=== PATIENT | female | born 1940 | race Caucasian/White ===

== ENCOUNTER 2017-10-10 08:12 | Inpatient (IN) | payer MEDICARE, MEDICAID ==
[2017-10-10 08:51] LABS: #Lymphocytes 1.6 thou/uL (1.20-3.40); #Monocytes 1.1 thou/uL (0.11-0.59); #Neutrophils 12.9 thou/uL (1.40-6.50); %Basophils 0.2 % (0.0-1.0); %Eosinophils 0.3 % (0.0-10.0); %Lymphocytes 10.2 % (21.0-51.0); %Monocytes 7.3 % (0.0-10.0); %Neutrophils 82.1 % (42.0-75.0); Mean Corpuscular Hemoglobin 28.3 pg (27.0-31.0); Mean Corpuscular Volume 91.4 fl (81.0-99.0); Mean Platelet Volume 7.9 fL (7.4-10.4); Platelet Count 224 thou/uL (130-400); RBC Distribution Width 13.7 % (11.5-14.5); Red Blood Cell (RBC) Count 4.24 mill/uL (4.20-5.40); White Blood Cell (WBC) Count 15.7 thou/uL (4.8-10.8)
[2017-10-10 09:10] LABS: ALT (SGPT) 8 U/L (8-55); AST (SGOT) 16 U/L (5-34); Albumin 3.5 g/dL (3.4-4.8); Alkaline Phosphatase 84 U/L (40-150); Anion Gap 17 mmol/L (10-20); BUN (Urea Nitrogen) 63 mg/dL (9.8-20.1); Bilirubin, Total 0.5 mg/dL (0.2-1.2); CK (CPK) 74 U/L (29-168); Calc. Creatinine Clearance 0 mL/min (70-130); Calcium 9.3 mg/dL (7.8-10.44); Carbon Dioxide 23 mmol/L (23-31); Chloride 102 mmol/L (98-107); Estimated GFR-MDRD 12; Globulin 4.7 g/dL (2.4-3.5); Glucose 164 mg/dL (83-110); Potassium 4.3 mmol/L (3.5-5.1); Protein, Total 8.2 g/dL (6.0-8.3); Sodium 138 mmol/L (136-145)
[2017-10-10 09:13] LABS: Troponin I 0.106 ng/mL (< 0.028)
[2017-10-10] MEDS ORDERED: Morphine 2 MG/ML SYRINGE ONE (09:44)
[2017-10-10 10:43] LABS: Bilirubin Negative (Negative); Blood, Urine Negative (Negative); Clarity CLOUDY (Clear); Glucose, Urine (Dipstick) 100 mg/dL (Negative); Leukocyte Trace (Negative); Nitrite Negative (Negative); Protein, Urine (Dipstick) 300 mg/dL (Neg-Trace); Specific Gravity, Urine 1.019 (1.002-1.036); Urobilinogen 0.2 mg/dL (0.2-1.0)
[2017-10-10 10:48] LABS: Bacteria/HPF None Seen HPF (None Seen); RBC/HPF 0-3 HPF (0-3)
[2017-10-10 10:49] LABS: Pathc Cast-AUWi Flag 15.71 (0-2.49); Yeast-AUWi Flag 203.5 (0-25.0)
[2017-10-10 11:01] LABS: Hyaline Casts/LPF 0-3 HYALINE CAST LPF (0-3 Hyaline); Other Casts/LPF 0-3 COARSE GRAN LPF (0-3 Hyaline)
--- NOTE | 2017-10-10 11:01 | RAD ---
PORTABLE CHEST 1 VIEW: DATE: 10/10/17. TIME: 10:27 a.m. HISTORY: Shortness of breath and wheezing. FINDINGS: Comparison is made with the exam of 10/31/15. The heart is enlarged. The aorta is tortuous. There is pulmonary vascular congestion. No lobar con solidation, pneumothoraces, or large effusions are seen. IMPRESSION: Findings are suspicious for congestive heart failure. POS: DIONICIO
[2017-10-10 11:02] LABS: Crystals/HPF 2+ AMORPH URATES HPF (Negative); Yeast-All Forms None Seen HPF (None Seen)
[2017-10-10] MEDS ORDERED: Nitroglycerin 2% Ointment 1 INCH/1 GM Packet ONE (11:04)
[2017-10-10] MEDS ORDERED: Furosemide 40 MG/4 ML VIAL ONE (11:04)
[2017-10-10] MEDS ORDERED: Azithromycin 500 MG VIAL ONE (11:39)
[2017-10-10] MEDS ORDERED: cefTRIAXone\\ROCEPHIN 2 GM in Sodium Chloride 0.9% 100 ML IVPB ONE (11:45)
[2017-10-10] MEDS ORDERED: Dextrose 50% Abboject 50 ML SYRINGE SLOW IVP PRN (13:17)
[2017-10-10] MEDS ORDERED: HumaLOG 300 UNITS/3 ML VIAL SC PRN (13:17)
[2017-10-10] MEDS ORDERED: Dextrose 5% in Water 1,000 ML IV PRN (13:17)
[2017-10-10] MEDS ORDERED: Albuterol Sulfate 2.5 mg/3 ml Neb NEB PRN (13:19)
[2017-10-10 13:40] LABS: Hemoglobin A1c 5.3 % (4.0-6.0)
--- NOTE | 2017-10-10 14:48 | HP ---
CHIEF COMPLAINT: Shortness of breath. HISTORY OF PRESENT ILLNESS: This is a 77-year-old white female, morbidly obese. She has known histo ry of congestive heart failure, COPD, and type 2 diabetes mellitus. The patient has a history of dorothy vular disorder and is being closely monitored by Dr. Devries with every 6-month checkup. The patien jeffy has been feeling very weak and lethargic for the past 1 week associated with severe cough. She was unable to lie down flat since 2 days and because of the worsening shortness of breath and the cough, she decided to come to the ER today. The patient lives with her daughter and she is noted to be in acutely short of breath and saturations 95% when she came to the ER. She has been back to 90% after 2 liters of nasal cannula and she is noted to have elevated BNP of 700s and also mildly elevated trop onins, most likely demand ischemia. She denies having any chest pain. No nausea, no vomiting, no di arrhea, no constipation. The patient has no exposure to any flu. She had a flu test done in the ER which was negative. Chest x-ray was done which did not show any evidence of new infiltrate except fo r pulmonary edema. The patient had elevated white count and also had a UA positive which the patient could be having a urinary tract infection. PAST MEDICAL HISTORY: 1. Type 2 diabetes mellitus. 2. Morbid obesity. 3. Chronic obstructive pulmonary disease. 4. Congestive heart failure, likely diastolic dysfunction. 5. History of chronic atrial fibrillation, on chronic anticoagulation therapy. 6. Moderate to severe aortic stenosis. 7. Chronic kidney disease stage 4. 8. Seasonal allergies and chronic anemia. PAST SURGICAL HISTORY: No known past surgical history was noted. SOCIAL HISTORY: The patient denies any smoking. No history of alcohol, no history of illicit drug u se. She does admit to passive smoking to her parents and she is on oxygen at home. FAMILY HISTORY: She does have a strong family history of premature coronary artery disease and strok e and also has a history of cancer. REVIEW OF SYSTEMS: All 12 systems are reviewed with the patient thoroughly. The following complete review of systems was negative, unless otherwise mentioned in the HPI or below: Constitutional: Weight loss or gain, sense of well-being, ability to conduct usual activities, exerc ise tolerance. Skin/Breast: Rash, itching, changes in hair growth or loss, nail changes, breast lumps, tenderness, swelling, nipple discharge. Eyes: Vision, double vision, tearing, blind spots, pain. ENT/Mouth: Headaches (location, time of onset, duration, precipitating factors), vertigo, lightheade dness, injury. Vision, double vision, tearing, blind spots, pain, nose bleeding, colds, obstruction, discharge, dental difficulties, gingival bleeding, dentures, neck stiffness, pain, tenderness, cristy s in thyroid or other areas. Cardiovascular: Precordial pain, substernal distress, palpitations, syncope, dyspnea on exertion, or thopnea, nocturnal paroxysmal dyspnea, edema, cyanosis, hypertension, heart murmurs, varicosities, ph lebitis, claudication. Respiratory: Pain, shortness of breath, wheezing, stridor, cough, hemoptysis, fever or night sweats Gastrointestinal: Poor appetite, dysphagia, indigestion, abdominal pain, heartburn, eructation, naus ea, vomiting, hematemesis, jaundice, constipation, or diarrhea, abnormal stools (camila-colored, tarry, bloody, greasy, foul smelling), flatulence, hemorrhoids, recent changes in bowel habits. Genitourinary: Urgency, frequency, dysuria, nocturia, hematuria, polyuria, oliguria, unusual (or flaco nge in) color of urine, stones, hesitancy, change in size of stream, dribbling, acute retention or in continence, libido, potency. Musculoskeletal: Pain, swelling, redness or heat of muscles or joints, limitation, of motion, muscul ar weakness, atrophy, cramps. Neurologic/Psychiatric: Convulsions, paralyses, tremor, incoordination, parasthesias, difficulties w ith memory of speech, sensory or motor disturbances, or muscular coordination (ataxia, tremor), emoti onal problems, anxiety, depression, previous psychiatric care, unusual perceptions, hallucinations. Allergy/Immunologic: Skin rash, anemia, bleeding tendency, polydipsia, polyuria, intolerance to heat or cold. ALLERGIES: SULFA DRUGS. HOME MEDICATIONS: 1. Aspirin 81 mg daily. 2. Lasix 40 mg daily. 3. Simvastatin 40 mg daily. 4. Protonix 40 mg daily. 5. Isosorbide dinitrate 20 mg p.o. b.i.d. 6. Insulin glargine 15 units subcutaneously b.i.d. 7. Insulin aspart 6 units with meals. 8. Hydrocodone. 9. Hydralazine 25 mg p.o. b.i.d. 10. Fluticasone nasal spray 1 spray nasal daily. 11. Ferrous sulfate 325 mg daily. 12. Docusate. 13. Amlodipine 5 mg p.o. daily. PHYSICAL EXAMINATION: VITAL SIGNS: Blood pressures are 160/80, heart rate is 88, respiratory rate is 20, saturation is 92% on 3 liters. GENERAL: The patient is morbidly obese. She is alert and oriented. She is seen sitting on the bed on nasal cannula oxygen. HEENT: Atraumatic, normocephalic. PERRLA. Extraocular muscles are intact. Oral mucosa is pink and moist. CARDIOVASCULAR: S1 and S2 normal. Murmur is heard, which is more of a systolic murmur grade 3. LUNGS: Bilateral air entry was reduced with wheezing noted in the lower bases and also crackles. No acute signs of respiratory distress was noted. MUSCULOSKELETAL: No calf tenderness. Pedal edema was noted up to 3+ up to the knees. No joint tend erness, no joint swelling. SKIN: No cyanosis, no erythema, no rash, no pallor. CENTRAL NERVOUS SYSTEM: Cranial nerve examination II-XII intact. No focal deficits were noted. LYMPHATIC: No evidence of any lymph nodes were noted. No lymphadenopathy. PSYCHIATRIC: No suicidal ideation. No signs of pasha. No agitation was noted. NECK: Has clear evidence of JVD, but no thyromegaly, and no lymphadenopathy. LABORATORY DATA: WBC 15.7, hemoglobin is 12.0, hematocrit is 38.8, platelets 224. Sodium 130, potassium 4.3, chloride 102, bicarbonate 23, BUN 63, creatinine 3.68, blood sugar is 164, troponin 0.12. BNP 787. UA was positive for urinary tract infection. ASSESSMENT: 1. Acute hypoxic respiratory failure. 2. Acute congestive heart failure, diastolic dysfunction. 3. Acute on chronic aortic stenosis. 4. Acute pyelonephritis. 5. Chronic obstructive pulmonary disease. No evidence of any exacerbation. 6. History of atrial fibrillation. 7. Type 2 diabetes mellitus, well-controlled. 8. Morbid obesity. PLAN: 1. The plan is to start the patient on Lasix 40 mg IV b.i.d. and we will closely monitor urine outpu t and daily weights. I will put her on a low sodium diet and will consult Cardiology, Dr. Jaycob bejarano ill do the 2D echo. We will look for any evidence of worsening aortic stenosis. 2. The patient has history of COPD. No evidence of an exacerbation is noted. We will continue with the DuoNebs and albuterol nebulizer treatments as needed. 3. The patient has type 2 diabetes mellitus, will do a hemoglobin A1c. We will continue the patient on home dose of Levemir of 15 units and NovoLog mealtime with sliding scale insulin. Plan to keep t he blood sugars in the 140-180. 4. The patient has evidence of urinary tract infection, has elevated white count of 15,000. At this time, we will start the patient on Rocephin 1 gram daily. We will wait for the urine cultures. 5. The patient has history of chronic atrial fibrillation. She is not on beta cyndi. We will add Coreg 3.125 mg p.o. b.i.d. 6. The patient is also not on lisinopril. We will add 2.5 mg of lisinopril. 7. DVT prophylaxis is Lovenox. I spent 70 minutes on this patient.
[2017-10-10 15:16] LABS: Troponin I 0.136 ng/mL (< 0.028)
[2017-10-10] MEDS ORDERED: HYDROcodone/Acetaminophen 5/325 mg Tablet PO PRN (15:48)
[2017-10-10] MEDS ORDERED: Ondansetron ODT 4 MG TAB PO PRN (15:48)
[2017-10-10] MEDS ORDERED: Senokot 8.6 MG TAB PO PRN (15:48)
[2017-10-10] MEDS ORDERED: Ondansetron HCl/PF 4 MG/2 ML Vial IVP PRN (15:48)
[2017-10-10] MEDS ORDERED: Bisacodyl 5 MG TAB PO PRN (15:48)
[2017-10-10] MEDS ORDERED: cefTRIAXone\\ROCEPHIN 1 GM in Sodium Chloride 0.9% 100 ML IVPB SCH (15:48)
[2017-10-10] MEDS ORDERED: Furosemide 40 MG/4 ML VIAL SLOW IVP SCH (16:15)
[2017-10-10] MEDS ORDERED: INSULIN ASPART 6 UNIT SC SCH (17:00)
[2017-10-10] MEDS: HumaLOG 300 UNITS/3 ML VIAL SC SCH (17:25)
[2017-10-10] MEDS ORDERED: Non-Formulary Item 1 EACH (Insulin Glargine,Hum.Rec.Anlog 15 UNIT) SQ SCH (21:00)
[2017-10-10] MEDS: Isosorbide Dinitrate 20 MG TAB PO SCH (21:21)
[2017-10-10] MEDS: Carvedilol 3.125 MG TAB PO SCH (21:22)
[2017-10-10] MEDS: Atorvastatin Calcium 20 MG TAB PO SCH (21:22)
[2017-10-10] MEDS: Heparin 5,000 UNITS/ML VIAL SC SCH (21:22)
[2017-10-10] MEDS: Insulin Detemir 100 UNITS/ML 15 UNITS in Pre-Filled Syringe 1 EACH SC SCH (21:23)
[2017-10-10] MEDS: Famotidine/PF 20 mg/2ml Vial SLOW IVP SCH (21:23)
--- NOTE | 2017-10-11 02:29 | ADD-CON ---
ADDENDUM DATE OF ADMISSION: 10/10/2017 DATE OF CONSULTATION: 10/10/2017 Please refer to the notes already dictated by the nurse practitioner Blanca. INDICATION FOR CONSULTATION: This is a 77-year-old female with congestive heart failure exacerbation . HISTORY OF PRESENT ILLNESS: This very unfortunate 77-year-old female with morbid obesity and multipl e medical problems, which include diabetes, morbid obesity, hypertension, aortic valve stenosis and c hronic kidney disease, who was at home, she has been sick for approximately a week with some coughing and somewhat productive sputum and became increasingly short of breath and presented to the emergenc y room and was admitted to the hospital for further evaluation and treatment. She appears to have so me degree of decompensation. She improved significantly after she was given diuretics in the emergen cy room, but she still has some shortness of breath and coughing. She has been seen by Dr. Devries for several years and has been and by her last echocardiogram was noted that she does have aortic dorothy ve stenosis which is felt to be severe. She had normal ejection fraction due to her obesity and [facility] problems with renal insufficiency. She is not felt to be a very good candidate for aortic valve r eplacement. She eventually may need to undergo a TAVR replacement, which again is somewhat risky in the patient given her morbid obesity and her chronic kidney disease. PHYSICAL EXAMINATION: VITAL SIGNS: On my evaluation at this time, she is still short of breath. Her vital signs blood pre ssure of 128/60. She is afebrile. Heart rate is 60 beats per minute and respiratory rate is 22 beat s per minute, and O2 saturations are 93%. HEENT: Shows the head to be normocephalic, atraumatic. Carotid pulses are present. I did not hear any significant bruits. CHEST: Has decreased breath sounds with wheezing bilaterally, expiratory wheezing. CARDIOVASCULAR: Reveals a regular rhythm. She does have a systolic murmur over the aortic area. He art sounds are somewhat distant. ABDOMEN: Shows morbid obesity. I cannot palpate any palpable masses or tenderness. EXTREMITIES: Showed no clubbing or cyanosis. She did have some mild left ankle edema and lower leg edema, but this is not significant. Pulses are present. NEUROLOGIC: She appears to be intact. She did have some coughing episodes doing the evaluation. IMPRESSION: 1. Congestive heart failure exacerbation, most likely, which is diastolic in nature and may be assoc iated with her overall coughing and recent respiratory tract infection with her morbid obesity as wel l as the aortic valve stenosis. We will continue to monitor very carefully. She did have improvemen t after being given IV diuretics, we will continue this. She may also need to be seen by the nephrol ogist due to her chronic kidney disease, her creatinine level has been elevated and today the creatin ine level is 3.68 with a BUN of 63. We will ask for the foam gun operator to see the patient. 2. History of diabetes, this will be managed by the primary care service. 3. Slight elevation of cardiac enzymes, which is most likely still indeterminate. Her BNP also was moderately elevated at 787 and most likely this will improve after some diuretics. If she does not i mprove, then she may need to undergo the aortic valve replacement sooner, but at this time as it appe ars that she has respiratory problems that will need to be addressed. She most likely has some histo ry of bronchitis or early pneumonia. She was given 1 gram of Rocephin in the emergency room due to a lso a urinary tract infection. I do not see that she is on any other antibiotics at this time. Plea se refer to the notes already dictated. I would agree with the assessment and plan. We will continu e to follow her very carefully, but this unfortunate lady has multiple problems and long-term prognos is is poor. ADDENDUM: Please note also one of her diagnosis is also intermittent atrial fibrillation and this evening it ap pears that she is also have episodes of atrial fibrillation. The rate appears to be reasonably well controlled. She had been, I believe, on blood thinners in the past and had a GI bleed. So, she is a poor candidate to be on oral anticoagulation. At this time, we will continue to monitor her and per haps, she will be started on heparin 5000 units subcu b.i.d. and we will continue to monitor her for any evidence of bleeding.
--- NOTE | 2017-10-11 02:33 | CON ---
DATE OF CONSULTATION: 10/10/2017 PRIMARY CARE PHYSICIAN: Laura De Anda M.D. PRIMARY TRIPE COOKER: Reymundo Devries M.D. REASON FOR CARDIOLOGY CONSULTATION: Congestive heart failure. HISTORY OF PRESENT ILLNESS: Ms. Cox is 77-year-old female with a significant history of chronic diastolic heart failure, severe aortic valve stenosis, chronic kidney disease, insulin-dependent type 2 diabetes, and morbid obesity. The patient presented to [facility] emergency department due to the worsening of shortness of breath, weakness, and nausea. The patient was sick due to cold/possible flu for 1 week and she was prescribed some antibiotics. She started taking that medication since the ; however, due to nausea from antibiotic, she could not eat well and noticed her shortness of breath was becoming worse. Therefore, she decided to present to the ER for further evaluation and treatment. She complains of chest pain from severe cough and could not sleep in the supine position for last 2 days. She had to sleep on a recliner because of the worsening of the shortness of breath. The patient denies discomfort or heaviness in her chest, palpitation or fluttering in her chest, diaphoresis, numbness into the left upper extremity, or any other cardiac complaints. The patient reports that the patient's shortness of breath has improved after the patient received IV Lasix at the ER. The patient's last Echocardiogram was taken in 01/[address] Devries's office , which shows an EF of 60%-65% moderately dilated left atrium, severe aortic valve restenosis, and moderate mitral valve regurgitation. She never underwent cardiac catheterization before and she had a history of paroxysmal atrial fibrillation; however, she is not on any anticoagulant due to a history of GI bleed with Coumadin. She uses home O2 03/05. She had severe sleep apnea and uses CPAP at night. Her last congestive heart failure clinic visit was in 2013 according to the office visit record. She is morbidly obese and requires a wheelchair for transportation; however, she can transfer herself from the bed to wheelchair herself. PAST MEDICAL HISTORY: 1. Hypertension. 2. Insulin-dependent diabetes. 3. Severe aortic valve stenosis. 4. Hyperlipidemia. 5. Chronic kidney disease stage 4-5. She follows up with Dr. Underwood. 6. History of GI bleed with Coumadin. 7. Using home O2. 8. Severe sleep apnea. 9. Proximal atrial fibrillation. 10. Chronic diastolic heart failure. 11. Morbid obesity. PAST SURGICAL HISTORY: 1. x2. 2. Total hysterectomy. FAMILY HISTORY: There is no significant cardiovascular family history in her family. SOCIAL HISTORY: She lives with her daughter and grandson. She denies tobacco, alcohol, or illicit drug abuse. She has a sedentary lifestyle. She is not active at all. ALLERGIES: She has no known drug allergies. HOME MEDICATIONS: 1. Calcitriol 0.25 one tablet once a day. 2. Simvastatin 40 mg once a day. 3. Isosorbide dinitrate 20 mg twice a day. 4. Furosemide 20 mg twice a day. 5. Levocetirizine 5 mg one tablet once a day. 6. NovoLog 6 units before each meal. 7. Lantus per insulin protocol. 8. Hydralazine 25 mg 2 tablets in the morning, 1 tablet in the evening. 9. Amlodipine 5 mg once a day. 10. Vitamin D3 2000 units 1 tablet once a day. 11. Aspirin 81 mg twice a day. REVIEW OF SYSTEMS: The following complete review of systems was negative, unless otherwise mentioned in the HPI or below. Constitutional: Weight loss or gain, sense of well being, ability to conduct usual activities, exercise intolerance. Skin: Rash, itching, change in hair growth or loss, nail changes , breast lumps, tenderness, swelling, redness, or nipple discharge. Eyes: Positive for vision blindness into her left eye due to neuropathy, but negative to vision change, double vision, tearing, blind spots, or pain to the right eye. HEENT: Headache, vertigo, lightheadedness, nose bleeding, cold, obstruction, discharge, dental difficulty, gingival bleeding, dentures, neck stiffness, pain, tenderness, mass in the thyroid or other areas. Cardiovascular : Precordial pain, substernal distress, palpitations, syncope, dyspnea on exertion, cyanosis, claudication. Respiratory: No wheezing, stridor, hemoptysis. Gastrointestinal: Dysphagia, indigestion, abdominal pain, heartburn, nausea, vomiting, jaundice, constipation, or diarrhea, blood in the stool. Genitourinary: Urgency, frequency, dysuria, nocturia, hematuria, polyuria, oliguria, unusual color of urine. Musculoskeletal: Pain, swelling, redness, or heat of muscle and joint, limitation of motion for herself compared with previous situation. Neurologic: Seizure, conversion, paralysis, tremor, incoordination, difficulty with memory of speech, sensory or motor disturbance. Psychiatric: Emotional problem, anxiety, depression, previous psychiatric care, unusual perception, or hallucination. PHYSICAL EXAMINATION: VITAL SIGNS: Blood pressure 134/67, heart rate 75, sinus rhythm, respiratory rate 24, oxygen level 92% with 3 liters nasal cannula, temperature 98.3. GENERAL: Well-developed, well-nourished without any acute distress. HEAD: Normocephalic, atraumatic. EYES: Extraocular muscle movement intact. ENT: Oral and nasal mucosae were moist without lesion. NECK: No JVD. Supple and normal range of motion. LUNGS: Diminished at the bases. No wheezing, rales, or rhonchi noted. CARDIOVASCULAR: Sinus rhythm to or, normal S1, S2. There is no S3 or S4. There was significant murmur on the left in the sternal border line but no hives , thrills, bruits, or rubs noted. There are 2+ pulses in bilateral dorsalis pedis, posterior tibial, and popliteal. Carotid pulses are present without bruits or thrill. There are 1-2 pitting edema to the left lower extremities. ABDOMEN: Soft, nontender, no masses to palpate, but due to morbidly obese, there is some difficulty to palpate, but bowel sounds were present. MUSCULOSKELETAL: Able to move all extremities. SKIN: Warm and dry. No skin rash, lesion, or bruise noted. NEUROLOGIC: Alert, oriented x4, awake. Normal affect. Nonfocal. PSYCHIATRIC: Mood and affect are normal. EKG: A 12-lead EKG at the ER showed sinus rhythm with first-degree AV block and heart rate [address] segment change, no T-wave inversion. The patient' s chest x-ray shows no significant evidence of new infiltrates except for pulmonary edema. LABORATORY DATA: WBC 15.7, hemoglobin 12.0, hematocrit 30.8, platelets 224. Sodium 138, potassium 4.3, BUN is 63, creatinine 3.68. Hemoglobin A1c is 5.3. AST is 16, ALT 8, CK-MB 1.0, troponin, 0.106, 0.120, 0.136. BNP is 787. ASSESSMENT AND PLAN: 1. Acute on chronic diastolic heart failure. The patient reports that the condition of shortness of breath has improved after the patient received IV Lasix at the ER. Despite the patient's creatinine level, we would like to continue IV Lasix at this moment until the patient's shortness of breath improve. The patient's echocardiogram was already ordered by patient's primary care doctor. 2. Paroxysmal atrial fibrillation. At this time, telemetry records show sinus rhythm at this moment. Due to the history of gastrointestinal bleed, she is not on any oral anticoagulant at this moment. 3. Chronic kidney disease. The patient's creatinine is elevated today. We would like to continue to monitor. Nephrology consult may be beneficial for this patient. The patient's Lovenox was changed to the heparin 5000 units twice a day. 4. Hypertension. The patient's blood pressure has been well controlled at this moment with current medication. We would like to continue to monitor and we will adjust the patient's blood pressure medication as appropriate. 5. Severe aortic valve stenosis. According to Dr. Devries's note, the patient is not a good candidate for AVR intervention at this moment. 6. We would like to continue to monitor and again, an echocardiogram was ordered by primary care doctor at this admission. 7. Insulin-dependent diabetes. The patient is on insulin, managed by primary care doctor. 8. Hyperlipidemia. The patient is on the statin medication. We would like to continue. 9. Sleep apnea. At this moment, the patient's condition is stable. Thank you very much for allowing Cardiology Service to participate in the care of this patient and we will follow along with the patient's care team and make further recommendations as appropriate. KEELY
[2017-10-11 05:42] LABS: Anion Gap 15 mmol/L (10-20); BUN (Urea Nitrogen) 70 mg/dL (9.8-20.1); Calc. Creatinine Clearance 32 mL/min (70-130); Calcium 8.7 mg/dL (7.8-10.44); Carbon Dioxide 25 mmol/L (23-31); Chloride 101 mmol/L (98-107); Estimated GFR-MDRD 11; Glucose 103 mg/dL (83-110); Potassium 4.1 mmol/L (3.5-5.1); Sodium 137 mmol/L (136-145)
[2017-10-11 05:55] LABS: #Eosinphils 0.1 thou/uL (0.0-0.7); #Lymphocytes 1.5 thou/uL (1.20-3.40); #Monocytes 1.1 thou/uL (0.11-0.59); #Neutrophils 11.2 thou/uL (1.40-6.50); %Basophils 0.3 % (0.0-1.0); %Eosinophils 0.5 % (0.0-10.0); %Lymphocytes 10.4 % (21.0-51.0); %Monocytes 7.9 % (0.0-10.0); %Neutrophils 80.8 % (42.0-75.0); Hemoglobin 10.2 g/dL (12.0-16.0); Mean Corpuscular HGB CONC 29.9 g/dL (32.0-36.0); Mean Corpuscular Hemoglobin 27.4 pg (27.0-31.0); Mean Corpuscular Volume 91.7 fl (81.0-99.0); Mean Platelet Volume 7.9 fL (7.4-10.4); Platelet Count 201 thou/uL (130-400); RBC Distribution Width 13.8 % (11.5-14.5); Red Blood Cell (RBC) Count 3.71 mill/uL (4.20-5.40); White Blood Cell (WBC) Count 13.9 thou/uL (4.8-10.8)
[2017-10-11] MEDS ORDERED: Furosemide 40 MG/4 ML VIAL SLOW IVP SCH (06:00)
[2017-10-11] MEDS: Heparin 5,000 UNITS/ML VIAL SC SCH ×2 (08:56→21:13)
[2017-10-11] MEDS: Amlodipine 5 MG TAB PO SCH (08:57)
[2017-10-11] MEDS: Ferrous Sulfate 325 MG TAB PO SCH (08:57)
[2017-10-11] MEDS: Isosorbide Dinitrate 20 MG TAB PO SCH ×2 (08:58→21:13)
[2017-10-11] MEDS: Acetaminophen 325 MG TAB PO PRN ×2 (08:58→22:06)
[2017-10-11] MEDS: Carvedilol 3.125 MG TAB PO SCH ×2 (08:58→21:13)
[2017-10-11] MEDS ORDERED: Lisinopril 2.5 MG TAB PO SCH (09:00)
[2017-10-11] MEDS ORDERED: Enoxaparin Sodium 40 MG/0.4 ML SYRINGE SC SCH (09:00)
[2017-10-11] MEDS: HumaLOG 300 UNITS/3 ML VIAL SC SCH ×3 (09:04→18:04)
[2017-10-11] MEDS: Insulin Detemir 100 UNITS/ML 15 UNITS in Pre-Filled Syringe 1 EACH SC SCH ×2 (09:04→21:13)
[2017-10-11] MEDS: Fluticasone Propionate Nasal Spray 16 gm Bottle NASAL SCH (09:07)
--- NOTE | 2017-10-11 10:55 | PDOC.PN ---
- Subjective Encounter Start Date: 10/11/17 Encounter Start Time: 08:30 Patient is seen today, alert and oriented. She is working with PT sitting in her Bed, feels little better today. - Objective Resuscitation Status: Resuscitation Status FULL:Full Resuscitation MAR Reviewed: Yes Vital Signs & Weight: Vital Signs (12 hours) Temp Pulse Resp BP BP BP Pulse Ox 10/11/17 08:57 72 153/69 H 10/11/17 08:00 98.1 F 72 20 153/69 H 92 L 10/11/17 07:30 98 F 60 20 92 L 10/11/17 06:52 98 F 60 20 122/57 L 138/65 93 L 10/11/17 02:21 64 18 94 L Weight Weight 355 lb 8 oz I&O: 10/10/17 10/11/17 10/12/17 06:59 06:59 06:59 Intake Total 1182 300 Balance 1182 300 Result Diagrams: 10/11/17 05:07 10/11/17 05:07 Additional Labs: Accuchecks 10/11/17 10/10/17 10/10/17 05:40 20:34 17:02 POC Glucose 100 174 H 224 H Radiology Reviewed by me: Yes Phys Exam - Physical Examination HEENT: PERRLA, moist MMs Neck: no nodes Respiratory: wheezing present (Rales and Crackles) Cardiovascular: RRR, no significant murmur Gastrointestinal: soft, non-tender Musculoskeletal: edema present Neurological: non-focal, moves all 4 limbs Psychiatric: normal affect, A&O x 3 Dx/Plan (1) Acute diastolic CHF (congestive heart failure) Code(s): I50.31 - ACUTE DIASTOLIC (CONGESTIVE) HEART FAILURE Status: Acute Plan: Patient SOB is Improving, she is still volume Overloaded, Has Worsening Renal Fucntions, Will reduce the lasix 20mg IV BID, Cardiology on Board. (2) Urinary tract infection Status: Acute Plan: Continue with Rocephin, Will wait for urine Culture. (3) Chronic atrial fibrillation Code(s): I48.2 - CHRONIC ATRIAL FIBRILLATION Status: Chronic Plan: Patient rate controlled, no Anticoagulation due to previos GI Bleed. Comment: Bradycardic- off multaq (4) Chronic kidney disease stage 4 Code(s): N18.4 - CHRONIC KIDNEY DISEASE, STAGE 4 (SEVERE) Status: Chronic Plan: Worsening Renal failure Acute on CKD4, will consult Nephrology, pt maybe close to Dialysis and need Volume to be removed through HD this visit if not responding to Dialaysis. (5) Diabetes mellitus type 2 Code(s): E11.9 - TYPE 2 DIABETES MELLITUS WITHOUT COMPLICATIONS Status: Chronic Plan: Will continue with home dose insulin, SSI. Keep BG 140-180. Comment: Managed by PCP (6) Hypertension Code(s): I10 - ESSENTIAL (PRIMARY) HYPERTENSION Status: Chronic Qualifiers: Hypertension type: essential hypertension Qualified Code(s): I10 - Essential (primary) hypertension Plan: [place], Will continue Home MEds, With CKD/ DM and CHF, keep BP <130/80. (7) Morbid obesity Code(s): E66.01 - MORBID (SEVERE) OBESITY DUE TO EXCESS CALORIES Status: Chronic - Plan cont current plan of care, continue antibiotics, PT/OT, manager social services, DVT proph w/lovenox * . - Discharge Day Encounter end time: 09:00 Review of Systems - Review of Systems Constitutional: weakness, malaise Eyes: negative: Pain, Vision Change, Conjunctivae Inflammation, Eyelid Inflammation, Redness, Other ENT: negative: Ear Pain, Ear Discharge, Nose Pain, Nose Discharge, Nose Congestion, Mouth Pain, Mouth Swelling, Throat Pain, Throat Swelling, Other Respiratory: Cough, Shortness of Breath, SOB with Excertion, Wheezing Cardiovascular: negative: chest pain, palpitations, orthopnea, paroxysmal nocturnal dyspnea, edema, light headedness, other Gastrointestinal: negative: Nausea, Vomiting, Abdominal Pain, Diarrhea, Constipation, Melena, Hematochezia, Other Genitourinary: negative: Dysuria, Frequency, Incontinence, Hematuria, Retention , Other Musculoskeletal: negative: Neck Pain, Shoulder Pain, Arm Pain, Back Pain, Hand Pain, Leg Pain, Foot Pain, Other Skin: negative: Rash, Lesions, Jimbo, Bruising, Other Neurological: negative: Weakness, Numbness, Incoordination, Change in Speech, Confusion, Seizures, Other - Medications/Allergies Allergies/Adverse Reactions: Allergies Allergy/AdvReac Type Severity Reaction Status Date / Time sulfamethoxazole Allergy Verified 01/14/14 22:29 [From Bactrim] trimethoprim [From Bactrim] Allergy Verified 01/14/14 22:29 Medications: Current Medications Acetaminophen (Tylenol) 650 mg PO Q4H PRN PRN Reason: Headache/Fever or Pain Last Admin: 10/11/17 08:58 Dose: 650 mg Hydrocodone Bitart/Acetaminophen ([place] 5/325) 1 tab PO Q4H PRN PRN Reason: Moderate Pain (4-6) Albuterol Sulfate (Ventolin) 2.5 mg NEB Q2H PRN PRN Reason: Wheezing Albuterol/Ipratropium (Duoneb) 3 ml NEB [id number] [facility] Last Admin: 10/11/17 02:21 Dose: 3 ml Amlodipine Besylate (Norvasc) 5 mg PO DAILY [facility] Last Admin: 10/11/17 08:57 Dose: 5 mg Atorvastatin Calcium (Lipitor) 20 mg PO HS [facility] Last Admin: 10/10/17 21:22 Dose: 20 mg Bisacodyl (Dulcolax) 10 mg PO DAILYPRN PRN PRN Reason: Constipation Carvedilol (Coreg) 3.125 mg PO BID [facility] Last Admin: 10/11/17 08:58 Dose: 3.125 mg Dextrose/Water (Dextrose 50%) 25 gm SLOW IVP PRN PRN PRN Reason: Hypoglycemia Famotidine (Pepcid) 20 mg SLOW IVP Q24HR [facility] Last Admin: 10/10/17 21:23 Dose: 20 mg Ferrous Sulfate (Feosol) 325 mg PO QAM-WM [facility] Last Admin: 10/11/17 08:57 Dose: 325 mg Fluticasone Propionate (Flonase Nasal [place]) 0 gm NASAL DAILY [facility] Last Admin: 10/11/17 09:07 Dose: 1 spr Furosemide (Lasix) 20 mg SLOW IVP 0600,1400 [facility] Glucagon (Glucagon) 1 mg IM PRN PRN PRN Reason: Hypoglycemia Guaifenesin/Dextromethorphan (Robitussin Dm) 15 ml PO Q4H PRN PRN Reason: Cough Heparin Sodium (Porcine) (Heparin) 5,000 units SC BID [facility] Last Admin: 10/11/17 08:56 Dose: Not Given Dextrose/Water (D5w) 1,000 mls @ 0 mls/hr IV .Q0M PRN; As Directed PRN Reason: Hypoglycemia Insulin Detemir 15 units/ (Miscellaneous Medication) 0.15 mls @ 0 mls/hr SC BID [facility] Last Admin: 10/11/17 09:04 Dose: 0.15 mls Ceftriaxone Sodium 1 gm/ (Syringe 0.4 ml/ Sterile Water) 10 mls @ 120 mls/hr SLOW IVP 1200 [facility] Insulin Human Lispro (Humalog) 0 units SC .MODERATE SLIDING SC PRN PRN Reason: Moderate Correctional Scale Insulin Human Lispro (Humalog) 6 units SC AC [facility] Last Admin: 10/11/17 09:04 Dose: 6 unit Isosorbide Dinitrate (Isordil) 20 mg PO BID [facility] Last Admin: 10/11/17 08:58 Dose: 20 mg Ondansetron HCl (Zofran Odt) 4 mg PO Q6H PRN PRN Reason: Nausea/Vomiting Ondansetron HCl (Zofran) 4 mg IVP Q6H PRN PRN Reason: Nausea/Vomiting Senna (Senokot) 2 tab PO HSPRN PRN PRN Reason: Constipation
[2017-10-11] MEDS: cefTRIAXone\\ROCEPHIN 1 GM, Syringe 0.4 ML in Sterile Water 9.6 ML SLOW IVP SCH (12:16)
--- NOTE | 2017-10-11 12:35 | PDOC.CTH ---
<Blanca Montaño - Last Filed: 10/11/17 12:22> Cardiology Progress Note - Subjective The pt seen and examined. No overnight events. No cardiac complaints. She reported that she can breath much better today although she still cont. coughing. She also reported she is voiding well today with Lasix. She uses diapers - Objective Vital Signs Temp Pulse Resp BP BP BP Pulse Ox 10/11/17 11:50 76 16 10/11/17 08:57 72 153/69 H 10/11/17 08:00 98.1 F 72 20 153/69 H 92 L 10/11/17 07:30 98 F 60 20 92 L 10/11/17 06:52 98 F 60 20 122/57 L 138/65 93 L 10/11/17 02:21 64 18 94 L Weight 355 lb 8 oz 10/10/17 10/11/17 10/12/17 06:59 06:59 06:59 Intake Total 1182 300 Balance 1182 300 - Physical Examination General/Neuro: alert & oriented x3 Neck: no JVD present Lungs: other: (diminished at bases) Heart: other: (irregular) Abdomen: soft Extremities: other: (No edemas) - Telemetry Telemetry Rhythm: Aflutter 80s - Labs Result Diagrams: 10/11/17 05:07 10/11/17 05:07 Troponin/CKMB CK-MB (CK-2) 1.0 ng/mL (0-6.6) 10/10/17 08:34 Troponin I 0.136 ng/mL (< 0.028) H 10/10/17 14:41 - Assessment/Plan 1. Acute on chronic diastolic HF - improved with Lasix IV; Due to worsening of renal function, Lasix IV was changed to 20mg BID; cont. monitor 2. Paroxymal Afib/Aflutter - remains Aflutter with controlled HR; cont. monitor on tele 3. UTI - on IV antibiotics; managed by PCP 4. CKD stage 4 - Nephrology consult 5. HTN - stable; cont. monitor 6. DM type 2 - managed by PCP 7. Hyperlipidemia - on Statin 8. Sleep apnea - stable; she uses Home O2 3.5LNC 9. Morbid obesity MAR reviewed Review of Systems - Review of Systems Constitutional: reports: no symptoms reported EENTM: reports: no symptoms reported Respiratory: reports: see HPI Cardiac (ROS): reports: no symptoms reported ABD/GI: reports: no symptoms reported : reports: no symptoms reported Musculoskeletal: reports: no symptoms reported <Lucila Scott - Last Filed: 10/11/17 18:33> Cardiology Progress Note - Objective Vital Signs Temp Pulse Pulse Pulse Pulse Resp BP 10/11/17 16:00 97.5 F L 56 L 20 10/11/17 14:50 57 L 16 10/11/17 12:33 98.0 F 76 20 10/11/17 11:50 76 16 10/11/17 09:25 76 77 74 10/11/17 08:57 72 153/69 H 10/11/17 08:00 98.1 F 72 20 10/11/17 07:30 98 F 60 20 10/11/17 06:52 98 F 60 20 BP BP BP BP BP Pulse Ox 10/11/17 16:00 122/60 92 L 10/11/17 14:50 10/11/17 12:33 141/59 H 92 L 10/11/17 11:50 10/11/17 09:25 144/68 H 160/72 H 146/70 H 10/11/17 08:57 10/11/17 08:00 153/69 H 92 L 10/11/17 07:30 92 L 10/11/17 06:52 122/57 L 138/65 93 L Admit Weight 354 lb Weight 355 lb 8 oz 10/10/17 10/11/17 10/12/17 06:59 06:59 06:59 Intake Total 1182 900 Balance 1182 900 - Labs Result Diagrams: 10/11/17 05:07 10/11/17 05:07 Troponin/CKMB CK-MB (CK-2) 1.0 ng/mL (0-6.6) 10/10/17 08:34 Troponin I 0.136 ng/mL (< 0.028) H 10/10/17 14:41 - Assessment/Plan Pt. seen and eval. by me. She feels better but still coughing. Chest with coarse scattered rhonchi. HR controlled. Atrial flutter. I agree with the A/P by the GENERAL II [employer].
[2017-10-11] MEDS: Guaifenesin DM 100-10/5 ML UDCUP PO PRN (12:36)
[2017-10-11] MEDS: Furosemide 20 MG/2 ML VIAL SLOW IVP SCH (14:36)
[2017-10-11] MEDS: Famotidine/PF 20 mg/2ml Vial SLOW IVP SCH (21:13)
[2017-10-11] MEDS: Atorvastatin Calcium 20 MG TAB PO SCH (21:13)
[2017-10-12 05:45] LABS: #Eosinphils 0.2 thou/uL (0.0-0.7); #Lymphocytes 1.5 thou/uL (1.20-3.40); #Monocytes 0.9 thou/uL (0.11-0.59); #Neutrophils 8.2 thou/uL (1.40-6.50); %Basophils 0.1 % (0.0-1.0); %Eosinophils 1.5 % (0.0-10.0); %Lymphocytes 14.2 % (21.0-51.0); %Monocytes 8.2 % (0.0-10.0); %Neutrophils 75.9 % (42.0-75.0); Hemoglobin 10.6 g/dL (12.0-16.0); Mean Corpuscular HGB CONC 30.8 g/dL (32.0-36.0); Mean Corpuscular Volume 91.1 fl (81.0-99.0); Mean Platelet Volume 8.3 fL (7.4-10.4); Platelet Count 199 thou/uL (130-400); RBC Distribution Width 13.6 % (11.5-14.5); Red Blood Cell (RBC) Count 3.78 mill/uL (4.20-5.40); White Blood Cell (WBC) Count 10.8 thou/uL (4.8-10.8)
[2017-10-12 06:09] LABS: Anion Gap 15 mmol/L (10-20); BUN (Urea Nitrogen) 82 mg/dL (9.8-20.1); Calc. Creatinine Clearance 30 mL/min (70-130); Calcium 8.8 mg/dL (7.8-10.44); Carbon Dioxide 25 mmol/L (23-31); Chloride 100 mmol/L (98-107); Estimated GFR-MDRD 11; Glucose 82 mg/dL (83-110); Sodium 136 mmol/L (136-145)
[2017-10-12] MEDS: Furosemide 20 MG/2 ML VIAL SLOW IVP SCH ×2 (06:44→14:45)
[2017-10-12] MEDS: Ferrous Sulfate 325 MG TAB PO SCH (08:19)
[2017-10-12] MEDS: Carvedilol 3.125 MG TAB PO SCH ×2 (08:20→20:29)
[2017-10-12] MEDS: Amlodipine 5 MG TAB PO SCH (08:20)
[2017-10-12] MEDS: Fluticasone Propionate Nasal Spray 16 gm Bottle NASAL SCH (08:22)
[2017-10-12] MEDS: Heparin 5,000 UNITS/ML VIAL SC SCH ×2 (08:22→20:31)
[2017-10-12] MEDS: Isosorbide Dinitrate 20 MG TAB PO SCH ×2 (08:23→20:29)
[2017-10-12] MEDS: HumaLOG 300 UNITS/3 ML VIAL SC SCH ×3 (08:41→17:18)
--- NOTE | 2017-10-12 09:22 | CON ---
DATE OF CONSULTATION: 10/12/2017 RENAL MEDICINE SUBJECTIVE: Ms. Cox is a 77-year-old white female with known history of chronic renal failure from diabetic nephropathy and admitted for shortness of breath. Chest x-ray showed CHF. In addition, she also had few days ago complaints of an acute respiratory tract infection. She is being empirically treated for this. She also self-medicated herself. We are now being consulted for her chronic renal failure. I did notice that the renal function has worsened in the last 1 day. Please note she has been on IV diuretics. We are being consulted for further management of her chronic renal failure. REVIEW OF SYSTEMS: Positive for shortness of breath, no chest pain. Positive runny nose. Positive for cough. Denies any overt fever, no nausea, no vomiting. Appetite is fair. Energy level is fair. No headache, no diplopia, no gross hematuria. No dysuria, no urinary frequency. MEDICATIONS: Patient is currently on Tylenol 650 mg q.4 p.r.n., [place] 5/325 q.4, DuoNeb q.4, Norvasc 5 mg daily, Lipitor 20 mg at bedtime, carvedilol 3.125 mg p.o. b.i.d., ceftriaxone 1 gram IV daily, ferrous sulfate 325 mg once a day, fluticasone nasal spray as directed, furosemide 20 mg IV b.i.d., g lucagon p.r.n., insulin detemir 15 units subcu b.i.d., Humalog sliding scale, Isordil 20 mg p.o. b.i. d., Zofran 4 mg IV q.6. PAST MEDICAL HISTORY: Includes the following; 1. Chronic renal failure from diabetic nephropathy. 2. Type 2 diabetes mellitus. 3. CHF. 4. History of COPD. 5. DJD. 6. Hypertension. 7. Hyperlipidemia. 8. History of macular degeneration. PAST SURGICAL HISTORY: 1. Status post section. 2. Status post right cataract surgery. SOCIAL HISTORY: The patient lives in the [place] area, lives with her . Two children. 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 No history of smoking, no alcohol intake. Educa tion, high school. Status post blood transfusion. FAMILY HISTORY: Positive family history of ESRD - one brother had ESRD. ALLERGIES: No known drug allergies. TRAUMA: None. IMMUNIZATIONS: Up to date. HOSPITALIZATIONS: Please see past medical history. PHYSICAL EXAMINATION: VITAL SIGNS: Blood pressure is 143/73, heart rate 77, respiratory rate 18, temperature 98.3, pulse o x 95%. GENERAL: Noted to be awake, morbidly obese, not in distress. SKIN: Adequate turgor. HEENT: She has pinkish conjunctivae, anicteric sclerae. NECK: No neck mass, no carotid bruits, no JVD. CHEST: No deformities. LUNGS: Decreased breath sounds. HEART: Normal sinus rhythm. No murmur, no gallops, no rubs. ABDOMEN: Globular, soft, nontender, no masses. EXTREMITIES: Positive for edema. No deformities. NEUROLOGIC: Moving all extremities. No tremors, no asterixis, no ataxia. LABORATORY DATA AND IMAGING DATA: 1. Laboratories of 10/12/2017; sodium 136, potassium 4, chloride 100, carbon dioxide 25, BUN is 82, creatinine 4.11, glucose 82, calcium 8.8, BNP is 646. 2. On 10/11/2017, creatinine is 3.87. 3. Chest x-ray of 10/10/2017 showed increased lung markings. ASSESSMENT AND PLAN: 1. Shortness of breath - possible congestive heart failure with this patient. Please note her breat bev is a little better this morning. My bias is to decrease her Lasix. According to the patient, h er Lasix has now been decreased from 40 to 20 mg IV q.12. Continue supportive care. 2. Acute kidney injury/chronic renal failure. No indication for any dialytic intervention. Adjust diuretics as needed. I have not excluded in challenging her with salt poor albumin should the renal function further worsen in the next 24 hours. 3. Upper respiratory tract infection - on empiric IV antibiotics. Continue supportive care. 4. Recheck base met and CBC in a.m.
[2017-10-12] MEDS ORDERED: Insulin Detemir 100 UNITS/ML 10 UNITS in Pre-Filled Syringe 1 EACH SC SCH (09:30)
[2017-10-12] MEDS: cefTRIAXone\\ROCEPHIN 1 GM, Syringe 0.4 ML in Sterile Water 9.6 ML SLOW IVP SCH (12:35)
--- NOTE | 2017-10-12 15:38 | PDOC.PN ---
- Subjective Encounter Start Date: 10/12/17 Encounter Start Time: 11:00 Danica is seen today aler and oriened. feel much better. - Objective Resuscitation Status: Resuscitation Status FULL:Full Resuscitation MAR Reviewed: Yes Vital Signs & Weight: Vital Signs (12 hours) Temp Pulse Pulse Pulse Resp BP BP 10/12/17 15:15 61 20 10/12/17 11:33 97.9 F 60 20 10/12/17 11:02 64 20 10/12/17 08:20 75 143/73 H 10/12/17 08:13 75 73 143/73 H 10/12/17 08:00 97.9 F 60 20 10/12/17 07:20 98.3 F 77 18 10/12/17 06:55 10/12/17 06:54 79 20 10/12/17 04:36 97.5 F L 73 20 BP BP Pulse Ox Pulse Ox Pulse Ox 10/12/17 15:15 10/12/17 11:33 137/68 96 10/12/17 11:02 10/12/17 08:20 10/12/17 08:13 136/68 94 L 96 10/12/17 08:00 96 10/12/17 07:20 123/67 95 10/12/17 06:55 95 10/12/17 06:54 95 10/12/17 04:36 138/68 93 L Weight Admit Weight 354 lb Weight 354 lb 8 oz I&O: 10/11/17 10/12/17 10/13/17 06:59 06:59 06:59 Intake Total 1182 1080 Balance 1182 1080 Result Diagrams: 10/12/17 05:30 10/12/17 05:30 Additional Labs: Accuchecks 10/12/17 10/12/17 10/11/17 10:49 05:22 20:48 POC Glucose 147 H 78 108 10/11/17 10/11/17 18:35 17:36 POC Glucose 111 H 66 L Radiology Reviewed by me: Yes Phys Exam - Physical Examination HEENT: PERRLA, moist MMs Neck: no nodes, supple, full ROM Respiratory: no rales, wheezing present Cardiovascular: RRR, no significant murmur, gallop Gastrointestinal: soft, non-tender Musculoskeletal: edema present Neurological: non-focal, normal sensation Lymphatic: no nodes Psychiatric: normal affect, A&O x 3 Dx/Plan (1) Acute diastolic CHF (congestive heart failure) Code(s): I50.31 - ACUTE DIASTOLIC (CONGESTIVE) HEART FAILURE Status: Acute (2) Urinary tract infection Status: Acute (3) Chronic atrial fibrillation Code(s): I48.2 - CHRONIC ATRIAL FIBRILLATION Status: Chronic Comment: Bradycardic- off multaq (4) Chronic kidney disease stage 4 Code(s): N18.4 - CHRONIC KIDNEY DISEASE, STAGE 4 (SEVERE) Status: Chronic (5) Diabetes mellitus type 2 Code(s): E11.9 - TYPE 2 DIABETES MELLITUS WITHOUT COMPLICATIONS Status: Chronic Comment: Managed by PCP (6) Hypertension Code(s): I10 - ESSENTIAL (PRIMARY) HYPERTENSION Status: Chronic Qualifiers: Hypertension type: essential hypertension Qualified Code(s): I10 - Essential (primary) hypertension (7) Morbid obesity Code(s): E66.01 - MORBID (SEVERE) OBESITY DUE TO EXCESS CALORIES Status: Chronic - Plan cont current plan of care, continue antibiotics, PT/OT, incentive spirometry, DVT proph w/heparin * . Dx/Plan Patient SOB is Improving, she is still volume Overloaded, Has Worsening Renal Fucntions, Will continue the lasix 20mg IV BID, Cardiology on Board. (2) Urinary tract infection Continue with Rocephin, Will wait for urine Culture. (3) Chronic atrial fibrillation Patient rate controlled, no Anticoagulation due to previos GI Bleed. Comment: Bradycardic- off multaq (4) Chronic kidney disease stage 4 Worsening Renal failure Acute on CKD4, will consult Nephrology wait recommedations, pt maybe close to Dialysis and need Volume to be removed through HD this visit if not responding to Dialaysis. (5) Diabetes mellitus type 2 Will continue with home dose insulin, SSI. Keep BG 140-180. Comment: Managed by PCP (6) Hypertension Hypertension type: essential hypertension Qualified Code(s): I10 - Essential (primary) hypertension Plan: bale, Will continue Home MEds, With CKD/ DM and CHF, keep BP <130/80. (7) Morbid obesity Code(s): E66.01 - MORBID (SEVERE) OBESITY DUE TO EXCESS CALORIES Status: Chronic - Discharge Day Encounter end time: 11:30 Review of Systems - Review of Systems Eyes: negative: Pain, Vision Change, Conjunctivae Inflammation, Eyelid Inflammation, Redness, Other ENT: negative: Ear Pain, Ear Discharge, Nose Pain, Nose Discharge, Nose Congestion, Mouth Pain, Mouth Swelling, Throat Pain, Throat Swelling, Other Respiratory: Cough, Shortness of Breath, SOB with Excertion. negative: Dry, Hemoptysis, Pleuritic Pain, Sputum, Wheezing Cardiovascular: orthopnea, edema. negative: chest pain, palpitations, paroxysmal nocturnal dyspnea, light headedness, other Gastrointestinal: negative: Nausea, Vomiting, Abdominal Pain, Diarrhea, Constipation, Melena, Hematochezia, Other Genitourinary: negative: Dysuria, Frequency, Incontinence, Hematuria, Retention , Other Musculoskeletal: negative: Neck Pain, Shoulder Pain, Arm Pain, Back Pain, Hand Pain, Leg Pain, Foot Pain, Other Skin: negative: Rash, Lesions, Jimbo, Bruising, Other - Medications/Allergies Allergies/Adverse Reactions: Allergies Allergy/AdvReac Type Severity Reaction Status Date / Time sulfamethoxazole Allergy Verified 01/14/14 22:29 [From Bactrim] trimethoprim [From Bactrim] Allergy Verified 01/14/14 22:29 Medications: Current Medications Acetaminophen (Tylenol) 650 mg PO Q4H PRN PRN Reason: Headache/Fever or Pain Last Admin: 10/11/17 22:06 Dose: 650 mg Hydrocodone Bitart/Acetaminophen ([place] 5/325) 1 tab PO Q4H PRN PRN Reason: Moderate Pain (4-6) Last Admin: 10/11/17 12:25 Dose: 1 tab Albuterol Sulfate (Ventolin) 2.5 mg NEB Q2H PRN PRN Reason: Wheezing Albuterol/Ipratropium (Duoneb) 3 ml NEB [id number] [facility] Last Admin: 10/12/17 15:15 Dose: 3 ml Amlodipine Besylate (Norvasc) 5 mg PO DAILY [facility] Last Admin: 10/12/17 08:20 Dose: 5 mg Atorvastatin Calcium (Lipitor) 20 mg PO HS [facility] Last Admin: 10/11/17 21:13 Dose: 20 mg Bisacodyl (Dulcolax) 10 mg PO DAILYPRN PRN PRN Reason: Constipation Carvedilol (Coreg) 3.125 mg PO BID [facility] Last Admin: 10/12/17 08:20 Dose: 3.125 mg Dextrose/Water (Dextrose 50%) 25 gm SLOW IVP PRN PRN PRN Reason: Hypoglycemia Famotidine (Pepcid) 20 mg SLOW IVP Q24HR [facility] Last Admin: 10/11/17 21:13 Dose: 20 mg Ferrous Sulfate (Feosol) 325 mg PO QAM-WM [facility] Last Admin: 10/12/17 08:19 Dose: 325 mg Fluticasone Propionate (Flonase Nasal [place]) 0 gm NASAL DAILY [facility] Last Admin: 10/12/17 08:22 Dose: 2 spr Furosemide (Lasix) 20 mg SLOW IVP 0600,1400 [facility] Last Admin: 10/12/17 06:44 Dose: 20 mg Glucagon (Glucagon) 1 mg IM PRN PRN PRN Reason: Hypoglycemia Guaifenesin/Dextromethorphan (Robitussin Dm) 15 ml PO Q4H PRN PRN Reason: Cough Last Admin: 10/11/17 12:36 Dose: 15 ml Heparin Sodium (Porcine) (Heparin) 5,000 units SC BID [facility] Last Admin: 10/12/17 08:22 Dose: 5,000 units Dextrose/Water (D5w) 1,000 mls @ 0 mls/hr IV .Q0M PRN; As Directed PRN Reason: Hypoglycemia Ceftriaxone Sodium 1 gm/ (Syringe 0.4 ml/ Sterile Water) 10 mls @ 120 mls/hr SLOW IVP 1200 [facility] Last Admin: 10/12/17 12:35 Dose: 10 mls Insulin Detemir 10 units/ (Miscellaneous Medication) 0.1 mls @ 0 mls/hr SC BID [facility] PRN Reason: As Directed Insulin Human Lispro (Humalog) 0 units SC .MODERATE SLIDING SC PRN PRN Reason: Moderate Correctional Scale Insulin Human Lispro (Humalog) 6 units SC AC [facility] Last Admin: 10/12/17 11:25 Dose: Not Given Isosorbide Dinitrate (Isordil) 20 mg PO BID [facility] Last Admin: 10/12/17 08:23 Dose: 20 mg Ondansetron HCl (Zofran Odt) 4 mg PO Q6H PRN PRN Reason: Nausea/Vomiting Ondansetron HCl (Zofran) 4 mg IVP Q6H PRN PRN Reason: Nausea/Vomiting Senna (Senokot) 2 tab PO HSPRN PRN PRN Reason: Constipation
[2017-10-12] MEDS: Atorvastatin Calcium 20 MG TAB PO SCH (20:29)
[2017-10-12] MEDS: Famotidine/PF 20 mg/2ml Vial SLOW IVP SCH (20:30)
[2017-10-12] MEDS: Insulin Detemir 100 UNITS/ML 10 UNITS in Pre-Filled Syringe 1 EACH SC SCH (22:27)
[2017-10-13 05:33] LABS: #Basophils 0.1 thou/uL (0.0-0.2); #Eosinphils 0.2 thou/uL (0.0-0.7); #Lymphocytes 1.7 thou/uL (1.20-3.40); #Monocytes 0.6 thou/uL (0.11-0.59); #Neutrophils 6.8 thou/uL (1.40-6.50); %Basophils 0.6 % (0.0-1.0); %Eosinophils 2.2 % (0.0-10.0); %Monocytes 6.5 % (0.0-10.0); %Neutrophils 72.7 % (42.0-75.0); Hemoglobin 10.4 g/dL (12.0-16.0); Mean Corpuscular HGB CONC 30.7 g/dL (32.0-36.0); Mean Corpuscular Volume 91.3 fl (81.0-99.0); Mean Platelet Volume 7.9 fL (7.4-10.4); Platelet Count 218 thou/uL (130-400); RBC Distribution Width 13.5 % (11.5-14.5); Red Blood Cell (RBC) Count 3.71 mill/uL (4.20-5.40); White Blood Cell (WBC) Count 9.4 thou/uL (4.8-10.8)
[2017-10-13 05:42] LABS: Anion Gap 19 mmol/L (10-20); BUN (Urea Nitrogen) 90 mg/dL (9.8-20.1); Calc. Creatinine Clearance 30 mL/min (70-130); Carbon Dioxide 22 mmol/L (23-31); Chloride 101 mmol/L (98-107); Estimated GFR-MDRD 10; Glucose 100 mg/dL (83-110); Sodium 137 mmol/L (136-145)
[2017-10-13] MEDS: Furosemide 20 MG/2 ML VIAL SLOW IVP SCH ×2 (05:56→15:18)
[2017-10-13] MEDS: Heparin 5,000 UNITS/ML VIAL SC SCH ×2 (08:30→21:21)
[2017-10-13] MEDS: HumaLOG 300 UNITS/3 ML VIAL SC SCH ×3 (08:33→17:53)
[2017-10-13] MEDS: Ferrous Sulfate 325 MG TAB PO SCH (08:33)
[2017-10-13] MEDS: Amlodipine 5 MG TAB PO SCH (08:33)
[2017-10-13] MEDS: Fluticasone Propionate Nasal Spray 16 gm Bottle NASAL SCH (08:33)
[2017-10-13] MEDS: Carvedilol 3.125 MG TAB PO SCH ×2 (08:33→21:22)
[2017-10-13] MEDS: Isosorbide Dinitrate 20 MG TAB PO SCH ×2 (08:34→21:22)
[2017-10-13] MEDS: Guaifenesin DM 100-10/5 ML UDCUP PO PRN (08:38)
[2017-10-13] MEDS: Insulin Detemir 100 UNITS/ML 10 UNITS in Pre-Filled Syringe 1 EACH SC SCH ×2 (08:50→21:22)
[2017-10-13] MEDS ORDERED: Epoetin (ESRD) 20,000 UNITS/ML SC SCH (09:00)
[2017-10-13] MEDS ORDERED: [UNRECOGNIZED DRUG - REMARK] SC SCH (09:00)
--- NOTE | 2017-10-13 09:15 | PRG ---
DATE OF SERVICE: 10/13/2017 SERVICE: Renal Medicine. SUBJECTIVE: Ms. Cox is a 77-year-old white female who was seen for acute kidney injury on top of he r chronic renal failure. She was admitted with some degree of shortness of breath. She was in mild CHF. Currently, diuretics have been adjusted. This morning, she is feeling better. She denies any new complaints. Shortness of breath is still there on exertion. OBJECTIVE: VITAL SIGNS: Blood pressure 177/75 ranging to as low as 134/84, heart rate 72, respiratory rate 24, temperature 97.7, pulse ox 92%. GENERAL: Awake, alert, supine, obese. SKIN: Adequate turgor. HEENT: Slightly pale conjunctivae, anicteric sclerae. NECK: No neck mass, no carotid bruits, no JVD. CHEST: No deformities. LUNGS: Decreased breath sounds. HEART: Normal sinus rhythm. No murmur, no gallops or rubs. ABDOMEN: Globular, soft, nontender, no masses. EXTREMITIES: Trace edema. MEDICATIONS: Of 10/13/2017 was reviewed. LABORATORY DATA: Of 10/13/2017, sodium 137, potassium 5, chloride 101, carbon dioxide 22, BUN 90, cr eatinine 4.18, glucose 100, calcium 9.0. BNP is 491. White count 9.4, hemoglobin 10.4. ASSESSMENT AND PLAN: 1. Anemia. Continue ferrous sulfate. We will initiate Epogen with this patient at 7500 units subcu taneously every week. 2. Congestive heart failure/upper respiratory tract infection - on empiric IV antibiotics. Continue current diuretic regimen. Renal function seems to be tolerating this. 3. Acute kidney injury/chronic renal failure, stable renal function. No indication for any dialytic intervention. GFR is 10 mL per minute. I had a long discussion with the patient about the possibil ity of dialysis in the immediate future. She is amenable with this if we need to proceed with dialys is. For the moment, we will attempt conservative management.
[2017-10-13] MEDS: Insulin Detemir 100 UNITS/ML 15 UNITS in Pre-Filled Syringe 1 EACH SC SCH (09:50)
[2017-10-13] MEDS ORDERED: EPOETIN SC SCH (10:00)
[2017-10-13] MEDS ORDERED: PRE FILLED SC SCH (10:00)
[2017-10-13] MEDS: cefTRIAXone\\ROCEPHIN 1 GM, Syringe 0.4 ML in Sterile Water 9.6 ML SLOW IVP SCH (11:41)
--- NOTE | 2017-10-13 13:25 | PDOC.PN ---
- Subjective Encounter Start Date: 10/13/17 Encounter Start Time: 12:00 Patient is seen today, alert and oriented. She feels she is able to breath better now, no orthopnea noted. Able to use her Cpap at night. - Objective Resuscitation Status: Resuscitation Status FULL:Full Resuscitation MAR Reviewed: Yes Vital Signs & Weight: Vital Signs (12 hours) Temp Pulse Resp BP Pulse Ox 10/13/17 11:51 97.5 F L 60 20 143/65 H 98 10/13/17 08:40 97.7 F 72 24 H 92 L 10/13/17 08:33 72 10/13/17 07:53 97.7 F 72 24 H 177/75 H 92 L 10/13/17 06:35 63 16 10/13/17 04:17 98.4 F 73 20 134/84 98 10/13/17 02:26 66 20 90 L Weight Admit Weight 354 lb Weight 356 lb 4.8 oz I&O: 10/12/17 10/13/17 10/14/17 06:59 06:59 06:59 Intake Total 1080 1280 Balance 1080 1280 Result Diagrams: 10/13/17 04:49 10/13/17 04:49 Additional Labs: Accuchecks 10/13/17 10/13/17 10/12/17 11:07 04:45 21:27 POC Glucose 169 H 105 100 10/12/17 16:46 POC Glucose 152 H Radiology Reviewed by me: Yes Phys Exam - Physical Examination HEENT: PERRLA, moist MMs, sclera anicteric Neck: no nodes, no JVD Respiratory: wheezing present Cardiovascular: RRR, no significant murmur Gastrointestinal: soft, non-tender Musculoskeletal: pulses present, edema present Neurological: non-focal, normal sensation, moves all 4 limbs Dx/Plan (1) Acute diastolic CHF (congestive heart failure) Code(s): I50.31 - ACUTE DIASTOLIC (CONGESTIVE) HEART FAILURE Status: Acute (2) Urinary tract infection Status: Acute (3) Chronic atrial fibrillation Code(s): I48.2 - CHRONIC ATRIAL FIBRILLATION Status: Chronic Comment: Bradycardic- off multaq (4) Chronic kidney disease stage 4 Code(s): N18.4 - CHRONIC KIDNEY DISEASE, STAGE 4 (SEVERE) Status: Chronic (5) Diabetes mellitus type 2 Code(s): E11.9 - TYPE 2 DIABETES MELLITUS WITHOUT COMPLICATIONS Status: Chronic Comment: Managed by PCP (6) Hypertension Code(s): I10 - ESSENTIAL (PRIMARY) HYPERTENSION Status: Chronic Qualifiers: Hypertension type: essential hypertension Qualified Code(s): I10 - Essential (primary) hypertension (7) Morbid obesity Code(s): E66.01 - MORBID (SEVERE) OBESITY DUE TO EXCESS CALORIES Status: Chronic - Plan cont current plan of care, continue antibiotics, 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 Dx/Plan Patient SOB is Improving, she is still volume Overloaded, Renal Fucntions same , Will continue the lasix 20mg IV BID, Cardiology on Board. Ok with Renal to continue Diuresis. (2) Urinary tract infection Continue with Rocephin, Will wait for urine Culture. (3) Chronic atrial fibrillation Patient rate controlled, no Anticoagulation due to previos GI Bleed. Comment: Bradycardic- off multaq (4) Chronic kidney disease stage 4 Worsening Renal failure Acute on CKD4, consulted Nephrology recommedations to continue Lasix 20mg BID, pt maybe close to Dialysis and need Volume to be removed through HD this visit if not responding to Dialaysis. (5) Diabetes mellitus type 2 Will continue with home dose insulin, SSI. Keep BG 140-180. Comment: Managed by PCP (6) Hypertension Hypertension type: essential hypertension Qualified Code(s): I10 - Essential (primary) hypertension Plan: [place], Will continue Home MEds, With CKD/ DM and CHF, keep BP <130/80. (7) Morbid obesity Code(s): E66.01 - MORBID (SEVERE) OBESITY DUE TO EXCESS CALORIES Status: Chronic - Discharge Day Encounter end time: 12:30 Review of Systems - Review of Systems Constitutional: weakness, malaise Eyes: negative: Pain, Vision Change, Conjunctivae Inflammation, Eyelid Inflammation, Redness, Other ENT: negative: Ear Pain, Ear Discharge, Nose Pain, Nose Discharge, Nose Congestion, Mouth Pain, Mouth Swelling, Throat Pain, Throat Swelling, Other Respiratory: Cough, Shortness of Breath. negative: Dry, Hemoptysis, SOB with Excertion, Pleuritic Pain, Sputum, Wheezing Cardiovascular: edema. negative: chest pain, palpitations, orthopnea, paroxysmal nocturnal dyspnea, light headedness, other Gastrointestinal: negative: Nausea, Vomiting, Abdominal Pain, Diarrhea, Constipation, Melena, Hematochezia, Other Genitourinary: negative: Dysuria, Frequency, Incontinence, Hematuria, Retention , Other Musculoskeletal: negative: Neck Pain, Shoulder Pain, Arm Pain, Back Pain, Hand Pain, Leg Pain, Foot Pain, Other - Medications/Allergies Allergies/Adverse Reactions: Allergies Allergy/AdvReac Type Severity Reaction Status Date / Time sulfamethoxazole Allergy Verified 01/14/14 22:29 [From Bactrim] trimethoprim [From Bactrim] Allergy Verified 01/14/14 22:29 Medications: Current Medications Acetaminophen (Tylenol) 650 mg PO Q4H PRN PRN Reason: Headache/Fever or Pain Last Admin: 10/11/17 22:06 Dose: 650 mg Hydrocodone Bitart/Acetaminophen ([place] 5/325) 1 tab PO Q4H PRN PRN Reason: Moderate Pain (4-6) Last Admin: 10/11/17 12:25 Dose: 1 tab Albuterol Sulfate (Ventolin) 2.5 mg NEB Q2H PRN PRN Reason: Wheezing Albuterol/Ipratropium (Duoneb) 3 ml NEB [id number] [facility] Last Admin: 10/13/17 06:35 Dose: 3 ml Amlodipine Besylate (Norvasc) 5 mg PO DAILY [facility] Last Admin: 10/13/17 08:33 Dose: 5 mg Atorvastatin Calcium (Lipitor) 20 mg PO HS [facility] Last Admin: 10/12/17 20:29 Dose: 20 mg Bisacodyl (Dulcolax) 10 mg PO DAILYPRN PRN PRN Reason: Constipation Carvedilol (Coreg) 3.125 mg PO BID [facility] Last Admin: 10/13/17 08:33 Dose: 3.125 mg Dextrose/Water (Dextrose 50%) 25 gm SLOW IVP PRN PRN PRN Reason: Hypoglycemia Famotidine (Pepcid) 20 mg SLOW IVP Q24HR [facility] Last Admin: 10/12/17 20:30 Dose: 20 mg Ferrous Sulfate (Feosol) 325 mg PO QAM-WM [facility] Last Admin: 10/13/17 08:33 Dose: 325 mg Fluticasone Propionate (Flonase Nasal [place]) 0 gm NASAL DAILY [facility] Last Admin: 10/13/17 08:33 Dose: 2 spr Furosemide (Lasix) 20 mg SLOW IVP 0600,1400 [facility] Last Admin: 10/13/17 05:56 Dose: 20 mg Glucagon (Glucagon) 1 mg IM PRN PRN PRN Reason: Hypoglycemia Guaifenesin/Dextromethorphan (Robitussin Dm) 15 ml PO Q4H PRN PRN Reason: Cough Last Admin: 10/13/17 08:38 Dose: 15 ml Heparin Sodium (Porcine) (Heparin) 5,000 units SC BID [facility] Last Admin: 10/13/17 08:30 Dose: Not Given Dextrose/Water (D5w) 1,000 mls @ 0 mls/hr IV .Q0M PRN; As Directed PRN Reason: Hypoglycemia Ceftriaxone Sodium 1 gm/ (Syringe 0.4 ml/ Sterile Water) 10 mls @ 120 mls/hr SLOW IVP 1200 [facility] Last Admin: 10/13/17 11:41 Dose: 10 mls Insulin Detemir 10 units/ (Miscellaneous Medication) 0.1 mls @ 0 mls/hr SC BID [facility] PRN Reason: As Directed Last Admin: 10/13/17 08:50 Dose: 0.1 mls Epoetin [place] 7,500 units/ (Miscellaneous Medication) 0.375 mls @ 0 mls/hr SC Q7D@1000 ALINE; As Directed PRN Reason: Protocol Last Admin: 10/13/17 11:42 Dose: 0.375 mls Insulin Human Lispro (Humalog) 0 units SC .MODERATE SLIDING SC PRN PRN Reason: Moderate Correctional Scale Insulin Human Lispro (Humalog) 6 units SC AC [facility] Last Admin: 10/13/17 11:41 Dose: 6 unit Isosorbide Dinitrate (Isordil) 20 mg PO BID [facility] Last Admin: 10/13/17 08:34 Dose: 20 mg Ondansetron HCl (Zofran Odt) 4 mg PO Q6H PRN PRN Reason: Nausea/Vomiting Ondansetron HCl (Zofran) 4 mg IVP Q6H PRN PRN Reason: Nausea/Vomiting Senna (Senokot) 2 tab PO HSPRN PRN PRN Reason: Constipation
[2017-10-13] MEDS: Atorvastatin Calcium 20 MG TAB PO SCH (21:22)
[2017-10-13] MEDS: Famotidine/PF 20 mg/2ml Vial SLOW IVP SCH (21:22)
[2017-10-14 04:58] LABS: #Basophils 0.1 thou/uL (0.0-0.2); #Eosinphils 0.2 thou/uL (0.0-0.7); #Lymphocytes 1.7 thou/uL (1.20-3.40); #Monocytes 0.7 thou/uL (0.11-0.59); #Neutrophils 5.5 thou/uL (1.40-6.50); %Basophils 0.9 % (0.0-1.0); %Eosinophils 2.5 % (0.0-10.0); %Lymphocytes 21.1 % (21.0-51.0); %Neutrophils 67.5 % (42.0-75.0); Hemoglobin 10.5 g/dL (12.0-16.0); Mean Corpuscular HGB CONC 33.3 g/dL (32.0-36.0); Mean Corpuscular Hemoglobin 30.1 pg (27.0-31.0); Mean Corpuscular Volume 90.4 fl (81.0-99.0); Mean Platelet Volume 8.1 fL (7.4-10.4); Platelet Count 221 thou/uL (130-400); RBC Distribution Width 13.5 % (11.5-14.5); Red Blood Cell (RBC) Count 3.48 mill/uL (4.20-5.40); White Blood Cell (WBC) Count 8.2 thou/uL (4.8-10.8)
[2017-10-14 05:23] LABS: Anion Gap 18 mmol/L (10-20); BUN (Urea Nitrogen) 94 mg/dL (9.8-20.1); Calc. Creatinine Clearance 29 mL/min (70-130); Calcium 8.8 mg/dL (7.8-10.44); Carbon Dioxide 24 mmol/L (23-31); Chloride 100 mmol/L (98-107); Estimated GFR-MDRD 10; Glucose 100 mg/dL (83-110); Potassium 4.1 mmol/L (3.5-5.1); Sodium 138 mmol/L (136-145)
[2017-10-14] MEDS: Furosemide 20 MG/2 ML VIAL SLOW IVP SCH (06:35)
[2017-10-14] MEDS: Fluticasone Propionate Nasal Spray 16 gm Bottle NASAL SCH (08:35)
[2017-10-14] MEDS: Ferrous Sulfate 325 MG TAB PO SCH (08:36)
[2017-10-14 08:44] VITALS: BMI 60.2
[2017-10-14] MEDS: Heparin 5,000 UNITS/ML VIAL SC SCH ×2 (08:44→20:57)
[2017-10-14] MEDS: Amlodipine 10 MG TAB PO SCH (08:44)
[2017-10-14] MEDS: Carvedilol 6.25 MG TAB PO SCH ×2 (08:44→17:12)
[2017-10-14] MEDS: Insulin Detemir 100 UNITS/ML 10 UNITS in Pre-Filled Syringe 1 EACH SC SCH ×2 (08:45→20:55)
[2017-10-14] MEDS: Isosorbide Dinitrate 20 MG TAB PO SCH ×2 (08:45→20:57)
[2017-10-14] MEDS: Guaifenesin DM 100-10/5 ML UDCUP PO PRN (08:54)
[2017-10-14] MEDS: HumaLOG 300 UNITS/3 ML VIAL SC SCH ×3 (08:55→17:13)
--- NOTE | 2017-10-14 09:33 | PRG ---
DATE OF SERVICE: 10/14/2017 RENAL MEDICINE SUBJECTIVE: Ms. Cox is a 77-year-old white female admitted for shortness of breath. She has been d iuresed. She was also empirically treated with IV antibiotics. We are following her up for her acut e kidney injury on top of her chronic renal failure. Her breathing is much better today. Denies any chest pain. PHYSICAL EXAMINATION: VITAL SIGNS: Blood pressure is 171/91, heart rate 68, respiratory rate 18, pulse ox is 93%, and temp erature 97.4. GENERAL: Noted to be awake, supine, obese. SKIN: Adequate turgor. HEENT: She has pinkish conjunctivae, anicteric sclerae. NECK: No neck mass, no carotid bruits, no JVD. CHEST: No deformities. LUNGS: Decreased breath sounds. HEART: Normal sinus rhythm. No murmur, no gallops, no rubs. ABDOMEN: Globular, soft, nontender, no masses. EXTREMITIES: Trace edema. MEDICATIONS: Medications of 10/14/2017 was reviewed. LABORATORY DATA: Laboratories of 10/14/2017 were reviewed; white count 8.2, hemoglobin 10.5, hematoc rit 31.4. Sodium 138, potassium 4.1, chloride 100, carbon dioxide 24, BUN 94, creatinine 4.24, GFR 1 0 mL per minute, and calcium 8.8. ASSESSMENT AND PLAN: 1. Shortness of breath, much improved on IV diuretics and antibiotics. The plan is to taper off the furosemide. 2. Acute kidney injury/chronic renal failure. Creatinine noted at 4.2. My plan is to decrease furo semide from 20 mg IV q.12 to 20 mg IV daily. 3. Anemia. We will continue current Epogen regimen with this patient. 4. Overall, agree with current management, recheck basic metabolic panel and CBC in a.m.
--- NOTE | 2017-10-14 13:20 | PDOC.PN ---
- Subjective Encounter Start Date: 10/14/17 Encounter Start Time: 10:00 Danica is seen today alert and oriented. no other Concerns noted. She feels she is not ready to go home today. - Objective Resuscitation Status: Resuscitation Status FULL:Full Resuscitation MAR Reviewed: Yes Vital Signs & Weight: Vital Signs (12 hours) Temp Pulse Resp BP BP Pulse Ox 10/14/17 12:52 76 20 10/14/17 11:20 97.5 F L 67 18 153/91 H 93 L 10/14/17 09:07 93 L 10/14/17 09:02 68 32 H 93 L 10/14/17 08:55 97.4 F L 68 32 H 93 L 10/14/17 08:44 67 171/91 H 10/14/17 07:15 97.4 F L 67 18 171/91 H 93 L 10/14/17 04:00 97.6 F 61 24 H 172/96 H 90 L 10/14/17 02:42 54 L 16 94 L Weight Admit Weight 354 lb Weight 350 lb 12.8 oz I&O: 10/13/17 10/14/17 10/15/17 06:59 06:59 06:59 Intake Total 1280 1130 Balance 1280 1130 Result Diagrams: 10/14/17 04:39 10/14/17 04:39 Additional Labs: Accuchecks 10/14/17 10/13/17 10/13/17 05:39 21:02 17:13 POC Glucose 102 115 H 132 H Radiology Reviewed by me: Yes Phys Exam - Physical Examination HEENT: PERRLA, moist MMs Neck: no nodes, no JVD Respiratory: wheezing present Cardiovascular: RRR, no significant murmur Gastrointestinal: soft, non-tender Musculoskeletal: no edema, pulses present Lymphatic: no nodes Psychiatric: normal affect, A&O x 3 Dx/Plan (1) Acute diastolic CHF (congestive heart failure) Code(s): I50.31 - ACUTE DIASTOLIC (CONGESTIVE) HEART FAILURE Status: Acute (2) Urinary tract infection Status: Acute (3) Chronic atrial fibrillation Code(s): I48.2 - CHRONIC ATRIAL FIBRILLATION Status: Chronic Comment: Bradycardic- off multaq (4) Chronic kidney disease stage 4 Code(s): N18.4 - CHRONIC KIDNEY DISEASE, STAGE 4 (SEVERE) Status: Chronic (5) Diabetes mellitus type 2 Code(s): E11.9 - TYPE 2 DIABETES MELLITUS WITHOUT COMPLICATIONS Status: Chronic Comment: Managed by PCP (6) Hypertension Code(s): I10 - ESSENTIAL (PRIMARY) HYPERTENSION Status: Chronic Qualifiers: Hypertension type: essential hypertension Qualified Code(s): I10 - Essential (primary) hypertension (7) Morbid obesity Code(s): E66.01 - MORBID (SEVERE) OBESITY DUE TO EXCESS CALORIES Status: Chronic - Plan cont current plan of care, continue antibiotics, PT/OT, respiratory therapy, incentive spirometry, out of bed/ambulate, DVT proph w/lovenox Dx/Plan Patient SOB is Improving, she is still volume Overloaded, Renal Fucntions same , Will continue the lasix 20mg IV BID, Cardiology on Board. Ok with Renal to continue Diuresis. 1. Sinus congestion: Will do saline [place] and nasonex. (2) Urinary tract infection Continue with Rocephin, Will wait for urine Culture. (3) Chronic atrial fibrillation Patient rate controlled, no Anticoagulation due to previos GI Bleed. Comment: Bradycardic- off multaq (4) Chronic kidney disease stage 4 Worsening Renal failure Acute on CKD4, consulted Nephrology recommedations to continue Lasix 20mg BID, pt maybe close to Dialysis and need Volume to be removed through HD this visit if not responding to Dialaysis. (5) Diabetes mellitus type 2 Will continue with home dose insulin, SSI. Keep BG 140-180. Comment: Managed by PCP (6) Hypertension Hypertension type: essential hypertension Qualified Code(s): I10 - Essential (primary) hypertension Plan: [place], Will continue Home MEds, With CKD/ DM and CHF, keep BP <130/80. (7) Morbid obesity Code(s): E66.01 - MORBID (SEVERE) OBESITY DUE TO EXCESS CALORIES Status: Chronic Disposiiton : Plan for Dischagre tomorrow, Will do Pt/OT evalaution. - Discharge Day Encounter end time: 10:30 Review of Systems - Review of Systems Constitutional: negative: fever, chills, sweats, weakness, malaise, other Eyes: negative: Pain, Vision Change, Conjunctivae Inflammation, Eyelid Inflammation, Redness, Other ENT: negative: Ear Pain, Ear Discharge, Nose Pain, Nose Discharge, Nose Congestion, Mouth Pain, Mouth Swelling, Throat Pain, Throat Swelling, Other Respiratory: Cough, Shortness of Breath. negative: Dry, Hemoptysis, SOB with Excertion, Pleuritic Pain, Sputum, Wheezing Cardiovascular: negative: chest pain, palpitations, orthopnea, paroxysmal nocturnal dyspnea, edema, light headedness, other Gastrointestinal: negative: Nausea, Vomiting, Abdominal Pain, Diarrhea, Constipation, Melena, Hematochezia, Other Genitourinary: negative: Dysuria, Frequency, Incontinence, Hematuria, Retention , Other Musculoskeletal: negative: Neck Pain, Shoulder Pain, Arm Pain, Back Pain, Hand Pain, Leg Pain, Foot Pain, Other Skin: negative: Rash, Lesions, Jimbo, Bruising, Other - Medications/Allergies Allergies/Adverse Reactions: Allergies Allergy/AdvReac Type Severity Reaction Status Date / Time sulfamethoxazole Allergy Verified 01/14/14 22:29 [From Bactrim] trimethoprim [From Bactrim] Allergy Verified 01/14/14 22:29 Medications: Current Medications Acetaminophen (Tylenol) 650 mg PO Q4H PRN PRN Reason: Headache/Fever or Pain Last Admin: 10/11/17 22:06 Dose: 650 mg Hydrocodone Bitart/Acetaminophen ([place] 5/325) 1 tab PO Q4H PRN PRN Reason: Moderate Pain (4-6) Last Admin: 10/11/17 12:25 Dose: 1 tab Albuterol Sulfate (Ventolin) 2.5 mg NEB Q2H PRN PRN Reason: Wheezing Albuterol/Ipratropium (Duoneb) 3 ml NEB [id number] [facility] Last Admin: 10/14/17 12:52 Dose: 3 ml Amlodipine Besylate (Norvasc) 10 mg PO DAILY [facility] Last Admin: 10/14/17 08:44 Dose: 10 mg Atorvastatin Calcium (Lipitor) 20 mg PO HS [facility] Last Admin: 10/13/17 21:22 Dose: 20 mg Bisacodyl (Dulcolax) 10 mg PO DAILYPRN PRN PRN Reason: Constipation Carvedilol (Coreg) 6.25 mg PO BID-[facility] Last Admin: 10/14/17 08:44 Dose: 6.25 mg Dextrose/Water (Dextrose 50%) 25 gm SLOW IVP PRN PRN PRN Reason: Hypoglycemia Famotidine (Pepcid) 20 mg SLOW IVP Q24HR [facility] Last Admin: 10/13/17 21:22 Dose: 20 mg Ferrous Sulfate (Feosol) 325 mg PO QAM-WM [facility] Last Admin: 10/14/17 08:36 Dose: 325 mg Fluticasone Propionate (Flonase Nasal [place]) 0 gm NASAL DAILY [facility] Last Admin: 10/14/17 08:35 Dose: 2 spr Furosemide (Lasix) 20 mg SLOW IVP DAILY [facility] Glucagon (Glucagon) 1 mg IM PRN PRN PRN Reason: Hypoglycemia Guaifenesin/Dextromethorphan (Robitussin Dm) 15 ml PO Q4H PRN PRN Reason: Cough Last Admin: 10/14/17 08:54 Dose: 15 ml Heparin Sodium (Porcine) (Heparin) 5,000 units SC BID [facility] Last Admin: 10/14/17 08:44 Dose: Not Given Dextrose/Water (D5w) 1,000 mls @ 0 mls/hr IV .Q0M PRN; As Directed PRN Reason: Hypoglycemia Ceftriaxone Sodium 1 gm/ (Syringe 0.4 ml/ Sterile Water) 10 mls @ 120 mls/hr SLOW IVP 1200 [facility] Last Admin: 10/13/17 11:41 Dose: 10 mls Insulin Detemir 10 units/ (Miscellaneous Medication) 0.1 mls @ 0 mls/hr SC BID [facility] PRN Reason: As Directed Last Admin: 10/14/17 08:45 Dose: 0.1 mls Epoetin Bryn 7,500 units/ (Miscellaneous Medication) 0.375 mls @ 0 mls/hr SC Q7D@1000 ALINE; As Directed PRN Reason: Protocol Last Admin: 10/13/17 11:42 Dose: 0.375 mls Insulin Human Lispro (Humalog) 0 units SC .MODERATE SLIDING SC PRN PRN Reason: Moderate Correctional Scale Insulin Human Lispro (Humalog) 6 units SC AC [facility] Last Admin: 10/14/17 08:55 Dose: Not Given Isosorbide Dinitrate (Isordil) 20 mg PO BID [facility] Last Admin: 10/14/17 08:45 Dose: 20 mg Ondansetron HCl (Zofran Odt) 4 mg PO Q6H PRN PRN Reason: Nausea/Vomiting Ondansetron HCl (Zofran) 4 mg IVP Q6H PRN PRN Reason: Nausea/Vomiting Senna (Senokot) 2 tab PO HSPRN PRN PRN Reason: Constipation
[2017-10-14] MEDS: cefTRIAXone\\ROCEPHIN 1 GM, Syringe 0.4 ML in Sterile Water 9.6 ML SLOW IVP SCH (13:31)
[2017-10-14] MEDS ORDERED: Carvedilol 6.25 MG TAB PO SCH (17:00)
[2017-10-14] MEDS: Atorvastatin Calcium 20 MG TAB PO SCH (20:57)
[2017-10-14] MEDS: FlunisoLIDE 0.025% Nasal Spray 25 ml Bottle EA NARE SCH (20:57)
[2017-10-14] MEDS: Famotidine 40 MG/4 ML VIAL SLOW IVP SCH ×2 (20:58→21:12)
[2017-10-15 05:15] LABS: #Basophils 0.1 thou/uL (0.0-0.2); #Eosinphils 0.2 thou/uL (0.0-0.7); #Lymphocytes 1.5 thou/uL (1.20-3.40); #Monocytes 0.6 thou/uL (0.11-0.59); #Neutrophils 4.7 thou/uL (1.40-6.50); %Basophils 0.8 % (0.0-1.0); %Eosinophils 3.4 % (0.0-10.0); %Lymphocytes 21.3 % (21.0-51.0); %Monocytes 8.3 % (0.0-10.0); %Neutrophils 66.2 % (42.0-75.0); Hemoglobin 10.6 g/dL (12.0-16.0); Mean Corpuscular HGB CONC 31.8 g/dL (32.0-36.0); Mean Corpuscular Hemoglobin 28.6 pg (27.0-31.0); Mean Corpuscular Volume 90.1 fl (81.0-99.0); Mean Platelet Volume 8.2 fL (7.4-10.4); Platelet Count 231 thou/uL (130-400); RBC Distribution Width 13.4 % (11.5-14.5); Red Blood Cell (RBC) Count 3.72 mill/uL (4.20-5.40); White Blood Cell (WBC) Count 7.2 thou/uL (4.8-10.8)
[2017-10-15 05:45] LABS: Anion Gap 17 mmol/L (10-20); BUN (Urea Nitrogen) 94 mg/dL (9.8-20.1); Calc. Creatinine Clearance 30 mL/min (70-130); Calcium 8.8 mg/dL (7.8-10.44); Carbon Dioxide 26 mmol/L (23-31); Chloride 98 mmol/L (98-107); Estimated GFR-MDRD 11; Glucose 102 mg/dL (83-110); Potassium 3.8 mmol/L (3.5-5.1); Sodium 137 mmol/L (136-145)
[2017-10-15] MEDS ORDERED: Furosemide 20 MG/2 ML VIAL SLOW IVP SCH (09:00)
[2017-10-15] MEDS ORDERED: Fluticasone Propionate Nasal Spray 16 gm Bottle NASAL SCH (09:00)
[2017-10-15] MEDS: Ferrous Sulfate 325 MG TAB PO SCH (09:19)
[2017-10-15] MEDS: Amlodipine 10 MG TAB PO SCH (09:19)
[2017-10-15] MEDS: Carvedilol 6.25 MG TAB PO SCH ×2 (09:19→17:17)
[2017-10-15] MEDS: HumaLOG 300 UNITS/3 ML VIAL SC SCH ×3 (09:20→17:17)
[2017-10-15] MEDS: Isosorbide Dinitrate 20 MG TAB PO SCH ×2 (09:20→20:36)
[2017-10-15] MEDS: Heparin 5,000 UNITS/ML VIAL SC SCH ×2 (09:20→20:37)
[2017-10-15] MEDS: FlunisoLIDE 0.025% Nasal Spray 25 ml Bottle EA NARE SCH ×2 (09:21→20:39)
[2017-10-15] MEDS: Fluticasone Propionate Nasal Spray 16 gm Bottle NASAL SCH (09:21)
[2017-10-15] MEDS: Insulin Detemir 100 UNITS/ML 10 UNITS in Pre-Filled Syringe 1 EACH SC SCH ×2 (09:22→20:36)
--- NOTE | 2017-10-15 09:23 | PRG ---
DATE OF SERVICE: 10/15/2017 SUBJECTIVE: Ms. Cox is a 77-year-old white female who was seen for her acute kidney injury on top of her chronic renal failure. She was also admitted for shortness of breath. This was multifactori al. CHF and COPD. Renal function is remaining stable. I have adjusted her Lasix from 20 mg IV q.12 h to once a day. H er creatinine is plateauing at about the value of 4.1. This morning she voices no new complaints. She denies any chest pain or shortness of breath. PHYSICAL EXAMINATION: VITAL SIGNS: Blood pressure 140/69, heart rate 65, respiratory rate 20, temperature 97.4, pulse ox 9 2%. GENERAL: Noted to be awake, alert, supine, obese, not in distress. SKIN: Adequate turgor. HEENT: Pinkish conjunctivae, anicteric sclerae. NECK: No neck mass, no carotid bruits. No JVD. CHEST: No deformities. LUNGS: Clear breath sounds. No wheezing, no crackles. HEART: Normal sinus rhythm. No murmur, no gallops or rubs. ABDOMEN: Globular, soft, nontender. EXTREMITIES: Trace edema. MEDICATIONS: 10/15/2017 - Reviewed. LABORATORY: 10/15/2017 - White count 7.3, hemoglobin 10.6, sodium 137, potassium 3.8, chloride 98, c arbon dioxide 26, BUN 94, creatinine 4.12. ASSESSMENT AND PLAN: 1. Acute kidney injury/chronic renal failure, stabilizing renal function. Creatinine is now 4.1 and yesterday this was 4.2. Please note the Lasix has been decreased from b.i.d. dosing to once a day d osing. I will probably leave her at that maintenance dosing. No indication for any dialytic interve ntion. Continue supportive care. Continue low protein diet with this patient. 2. Shortness of breath, improved. The patient has been on diuretics. In addition, she has been trung ated empirically with IV ceftriaxone. 3. Anemia, continuing weekly Epogen.
[2017-10-15] MEDS: cefTRIAXone\\ROCEPHIN 1 GM, Syringe 0.4 ML in Sterile Water 9.6 ML SLOW IVP SCH (11:58)
--- NOTE | 2017-10-15 12:22 | PDOC.PN ---
- Subjective Encounter Start Date: 10/15/17 Encounter Start Time: 11:25 -: non-verbal, old records requested/rev Pt seen and examined, chart reviewed in its entirety. This is my first visit with this patient. Working with PT, still requiring assistance to transfer. Recommending IPR or SNU. No F/C, no N/V/d/C, no CP. no increased SOb, no new events overnight Pt seen and examined, chart reviewed in its entirety. This is my first visit with this patient. 10 point ROS performed and neg for all systems except as above - Objective Resuscitation Status: Resuscitation Status FULL:Full Resuscitation MAR Reviewed: Yes Vital Signs & Weight: Vital Signs (12 hours) Temp Pulse Resp BP BP Pulse Ox 10/15/17 12:00 97.5 F L 65 20 145/90 H 90 L 10/15/17 09:19 69 140/69 10/15/17 08:54 90 L 10/15/17 08:49 69 24 H 90 L 10/15/17 07:40 97.4 F L 65 20 140/69 92 L 10/15/17 04:41 98.3 F 48 L 20 191/90 H 90 L 10/15/17 02:21 65 16 Weight Admit Weight 354 lb Weight 351 lb 12.8 oz I&O: 10/14/17 10/15/17 10/16/17 06:59 06:59 06:59 Intake Total 1130 1100 610 Balance 1130 1100 610 Result Diagrams: 10/15/17 04:38 10/15/17 04:38 Additional Labs: Accuchecks 10/15/17 10/15/17 10/14/17 11:11 04:39 20:55 POC Glucose 116 H 108 87 10/14/17 10/14/17 17:11 10:52 POC Glucose 176 H 148 H Radiology Reviewed by me: Yes EKG Reviewed by me: Yes Phys Exam - Physical Examination Constitutional: NAD severely obese HEENT: PERRLA, moist MMs, sclera anicteric, oral pharynx no lesions Neck: no nodes, supple, full ROM Respiratory: no wheezing, no rales, no rhonchi very distant, poor air movement Cardiovascular: RRR, no significant murmur, no rub Gastrointestinal: soft, non-tender, positive bowel sounds Musculoskeletal: edema present Neurological: non-focal, normal sensation, moves all 4 limbs strength 3-4/5 X 4 Lymphatic: no nodes Psychiatric: normal affect, A&O x 3 Skin: no rash, normal turgor, cap refill <2 seconds Dx/Plan (1) Acute hypoxemic respiratory failure Code(s): J96.01 - ACUTE RESPIRATORY FAILURE WITH HYPOXIA Status: Acute Comment: 90% on 2-3L. CCM. will need O2 on discharge. Wean as tolerated, increase activity (2) Acute diastolic CHF (congestive heart failure) Code(s): I50.31 - ACUTE DIASTOLIC (CONGESTIVE) HEART FAILURE Status: Acute Comment: Resolving, CCM at present with diuretics (3) Accelerated AV junctional rhythm Code(s): I49.8 - OTHER SPECIFIED CARDIAC ARRHYTHMIAS Status: Resolved (4) Adult body mass index 50.0-59.9 Code(s): Z68.43 - BODY MASS INDEX (BMI) 50-59.9 , ADULT Status: Chronic (5) Atrial fibrillation Code(s): I48.91 - UNSPECIFIED ATRIAL FIBRILLATION Status: Chronic Qualifiers: Atrial fibrillation type: paroxysmal Qualified Code(s): I48.0 - Paroxysmal atrial fibrillation (6) Chronic kidney disease, stage IV (severe) Code(s): N18.4 - CHRONIC KIDNEY DISEASE, STAGE 4 (SEVERE) Status: Chronic Comment: Managed by nephrology. Cr slightly improved today, no indication for HD. CCM (7) Diabetes mellitus type 2 Code(s): E11.9 - TYPE 2 DIABETES MELLITUS WITHOUT COMPLICATIONS Status: Chronic Comment: Managed by PCP, stable here. 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 to Rehab when set upadn approved. anticipate D/C in 1-2 days
[2017-10-15] MEDS: Famotidine 40 MG/4 ML VIAL SLOW IVP SCH (20:36)
[2017-10-15] MEDS: Atorvastatin Calcium 20 MG TAB PO SCH (20:36)
[2017-10-15 21:54] VITALS: BP 155/79; TEMP 97.7
[2017-10-16] MEDS ORDERED: Furosemide 40 MG TAB PO SCH (09:00)
--- NOTE | 2017-10-18 14:59 | DIS ---
PRIMARY CARE PHYSICIAN: Nicholas Ruiz DATE OF ADMISSION: 10/10/2017 DATE OF DISCHARGE: 10/15/2017 DISCHARGE DIAGNOSES: 1. Acute hypoxemic respiratory failure. 2. Acute diastolic congestive heart failure. 3. Accelerated AV junctional rhythm. 4. Severe obesity with a BMI of 50-59. 5. Paroxysmal atrial fibrillation. 6. Chronic kidney disease stage 4. 7. Diabetes mellitus type 2. 8. Hypertension, essential. CONSULTATIONS: 1. Cardiology, Dr. Jad Scott 10/10/2017. 2. Nephrology, Dr. Mauro Underwood 11/12/2017. PROCEDURES: 1. Echocardiogram on 10/12/2017 that showed an EF of 50-55%, moderate MR, severe , moderate AI, mi ld TR, mild PI. HISTORY AND PHYSICAL: Ms. 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 Her workup in the emergenc y department showed an elevated white count, creatinine 3.6 today which is about her baseline. Tropo christine 0.12 and a BNP of 787. We were subsequently called for admission. HOSPITAL COURSE: The patient was seen by Dr. Ron Christy. She was started on Lasix IV twice a day. A 2D echocardiogram was ordered and Cardiology was consulted. She was on DuoNeb and albuterol nebs for her COPD, chronically. A1c was ordered for the morning and the patient was continued on her home dose of Levemir and NovoLog at mealtime. Sliding scale insulin was added. There was some evidence of urinary tract infection. The patient was started on Rocephin. Urine culture was awaited. With h er chronic atrial fibrillation, she started on Coreg. On 10/10/2017 to 10/11/2017 the patient was seen by Cardiology. Dr. Scott thought her rate was really well controlled. She was a poor candidate for oral anticoagulation due to GI bleeding on oral antic oagulants, she was continued to be monitored. She was on heparin for DVT prophylaxis and was monitor ed for signs of bleeding. From admission until 10/14/2017, the patient had worsening renal function due to diuresis. Renal was consulted due to chronic kidney disease, they recommended continuing her Lasix and felt that the patient may be close to dialysis. 10/15/2017, I took the case over. The patient was working with physical therapy, still requiring ass ist with transfer and they recommended her going to inpatient rehab or halfway unit. Luis Felipe birch, the patient was stable her creatinine was 4.12 with a BUN of 94. White count and electrolytes w ere otherwise normal. The patient was pending approval for rehab placement and was cleared for disch arge by Renal. Later that day, she was approved for inpatient rehab and was stable for discharge and so was discharg ed home. PHYSICAL EXAMINATION: The patient was seen and examined on the day of discharge. Discharge plan an d disposition were discussed with the patient. Please see my progress note. DISCHARGE MEDICATIONS: 1. Tylenol p.r.n. 2. Albuterol 2.5 mg nebulized q.2 hours p.r.n. 3. Coreg 6.25 mg p.o. b.i.d. 4. Epo 75 units subcu weekly. 5. Lasix 40 mg p.o. daily. 6. Guaifenesin syrup q.4h. p.r.n. 7. DuoNebs 3 mL q.4h, to be decreased to q.6 hours when tolerated. 8. NovoLog 6 units a.c. t.i.d. 9. Zocor 40 mg at bedtime. 10. Flonase 1 spray nasally daily. 11. Isordil 20 mg p.o. b.i.d. 12. Hydralazine 25 mg p.o. q.a.m. and 50 mg p.o. q.p.m. 13. Amlodipine 5 mg daily. 14. Aspirin 81 mg daily. 15. Levocetirizine 1 tablet at bedtime per home dosing. 16. Calcitriol 1 capsule daily. 17. Vitamin D3 2000 units daily. 18. Lantus 30 units subcu b.i.d. She was taken off her Lasix b.i.d. and stopped on doxycycline. DISCHARGE ACTIVITY: Per cardiopulmonary limits. DISCHARGE DIET: Heart healthy diabetic diet recommended. DISCHARGE CONDITION: Stable. DISPOSITION: Discharged to inpatient rehabilitation. FOLLOWUP: 1. Congestive [facility] Failure [facility]. 2. Cardiology in a week. 3. Primary care physician within a week.
--- NOTE | 2017-11-20 18:58 | EKG ---
Test Reason : SOB Blood Pressure : / mmHG Vent. Rate : 078 BPM Atrial Rate : 078 BPM P-R Int : 336 ms QRS Dur : 114 ms QT Int : 398 ms P-R-T Axes : -27 -34 107 degrees QTc Int : 453 ms Sinus rhythm with 1st degree A-V block Left axis deviation Abnormal ECG Confirmed by ROBBY BLUM, KIRK Knutson ([id number]), industrial editor JILLIAN SANDERS ([id number]) on 11/20/2017 6:57:52 PM Referred By: NATHAN BUSTAMANTE Confirmed By:KIRK BUSTAMANTE MD
== END 2017-10-15 21:28 | DRG 291 ==
LOC: ERS 08:12 → ERHOLD 12:17 → 2SE 15:27
PROVIDERS: ADMIT Family Medicine; ATTEND Family Medicine
DX: I13.0 Hypertensive heart and chronic kidney disease with heart failure and stage 1 through stage 4 chronic kidney disease, or unspecified chronic kidney disease (principal); J96.01 Acute respiratory failure with hypoxia; E11.21 Type 2 diabetes mellitus with diabetic nephropathy; N17.9 Acute kidney failure, unspecified; N18.4 Chronic kidney disease, stage 4 (severe); I48.0 Paroxysmal atrial fibrillation; I48.92 Unspecified atrial flutter; E11.22 Type 2 diabetes mellitus with diabetic chronic kidney disease; I50.31 Acute diastolic (congestive) heart failure; I50.33 Acute on chronic diastolic (congestive) heart failure; N10 Acute pyelonephritis; Z68.43 Body mass index [BMI] 50.0-59.9, adult; E66.01 Morbid (severe) obesity due to excess calories; I08.3 Combined rheumatic disorders of mitral, aortic and tricuspid valves; J44.9 Chronic obstructive pulmonary disease, unspecified; D64.9 Anemia, unspecified; Z79.01 Long term (current) use of anticoagulants; Z79.82 Long term (current) use of aspirin; Z79.4 Long term (current) use of insulin; E78.5 Hyperlipidemia, unspecified; M19.90 Unspecified osteoarthritis, unspecified site; G47.33 Obstructive sleep apnea (adult) (pediatric)
CPT/HCPCS: 36415; 36416; 51701; 71010; 80048; 80053; 81003; 81015; 82553; 83036; 83605; 83880; 84484; 85025; 87040; 87086; 87804; 93005; 93306; 93798; 94760; 96365; 96366; 96367; 96375; A4216; A4353; G8978-GP-CM; G8979-GP-CK; G8987-GO-CL; G8988-GO-CJ; J0456; J0696; J0885; J1644; J1815; J1940; J2270; J7050; J7620; Q4081; S0028

== ENCOUNTER 2017-11-07 13:03 | Inpatient (IN) | payer MEDICARE, MEDICAID ==
[2017-11-07 13:40] LABS: #Lymphocytes 1.3 thou/uL (1.20-3.40); #Monocytes 1.3 thou/uL (0.11-0.59); #Neutrophils 12.1 thou/uL (1.40-6.50); %Basophils 0.1 % (0.0-1.0); %Eosinophils 0.2 % (0.0-10.0); %Lymphocytes 8.7 % (21.0-51.0); %Monocytes 8.5 % (0.0-10.0); %Neutrophils 82.4 % (42.0-75.0); Hemoglobin 11.2 g/dL (12.0-16.0); Mean Corpuscular HGB CONC 30.8 g/dL (32.0-36.0); Mean Corpuscular Hemoglobin 28.3 pg (27.0-31.0); Mean Corpuscular Volume 91.9 fl (81.0-99.0); Mean Platelet Volume 8.2 fL (7.4-10.4); Platelet Count 223 thou/uL (130-400); RBC Distribution Width 14.5 % (11.5-14.5); Red Blood Cell (RBC) Count 3.95 mill/uL (4.20-5.40); White Blood Cell (WBC) Count 14.7 thou/uL (4.8-10.8)
[2017-11-07 14:03] LABS: ALT (SGPT) 7 U/L (8-55); AST (SGOT) 13 U/L (5-34); Albumin 3.2 g/dL (3.4-4.8); Alkaline Phosphatase 75 U/L (40-150); Anion Gap 17 mmol/L (10-20); BUN (Urea Nitrogen) 71 mg/dL (9.8-20.1); Bilirubin, Total 0.5 mg/dL (0.2-1.2); Calc. Creatinine Clearance 0 mL/min (70-130); Calcium 8.5 mg/dL (7.8-10.44); Carbon Dioxide 25 mmol/L (23-31); Chloride 102 mmol/L (98-107); Estimated GFR-MDRD 10; Globulin 4.4 g/dL (2.4-3.5); Glucose 163 mg/dL (83-110); Potassium 4.6 mmol/L (3.5-5.1); Protein, Total 7.6 g/dL (6.0-8.3); Sodium 139 mmol/L (136-145)
[2017-11-07 14:08] LABS: CKMB 0.5 ng/mL (0-6.6); Troponin I 0.033 ng/mL (< 0.028)
--- NOTE | 2017-11-07 14:25 | RAD ---
CHEST 1 VIEW: Date: 11/07/17 HISTORY: Shortness of breath. Emergency exam. COMPARISON: Chest 1 view dated 10/10/17. FINDINGS: Heart size is enlarged. Mild pulmonary venous congestion and moderate edema. Small effusion. No pneum othorax. IMPRESSION: Cardiomegaly and edema. POS: [facility]
[2017-11-07] MEDS ORDERED: Furosemide 40 MG/4 ML VIAL ONE (15:52)
[2017-11-07 16:27] LABS: Bilirubin Negative (Negative); Blood, Urine Negative (Negative); Clarity TURBID (Clear); Glucose, Urine (Dipstick) Negative (Negative); Leukocyte Moderate (Negative); Nitrite Negative (Negative); Protein, Urine (Dipstick) 100 mg/dL (Neg-Trace); Urobilinogen 0.2 mg/dL (0.2-1.0); pH, Urine 5.5 (5.0-9.0)
[2017-11-07 16:29] LABS: Bacteria/HPF 1+ HPF (None Seen); Pathc Cast-AUWi Flag 2.16 (0-2.49); Squamous Epithelial 0-3 HPF (0-3)
[2017-11-07 16:37] LABS: Crystals/HPF 1+ AMORPH URATES HPF (Negative); RBC/HPF 0-3 HPF (0-3)
[2017-11-07 16:38] LABS: Hyaline Casts/LPF 0-3 HYALINE CAST LPF (0-3 Hyaline)
--- NOTE | 2017-11-07 17:44 | HP ---
PRIMARY CARE PHYSICIAN: Dr. Kat Lugo, Family Nurse Practitioner. CHIEF COMPLAINT: Shortness of breath. HISTORY OF PRESENT ILLNESS: Ms. 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 She was actually recently di scharged from our facility for acute on chronic diastolic heart failure as well as acute on chronic k idney disease. She says that she was doing well at home until yesterday when she began getting short of breath. She is on home oxygen. She normally takes 3 liters at home and she says that her O2 sat s had been around 93%, but then yesterday, it dropped down to 88%. She definitely felt the differenc e and was more short of breath. She also noted a pain in her left side, primarily in the abdominal a tashi. She also felt congested and as a result, I came back to the emergency room for evaluation. In the ER, she was found to be volume overloaded and has been placed on BiPAP in order to support her ox ygenation and she is being admitted to the hospital for further treatment. The patient denies having any chest pain. She has noted increasing lower extremity edema. This started just on yesterday as well, but no leg pain. She also noted some dull headache over the last couple of days, but otherwise no other symptoms. She denies feeling any palpitations. Again denies any chest pain. She also den ies any rapid heartbeat. REVIEW OF SYSTEMS: CONSTITUTIONAL: There are no fevers, chills, no night sweats, no weight loss. H EENT: She has had some headache. She says it dull over the past few days. No dizziness, no visual changes, no sore throat, rhinorrhea, neck pain, no adenopathy. PULMONARY: She denies any cough, but has had some congestion, no hemoptysis. CARDIOVASCULAR: As per history of present illness. GASTRO INTESTINAL: She has had some left-sided abdominal pain, no nausea, no vomiting, no change in bowels. GENITOURINARY: No urinary frequency, hematuria, no hesitancy. NEUROLOGIC: No focal weakness, num bness, no seizures. PSYCHIATRIC: No symptoms of anxiety or depression. SKIN AND INTEGUMENT: She s ays she had some bruising on the left leg, but otherwise no other complaints. 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 PAST SURGICAL HISTORY: She has had a as well as right cataract surgery. FAMILY HISTORY: No history of any inheritable diseases. ALLERGIES: BACTRIM. SOCIAL HISTORY: She is a nonsmoker and nondrinker. She has designated both of her daughters to be er surrogate decision makers and her daughters are Lorie Cox and Yuridia Hodge. She does not want t o be intubated, but does want CPR if her heart were to stop. CURRENT MEDICATIONS: She says this is the same as what she had been discharged on and these include Zocor 40 mg daily, Zyrtec 5 mg at bedtime, Isordil 20 mg twice a day, DuoNebs q.4 as needed, Lantus i nsulin 30 units twice a day, NovoLog 6 units with meals, Apresoline 25 mg twice a day, guaifenesin DM 15 mL q.4 as needed, Lasix 40 mg daily, Epogen 7500 units every week, Flonase nasal spray, vitamin D 3 2000 units daily, carvedilol 6.25 mg twice a day, calcitriol 0.25 mcg daily, aspirin 81 mg daily, a mlodipine 5 mg daily, Ventolin inhaler, nebs q.2 hours as needed, and Tylenol as needed. PHYSICAL EXAMINATION: GENERAL: She is alert and oriented. She is currently on BiPAP. She says she feels comfortable. VITAL SIGNS: Blood pressure was 135/70, heart rate 76, respiratory rate of 35, temperature is 99.1. HEENT: Pupils are equal, round, and reactive. Extraocular muscles are intact. Her sclerae are anic teric. Throat no erythema, no exudates. NECK: No adenopathy, no bruits. LUNGS: She has some mild wheezing throughout. No rales are appreciated. CARDIOVASCULAR: She has a normal S1, S2. She did have a grade 2/6 systolic murmur. ABDOMEN: Obese, soft, nontender, nondistended. No rebound or guarding. EXTREMITIES: She has got 2+ pitting edema bilaterally. NEUROLOGIC: Neurologically, the exam is nonfocal. LABORATORY DATA: White blood cell count was 14.7, hemoglobin 11.2, hematocrit is 36.3, and platelet count is 223. D-dimer is elevated at 3.43. Sodium 139, potassium 4.6, chloride is 102, CO2 is 25, B UN 71, creatinine 4.2, glucose is 163. Her natriuretic peptide was elevated at 955. ASSESSMENT AND PLAN: 1. This is a 77-year-old female that presents with acute onset of shortness of breath and evidence o f volume overload by chest x-ray. She is also hypoxic and has an elevated proBNP. The likely scenar io is acute on chronic heart failure exacerbation with normal ejection fraction. This is likely a re sult of her severe aortic stenosis. In addition, she is also in atrial fibrillation; however, her he art rate is controlled. This is likely to exacerbate her condition as well and compounding things sh e also has an acute on chronic kidney disease as well with her creatinine being higher today than it was when she was discharged few weeks ago. The patient will be admitted to the [facility]. We will contin ue bilevel positive airway pressure and since she is on bilevel positive airway pressure, we will con sult Pulmonary Medicine to help in her management. 2. Acute on chronic heart failure with preserved ejection fraction. Again this is exacerbated by th e atrial fibrillation, her aortic stenosis and chronic kidney disease. We will consult Dr. Devries for further recommendations. In review of her record, she was being considered for possible TAVR pro cedure for correction of the aortic stenosis. This may be required sooner rather than later. 3. Acute on chronic kidney disease. This is likely cardiorenal and Nephrology has been consulted. 4. For atrial fibrillation, her heart rate is controlled, but this is likely worsening her congestiv e heart failure symptoms. Again, Cardiology will be consulted for this. 5. For diabetes mellitus, we will continue her usual medications for diabetes as well as sliding sca le insulin. We will wait to start her regular scheduled insulin until she is off bilevel positive ai rway pressure and eating, however. 6. We will continue her usual medications for hypertension as well as p.r.n. medicines as needed and patient will be placed on deep venous thrombosis and gastrointestinal prophylaxis.
[2017-11-07] MEDS ORDERED: Dextrose 50% Abboject 50 ML SYRINGE SLOW IVP PRN (17:45)
[2017-11-07] MEDS ORDERED: Acetaminophen 325 MG TAB PO PRN (17:45)
[2017-11-07] MEDS ORDERED: Milk Of Magnesia 30 ML UDCUP PO PRN (17:45)
[2017-11-07] MEDS ORDERED: Dextrose 5% in Water 1,000 ML IV PRN (17:45)
[2017-11-07] MEDS ORDERED: Lorazepam 2 MG/ML VIAL SLOW IVP PRN (17:45)
[2017-11-07] MEDS ORDERED: hydrALAZINE 20 MG/ML VIAL SLOW IVP PRN (17:45)
[2017-11-07] MEDS ORDERED: Lorazepam 0.5 MG TAB PO PRN (17:45)
[2017-11-07] MEDS ORDERED: Carvedilol 6.25 MG TAB PO SCH (18:00)
[2017-11-07 20:33] LABS: Troponin I 0.039 ng/mL (< 0.028)
[2017-11-07] MEDS: Isosorbide Dinitrate 20 MG TAB PO SCH (21:19)
[2017-11-07] MEDS: hydrALAZINE 25 MG TAB PO SCH (21:19)
[2017-11-07] MEDS: Famotidine 20 MG TAB PO SCH (21:20)
[2017-11-07] MEDS: Docusate 100 MG CAP PO SCH (21:20)
[2017-11-07] MEDS: Heparin 5,000 UNITS/ML VIAL SC SCH (21:20)
[2017-11-07] MEDS: Atorvastatin Calcium 20 MG TAB PO SCH (21:20)
[2017-11-08 03:42] LABS: #Lymphocytes 0.5 thou/uL (1.20-3.40); #Monocytes 0.1 thou/uL (0.11-0.59); #Neutrophils 10.2 thou/uL (1.40-6.50); %Eosinophils 0.1 % (0.0-10.0); %Lymphocytes 4.3 % (21.0-51.0); %Monocytes 0.7 % (0.0-10.0); %Neutrophils 94.8 % (42.0-75.0); Hemoglobin 10.1 g/dL (12.0-16.0); Mean Corpuscular HGB CONC 31.1 g/dL (32.0-36.0); Mean Corpuscular Hemoglobin 28.4 pg (27.0-31.0); Mean Corpuscular Volume 91.3 fl (81.0-99.0); Mean Platelet Volume 8.4 fL (7.4-10.4); Platelet Count 199 thou/uL (130-400); RBC Distribution Width 14.1 % (11.5-14.5); Red Blood Cell (RBC) Count 3.57 mill/uL (4.20-5.40); White Blood Cell (WBC) Count 10.8 thou/uL (4.8-10.8)
[2017-11-08 04:08] LABS: Anion Gap 16 mmol/L (10-20); BUN (Urea Nitrogen) 83 mg/dL (9.8-20.1); Calc. Creatinine Clearance 30 mL/min (70-130); Calcium 8.5 mg/dL (7.8-10.44); Carbon Dioxide 25 mmol/L (23-31); Chloride 103 mmol/L (98-107); Estimated GFR-MDRD 10; Glucose 209 mg/dL (83-110); Potassium 4.7 mmol/L (3.5-5.1); Sodium 139 mmol/L (136-145)
--- NOTE | 2017-11-08 08:04 | PDOC.PN ---
- Subjective Encounter Start Date: 11/08/17 Encounter Start Time: 08:01 Ms. Cox is currently on BiPAP. She says she feels a bit better this morning. She is breathing comfortably. she denies chest pain. - Objective MAR Reviewed: Yes Vital Signs & Weight: Vital Signs (12 hours) Temp Pulse Resp BP Pulse Ox 11/08/17 04:34 97.6 F 57 L 24 H 125/56 L 98 11/08/17 02:19 70 11/08/17 02:06 66 24 H 140/66 96 11/08/17 00:55 79 22 H 97 11/08/17 00:01 98.7 F 81 27 H 118/57 L 96 11/07/17 22:17 71 28 H 116/61 92 L Weight Weight 368 lb 5 oz I&O: 11/07/17 11/08/17 11/09/17 06:59 06:59 06:59 Intake Total 210 Output Total 350 Balance -140 Result Diagrams: 11/08/17 03:05 11/08/17 03:05 Additional Labs: Accuchecks 11/08/17 11/07/17 11/07/17 05:38 21:26 18:09 POC Glucose 189 H 191 H 174 H Phys Exam - Physical Examination HEENT: PERRLA Respiratory: no wheezing + rales at the bases Cardiovascular: irregular 2/6 systolic murmur Gastrointestinal: soft, non-tender, positive bowel sounds Musculoskeletal: edema present 2+ pitting edema Dx/Plan (1) Acute exacerbation of CHF (congestive heart failure) Code(s): I50.9 - HEART FAILURE, UNSPECIFIED Status: Acute (2) Acute on chronic kidney failure Code(s): N17.9 - ACUTE KIDNEY FAILURE, UNSPECIFIED; N18.9 - CHRONIC KIDNEY DISEASE, UNSPECIFIED Status: Acute (3) Diabetes mellitus type 2 Code(s): E11.9 - TYPE 2 DIABETES MELLITUS WITHOUT COMPLICATIONS Status: Chronic Comment: Managed by PCP, stable here. CCM (4) Hypertension Code(s): I10 - ESSENTIAL (PRIMARY) HYPERTENSION Status: Chronic Qualifiers: Comment: controlled (5) Paroxysmal atrial fibrillation Code(s): I48.0 - PAROXYSMAL ATRIAL FIBRILLATION Status: Chronic - Plan * Acute on chronic CHF with preserved EF.- she is currently tolerating BiPAP- hopefully this can be weaned off today * Critical - will consult Cardiology for evaluation * AFIB- as above- her heart rate is stable * Acute on chronic kidney disease- suspected cardiorenal syndrome- will diurese as tolerated. * DM- blood glucose is stable * HTN- blood pressure is stable.
[2017-11-08] MEDS: Carvedilol 6.25 MG TAB PO SCH ×2 (08:11→17:01)
[2017-11-08] MEDS: Amlodipine 5 MG TAB PO SCH (08:11)
[2017-11-08] MEDS: hydrALAZINE 25 MG TAB PO SCH ×2 (08:12→21:51)
[2017-11-08] MEDS: Famotidine 20 MG TAB PO SCH (08:12)
[2017-11-08] MEDS: Calcitriol 0.25 MCG CAP PO SCH (08:12)
[2017-11-08] MEDS: Isosorbide Dinitrate 20 MG TAB PO SCH ×2 (08:12→21:51)
[2017-11-08] MEDS: Heparin 5,000 UNITS/ML VIAL SC SCH ×3 (08:13→21:01)
[2017-11-08] MEDS: Docusate 100 MG CAP PO SCH ×2 (08:13→21:51)
[2017-11-08] MEDS ORDERED: cefTRIAXone\\ROCEPHIN 1 GM in Sodium Chloride 0.9% 100 ML IVPB SCH (09:30)
--- NOTE | 2017-11-08 09:57 | CON ---
DATE OF CONSULTATION: 11/08/2017 HISTORY OF PRESENT ILLNESS: Ms. Cox is a 77-year-old white female who was admitted for shortness o f breath. She was noted to have a history of CHF and COPD. She was also noted to be hypoxemic. She was started on CPAP/BiPAP with clinical improvement. Of note, the patient was also recently admitte d for shortness of breath. Her diuretics have been decreased to Lasix 20 mg tab every other day due to her worsening renal dysfunction. She comes in with a baseline creatinine of 4.2. We are now porfirio oneil consulted for further management of her chronic renal failure. This morning she is feeling better. REVIEW OF SYSTEMS: Positive for shortness of breath - improved. No chest pain, no productive cough, no fever or chills, no diarrhea, no constipation, no dysuria, no nausea, no vomiting, no tremors, no headache, no hematochezia, no melena, no hematemesis. No dysuria, no abdominal pain. Appetite and energy level is fair. No joint pains, no diplopia. MEDICATIONS: The patient is currently on the following medications: DuoNeb q.4 hours p.r.n., [place] 5/325 q.6h. p.r.n., Norvasc 5 mg daily, aspirin 81 mg daily. Calcitriol 0.25 mcg daily, Lipitor 20 m g tab at bedtime, Coreg 6.25 mg p.o. b.i.d., vitamin D3 2000 international units daily, Epogen 7500 u nits subcutaneously every week, heparin 5000 units subcu t.i.d., hydralazine 25 mg p.o. b.i.d., Lantu s 20 units subcu b.i.d., Humalog sliding scale, Isordil 20 mg p.o. b.i.d., status post Lasix. PAST MEDICAL HISTORY: 1. Chronic renal failure secondary to a presumed diabetic nephropathy. 2. History of macular degeneration. 3. Hyperlipidemia. 4. CHF. 5. COPD. 6. Hypertension. 7. DJD. 8. Type 2 diabetes mellitus. 9. History of morbid obesity. PAST SURGICAL HISTORY: 1. Status post section. 2. Status post right cataract surgery. SOCIAL HISTORY: The patient lives in [place]. She lives with her . Two children. 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 No history of smoking. No alcohol intake. Education; high s chool. Status post blood transfusion. FAMILY HISTORY: Positive family history of ESRD. ALLERGIES: None. TRAUMA: None. IMMUNIZATIONS: Up-to-date. HOSPITALIZATIONS: Please see past medical history. PHYSICAL EXAMINATION: VITAL SIGNS: Blood pressure is noted at 172/68, heart rate 59, respiratory rate 20, pulse ox 94%. GENERAL: Awake, alert, obese, not in distress. SKIN: Adequate turgor. HEENT: She has pinkish conjunctivae, anicteric sclerae. NECK: No neck mass, no carotid bruits, no JVD. CHEST: No deformities. LUNGS: Decreased breath sounds. No wheezing or crackles. HEART: Normal sinus rhythm. No murmur, no gallops or rubs. ABDOMEN: Globular, soft, nontender, no masses. EXTREMITIES: Positive for edema, but no deformities. NEUROLOGIC: Moving all extremities. No tremors or asterixis, no ataxia. Chest x-ray shows increased lung markings. LABORATORY: 11/08/2017 - White count 10.8, hemoglobin 10.1, sodium 139, potassium 4.7, chloride 103, carbon dioxide 25, BUN 83, creatinine 4.35, glucose 209, calcium 8.5. BNP is 1007. Further review of her serum creatinine shows the followin11/07/2017 creatinine 4.27. ASSESSMENT AND PLAN: 1. Chronic renal failure - nearing baseline creatinine. No indication for any dialytic intervention today, but I did discuss with the patient about the eventually need for dialysis. She would like to think about this. For the moment, if needed, we can place her on a low dose of Lasix at 20 mg tab d aily as needed. 2. Shortness of breath, multifactorial. The patient has underlying chronic obstructive pulmonary di sease and congestive heart failure. Consider starting Lasix 20 mg tab daily. Once the patient has f inalized decision to dialyze we may need to initiate dialysis while she is in the hospital. 3. Anemia, continuing weekly Epogen. I agree with current management.
[2017-11-08] MEDS: cefTRIAXone\\ROCEPHIN 1 GM, Syringe 0.4 ML in Sterile Water 9.6 ML SLOW IVP SCH (10:52)
--- NOTE | 2017-11-08 11:16 | CON ---
DATE OF CONSULTATION: 11/08/2017 CONSULTING PHYSICIAN: Hospitalist. REASON FOR CONSULTATION: Acute on chronic respiratory failure. HISTORY OF PRESENT ILLNESS: This is a 77-year-old female with multiple medical problems, who came to the emergency room last night with increasing shortness of breath. I have not seen the patient in quite some time. The history I have obtained is directly from the patient and from reviewing the records and the chart. Over the last week, she has been requiring increasing amounts of oxygen. She says she has had increasing edema in her lower extremities. She had to be placed on BiPAP last night and then was admitted to the Intermediate Care Unit for further therapy. She says she feels a little better this morning. She is still requiring about 4 liters nasal cannula. PAST MEDICAL HISTORY: 1. Diabetes mellitus. 2. Diastolic congestive heart failure. 3. Severe aortic stenosis. 4. Chronic obstructive pulmonary disease. 5. ELIGIO, requires BiPAP at night. 6. Chronic kidney disease, stage 4. 7. Hypertension. 8. Obesity. 9. Paroxysmal atrial fibrillation. PAST SURGICAL HISTORY: and right cataract surgery. FAMILY MEDICAL HISTORY: Unremarkable. REVIEW OF SYSTEMS: Remarkable for edema and congestion, otherwise 12-point review of systems is negative. SOCIAL HISTORY: Nonsmoker. Does not consume alcohol. MEDICATIONS PRIOR TO ADMISSION: Zocor, Isordil, DuoNeb, Lantus, NovoLog, Apresoline, guaifenesin, Lasix, Epogen, Flonase, carvedilol, calcitriol, aspirin , amlodipine, Ventolin, and Tylenol. ALLERGIES: BACTRIM. PHYSICAL EXAMINATION: VITAL SIGNS: Temperature 97.6, pulse 59, blood pressure 150/68, O2 sat 94% on 5 liters, respiratory rate 20. GENERAL: She is awake and alert, fully oriented. HEENT EXAM: Pupils react. Sclerae anicteric. Oropharynx clear. NECK: No JVD. LUNGS: Coarse rhonchi bilaterally with crackles in both bases. CARDIAC: S1 and S2, regular. ABDOMEN: Obese, soft, nontender, nondistended. EXTREMITIES: A 4+ edema from the thighs downward. SKIN: Shows no rashes, bruising, or jaundice. LABORATORY DATA: Sodium 139, potassium 4.7, chloride 103, CO2 of 25, BUN 83, creatinine 4.4, glucose 209. BNP 1007. White blood cell count 10.8, hematocrit 32.6, platelet count 199. Urinalysis showed too numerous to count white blood cells. Chest x-ray shows extensive pulmonary edema and cardiomegaly. ASSESSMENT: 1. Acute on chronic respiratory failure secondary to profound volume overload. 2. Diastolic heart dysfunction. 3. Aortic stenosis. 4. Chronic kidney disease, stage 4. 5. Diabetes mellitus. RECOMMENDATIONS: This is a very difficult situation. She is unlikely to improve respiratory status without significant volume removal. This in turn will probably compromise her kidneys and she will end up on dialysis. I am not fully informed as to her cardiac status. I would say if severe aortic stenosis is a problem that will likely need to be addressed or she will continue to decline. I would continue her BiPAP as needed. She needs a culture of her urine given the urinalysis report; this may be colonization. I would go ahead and put her on some antibiotics until we know the result of that; Rocephin should be fine. 70 min. was spent on the patient at the bedside and or on the patient's floor [facility]
[2017-11-08] MEDS: Fluticasone Propionate Nasal Spray 16 gm Bottle NASAL SCH (12:16)
[2017-11-08] MEDS: HumaLOG 300 UNITS/3 ML VIAL SC PRN ×2 (17:26→21:00)
[2017-11-08] MEDS: Ondansetron HCl/PF 4 MG/2 ML Vial SLOW IVP PRN (20:39)
[2017-11-08] MEDS: Atorvastatin Calcium 20 MG TAB PO SCH (21:51)
--- NOTE | 2017-11-08 23:30 | CON ---
DATE OF CONSULTATION: 11/08/2017 HISTORY OF PRESENT ILLNESS: Diana Cox is a 77-year-old white female who I initially evaluated in 10/2006. At that time, she had significant nephrotic range proteinuria since 2004. Echo in 2006 revealed the study to be technically difficult, but there was a normal left ventricular function with an ejection fraction of 50-55%, moderate concentric left ventricular hypertrophy, left atrial enlargement, gvtxfuei-[id number]-xhzdil mitral regurgitation, and moderate mitral annular calcification. She had mild aortic insufficiency and mild aortic stenosis with a peak gradient of 29 mm, mean gradient of 16 mm. Carotid Doppler at that time also revealed no significant carotid artery disease. It is recommended that she undergo adenosine Cardiolite testing; however, she declined that in 12/2006. In 02/2009, she presented to the hospital with complaints of chest pain, midsternal, radiating to the back, accompanied by nausea. She had no vomiting or diaphoresis. Cardiac enzymes were normal. She was to undergo Cardiolite testing that admission; her weight exceeded the table limits. Consideration was given to cardiac catheterization; however, she declined. I did not see her again until 11/2013 when she was admitted with increased peripheral edema and shortness of breath. She was given IV Lasix in the emergency room with improvement in her symptoms. She had new onset atrial fibrillation during that admission. She was treated with Lovenox, Coumadin, and Multaq and eventually converted back to sinus rhythm. It was felt that she had diastolic congestive heart failure. She was hypoxic on room air during that admission and has been on home O2 since. She did not come to the office for followups. In 03/2014, she came to the emergency room after dropping something on her foot. She went home after being seen in the emergency room. She felt that she was back in atrial fibrillation with an irregular heartbeat. She came back to the emergency room and was found to have PACs. Heart rate was less than 60 per minute and she was admitted. She did have 1 brief episode of lightheadedness when she stood up from her lift chair, but she never had syncope. She did not have atrial fibrillation during that admission. She had some mild bradycardia and was sent home with a 30-day monitor. On the monitor, lowest heart rate was in the mid 50s and she did not have any atrial fibrillation during the month of monitoring. She has continued to be seen intermittently in the office. Echo on 01/2015 revealed an ejection fraction of 55-60% with [id number]-up-tplads aortic stenosis with a peak gradient of 66 mm, mean gradient of 39 mm and an aortic valve area of 1.1 cm2. She started using CPAP at night as well as using oxygen 24 hours a day. She was admitted in 10/2015 with increased shortness of breath and found to have a hemoglobin of 6.9 with guaiac-positive stools and her INR was 4.2. She was transfused and diuresed. She received 3 units. She was started on Multaq; however, she did not wish to remain on that and that was discontinued. She was again admitted in 10/10/2017 with increased shortness of breath and was diuresed. Echocardiogram during that admission revealed ejection fraction of 50 -55% with moderate left ventricular hypertrophy, mild left atrial enlargement, mitral annular calcification, moderate mitral regurgitation, severe aortic stenosis with a peak gradient of 95 mm, mean gradient of 55 mm, moderate aortic insufficiency, mild tricuspid regurgitation, and mild pulmonic regurgitation. She was diuresed and eventually discharged. She now is admitted again yesterday with increased shortness of breath. After she had returned home, she had gradually increased her oxygen up to 3 liters and her O2 sat was 88%. She is admitted for further evaluation and with intravenous diuretics, has improvement in her symptoms. PAST MEDICAL HISTORY: Morbid obesity, hypertension, hyperlipidemia, diabetes, chronic kidney disease, nephrotic range proteinuria, severe aortic stenosis, moderate aortic insufficiency, moderate mitral regurgitation, osteoarthritis, chronic hypoxia on home O2, history of GI bleed that was never fully evaluated. OPERATIONS: x2. MEDICATIONS: Ventolin nebs q.2 hours p.r.n., amlodipine 5 mg daily, aspirin 81 daily, Calcitriol 1 capsule daily, carvedilol 6.25 b.i.d., Procrit 7500 units q.7 days, Flonase nasal spray, furosemide 40 mg daily, hydralazine 25 b.i.d., Novolin and Lantus, DuoNebs q.4 hours p.r.n., isosorbide dinitrate 20 b.i.d., simvastatin 40 at bedtime. ALLERGIES: VANCOMYCIN. SOCIAL HISTORY: She does not smoke or drink. 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 FAMILY HISTORY: Negative for coronary artery disease. REVIEW OF SYSTEMS: A twelve-point review of systems is otherwise unremarkable. PHYSICAL EXAMINATION: VITAL SIGNS: Blood pressure 172/68, pulse 74, atrial fibrillation. HEENT: PERRL. NECK: Supple. CHEST: Reveals distant breath sounds bilaterally. CARDIOVASCULAR: S1 and S2 normal without any S3 or S4. There is a 2/6 systolic ejection murmur in the aortic area. ABDOMEN: Obese, normal bowel sounds. EXTREMITIES: Revealed 2+ edema. NEUROLOGIC: Grossly intact. SKIN: Warm and dry. LABORATORY DATA: EKG reveals atrial fibrillation with nonspecific ST and T- wave changes. Hemoglobin 10.1, hematocrit 32.6, white count 10,800, platelets 199,000. Sodium 139, potassium 4.7, chloride 103, carbon dioxide 25, BUN 83, creatinine 4.35. BNP 1007.2. Troponin I is 0.040. IMPRESSION: 1. Acute on chronic diastolic heart failure. 2. Severe aortic stenosis. 3. Chronic kidney disease. 4. History of gastrointestinal bleed in the past, poor anticoagulation candidate. 5. Probable chronic atrial fibrillation, she declined Multaq in the past. 6. Hypertension. 7. Diabetes. 8. Hypercholesterolemia. 9. Morbid obesity. 10. Obstructive sleep apnea. PLAN: Little to offer from a cardiac standpoint until dialysis has been instituted and she has been brought to dry weight. Then, she could undergo cardiac catheterization to define her coronary anatomy. Further approach of her aortic stenosis could then be entertained. [facility]
[2017-11-09 04:37] LABS: #Lymphocytes 0.6 thou/uL (1.20-3.40); #Monocytes 0.7 thou/uL (0.11-0.59); #Neutrophils 11.7 thou/uL (1.40-6.50); %Eosinophils 0.1 % (0.0-10.0); %Lymphocytes 4.3 % (21.0-51.0); %Monocytes 5.2 % (0.0-10.0); %Neutrophils 90.4 % (42.0-75.0); Hemoglobin 10.9 g/dL (12.0-16.0); Mean Corpuscular HGB CONC 31.1 g/dL (32.0-36.0); Mean Corpuscular Hemoglobin 28.4 pg (27.0-31.0); Mean Corpuscular Volume 91.4 fl (81.0-99.0); Mean Platelet Volume 8.3 fL (7.4-10.4); Platelet Count 242 thou/uL (130-400); RBC Distribution Width 14.3 % (11.5-14.5); Red Blood Cell (RBC) Count 3.82 mill/uL (4.20-5.40); White Blood Cell (WBC) Count 12.9 thou/uL (4.8-10.8)
[2017-11-09] MEDS: Ondansetron HCl/PF 4 MG/2 ML Vial SLOW IVP PRN (04:39)
[2017-11-09 05:02] LABS: Anion Gap 18 mmol/L (10-20); BUN (Urea Nitrogen) 107 mg/dL (9.8-20.1); Calc. Creatinine Clearance 27 mL/min (70-130); Calcium 8.5 mg/dL (7.8-10.44); Carbon Dioxide 23 mmol/L (23-31); Chloride 101 mmol/L (98-107); Estimated GFR-MDRD 9; Glucose 234 mg/dL (83-110); Potassium 5.3 mmol/L (3.5-5.1); Sodium 137 mmol/L (136-145)
--- NOTE | 2017-11-09 08:48 | PDOC.PN ---
- Subjective Encounter Start Date: 11/09/17 Encounter Start Time: 08:46 Ebony Cox was seen today in follow-up. She says she had a bad night. She has been having some nausea and vomited this morning. - Objective MAR Reviewed: Yes Vital Signs & Weight: Vital Signs (12 hours) Temp Pulse Resp BP Pulse Ox 11/09/17 07:27 97.9 F 63 20 132/67 93 L 11/09/17 04:08 98.2 F 53 L 24 H 146/74 H 96 11/09/17 02:33 53 L 11/09/17 02:04 64 24 H 158/61 H 94 L 11/09/17 00:03 98.6 F 53 L 22 H 151/65 H 95 11/08/17 22:23 78 22 H 128/65 98 Weight Weight 370 lb 6 oz I&O: 11/08/17 11/09/17 11/10/17 06:59 06:59 06:59 Intake Total 210 885 Output Total 350 1250 Balance -140 -365 Result Diagrams: 11/09/17 04:21 11/09/17 04:21 Additional Labs: Accuchecks 11/09/17 11/08/17 11/08/17 04:56 21:00 17:11 POC Glucose 223 H 227 H 237 H 11/08/17 11:04 POC Glucose 196 H Phys Exam - Physical Examination HEENT: PERRLA + rales at the bases Cardiovascular: RRR, no significant murmur Gastrointestinal: soft, non-tender, positive bowel sounds Musculoskeletal: edema present 2+ pitting edema bilaterally Dx/Plan (1) Acute exacerbation of CHF (congestive heart failure) Code(s): I50.9 - HEART FAILURE, UNSPECIFIED Status: Acute (2) Acute on chronic kidney failure Code(s): N17.9 - ACUTE KIDNEY FAILURE, UNSPECIFIED; N18.9 - CHRONIC KIDNEY DISEASE, UNSPECIFIED Status: Acute (3) Diabetes mellitus type 2 Code(s): E11.9 - TYPE 2 DIABETES MELLITUS WITHOUT COMPLICATIONS Status: Chronic Comment: Managed by PCP, stable here. CCM (4) Hypertension Code(s): I10 - ESSENTIAL (PRIMARY) HYPERTENSION Status: Chronic Qualifiers: Comment: controlled (5) Paroxysmal atrial fibrillation Code(s): I48.0 - PAROXYSMAL ATRIAL FIBRILLATION Status: Chronic - Plan * Acute on chronic diastolic heart failure-she is now off BiPAP * Adequate diureses will be difficult with her advanced renal failure- Discussed with Dr. Underwood- He will be initiating dialysis * Plan is to have cardiac cath to assess her Aortic valve * HTN- blood pressure is slightly elevated, but stable * DM- blood glucose is a bit elevated with start Levemir, but at half her usual dose.
--- NOTE | 2017-11-09 08:52 | PRG ---
DATE OF SERVICE: 11/09/2017 RENAL MEDICINE SUBJECTIVE: Ms. Cox is a 77-year-old white female who was admitted for shortness of breath. She still s been evaluated by Cardiology. A planned cardiac catheterization to look at her coronary vessels as well as to evaluate aortic valve disease. However, they are not able to proceed with this due to th e chronic renal failure. I did discuss the situation with Ms. Cox and she has agreed to proceed wit h dialysis. Please note her renal function has worsened. In addition, her GFR is less than 10. She still has some mild shortness of breath. PHYSICAL EXAMINATION: VITAL SIGNS: Blood pressure is 132/67, heart rate 63, respiratory rate 20, temperature 97.9, pulse o x 93%. GENERAL: Noted to be awake, alert, in mild respiratory distress. HEENT: She has slightly pale conjunctivae, anicteric sclerae. NECK: No neck mass, no carotid bruits, no JVD. CHEST: No deformities. LUNGS: Decreased breath sounds. HEART: Normal sinus rhythm. Grade 2/6 systolic murmur, no gallops, no rubs. ABDOMEN: Globular, soft, nontender, no masses. EXTREMITIES: Positive for edema. MEDICATIONS: Medications of 11/09/2017 was reviewed. LABORATORY DATA: Laboratories of 11/09/2017; white count 12.9, hemoglobin 10.9, hematocrit 34.9. So dium 137, potassium 5.3, chloride 101, carbon dioxide 23, BUN 107, creatinine 4.74, and calcium is 8. 5. ASSESSMENT AND PLAN: 1. Chronic renal failure, worsening renal dysfunction. Glomerular filtration rate is now noted at 9 mL per minute. My bias is to initiate dialysis with this patient. I had a long discussion with the patient and she has agreed to proceed with dialysis. 2. Shortness of breath - we will rule out cardiac ischemia. Cardiology is following. Consideration for cardiac catheterization is being made. 3. Aortic valve disease - being followed up by her blending machine feeder. 4. Anemia. We will initiate Epogen 7500 units subcutaneously every week. 5. Shortness of breath, one time dose of Lasix 60 mg IV will be given. We will recheck basic metabolic panel and CBC in a.m.
[2017-11-09] MEDS ORDERED: Insulin Detemir 100 UNITS/ML 15 UNITS in Pre-Filled Syringe 1 EACH SC SCH (09:00)
[2017-11-09] MEDS: Carvedilol 6.25 MG TAB PO SCH ×2 (09:05→17:21)
[2017-11-09] MEDS: Calcitriol 0.25 MCG CAP PO SCH (09:06)
[2017-11-09] MEDS: hydrALAZINE 25 MG TAB PO SCH ×2 (09:06→20:18)
[2017-11-09] MEDS: Amlodipine 5 MG TAB PO SCH (09:06)
[2017-11-09] MEDS: Isosorbide Dinitrate 20 MG TAB PO SCH ×2 (09:06→20:19)
[2017-11-09] MEDS: Docusate 100 MG CAP PO SCH ×2 (09:06→20:18)
[2017-11-09] MEDS: Fluticasone Propionate Nasal Spray 16 gm Bottle NASAL SCH (09:07)
[2017-11-09] MEDS: Heparin 5,000 UNITS/ML VIAL SC SCH ×3 (09:07→20:20)
[2017-11-09] MEDS: cefTRIAXone\\ROCEPHIN 1 GM, Syringe 0.4 ML in Sterile Water 9.6 ML SLOW IVP SCH (09:12)
[2017-11-09] MEDS ORDERED: Furosemide 100 MG/10 ML VIAL IVPB SCH (09:45)
--- NOTE | 2017-11-09 09:46 | PRG ---
DATE OF SERVICE: 11/09/2017 SUBJECTIVE: She tells me the decision was made to go forward with dialysis. Her breathing is better to the point where she is only using the BiPAP at night. OBJECTIVE: VITAL SIGNS: On exam, temperature is 97.9, pulse 63, blood pressure 155/70, O2 sat 93% on 3 liters. HEENT: Unremarkable. NECK: No JVD. LUNGS: She has diminished breath sounds at the bases. CARDIAC: S1 and S2 muffled by 3/6 systolic murmur. ABDOMEN: Obese, soft, nontender. EXTREMITIES: Generalized edema throughout. LABORATORY DATA: White blood cell count 12.9, hematocrit 35, platelet count 242. Sodium 137, potass ium 5.3, BUN 107, creatinine 4.7, glucose 234. ASSESSMENT: 1. Generalized anasarca from the renal failure and congestive heart failure 2. Aortic stenosis. 3. Diastolic cardiac dysfunction. 4. Chronic kidney disease, stage 4. 5. Obstructive sleep apnea. PLAN: I agree with the proposed dialysis and fluid removal. She is continuing antibiotics for the E . coli in urinary tract. I will continue to follow with you.
[2017-11-09 09:55] LABS: HBSAB Concentration 0.23 mIU/mL; HBSAg Index 0.14 S/CO (0-0.99); Hep B Core Total Ab Non-Reactive (NonReactive); Hep B Core Total Index 0.12 S/CO (0-0.79); Hep B Surf AB Non-Reactive (NonReactive); Hep B Surf Ag Non-Reactive S/CO (NonReactive); Hep C IgG Ab Non-Reactive (NonReactive); Hep C Index 0.21 S/CO (0-0.79)
[2017-11-09] MEDS ORDERED: CEFAZOLIN/Water 2 GM/20 ML SYRINGE SLOW IVP SCH ×2 (10:15→15:30)
--- NOTE | 2017-11-09 12:09 | ULT ---
BILATERAL UPPER EXTREMITY VENOUS DOPPLER ULTRASOUND FOR DIALYSIS ACCESS: HISTORY: End stage renal disease. FINDINGS: RIGHT UPPER EXTREMITY: The right cephalic vein measures 1.2 mm in the proximal arm, 1.7 mm in the mid arm, 1.4 mm in the dis funmi arm, 3.1 mm in the cubital fossa, and 0.9 mm in the proximal forearm and 0.7 mm in the mid and di stal forearm. The right basilic vein measures 2.5 mm in the proximal arm, 2.1 mm in the mid arm, 2.2 mm in the dist al arm, 2.8 mm in the cubital fossa, 0.9 mm in the proximal and mid forearm, and 0.4 mm in the distal forearm. The right brachial artery measures 3.3 mm, radial artery 1.8 mm, and ulnar artery 1.7 mm. LEFT UPPER EXTREMITY: The left cephalic vein measures 1.4 mm in the proximal arm, 1.5 mm in the mid arm, 2.4 mm in the dist al arm, 0.5 mm in the cubital fossa, 1.0 mm in the proximal forearm, 1.4 mm in the mid forearm, and 1 .3 mm in the distal forearm. The left basilic vein measures 3.1 mm in the proximal arm, 2.9 mm in the mid arm, 3.1 mm in the dista l arm, 2.9 mm in the cubital fossa, 1.6 mm in the proximal forearm, 1.4 mm in the mid forearm, and 1. 3 mm in the distal forearm. The left brachial artery measures 4.6 mm, radial artery 1.9 mm, and ulnar artery 1.8 mm. POS: [facility]
--- NOTE | 2017-11-09 12:26 | CON ---
DATE OF CONSULTATION: 11/09/2017 HISTORY OF PRESENT ILLNESS: Diana Cox is a 77-year-old female in the [facility], morbidly obese, followed Dr. Underwood for hypertensive and diabetic nephropathy, progressive disease, now requiring dialysis. The patient has hypertension, diabetes, sleep apnea, uses a BiPAP at home. Hemoglobin 10, potassium 5.3, BUN 107, creatinine 4.7, glucose 234. The patient is 5 foot 4, 370 pounds, 63 BMI. Patient is mobile in a wheelchair, transfers by herself , but is nonambulatory due to her morbid obesity. ALLERGIES: BACTRIM causes her heart to be jittery, but there is no rash. TOBACCO: None. ALCOHOL: None. MEDICATIONS: At home; levocetirizine dihydrochloride 1 tablet at bedtime, Robitussin 50 mg q.i.d. p .r.n., Lasix 40 mg daily, Tylenol p.r.n., Ventolin nebulizer p.r.n. q.2 hours. DuoNeb albuterol q.4 h. p.r.n., insulin NovoLog FlexPen 6 units subcu a.c., insulin Glargine, Lantus Solostar 30 units fernando bcu b.i.d., vitamin D3 2000 units p.o. daily, carvedilol, Coreg 6.25 mg b.i.d. with meals, calcitriol 1 cap daily, aspirin 81 mg a day, amlodipine 5 mg a day, hydralazine 25 mg b.i.d., Zocor 40 mg at be dtime, Isordil 20 mg b.i.d., Procrit 7500 units subcu every 7 days, Flonase nasal spray 1 spray daily . PAST SURGICAL HISTORY: Two C-sections, otherwise noncontributory. She has never had a colonoscopy. PAST MEDICAL HISTORY: Sleep apnea, diabetes, hypertension, morbid obesity, metabolic syndrome, parox ysmal atrial fibrillation, macular degeneration and severe aortic stenosis. PHYSICAL EXAMINATION: VITAL SIGNS: Height 5 foot 4, 370 pounds, 63 BMI, temperature 97.9, 63, 155/70. LUNGS: Clear to auscultation. CARDIAC: Regular rate and rhythm without murmur or gallop. ABDOMEN: Soft, nontender, obese. EXTREMITIES: Unremarkable. Palpable radial pulses. IV wrist. LABORATORY: White count 12, hemoglobin 10, potassium 5.3, sodium 137, BUN 107, creatinine 4.7, GFR 9 . ASSESSMENT AND PLAN: 1. 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 Plan, placement of hemodialysis catheter and a central line for dialysis today and en plan placement of a primary fistula right or left arm tomorrow pending vein mapping. 2. Metabolic syndrome. 3. Morbid obesity. 4. Hypertension. 5. Diabetes mellitus, insulin-dependent, type 2. 6. Sleep apnea, on BiPAP. 7. Aortic stenosis, echocardiogram 10/10/2017, 50-55% EF, left atrium mildly dilated, severe aortic stenosis, mild tricuspid and pulmonic regurgitation followed by Dr. Jad Scott. 8. History of atrial flutter.
[2017-11-09] MEDS: Insulin Detemir 100 UNITS/ML 15 UNITS in Pre-Filled Syringe 1 EACH SC SCH ×2 (12:35→20:19)
[2017-11-09] MEDS ORDERED: Fentanyl 100 MCG/2 ML VIAL ONE (15:00)
[2017-11-09] MEDS ORDERED: Heparin 10,000 UNITS/1 ML VIAL ONE (15:04)
[2017-11-09] MEDS ORDERED: Lidocaine 1% w/Epinephrine 1:200K 30 ML VIAL ONE (15:04)
[2017-11-09] MEDS ORDERED: Bupivacaine PF 0.5% 30 ML VIAL ONE (15:04)
[2017-11-09] MEDS ORDERED: Sodium Chloride 0.9% 10 ML ONE (15:04)
[2017-11-09] MEDS ORDERED: Acetaminophen 500 MG TAB PO PRN (15:29)
[2017-11-09] MEDS ORDERED: Ketamine 50 MG/ML VIAL ONE (15:45)
--- NOTE | 2017-11-09 18:51 | RAD ---
UPRIGHT FRONTAL CHEST RADIOGRAPH 11/09/17 COMPARISON: 11/07/17. HISTORY: Evaluate lines and tubes. Body habitus and portable technique limits detailed assessment of both lung bases. The cardiac silhou ette appears enlarged suggesting cardiomegaly and/or pericardial effusion. New left sided vascular ca theter noted, distal tip approaching the region of the cavoatrial junction. New right sided dialysis catheter noted, distal tip overlying the region of the SVC. No pneumothorax is seen. There is pulmonary vascular congestion and perihilar/bibasilar interstitial opacity with bilateral lo wer lobe air space disease and probable associated pleural fluid. IMPRESSION: Bilateral vascular catheters. Findings suggesting interstitial and alveolar pulmonary edema. Infectio us pneumonitis or aspiration cannot be excluded. Followup imaging following treatment to document res olution advised. POS: [facility]
--- NOTE | 2017-11-09 19:56 | OP ---
PREOPERATIVE DIAGNOSES: Morbid obesity, end-stage renal disease, hypertension, diabetes, in need of dialysis access, poor IV access. POSTOPERATIVE DIAGNOSES: Morbid obesity, end-stage renal disease, hypertension, diabetes, in need of dialysis access, poor IV access. PROCEDURE: Right IJ cuffed tunnel hemodialysis catheter, angiodynamics precurved catheter. Left IJ central line, fluoroscopy and ultrasound used for placement. SURGEON: Dr. Virgil Beckman ANESTHESIA: Local 0.25% Marcaine, 30 mL, mixed with 1% Xylocaine with epinephrine, 30 mL. ESTIMATED BLOOD LOSS: None. PROCEDURE: The patient taken to the operating room and her left wrist IV was infiltrated not functio nal. The case was then tested under local with anesthesia standby. Local anesthetic infiltrated int o skin and subcutaneous tissue about the operative site after ChloraPrep was used prep the chest and neck and area draped in routine fashion. Ultrasound used to guide cannulation of the right and left internal jugular vein and trocar catheter was placed and J-wire was placed and trocar catheter was re moved. Skin incised and enlarged sharply. On the left, a Seldinger technique used to place a triple lumen catheter securing it with 3-0 nylon suture. Biopatch applied. Each port aspirated blood and flushed with saline solution. Sterile dressing applied. On the right side, a stab incision made over the right chest infraclavicular. Using the tunneling de vice, precurved angiodynamics, cuffed tunneled hemodialysis catheter tunneled between the two incisio ns, placing the fabric cuff beneath the skin exit site and catheter secured with 2 interrupted suture s of 3-0 nylon. Biopatch sterile dressing applied. Smaller and medium sized dilators placed over th e J-wire into the internal jugular vein and removed. Dilator and pull-away sheath placed over the J- wire in the superior vena cava and dilator and J-wire removed. Catheter placed with a pull-away onofre th. Pull-away sheath removed. Platysma approximated with 4-0 Monocryl, skin with subdermal 4-0 Bradford cryl and DermaGlue and sterile dressings applied. Each port aspirated blood and flushed with saline solution and heparinized saline solution 1000 units heparin per mL indicated volume of the port. Pat ient tolerated the procedure well.
[2017-11-09] MEDS: Famotidine 20 MG TAB PO SCH (20:18)
[2017-11-09] MEDS: Atorvastatin Calcium 20 MG TAB PO SCH (20:18)
[2017-11-09] MEDS: HumaLOG 300 UNITS/3 ML VIAL SC PRN (20:19)
[2017-11-09] MEDS: HYDROcodone/Acetaminophen 5/325 mg Tablet PO PRN (23:51)
[2017-11-10 05:12] LABS: #Basophils 0.1 thou/uL (0.0-0.2); #Lymphocytes 0.8 thou/uL (1.20-3.40); #Monocytes 0.9 thou/uL (0.11-0.59); #Neutrophils 8.8 thou/uL (1.40-6.50); %Basophils 0.6 % (0.0-1.0); %Eosinophils 0.4 % (0.0-10.0); %Lymphocytes 7.9 % (21.0-51.0); %Monocytes 8.3 % (0.0-10.0); %Neutrophils 82.9 % (42.0-75.0); Hemoglobin 10.2 g/dL (12.0-16.0); Mean Corpuscular HGB CONC 30.6 g/dL (32.0-36.0); Mean Corpuscular Hemoglobin 28.4 pg (27.0-31.0); Mean Corpuscular Volume 92.9 fl (81.0-99.0); Mean Platelet Volume 8.4 fL (7.4-10.4); Platelet Count 224 thou/uL (130-400); RBC Distribution Width 14.3 % (11.5-14.5); White Blood Cell (WBC) Count 10.6 thou/uL (4.8-10.8)
[2017-11-10 05:23] LABS: Anion Gap 15 mmol/L (10-20); BUN (Urea Nitrogen) 121 mg/dL (9.8-20.1); Calc. Creatinine Clearance 24 mL/min (70-130); Carbon Dioxide 28 mmol/L (23-31); Chloride 100 mmol/L (98-107); Estimated GFR-MDRD 8; Glucose 184 mg/dL (83-110); Potassium 5.2 mmol/L (3.5-5.1); Sodium 138 mmol/L (136-145)
[2017-11-10] MEDS: Carvedilol 6.25 MG TAB PO SCH ×2 (05:36→16:07)
[2017-11-10] MEDS: HYDROcodone/Acetaminophen 5/325 mg Tablet PO PRN (05:44)
--- NOTE | 2017-11-10 08:50 | PRG ---
DATE OF SERVICE: 11/10/2017 SUBJECTIVE: Ms. Cox is a 77-year-old white female with chronic renal failure and has been initiated on dialysis. She has been having progressive azotemia and was remaining unimproved over time. She has also been evaluated by Cardiology and the possibility of a cardiac catheterization was also being entertained. We did discuss about dialysis and the patient has agreed. I am currently at the dial sis unit supervising her dialysis at bedside. She voices no new complaints. She voices no chest anamaria n, no shortness of breath. PHYSICAL EXAMINATION: VITAL SIGNS: Blood pressure is 136/55, heart rate 63, respiratory rate 18, temperature 97.7, pulse o x is 92%. GENERAL: Noted to be awake, alert, comfortable, not in distress. Please note the patient is morbidl y obese. SKIN: Adequate turgor. HEENT: She has pinkish conjunctivae, anicteric sclerae. NECK: No neck mass, no carotid bruits, no JVD. CHEST: No deformities. LUNGS: Decreased breath sounds. No wheezing, no crackles. HEART: Normal sinus rhythm. No murmur, no gallops or rubs. ABDOMEN: Globular, soft, nontender, no masses. EXTREMITIES: Trace edema. No deformities. MEDICATIONS: 11/10/2017 - Reviewed. LABORATORY: 11/10/2017 - White count 10.6, hemoglobin 10.2. Sodium 138, potassium 5.2, chloride 100 , carbon dioxide 28, BUN 121, creatinine 5.28, glucose 184, calcium 8.0. ASSESSMENT AND PLAN: 1. Shortness of breath - clinically improved. Please note she did receive diuretics yesterday. Wit h the dialysis I am attempting 1-1.5 liter fluid removal only as tolerated by the patient. 2. Chronic renal failure - patient most likely has reached end-stage renal disease. She has been pl aced on hemodialysis. My plan is to do 1-1/2 hour hemodialysis and then follow up with a 2-1/2 hour hemodialysis in a.m. My plan is eventually to dialyze her 3 times a week at 4-hour dialysis session. 3. Congestive heart failure/aortic valve disease. Cardiology is following. Consideration for cardi ac catheterization is being entertained. We will recheck basic metabolic panel and CBC in a.m.
--- NOTE | 2017-11-10 09:17 | PDOC.PULPN ---
Progress Note: Subj/Obj - Subjective Date: 11/10/17 Time: 09:15 Narrative: Seen in dialysis. Doing OK - ROS All systems: reviewed and no additional remarkable complaints except as stated - Objective Allergies/Adverse Reactions: Allergies Allergy/AdvReac Type Severity Reaction Status Date / Time sulfamethoxazole Allergy Verified 11/07/17 18:05 [From Bactrim] trimethoprim [From Bactrim] Allergy Verified 11/07/17 18:05 Medications: Current Medications Acetaminophen (Tylenol) 650 mg PO Q4H PRN PRN Reason: Headache/Fever or Pain Acetaminophen (Tylenol) 1,000 mg PO Q6H PRN PRN Reason: Moderate to Severe Pain (6-10) Hydrocodone Bitart/Acetaminophen (Paron 5/325) 1 tab PO Q4H PRN PRN Reason: Moderate Pain (4-6) Last Admin: 11/10/17 05:44 Dose: 1 tab Albuterol/Ipratropium (Duoneb) 3 ml NEB [id number] PRN PRN Reason: SOB &/or Wheezing Albuterol/Ipratropium (Duoneb) 3 ml NEB [id number] [facility] Last Admin: 11/10/17 09:13 Dose: Not Given Amlodipine Besylate (Norvasc) 5 mg PO DAILY [facility] Last Admin: 11/09/17 09:06 Dose: 5 mg Aspirin (Aspirin Chewable) 81 mg PO DAILY [facility] Last Admin: 11/09/17 09:06 Dose: 81 mg Atorvastatin Calcium (Lipitor) 20 mg PO HS [facility] Last Admin: 11/09/17 20:18 Dose: 20 mg Calcitriol (Rocaltrol) 0.25 mcg PO DAILY [facility] Last Admin: 11/09/17 09:06 Dose: 0.25 mcg Carvedilol (Coreg) 6.25 mg PO BID-[facility] Last Admin: 11/10/17 05:36 Dose: 6.25 mg Cefazolin Sodium (Ancef) 2 gm SLOW IVP WILLCALL [facility] Cholecalciferol (Vitamin D3) 2,000 units PO DAILY [facility] Last Admin: 11/09/17 09:06 Dose: 2,000 units Dextrose/Water (Dextrose 50%) 25 gm SLOW IVP PRN PRN PRN Reason: Hypoglycemia Docusate Sodium (Colace) 100 mg PO BID [facility] Last Admin: 11/09/17 20:18 Dose: 100 mg Epoetin Bryn (Procrit) 7,500 units SC Q7D@1000 [facility] Famotidine (Pepcid) 20 mg PO Q24HR [facility] Last Admin: 11/09/17 20:18 Dose: 20 mg Fluticasone Propionate (Flonase Nasal [place]) 0 gm NASAL DAILY [facility] Last Admin: 11/09/17 09:07 Dose: 1 spr Glucagon (Glucagon) 1 mg IM PRN PRN PRN Reason: Hypoglycemia Heparin Sodium (Porcine) (Heparin) 5,000 units SC TID [facility] Last Admin: 11/09/17 20:20 Dose: 5,000 units Hydralazine HCl (Apresoline) 10 mg SLOW IVP Q4H PRN PRN Reason: Systolic BP > 180 Hydralazine HCl (Apresoline) 25 mg PO BID [facility] Last Admin: 11/09/17 20:18 Dose: 25 mg Dextrose/Water (D5w) 1,000 mls @ 0 mls/hr IV .Q0M PRN; As Directed PRN Reason: Hypoglycemia Ceftriaxone Sodium 1 gm/ (Syringe 0.4 ml/ Sterile Water) 10 mls @ 120 mls/hr SLOW IVP Q24HR [facility] Last Admin: 11/09/17 09:12 Dose: 10 mls Insulin Detemir 15 units/ (Miscellaneous Medication) 0.15 mls @ 0 mls/hr SC BID [facility] Last Admin: 11/09/17 20:19 Dose: 0.15 mls Insulin Human Lispro (Humalog) 0 units SC .MODERATE SLIDING SC PRN PRN Reason: Moderate Correctional Scale Last Admin: 11/08/17 17:26 Dose: 4 units Insulin Human Lispro (Humalog) 0 units SC .BEDTIME SLIDING SC PRN PRN Reason: Bedtime Correctional Scale Last Admin: 11/09/17 20:19 Dose: 2 unit Isosorbide Dinitrate (Isordil) 20 mg PO BID [facility] Last Admin: 11/09/17 20:19 Dose: 20 mg Lorazepam (Ativan) 0.5 mg PO Q4H PRN PRN Reason: Anxiety/Agitation Lorazepam (Ativan) 0.5 mg SLOW IVP Q4H PRN PRN Reason: Anxiety/Agitation Last Admin: 11/09/17 04:40 Dose: 0.5 mg Magnesium Hydroxide (Milk Of Magnesium) 30 ml PO DAILYPRN PRN PRN Reason: Constipation Ondansetron HCl (Zofran) 4 mg SLOW IVP Q6H PRN PRN Reason: Nausea/Vomiting Last Admin: 11/09/17 04:39 Dose: 4 mg Sodium Chloride (Flush - Normal Saline) 10 ml IVF Q12HR [facility] Last Admin: 11/09/17 20:20 Dose: 10 ml Sodium Chloride (Flush - Normal Saline) 10 ml IVF PRN PRN PRN Reason: Saline Flush MAR Reviewed: Yes Vital Signs: Vital Signs Temp 97.7 F 11/10/17 04:00 Pulse 63 11/10/17 04:00 Resp 18 11/10/17 04:00 BP 136/55 L 11/10/17 05:36 Pulse Ox 92 L 11/10/17 04:00 Intake & Output 11/09/17 11/10/17 11/10/17 18:59 06:59 18:59 Intake Total 560 Output Total 750 Balance -190 Weight 367 lb 12.8 oz Intake: Oral 560 Output: Output, [place] 750 Other: Voiding Method Indwelling Catheter Indwelling Catheter Progress Note: Exam - Physical Exam Constitutional: NAD HEENT: PERRLA, sclera anicteric Neck: no nodes, no JVD Cardiovascular: RRR Deviation from normal: 3/6 systolic murmur Focused Respiratory Location: rales: Right, Left Gastrointestinal: soft, non-tender Musculoskeletal: edema present Neurological: non-focal, moves all 4 limbs Lymphatic: no nodes Psychiatric: normal affect, A&O x 3 Skin: no rash Progress Note: Data - Labs Result Diagrams: 11/10/17 05:00 11/10/17 05:00 Lab results: Laboratory Results 11/08/17 11/08/17 11/08/17 11:04 17:11 21:00 WBC RBC Hgb Hct MCV MCH MCHC RDW Plt Count MPV Neutrophils % Lymphocytes % Monocytes % Eosinophils % Basophils % Neutrophils # Lymphocytes # Monocytes # Eosinophils # Basophils # Sodium Potassium Chloride Carbon Dioxide Anion Gap BUN Creatinine Estimated GFR (MDRD) Glucose POC Glucose 196 H 237 H 227 H Calcium Hep Bs Antigen Hep Bs Antibody Hep Bs Antibody Index Hep B Core Total Ab Hepatitis C Antibody 11/09/17 11/09/17 11/09/17 04:21 04:21 04:56 WBC 12.9 H RBC 3.82 L Hgb 10.9 L Hct 34.9 L MCV 91.4 MCH 28.4 MCHC 31.1 L RDW 14.3 Plt Count 242 MPV 8.3 Neutrophils % 90.4 H Lymphocytes % 4.3 L Monocytes % 5.2 Eosinophils % 0.1 Basophils % 0.0 Neutrophils # 11.7 H Lymphocytes # 0.6 L Monocytes # 0.7 H Eosinophils # 0.0 Basophils # 0.0 Sodium 137 Potassium 5.3 H Chloride 101 Carbon Dioxide 23 Anion Gap 18 BUN 107 H Creatinine 4.74 H Estimated GFR (MDRD) 9 Glucose 234 H POC Glucose 223 H Calcium 8.5 Hep Bs Antigen Hep Bs Antibody Hep Bs Antibody Index Hep B Core Total Ab Hepatitis C Antibody 11/09/17 11/09/17 11/09/17 08:55 11:13 17:07 WBC RBC Hgb Hct MCV MCH MCHC RDW Plt Count MPV Neutrophils % Lymphocytes % Monocytes % Eosinophils % Basophils % Neutrophils # Lymphocytes # Monocytes # Eosinophils # Basophils # Sodium Potassium Chloride Carbon Dioxide Anion Gap BUN Creatinine Estimated GFR (MDRD) Glucose POC Glucose 213 H 209 H Calcium Hep Bs Antigen Non-Reactive Hep Bs Antibody Non-Reactive Hep Bs Antibody Index 0.23 Hep B Core Total Ab Non-Reactive Hepatitis C Antibody Non-Reactive 11/09/17 11/10/17 11/10/17 20:19 05:00 05:00 WBC 10.6 RBC 3.60 L Hgb 10.2 L Hct 33.4 L MCV 92.9 MCH 28.4 MCHC 30.6 L RDW 14.3 Plt Count 224 MPV 8.4 Neutrophils % 82.9 H Lymphocytes % 7.9 L Monocytes % 8.3 Eosinophils % 0.4 Basophils % 0.6 Neutrophils # 8.8 H Lymphocytes # 0.8 L Monocytes # 0.9 H Eosinophils # 0.0 Basophils # 0.1 Sodium 138 Potassium 5.2 H Chloride 100 Carbon Dioxide 28 Anion Gap 15 BUN 121 H Creatinine 5.28 H Estimated GFR (MDRD) 8 Glucose 184 H POC Glucose 220 H Calcium 8.0 Hep Bs Antigen Hep Bs Antibody Hep Bs Antibody Index Hep B Core Total Ab Hepatitis C Antibody 11/10/17 05:37 WBC RBC Hgb Hct MCV MCH MCHC RDW Plt Count MPV Neutrophils % Lymphocytes % Monocytes % Eosinophils % Basophils % Neutrophils # Lymphocytes # Monocytes # Eosinophils # Basophils # Sodium Potassium Chloride Carbon Dioxide Anion Gap BUN Creatinine Estimated GFR (MDRD) Glucose POC Glucose 176 H Calcium Hep Bs Antigen Hep Bs Antibody Hep Bs Antibody Index Hep B Core Total Ab Hepatitis C Antibody Progress Note: A/P - Problems (1) Obstructive sleep apnea Current Visit: Yes Status: Acute Code(s): G47.33 - OBSTRUCTIVE SLEEP APNEA ( ADULT) (PEDIATRIC) (2) Acute exacerbation of CHF (congestive heart failure) Current Visit: Yes Status: Acute Code(s): I50.9 - HEART FAILURE, UNSPECIFIED (3) Aortic stenosis, non-rheumatic Current Visit: No Status: Chronic Code(s): I35.0 - NONRHEUMATIC AORTIC ( VALVE) STENOSIS (4) Chronic respiratory failure Current Visit: No Status: Chronic Code(s): J96.10 - CHRONIC RESPIRATORY FAILURE, UNSP W HYPOXIA OR HYPERCAPNIA Qualifiers: Respiratory failure complication: hypoxia Qualified Code(s): J96.11 - Chronic respiratory failure with hypoxia (5) Morbid obesity Current Visit: No Status: Chronic Code(s): E66.01 - MORBID (SEVERE) OBESITY DUE TO EXCESS CALORIES - Plan Plan: continue dialysis CPAP at night
--- NOTE | 2017-11-10 10:17 | PDOC.PN ---
- Subjective Encounter Start Date: 11/10/17 Encounter Start Time: 10:15 Brooke was seen today in follow-up. She says she feels well. She did not have any adverse feelings with dialysis. - Objective MAR Reviewed: Yes Vital Signs & Weight: Vital Signs (12 hours) Temp Pulse Resp BP BP Pulse Ox 11/10/17 05:36 136/55 L 11/10/17 04:00 97.7 F 63 18 136/65 92 L 11/10/17 03:03 76 11/10/17 00:19 66 11/09/17 23:25 97.8 F 74 18 123/47 L 91 L Weight Weight 367 lb 12.8 oz I&O: 11/09/17 11/10/17 11/11/17 06:59 06:59 06:59 Intake Total 885 560 Output Total 1250 750 Balance -365 -190 Result Diagrams: 11/10/17 05:00 11/10/17 05:00 Additional Labs: Accuchecks 11/10/17 11/09/17 11/09/17 05:37 20:19 17:07 POC Glucose 176 H 220 H 209 H 11/09/17 11:13 POC Glucose 213 H Phys Exam - Physical Examination HEENT: PERRLA Respiratory: no wheezing + rales at the bases Cardiovascular: irregular 2/6 systolic murmur Gastrointestinal: soft, non-tender, positive bowel sounds Musculoskeletal: edema present 2+ pitting edema Dx/Plan (1) Acute exacerbation of CHF (congestive heart failure) Code(s): I50.9 - HEART FAILURE, UNSPECIFIED Status: Acute (2) Acute on chronic kidney failure Code(s): N17.9 - ACUTE KIDNEY FAILURE, UNSPECIFIED; N18.9 - CHRONIC KIDNEY DISEASE, UNSPECIFIED Status: Acute (3) Diabetes mellitus type 2 Code(s): E11.9 - TYPE 2 DIABETES MELLITUS WITHOUT COMPLICATIONS Status: Chronic Comment: Managed by PCP, stable here. CCM (4) Hypertension Code(s): I10 - ESSENTIAL (PRIMARY) HYPERTENSION Status: Chronic Qualifiers: Comment: controlled (5) Paroxysmal atrial fibrillation Code(s): I48.0 - PAROXYSMAL ATRIAL FIBRILLATION Status: Chronic - Plan * Acute on chronic respiratory failure- due to CHF exacerbation with NL EF- She had about 1.5 L of fluid removed * Acute on chronic kidney disease- she has likely reached the need for dialysis - continue HD as tolerated * HTN- blood pressure is stable * DM- blood glucose is slightly elevated, will continue the current regimen, and cover with a SSI. * PAF- her heart rate is controlled
[2017-11-10] MEDS: Isosorbide Dinitrate 20 MG TAB PO SCH ×2 (12:06→20:45)
[2017-11-10] MEDS: hydrALAZINE 25 MG TAB PO SCH ×2 (12:06→20:51)
[2017-11-10] MEDS: Docusate 100 MG CAP PO SCH ×2 (12:06→20:44)
[2017-11-10] MEDS: Amlodipine 5 MG TAB PO SCH (12:06)
[2017-11-10] MEDS: Calcitriol 0.25 MCG CAP PO SCH (12:06)
[2017-11-10] MEDS: Fluticasone Propionate Nasal Spray 16 gm Bottle NASAL SCH (12:07)
[2017-11-10] MEDS: Heparin 5,000 UNITS/ML VIAL SC SCH ×3 (12:07→20:45)
[2017-11-10] MEDS: Insulin Detemir 100 UNITS/ML 15 UNITS in Pre-Filled Syringe 1 EACH SC SCH ×2 (12:08→20:46)
[2017-11-10] MEDS: cefTRIAXone\\ROCEPHIN 1 GM, Syringe 0.4 ML in Sterile Water 9.6 ML SLOW IVP SCH (16:13)
[2017-11-10] MEDS: Atorvastatin Calcium 20 MG TAB PO SCH (20:44)
[2017-11-10] MEDS: Famotidine 20 MG TAB PO SCH (20:44)
[2017-11-11] MEDS: HumaLOG 300 UNITS/3 ML VIAL SC PRN (05:51)
[2017-11-11 06:13] LABS: #Eosinphils 0.1 thou/uL (0.0-0.7); #Lymphocytes 0.9 thou/uL (1.20-3.40); #Monocytes 0.7 thou/uL (0.11-0.59); #Neutrophils 7.1 thou/uL (1.40-6.50); %Basophils 0.1 % (0.0-1.0); %Eosinophils 0.8 % (0.0-10.0); %Lymphocytes 9.7 % (21.0-51.0); %Monocytes 8.4 % (0.0-10.0); %Neutrophils 81.1 % (42.0-75.0); Hemoglobin 10.5 g/dL (12.0-16.0); Mean Corpuscular HGB CONC 30.4 g/dL (32.0-36.0); Mean Corpuscular Hemoglobin 28.2 pg (27.0-31.0); Mean Corpuscular Volume 92.8 fl (81.0-99.0); Mean Platelet Volume 8.1 fL (7.4-10.4); Platelet Count 218 thou/uL (130-400); RBC Distribution Width 14.1 % (11.5-14.5); Red Blood Cell (RBC) Count 3.71 mill/uL (4.20-5.40); White Blood Cell (WBC) Count 8.7 thou/uL (4.8-10.8)
[2017-11-11 06:36] LABS: Anion Gap 15 mmol/L (10-20); BUN (Urea Nitrogen) 103 mg/dL (9.8-20.1); Calc. Creatinine Clearance 27 mL/min (70-130); Carbon Dioxide 28 mmol/L (23-31); Chloride 98 mmol/L (98-107); Estimated GFR-MDRD 9; Glucose 169 mg/dL (83-110); Sodium 136 mmol/L (136-145)
--- NOTE | 2017-11-11 08:32 | PDOC.PN ---
- Subjective Encounter Start Date: 11/11/17 Encounter Start Time: 08:31 Ms. Cox was seen in follow-up of acute on chronic heart failure. She is breathing better today. She slept well last night. She denies any chest pain or discomfort. - Objective MAR Reviewed: Yes Vital Signs & Weight: Vital Signs (12 hours) Temp Pulse Resp BP BP Pulse Ox 11/11/17 08:10 69 11/11/17 08:06 73 22 H 92 L 11/11/17 07:05 97.6 F 70 24 H 160/66 H 93 L 11/11/17 04:00 97.8 F 70 20 146/81 H 92 L 11/11/17 03:09 61 11/10/17 23:00 64 20 153/68 H 91 L 11/10/17 22:13 74 11/10/17 20:51 79 134/72 11/10/17 20:40 97.9 F 79 22 H 134/72 92 L Weight Weight 365 lb 15.477 oz I&O: 11/10/17 11/11/17 11/12/17 06:59 06:59 06:59 Intake Total 560 560 Output Total 750 2000 Balance -190 -0090 Result Diagrams: 11/11/17 05:55 11/11/17 05:55 Additional Labs: Accuchecks 11/11/17 11/10/17 11/10/17 05:51 20:44 10:41 POC Glucose 163 H 176 H 132 H Phys Exam - Physical Examination HEENT: PERRLA Respiratory: no wheezing, no rales, no rhonchi, clear to auscultation bilateral Cardiovascular: RRR, no significant murmur Gastrointestinal: soft, non-tender, positive bowel sounds Musculoskeletal: edema present + 2+ pitting edema bilaterally Dx/Plan (1) Acute exacerbation of CHF (congestive heart failure) Code(s): I50.9 - HEART FAILURE, UNSPECIFIED Status: Acute (2) Acute on chronic kidney failure Code(s): N17.9 - ACUTE KIDNEY FAILURE, UNSPECIFIED; N18.9 - CHRONIC KIDNEY DISEASE, UNSPECIFIED Status: Acute (3) Diabetes mellitus type 2 Code(s): E11.9 - TYPE 2 DIABETES MELLITUS WITHOUT COMPLICATIONS Status: Chronic Comment: Managed by PCP, stable here. CCM (4) Hypertension Code(s): I10 - ESSENTIAL (PRIMARY) HYPERTENSION Status: Chronic Qualifiers: Comment: controlled (5) Paroxysmal atrial fibrillation Code(s): I48.0 - PAROXYSMAL ATRIAL FIBRILLATION Status: Chronic - Plan * Acute on chronic diastolic failure- improved with fluids removal with dialysis * Acute on chronic kidney disease- she has approached end stage - arrangements are being made to prepare her for fdc dialysis * Aortic Stenosis- possbly with have cardiac cath later to address her valve status and coronary arteries * HTN- blood pressure is overall stable * DM- blood glucose is stable * ELIGIO- continue CPAP/BiPAP at night.
[2017-11-11] MEDS: hydrALAZINE 25 MG TAB PO SCH ×2 (08:42→21:18)
[2017-11-11] MEDS: Docusate 100 MG CAP PO SCH ×2 (08:42→21:17)
[2017-11-11] MEDS: Amlodipine 5 MG TAB PO SCH (08:43)
[2017-11-11] MEDS: Heparin 5,000 UNITS/ML VIAL SC SCH ×3 (08:43→21:18)
[2017-11-11] MEDS: Calcitriol 0.25 MCG CAP PO SCH (08:43)
[2017-11-11] MEDS: Isosorbide Dinitrate 20 MG TAB PO SCH ×2 (08:43→21:18)
[2017-11-11] MEDS: Insulin Detemir 100 UNITS/ML 15 UNITS in Pre-Filled Syringe 1 EACH SC SCH ×2 (08:43→21:15)
[2017-11-11] MEDS: Fluticasone Propionate Nasal Spray 16 gm Bottle NASAL SCH (08:44)
[2017-11-11] MEDS: Carvedilol 6.25 MG TAB PO SCH ×2 (08:44→21:17)
[2017-11-11] MEDS ORDERED: Tuberculin PPD 0.1 ML VIAL I-DERMAL SCH (08:45)
--- NOTE | 2017-11-11 09:17 | PDOC.PULPN ---
Progress Note: Subj/Obj - Subjective Date: 11/11/17 Time: 09:16 Narrative: feels better - Objective Allergies/Adverse Reactions: Allergies Allergy/AdvReac Type Severity Reaction Status Date / Time sulfamethoxazole Allergy Verified 11/07/17 18:05 [From Bactrim] trimethoprim [From Bactrim] Allergy Verified 11/07/17 18:05 Medications: Current Medications Acetaminophen (Tylenol) 650 mg PO Q4H PRN PRN Reason: Headache/Fever or Pain Acetaminophen (Tylenol) 1,000 mg PO Q6H PRN PRN Reason: Moderate to Severe Pain (6-10) Hydrocodone Bitart/Acetaminophen ([place] 5/325) 1 tab PO Q4H PRN PRN Reason: Moderate Pain (4-6) Last Admin: 11/10/17 05:44 Dose: 1 tab Albuterol/Ipratropium (Duoneb) 3 ml NEB [id number] PRN PRN Reason: SOB &/or Wheezing Albuterol/Ipratropium (Duoneb) 3 ml NEB [id number] [facility] Last Admin: 11/11/17 08:06 Dose: 3 ml Amlodipine Besylate (Norvasc) 5 mg PO DAILY [facility] Last Admin: 11/11/17 08:43 Dose: 5 mg Aspirin (Aspirin Chewable) 81 mg PO DAILY [facility] Last Admin: 11/11/17 08:44 Dose: 81 mg Atorvastatin Calcium (Lipitor) 20 mg PO HS [facility] Last Admin: 11/10/17 20:44 Dose: 20 mg Calcitriol (Rocaltrol) 0.25 mcg PO DAILY [facility] Last Admin: 11/11/17 08:43 Dose: 0.25 mcg Carvedilol (Coreg) 6.25 mg PO BID-[facility] Last Admin: 11/11/17 08:44 Dose: 6.25 mg Cefazolin Sodium (Ancef) 2 gm SLOW IVP WILLCALL [facility] Cholecalciferol (Vitamin D3) 2,000 units PO DAILY [facility] Last Admin: 11/11/17 08:43 Dose: 2,000 units Dextrose/Water (Dextrose 50%) 25 gm SLOW IVP PRN PRN PRN Reason: Hypoglycemia Docusate Sodium (Colace) 100 mg PO BID [facility] Last Admin: 11/11/17 08:42 Dose: 100 mg Epoetin Bryn (Procrit) 7,500 units SC Q7D@1000 [facility] Famotidine (Pepcid) 20 mg PO Q24HR [facility] Last Admin: 11/10/17 20:44 Dose: 20 mg Fluticasone Propionate (Flonase Nasal [place]) 0 gm NASAL DAILY [facility] Last Admin: 11/11/17 08:44 Dose: 1 spr Glucagon (Glucagon) 1 mg IM PRN PRN PRN Reason: Hypoglycemia Heparin Sodium (Porcine) (Heparin) 5,000 units SC TID [facility] Last Admin: 11/11/17 08:43 Dose: 5,000 units Hydralazine HCl (Apresoline) 10 mg SLOW IVP Q4H PRN PRN Reason: Systolic BP > 180 Hydralazine HCl (Apresoline) 25 mg PO BID [facility] Last Admin: 11/11/17 08:42 Dose: 25 mg Dextrose/Water (D5w) 1,000 mls @ 0 mls/hr IV .Q0M PRN; As Directed PRN Reason: Hypoglycemia Ceftriaxone Sodium 1 gm/ (Syringe 0.4 ml/ Sterile Water) 10 mls @ 120 mls/hr SLOW IVP Q24HR [facility] Last Admin: 11/10/17 16:13 Dose: 10 mls Insulin Detemir 15 units/ (Miscellaneous Medication) 0.15 mls @ 0 mls/hr SC BID [facility] Last Admin: 11/11/17 08:43 Dose: 0.15 mls Insulin Human Lispro (Humalog) 0 units SC .MODERATE SLIDING SC PRN PRN Reason: Moderate Correctional Scale Last Admin: 11/11/17 05:51 Dose: 2 units Insulin Human Lispro (Humalog) 0 units SC .BEDTIME SLIDING SC PRN PRN Reason: Bedtime Correctional Scale Last Admin: 11/09/17 20:19 Dose: 2 unit Isosorbide Dinitrate (Isordil) 20 mg PO BID [facility] Last Admin: 11/11/17 08:43 Dose: 20 mg Lorazepam (Ativan) 0.5 mg PO Q4H PRN PRN Reason: Anxiety/Agitation Lorazepam (Ativan) 0.5 mg SLOW IVP Q4H PRN PRN Reason: Anxiety/Agitation Last Admin: 11/09/17 04:40 Dose: 0.5 mg Magnesium Hydroxide (Milk Of Magnesium) 30 ml PO DAILYPRN PRN PRN Reason: Constipation Ondansetron HCl (Zofran) 4 mg SLOW IVP Q6H PRN PRN Reason: Nausea/Vomiting Last Admin: 11/09/17 04:39 Dose: 4 mg Sodium Chloride (Flush - Normal Saline) 10 ml IVF Q12HR [facility] Last Admin: 11/11/17 08:44 Dose: 10 ml Sodium Chloride (Flush - Normal Saline) 10 ml IVF PRN PRN PRN Reason: Saline Flush Tuberculin PPD (Aplisol) 0.1 ml I-DERMAL ONE [facility] Stop: 11/14/17 08:46 MAR Reviewed: Yes Vital Signs: Vital Signs Temp 97.6 F 11/11/17 07:05 Pulse 69 11/11/17 08:43 Resp 22 H 11/11/17 08:06 BP 164/74 H 11/11/17 08:44 Pulse Ox 92 L 11/11/17 08:06 Intake & Output 11/10/17 11/11/17 11/11/17 18:59 06:59 18:59 Intake Total 360 200 Output Total 1750 250 Balance -1390 -50 Weight 365 lb 15.477 oz Intake: Oral 360 200 Output: Output, [place] 250 250 Dialysate 1500 Other: Voiding Method Indwelling Catheter Indwelling Catheter Progress Note: Exam - Physical Exam Constitutional: NAD HEENT: PERRLA Neck: no JVD Cardiovascular: RRR Respiratory: clear to auscultation bilaterally Gastrointestinal: soft, non-tender Musculoskeletal: edema present Neurological: non-focal, moves all 4 limbs Lymphatic: no nodes Psychiatric: normal affect, A&O x 3 Skin: no rash Progress Note: Data - Labs Result Diagrams: 11/11/17 05:55 11/11/17 05:55 Lab results: Laboratory Results 11/09/17 11/09/17 11/09/17 08:55 11:13 17:07 WBC RBC Hgb Hct MCV MCH MCHC RDW Plt Count MPV Neutrophils % Lymphocytes % Monocytes % Eosinophils % Basophils % Neutrophils # Lymphocytes # Monocytes # Eosinophils # Basophils # Sodium Potassium Chloride Carbon Dioxide Anion Gap BUN Creatinine Estimated GFR (MDRD) Glucose POC Glucose 213 H 209 H Calcium Hep Bs Antigen Non-Reactive Hep Bs Antibody Non-Reactive Hep Bs Antibody Index 0.23 Hep B Core Total Ab Non-Reactive Hepatitis C Antibody Non-Reactive 11/09/17 11/10/17 11/10/17 20:19 05:00 05:00 WBC 10.6 RBC 3.60 L Hgb 10.2 L Hct 33.4 L MCV 92.9 MCH 28.4 MCHC 30.6 L RDW 14.3 Plt Count 224 MPV 8.4 Neutrophils % 82.9 H Lymphocytes % 7.9 L Monocytes % 8.3 Eosinophils % 0.4 Basophils % 0.6 Neutrophils # 8.8 H Lymphocytes # 0.8 L Monocytes # 0.9 H Eosinophils # 0.0 Basophils # 0.1 Sodium 138 Potassium 5.2 H Chloride 100 Carbon Dioxide 28 Anion Gap 15 BUN 121 H Creatinine 5.28 H Estimated GFR (MDRD) 8 Glucose 184 H POC Glucose 220 H Calcium 8.0 Hep Bs Antigen Hep Bs Antibody Hep Bs Antibody Index Hep B Core Total Ab Hepatitis C Antibody 11/10/17 11/10/17 11/10/17 05:37 10:41 20:44 WBC RBC Hgb Hct MCV MCH MCHC RDW Plt Count MPV Neutrophils % Lymphocytes % Monocytes % Eosinophils % Basophils % Neutrophils # Lymphocytes # Monocytes # Eosinophils # Basophils # Sodium Potassium Chloride Carbon Dioxide Anion Gap BUN Creatinine Estimated GFR (MDRD) Glucose POC Glucose 176 H 132 H 176 H Calcium Hep Bs Antigen Hep Bs Antibody Hep Bs Antibody Index Hep B Core Total Ab Hepatitis C Antibody 11/11/17 11/11/17 11/11/17 05:51 05:55 05:55 WBC 8.7 RBC 3.71 L Hgb 10.5 L Hct 34.4 L MCV 92.8 MCH 28.2 MCHC 30.4 L RDW 14.1 Plt Count 218 MPV 8.1 Neutrophils % 81.1 H Lymphocytes % 9.7 L Monocytes % 8.4 Eosinophils % 0.8 Basophils % 0.1 Neutrophils # 7.1 H Lymphocytes # 0.9 L Monocytes # 0.7 H Eosinophils # 0.1 Basophils # 0.0 Sodium 136 Potassium 5.0 Chloride 98 Carbon Dioxide 28 Anion Gap 15 BUN 103 H Creatinine 4.76 H Estimated GFR (MDRD) 9 Glucose 169 H POC Glucose 163 H Calcium 8.0 Hep Bs Antigen Hep Bs Antibody Hep Bs Antibody Index Hep B Core Total Ab Hepatitis C Antibody Progress Note: A/P - Problems (1) Obstructive sleep apnea Current Visit: Yes Status: Acute Code(s): G47.33 - OBSTRUCTIVE SLEEP APNEA ( ADULT) (PEDIATRIC) (2) Acute exacerbation of CHF (congestive heart failure) Current Visit: Yes Status: Acute Code(s): I50.9 - HEART FAILURE, UNSPECIFIED (3) Aortic stenosis, non-rheumatic Current Visit: No Status: Chronic Code(s): I35.0 - NONRHEUMATIC AORTIC ( VALVE) STENOSIS (4) Chronic respiratory failure Current Visit: No Status: Chronic Code(s): J96.10 - CHRONIC RESPIRATORY FAILURE, UNSP W HYPOXIA OR HYPERCAPNIA Qualifiers: Respiratory failure complication: hypoxia Qualified Code(s): J96.11 - Chronic respiratory failure with hypoxia (5) Morbid obesity Current Visit: No Status: Chronic Code(s): E66.01 - MORBID (SEVERE) OBESITY DUE TO EXCESS CALORIES - Plan Plan: transfer to medical continue dialysis BiPAP at night for ELIGIO
--- NOTE | 2017-11-11 09:17 | PRG ---
DATE OF SERVICE: 11/11/2017 SUBJECTIVE: Ms. Cox is a 77-year-old white female, who was admitted for shortness of breath. Due t o the worsening renal dysfunction, she was initiated on dialysis. She received 1-1/2 hour dialysis t reatment yesterday with about a liter of fluid removal. She tolerated the said treatment. The plan is for her to undergo another 2-1/2 hours of hemodialysis today. She has also underlying aortic valv e disease and possibility of coronary artery disease. Plan cardiac catheterization will be done in t he near future. This morning, she has no new complaints. She denies any worsening shortness of candace th or having chest pain. OBJECTIVE: VITAL SIGNS: Blood pressure is 164/74, heart rate 69, respiratory rate 22, pulse ox is 92%. GENERAL: Awake, alert, comfortable, not in distress. SKIN: Adequate turgor. HEENT: She has slightly pale conjunctivae, anicteric sclerae. NECK: No neck mass, no carotid bruits, no JVD. CHEST: No deformities. LUNGS: Decreased breath sounds. No wheezing. HEART: Normal sinus rhythm. A grade 2/6 systolic murmur, no gallops, no rubs. ABDOMEN: Globular, soft, nontender, no masses. EXTREMITIES: Trace edema. MEDICATIONS: Medications of 11/11/2017 was reviewed. LABORATORY DATA: Laboratories of 11/11/2017, white count 8.7 and hemoglobin 10.5. Sodium 136, potas sium 5, chloride 98, carbon dioxide 28, BUN 103, creatinine 4.76, glucose 169, calcium 8.0. ASSESSMENT AND PLAN: 1. Acute kidney injury/chronic renal failure -- I think this patient may have reached end-stage linnea l disease stage. We will schedule for another dialytic intervention -- 2-1/2 hours of dialysis and a ttempt 1 to 2 liters of fluid removal as tolerated by the patient. 2. Anemia -- continuing weekly Epogen. 3. Congestive heart failure, clinically improving with fluid removal. 4. Aortic valve disease -- eventual cardiac catheterization by her engineering faculty member. Case management still s been consulted for outpatient dialysis placement.
[2017-11-11] MEDS: cefTRIAXone\\ROCEPHIN 1 GM, Syringe 0.4 ML in Sterile Water 9.6 ML SLOW IVP SCH (12:08)
[2017-11-11] MEDS ORDERED: CEFAZOLIN/Water 2 GM/20 ML SYRINGE SLOW IVP SCH (14:15)
--- NOTE | 2017-11-11 14:20 | PRG ---
DATE OF SERVICE: 11/11/2017 SUBJECTIVE: Ms. Diana Cox is doing well today. She is a DNR. She remains in IMCU. Plan is for rig ht arm AV fistula versus graft tomorrow. We will keep her n.p.o. after midnight tonight. Risks and benefits were discussed, she consents.
[2017-11-11] MEDS: Atorvastatin Calcium 20 MG TAB PO SCH (21:17)
[2017-11-11] MEDS: Famotidine 20 MG TAB PO SCH (21:18)
[2017-11-12 06:04] LABS: #Eosinphils 0.1 thou/uL (0.0-0.7); #Monocytes 0.7 thou/uL (0.11-0.59); #Neutrophils 7.9 thou/uL (1.40-6.50); %Basophils 0.1 % (0.0-1.0); %Eosinophils 0.8 % (0.0-10.0); %Lymphocytes 10.5 % (21.0-51.0); %Monocytes 6.9 % (0.0-10.0); %Neutrophils 81.7 % (42.0-75.0); Hemoglobin 10.3 g/dL (12.0-16.0); Mean Corpuscular HGB CONC 30.5 g/dL (32.0-36.0); Mean Corpuscular Hemoglobin 27.7 pg (27.0-31.0); Mean Corpuscular Volume 90.7 fl (81.0-99.0); Mean Platelet Volume 8.3 fL (7.4-10.4); Platelet Count 223 thou/uL (130-400); RBC Distribution Width 13.9 % (11.5-14.5); Red Blood Cell (RBC) Count 3.72 mill/uL (4.20-5.40); White Blood Cell (WBC) Count 9.7 thou/uL (4.8-10.8)
[2017-11-12 06:07] LABS: Anion Gap 13 mmol/L (10-20); BUN (Urea Nitrogen) 70 mg/dL (9.8-20.1); Calc. Creatinine Clearance 36 mL/min (70-130); Calcium 8.1 mg/dL (7.8-10.44); Carbon Dioxide 30 mmol/L (23-31); Chloride 97 mmol/L (98-107); Estimated GFR-MDRD 12; Glucose 144 mg/dL (83-110); Potassium 4.1 mmol/L (3.5-5.1); Sodium 136 mmol/L (136-145)
[2017-11-12] MEDS ORDERED: Heparin 10,000 UNITS/ 10 ML VIAL ONE (06:34)
[2017-11-12] MEDS ORDERED: Communication Order-Pharmacy FS SCH (09:00)
--- NOTE | 2017-11-12 09:09 | PRG ---
DATE OF SERVICE: 11/12/2017 Diana Cox is doing well, undergoing hemodialysis this morning. The patient has severe aortic stenosi s. She has a history of GI bleed several years ago that was never evaluated endoscopically. Dr. Clayton chavarria is planning a cardiac catheterization early next week. Dialysis access today will be postponed until after cardiac catheterization. We will plan this next week. We will resume her diet.
--- NOTE | 2017-11-12 09:31 | PRG ---
DATE OF SERVICE: 11/12/2017 She is awake and alert, currently on BiPAP from last night that she wears for sleep apnea. She is un dergoing dialysis this morning. PHYSICAL EXAMINATION: VITAL SIGNS: Her temperature is 99.0, pulse 78, respirations in the 20s, O2 sat 99%. HEENT: Unremarkable. NECK: No JVD. LUNGS: Diminished breath sounds at bases. CARDIAC: S1 and S2 regular. ABDOMEN: Soft. EXTREMITIES: Generalized edema. LABORATORY DATA: White blood cell count 9.7, hematocrit 33.7, platelet count 223. Sodium 136, potas sium 4.1, chloride 97, CO2 30, BUN 70, creatinine 3.5, glucose 144. ASSESSMENT: 1. Chronic renal failure, now requiring hemodialysis. 2. Anasarca. 3. Aortic stenosis. 4. Chronic respiratory failure. 5. Obstructive sleep apnea. PLAN: 1. Continue dialysis as you are doing. 2. Change Rocephin to Omnicef for continued treatment of urinary tract infection. 3. Continue BiPAP at night for obstructive sleep apnea. 4. Can likely transfer out to the medical floor.
[2017-11-12] MEDS: Isosorbide Dinitrate 20 MG TAB PO SCH ×2 (09:40→20:58)
[2017-11-12] MEDS: hydrALAZINE 25 MG TAB PO SCH ×2 (09:41→20:57)
[2017-11-12] MEDS: Calcitriol 0.25 MCG CAP PO SCH (09:41)
[2017-11-12] MEDS: Carvedilol 6.25 MG TAB PO SCH ×2 (09:41→16:47)
[2017-11-12] MEDS: Amlodipine 5 MG TAB PO SCH (09:41)
[2017-11-12] MEDS: Docusate 100 MG CAP PO SCH ×2 (09:41→20:58)
[2017-11-12] MEDS: Fluticasone Propionate Nasal Spray 16 gm Bottle NASAL SCH (09:42)
[2017-11-12] MEDS: Insulin Detemir 100 UNITS/ML 15 UNITS in Pre-Filled Syringe 1 EACH SC SCH ×2 (09:42→21:05)
[2017-11-12] MEDS: Heparin 5,000 UNITS/ML VIAL SC SCH ×3 (09:42→20:58)
[2017-11-12] MEDS ORDERED: Cefdinir 300 MG CAP PO SCH (10:00)
--- NOTE | 2017-11-12 11:11 | PRG ---
DATE OF SERVICE: 11/12/2017 SERVICE: Renal Medicine. SUBJECTIVE: Ms. Cox is a 77-year-old white female with acute kidney injury on top of chronic renal failure. She has reached end-stage renal disease. I am at the bedside supervising her dialysis. No new complaints. Mild shortness of breath yesterday. She got dialysis yesterday with about 3 liters of fluid removal. I am attempting at the present time to remove 4 liters. OBJECTIVE: VITAL SIGNS: Blood pressure 120/70, heart rate 70, respiratory rate 13, pulse oximetry 99% - on BiPA P. GENERAL: Awake, obese, comfortable, not in distress. SKIN: Adequate turgor. HEENT: She has pinkish conjunctivae, anicteric sclerae. NECK: No neck mass, no carotid bruits, no JVD. CHEST: No deformities. LUNGS: Decreased breath sounds. No wheezing. HEART: Normal sinus rhythm. No murmur, no gallops, no rubs. ABDOMEN: Globular, soft, nontender, no masses. EXTREMITIES: Positive for edema. MEDICATIONS: Of 11/12/2017 was reviewed. LABORATORY DATA: Of 11/12/2017, white count 9.7, hemoglobin 10.3, sodium 136, potassium 4.1, chlorid e 97, carbon dioxide 30, BUN 70, creatinine 3.56, glucose 144, calcium 8.1. ASSESSMENT AND PLAN: 1. Anemia - on weekly Epogen. 2. Congestive heart failure, slowly improving with dialysis. We are attempting several liters of fl uid removal today. 3. Acute renal failure/chronic renal failure/end-stage renal disease. Continuing daily hemodialysis . We will dialyze for 3-1/2 hours and in the a.m., we will do a 4-hour hemodialysis and we will then convert the patient to a Wednesday, , and Wednesday dialysis regimen. Case management is being consulted for outpatient dialysis placement.
--- NOTE | 2017-11-12 14:33 | PDOC.PN ---
- Subjective Encounter Start Date: 11/12/17 Encounter Start Time: 09:50 Subjective: getting HD now -: no sob, is moving all extremities -: wearing bipap now - Objective MAR Reviewed: Yes Vital Signs & Weight: Vital Signs (12 hours) Temp Pulse Resp BP BP Pulse Ox 11/12/17 11:09 98.4 F 63 26 H 135/66 97 11/12/17 09:41 78 135/70 11/12/17 08:37 78 99 11/12/17 08:35 78 30 H 99 11/12/17 08:04 99.0 F 62 31 H 95 11/12/17 07:00 99.0 F 62 31 H 118/58 L 95 11/12/17 04:15 98.4 F 69 28 H 131/65 85 L Weight Weight 364 lb 6.786 oz I&O: 11/11/17 11/12/17 11/13/17 06:59 06:59 06:59 Intake Total 560 730 Output Total 2000 775 Balance -1440 -45 Result Diagrams: 11/12/17 05:20 11/12/17 05:20 Additional Labs: Accuchecks 11/12/17 11/11/17 11/11/17 10:37 21:15 16:50 POC Glucose 98 126 H 173 H Phys Exam - Physical Examination HEENT: PERRLA, moist MMs Neck: no JVD, supple Respiratory: no wheezing, no rales Cardiovascular: RRR, no significant murmur Gastrointestinal: soft, non-tender, positive bowel sounds Musculoskeletal: pulses present, edema present Neurological: non-focal, moves all 4 limbs Psychiatric: A&O x 3 Dx/Plan (1) Acute exacerbation of CHF (congestive heart failure) Code(s): I50.9 - HEART FAILURE, UNSPECIFIED Status: Acute Qualifiers: Congestive heart failure type: unspecified congestive heart failure type Qualified Code(s): I50.9 - Heart failure, unspecified (2) Acute on chronic kidney failure Code(s): N17.9 - ACUTE KIDNEY FAILURE, UNSPECIFIED; N18.9 - CHRONIC KIDNEY DISEASE, UNSPECIFIED Status: Acute Comment: esrd, initiated on HD (3) Obstructive sleep apnea Code(s): G47.33 - OBSTRUCTIVE SLEEP APNEA (ADULT) (PEDIATRIC) Status: Chronic (4) Acute hypoxemic respiratory failure Code(s): J96.01 - ACUTE RESPIRATORY FAILURE WITH HYPOXIA Status: Acute Comment: 90% on 2-3L. CCM. will need O2 on discharge. Wean as tolerated, increase activity (5) Aortic stenosis, non-rheumatic Code(s): I35.0 - NONRHEUMATIC AORTIC (VALVE) STENOSIS Status: Chronic (6) Atrial fibrillation Code(s): I48.91 - UNSPECIFIED ATRIAL FIBRILLATION Status: Chronic Qualifiers: Atrial fibrillation type: paroxysmal Qualified Code(s): I48.0 - Paroxysmal atrial fibrillation (7) Diabetes mellitus type 2 Code(s): E11.9 - TYPE 2 DIABETES MELLITUS WITHOUT COMPLICATIONS Status: Chronic (8) Hyperlipidemia Code(s): E78.5 - HYPERLIPIDEMIA, UNSPECIFIED Status: Chronic (9) Hypertension Code(s): I10 - ESSENTIAL (PRIMARY) HYPERTENSION Status: Chronic Qualifiers: Hypertension type: essential hypertension Comment: controlled (10) Morbid obesity Code(s): E66.01 - MORBID (SEVERE) OBESITY DUE TO EXCESS CALORIES Status: Chronic - Plan for fluid removal today with HD and in am as well -: to mobilize oob to chair and amb as tolerated -: on asp and lipitor, omnicef -: for fistula today -: may tx to med floor if her bipap/cpap requirement for floor is ok * . Review of Systems - Medications/Allergies Allergies/Adverse Reactions: Allergies Allergy/AdvReac Type Severity Reaction Status Date / Time sulfamethoxazole Allergy Verified 11/07/17 18:05 [From Bactrim] trimethoprim [From Bactrim] Allergy Verified 11/07/17 18:05 Medications: Current Medications Acetaminophen (Tylenol) 650 mg PO Q4H PRN PRN Reason: Headache/Fever or Pain Acetaminophen (Tylenol) 1,000 mg PO Q6H PRN PRN Reason: Moderate to Severe Pain (6-10) Hydrocodone Bitart/Acetaminophen ([place] 5/325) 1 tab PO Q4H PRN PRN Reason: Moderate Pain (4-6) Last Admin: 11/10/17 05:44 Dose: 1 tab Albuterol/Ipratropium (Duoneb) 3 ml NEB [id number] PRN PRN Reason: SOB &/or Wheezing Albuterol/Ipratropium (Duoneb) 3 ml NEB [id number] ALINE Last Admin: 11/12/17 08:35 Dose: 3 ml Amlodipine Besylate (Norvasc) 5 mg PO DAILY [facility] Last Admin: 11/12/17 09:41 Dose: 5 mg Aspirin (Aspirin Chewable) 81 mg PO DAILY [facility] Last Admin: 11/12/17 09:41 Dose: 81 mg Atorvastatin Calcium (Lipitor) 20 mg PO HS [facility] Last Admin: 11/11/17 21:17 Dose: 20 mg Calcitriol (Rocaltrol) 0.25 mcg PO DAILY [facility] Last Admin: 11/12/17 09:41 Dose: 0.25 mcg Carvedilol (Coreg) 6.25 mg PO BID-[facility] Last Admin: 11/12/17 09:41 Dose: 6.25 mg Cefazolin Sodium (Ancef) 2 gm SLOW IVP WILLCALL [facility] Cefdinir (Omnicef) 600 mg PO DAILY [facility] Cholecalciferol (Vitamin D3) 2,000 units PO DAILY [facility] Last Admin: 11/12/17 09:41 Dose: 2,000 units Dextrose/Water (Dextrose 50%) 25 gm SLOW IVP PRN PRN PRN Reason: Hypoglycemia Docusate Sodium (Colace) 100 mg PO BID [facility] Last Admin: 11/12/17 09:41 Dose: 100 mg Epoetin [place]n (Procrit) 7,500 units SC Q7D@1000 [facility] Famotidine (Pepcid) 20 mg PO Q24HR [facility] Last Admin: 11/11/17 21:18 Dose: 20 mg Fluticasone Propionate (Flonase Nasal [place]) 0 gm NASAL DAILY [facility] Last Admin: 11/12/17 09:42 Dose: 1 spr Glucagon (Glucagon) 1 mg IM PRN PRN PRN Reason: Hypoglycemia Heparin Sodium (Porcine) (Heparin) 5,000 units SC TID [facility] Last Admin: 11/12/17 09:42 Dose: Not Given Hydralazine HCl (Apresoline) 10 mg SLOW IVP Q4H PRN PRN Reason: Systolic BP > 180 Hydralazine HCl (Apresoline) 25 mg PO BID [facility] Last Admin: 11/12/17 09:41 Dose: 25 mg Dextrose/Water (D5w) 1,000 mls @ 0 mls/hr IV .Q0M PRN; As Directed PRN Reason: Hypoglycemia Insulin Detemir 15 units/ (Miscellaneous Medication) 0.15 mls @ 0 mls/hr SC BID [facility] Last Admin: 11/12/17 09:42 Dose: 0.15 mls Insulin Human Lispro (Humalog) 0 units SC .MODERATE SLIDING SC PRN PRN Reason: Moderate Correctional Scale Last Admin: 11/11/17 05:51 Dose: 2 units Insulin Human Lispro (Humalog) 0 units SC .BEDTIME SLIDING SC PRN PRN Reason: Bedtime Correctional Scale Last Admin: 11/09/17 20:19 Dose: 2 unit Isosorbide Dinitrate (Isordil) 20 mg PO BID [facility] Last Admin: 11/12/17 09:40 Dose: 20 mg Lorazepam (Ativan) 0.5 mg PO Q4H PRN PRN Reason: Anxiety/Agitation Lorazepam (Ativan) 0.5 mg SLOW IVP Q4H PRN PRN Reason: Anxiety/Agitation Last Admin: 11/09/17 04:40 Dose: 0.5 mg Magnesium Hydroxide (Milk Of Magnesium) 30 ml PO DAILYPRN PRN PRN Reason: Constipation Last Admin: 11/11/17 21:24 Dose: 30 ml Miscellaneous Information (Communication Order-Pharmacy) 0 each FS ONE [facility] Stop: 11/15/17 23:59 Ondansetron HCl (Zofran) 4 mg SLOW IVP Q6H PRN PRN Reason: Nausea/Vomiting Last Admin: 11/09/17 04:39 Dose: 4 mg Sodium Chloride (Flush - Normal Saline) 10 ml IVF Q12HR [facility] Last Admin: 11/12/17 09:43 Dose: 10 ml Sodium Chloride (Flush - Normal Saline) 10 ml IVF PRN PRN PRN Reason: Saline Flush Tuberculin PPD (Aplisol) 0.1 ml I-DERMAL ONE [facility] Stop: 11/14/17 08:46 Last Admin: 11/11/17 12:09 Dose: 0.1 ml
[2017-11-12] MEDS: Famotidine 20 MG TAB PO SCH (20:58)
[2017-11-12] MEDS: Atorvastatin Calcium 20 MG TAB PO SCH (20:58)
[2017-11-13] MEDS ORDERED: Heparin 10,000 UNITS/ 10 ML VIAL ONE (10:00)
--- NOTE | 2017-11-13 11:33 | PRG ---
DATE OF SERVICE: 11/13/2017 RENAL MEDICINE SUBJECTIVE: Ms. Cox is a 77-year-old white female who was admitted for shortness of breath/CHF. Du e to progressive azotemia, she has been initiated on dialysis. She is tolerating the dialysis, sandeep ating the fluid removal. No new complaints today. OBJECTIVE: VITAL SIGNS: Blood pressure 136/55, heart rate 60, respiratory rate 24, temperature 98.2, pulse ox 9 9%. GENERAL: Awake, supine, comfortable, obese. SKIN: Adequate turgor. HEENT: Patient has slightly pale conjunctivae, anicteric sclerae. NECK: No neck mass, no carotid bruits, no JVD. CHEST: No deformities. LUNGS: Decreased breath sounds. HEART: Normal sinus rhythm. She has a grade 2/6 systolic murmur, no gallops, no rubs. ABDOMEN: Globular, soft, nontender. EXTREMITIES: Trace edema. MEDICATIONS: Medications of 11/13/2017 was reviewed. LABORATORY DATA: Laboratories of 11/13/2017 glucose 147. On 11/12/2017, BUN 70, creatinine 3.56 and hemoglobin 10.3. ASSESSMENT AND PLAN: 1. End-stage renal disease, stable. I am currently at the bedside supervising her dialysis. She is tolerating the said treatment, attempting fluid removal only as tolerated. 2. Anemia, on weekly Epogen. 3. Secondary hyperparathyroidism - patient is currently on calcitriol. 4. Aortic valve disease. Cardiology is following. 5. Congestive heart failure, clinically much improved with fluid removal with dialysis. Agree with current management. Awaiting outpatient dialysis placement.
--- NOTE | 2017-11-13 12:22 | EKG ---
Test Reason : Blood Pressure : / mmHG Vent. Rate : 069 BPM Atrial Rate : 063 BPM P-R Int : 000 ms QRS Dur : 108 ms QT Int : 384 ms P-R-T Axes : 000 -14 211 degrees QTc Int : 411 ms Atrial fibrillation Abnormal ECG Confirmed by MEMO MENDEZ M.D. ([id number]), visual effects editor GUANAKO WALKER ([id number]) on 11/13/2017 12:21:43 PM Referred By: Confirmed By:MEMO MENDEZ M.D.
[2017-11-13] MEDS: Isosorbide Dinitrate 20 MG TAB PO SCH ×2 (12:52→21:41)
[2017-11-13] MEDS: Carvedilol 6.25 MG TAB PO SCH ×2 (12:52→16:23)
[2017-11-13] MEDS: Amlodipine 5 MG TAB PO SCH (12:52)
[2017-11-13] MEDS: Heparin 5,000 UNITS/ML VIAL SC SCH ×3 (12:52→21:30)
[2017-11-13] MEDS: Calcitriol 0.25 MCG CAP PO SCH (12:52)
[2017-11-13] MEDS: Docusate 100 MG CAP PO SCH ×2 (12:53→21:29)
[2017-11-13] MEDS: hydrALAZINE 25 MG TAB PO SCH ×2 (12:53→21:41)
[2017-11-13] MEDS: Fluticasone Propionate Nasal Spray 16 gm Bottle NASAL SCH (13:00)
[2017-11-13] MEDS: Insulin Detemir 100 UNITS/ML 15 UNITS in Pre-Filled Syringe 1 EACH SC SCH ×2 (13:01→21:31)
[2017-11-13] MEDS: Cefdinir 300 MG CAP PO SCH ×2 (13:02→15:37)
--- NOTE | 2017-11-13 14:39 | PDOC.PN ---
- Subjective Encounter Start Date: 11/13/17 Encounter Start Time: 12:00 Subjective: getting HD, feels better -: no sob - Objective MAR Reviewed: Yes Vital Signs & Weight: Vital Signs (12 hours) Temp Pulse Resp BP BP Pulse Ox 11/13/17 12:53 60 11/13/17 12:52 60 135/70 11/13/17 08:47 98.2 F 60 24 H 92 L 11/13/17 04:09 98.2 F 60 24 H 136/55 L 99 Weight Weight 355 lb 6.162 oz I&O: 11/12/17 11/13/17 11/14/17 06:59 06:59 06:59 Intake Total 730 1510 Output Total 7887 0945 Balance -1545 -3764 Result Diagrams: 11/12/17 05:20 11/12/17 05:20 Additional Labs: Accuchecks 11/13/17 11/13/17 11/12/17 13:06 06:20 21:05 POC Glucose 116 H 147 H 164 H 11/12/17 16:06 POC Glucose 130 H Phys Exam - Physical Examination HEENT: PERRLA, moist MMs Neck: no JVD, supple Respiratory: no wheezing, no rales Cardiovascular: RRR, no significant murmur Gastrointestinal: soft, non-tender, positive bowel sounds Musculoskeletal: no edema, pulses present Neurological: non-focal, moves all 4 limbs Psychiatric: A&O x 3 Dx/Plan (1) Acute exacerbation of CHF (congestive heart failure) Code(s): I50.9 - HEART FAILURE, UNSPECIFIED Status: Acute Qualifiers: Congestive heart failure type: unspecified congestive heart failure type Qualified Code(s): I50.9 - Heart failure, unspecified (2) Acute on chronic kidney failure Code(s): N17.9 - ACUTE KIDNEY FAILURE, UNSPECIFIED; N18.9 - CHRONIC KIDNEY DISEASE, UNSPECIFIED Status: Acute Comment: esrd, initiated on HD (3) Obstructive sleep apnea Code(s): G47.33 - OBSTRUCTIVE SLEEP APNEA (ADULT) (PEDIATRIC) Status: Chronic (4) Acute hypoxemic respiratory failure Code(s): J96.01 - ACUTE RESPIRATORY FAILURE WITH HYPOXIA Status: Acute (5) Aortic stenosis, non-rheumatic Code(s): I35.0 - NONRHEUMATIC AORTIC (VALVE) STENOSIS Status: Chronic (6) Atrial fibrillation Code(s): I48.91 - UNSPECIFIED ATRIAL FIBRILLATION Status: Chronic Qualifiers: Atrial fibrillation type: paroxysmal Qualified Code(s): I48.0 - Paroxysmal atrial fibrillation (7) Diabetes mellitus type 2 Code(s): E11.9 - TYPE 2 DIABETES MELLITUS WITHOUT COMPLICATIONS Status: Chronic (8) Hyperlipidemia Code(s): E78.5 - HYPERLIPIDEMIA, UNSPECIFIED Status: Chronic (9) Hypertension Code(s): I10 - ESSENTIAL (PRIMARY) HYPERTENSION Status: Chronic Qualifiers: Hypertension type: essential hypertension Comment: controlled (10) Morbid obesity Code(s): E66.01 - MORBID (SEVERE) OBESITY DUE TO EXCESS CALORIES Status: Chronic - Plan is using bipap at night -: has lost 15lbs from admission with back to back HD -: on omnicef, coreg, asp, lipitor, hydralazine and isordil -: levemir 15u bid, nebs -: february tx to telemetry after HD on nasal canula * . Review of Systems - Medications/Allergies Allergies/Adverse Reactions: Allergies Allergy/AdvReac Type Severity Reaction Status Date / Time sulfamethoxazole Allergy Verified 11/07/17 18:05 [From Bactrim] trimethoprim [From Bactrim] Allergy Verified 11/07/17 18:05 Medications: Current Medications Acetaminophen (Tylenol) 650 mg PO Q4H PRN PRN Reason: Headache/Fever or Pain Acetaminophen (Tylenol) 1,000 mg PO Q6H PRN PRN Reason: Moderate to Severe Pain (6-10) Hydrocodone Bitart/Acetaminophen ([place] 5/325) 1 tab PO Q4H PRN PRN Reason: Moderate Pain (4-6) Last Admin: 11/10/17 05:44 Dose: 1 tab Albuterol/Ipratropium (Duoneb) 3 ml NEB [id number] PRN PRN Reason: SOB &/or Wheezing Albuterol/Ipratropium (Duoneb) 3 ml NEB [id number] [facility] Last Admin: 11/13/17 08:30 Dose: Not Given Amlodipine Besylate (Norvasc) 5 mg PO DAILY [facility] Last Admin: 11/13/17 12:52 Dose: 5 mg Aspirin (Aspirin Chewable) 81 mg PO DAILY [facility] Last Admin: 11/13/17 12:53 Dose: 81 mg Atorvastatin Calcium (Lipitor) 20 mg PO HS [facility] Last Admin: 11/12/17 20:58 Dose: 20 mg Calcitriol (Rocaltrol) 0.25 mcg PO DAILY [facility] Last Admin: 11/13/17 12:52 Dose: 0.25 mcg Carvedilol (Coreg) 6.25 mg PO BID-[facility] Last Admin: 11/13/17 12:52 Dose: 6.25 mg Cefazolin Sodium (Ancef) 2 gm SLOW IVP WILLCALL [facility] Cefdinir (Omnicef) 600 mg PO DAILY [facility] Last Admin: 11/13/17 13:02 Dose: Not Given Cholecalciferol (Vitamin D3) 2,000 units PO DAILY [facility] Last Admin: 11/13/17 12:52 Dose: 2,000 units Dextrose/Water (Dextrose 50%) 25 gm SLOW IVP PRN PRN PRN Reason: Hypoglycemia Docusate Sodium (Colace) 100 mg PO BID [facility] Last Admin: 11/13/17 12:53 Dose: 100 mg Epoetin Bryn (Procrit) 7,500 units SC Q7D@1000 [facility] Famotidine (Pepcid) 20 mg PO Q24HR [facility] Last Admin: 11/12/17 20:58 Dose: 20 mg Fluticasone Propionate (Flonase Nasal [place]) 0 gm NASAL DAILY [facility] Last Admin: 11/13/17 13:00 Dose: 1 spr Glucagon (Glucagon) 1 mg IM PRN PRN PRN Reason: Hypoglycemia Heparin Sodium (Porcine) (Heparin) 5,000 units SC TID [facility] Last Admin: 11/13/17 12:52 Dose: 5,000 units Hydralazine HCl (Apresoline) 10 mg SLOW IVP Q4H PRN PRN Reason: Systolic BP > 180 Hydralazine HCl (Apresoline) 25 mg PO BID [facility] Last Admin: 11/13/17 12:53 Dose: 25 mg Dextrose/Water (D5w) 1,000 mls @ 0 mls/hr IV .Q0M PRN; As Directed PRN Reason: Hypoglycemia Insulin Detemir 15 units/ (Miscellaneous Medication) 0.15 mls @ 0 mls/hr SC BID [facility] Last Admin: 11/13/17 13:01 Dose: 0.15 mls Insulin Human Lispro (Humalog) 0 units SC .MODERATE SLIDING SC PRN PRN Reason: Moderate Correctional Scale Last Admin: 11/11/17 05:51 Dose: 2 units Insulin Human Lispro (Humalog) 0 units SC .BEDTIME SLIDING SC PRN PRN Reason: Bedtime Correctional Scale Last Admin: 11/09/17 20:19 Dose: 2 unit Isosorbide Dinitrate (Isordil) 20 mg PO BID [facility] Last Admin: 11/13/17 12:52 Dose: 20 mg Lorazepam (Ativan) 0.5 mg PO Q4H PRN PRN Reason: Anxiety/Agitation Lorazepam (Ativan) 0.5 mg SLOW IVP Q4H PRN PRN Reason: Anxiety/Agitation Last Admin: 11/09/17 04:40 Dose: 0.5 mg Magnesium Hydroxide (Milk Of Magnesium) 30 ml PO DAILYPRN PRN PRN Reason: Constipation Last Admin: 11/11/17 21:24 Dose: 30 ml Miscellaneous Information (Communication Order-Pharmacy) 0 each FS ONE [facility] Stop: 11/15/17 23:59 Ondansetron HCl (Zofran) 4 mg SLOW IVP Q6H PRN PRN Reason: Nausea/Vomiting Last Admin: 11/09/17 04:39 Dose: 4 mg Sodium Chloride (Flush - Normal Saline) 10 ml IVF Q12HR [facility] Last Admin: 11/13/17 12:53 Dose: 10 ml Sodium Chloride (Flush - Normal Saline) 10 ml IVF PRN PRN PRN Reason: Saline Flush Tuberculin PPD (Aplisol) 0.1 ml I-DERMAL ONE [facility] Stop: 11/14/17 08:46 Last Admin: 11/11/17 12:09 Dose: 0.1 ml
--- NOTE | 2017-11-13 17:31 | HP ---
DATE OF SERVICE: 11/13/2017 SERVICE: Pulmonary Medicine. INTERVAL HISTORY: The patient is doing really well from a respiratory standpoint. She is breathing comfortably this morning. She has no chest discomfort, nausea, vomiting or diarrhea. Otherwise, the re were no overnight events. She is yet to be too terribly active. PHYSICAL EXAMINATION: VITAL SIGNS: Afebrile, pulse 60, blood pressure 136/55, respirations 24, saturation 92% on 3 liters nasal cannula. GENERAL: Patient is awake, alert, in no apparent distress. LUNGS: Decent air entry. No prolonged expiratory phase or wheezing is appreciated. HEART: Normal rate, regular. ABDOMEN: Soft, nontender, nondistended. Bowel sounds are positive. MUSCULOSKELETAL: No cyanosis or clubbing. There is trace to 1+ pitting throughout. GENITOURINARY: No [place]. NEUROLOGIC: Grossly nonfocal. LABORATORY DATA: Blood sugars ranged from 98-164. BUN is nicely downtrending as well as creatinine with dialysis. Urine culture is growing E. coli which is sensitive to multiple things, but resistant to the fluoroquinolones. ASSESSMENT: 1. Chronic kidney disease, currently requiring hemodialysis. 2. Anasarca. 3. Acute on chronic hypoxic respiratory failure, improving. 4. Obstructive sleep apnea. 5. Aortic stenosis. PLAN: The patient can be transitioned out of the ICU to the medical unit. She will continue her BiP AP at night for her known obstructive sleep apnea. Pulmonary Critical Care will continue to follow w hile she remains in the house. We will focus on mobilizing the patient and get her into a chair and work with physical therapy.
[2017-11-13] MEDS: Atorvastatin Calcium 20 MG TAB PO SCH (21:29)
[2017-11-13] MEDS: Famotidine 20 MG TAB PO SCH (21:41)
[2017-11-14] MEDS: Fluticasone Propionate Nasal Spray 16 gm Bottle NASAL SCH (08:34)
[2017-11-14] MEDS: Amlodipine 5 MG TAB PO SCH (08:35)
[2017-11-14] MEDS: Carvedilol 6.25 MG TAB PO SCH ×2 (08:35→16:39)
[2017-11-14] MEDS: Heparin 5,000 UNITS/ML VIAL SC SCH ×3 (08:35→21:01)
[2017-11-14] MEDS: hydrALAZINE 25 MG TAB PO SCH ×2 (08:36→20:57)
[2017-11-14] MEDS: Isosorbide Dinitrate 20 MG TAB PO SCH ×2 (08:36→20:58)
[2017-11-14] MEDS: Calcitriol 0.25 MCG CAP PO SCH (08:36)
[2017-11-14] MEDS: Docusate 100 MG CAP PO SCH ×2 (08:36→20:58)
[2017-11-14] MEDS: Cefdinir 300 MG CAP PO SCH (08:44)
[2017-11-14] MEDS: Insulin Detemir 100 UNITS/ML 15 UNITS in Pre-Filled Syringe 1 EACH SC SCH ×2 (08:44→20:58)
[2017-11-14] MEDS ORDERED: Communication Order-Pharmacy FS SCH (10:30)
[2017-11-14] MEDS: Epoetin (ESRD) 20,000 UNITS/ML SC SCH (12:15)
--- NOTE | 2017-11-14 12:21 | PRG ---
DATE OF SERVICE: 11/14/2017 RENAL MEDICINE SUBJECTIVE: Ms. Cox is a 77-year-old white female who was reinitiated with hemodialysis due to prog ressive azotemia and CHF. She was initially admitted for shortness of breath. She was evaluated by Cardiology. Future cardiac catheterization is being entertained. She has been tolerating her dialys is. She received her 4-hour hemodialysis yesterday without any difficulty. We were able to remove s everal liters of fluid. This morning, she voices no new complaints, no chest pain, no shortness of b reath. PHYSICAL EXAMINATION: VITAL SIGNS: Blood pressure is 124/59, heart rate 80, respiratory rate 20, temperature 97.6, and pul se ox 94%. GENERAL: Awake, alert, comfortable, obese, supine, not in distress. SKIN: Adequate turgor. HEENT: Slightly pale conjunctivae, anicteric sclerae. NECK: No neck mass, no carotid bruits, no JVD. CHEST: No deformities. LUNGS: Decreased breath sounds. HEART: Normal sinus rhythm. No murmur, no gallops, no rubs. ABDOMEN: Globular, soft, nontender, no masses. EXTREMITIES: Trace edema, no deformities. MEDICATIONS: Of 11/14/2017, reviewed. LABORATORY DATA: Of 11/12/2017, white count 9.7, hemoglobin 10.3. On 11/14/2017, glucose 198. On 0 11/12/2017, BUN 70, creatinine 3.56. ASSESSMENT AND PLAN: 1. End-stage renal disease/chronic renal failure - patient most likely is now end-stage renal diseas e, hemodialysis 3 times a week on Wednesday, , and Wednesday. We will do a 4-hour dialysis sess ion with this patient. So far, she is tolerating the said dialysis. 2. Shortness of breath/congestive heart failure, clinically improved with fluid removal with dialysi s. 3. Anemia, continuing weekly Epogen. If needed p.r.n. blood transfusion for hemoglobin less than 7. We are awaiting outpatient dialysis placement with this patient.
--- NOTE | 2017-11-14 13:49 | PDOC.PN ---
- Subjective Encounter Start Date: 11/14/17 Encounter Start Time: 13:49 Subjective: nsg notes rev, chanelle ovn, pt was able to sit on EOB with PT earlier today -: still feels overall rather weak, woke up a few times ovn while on CPAP - Objective Vital Signs & Weight: Vital Signs (12 hours) Temp Pulse Resp BP BP Pulse Ox 11/14/17 13:40 64 20 94 L 11/14/17 11:39 97.6 F 80 20 124/59 L 94 L 11/14/17 08:44 98.4 F 59 L 25 H 92 L 11/14/17 08:36 59 L 153/97 H 11/14/17 08:35 69 153/97 H 96 11/14/17 08:33 51 L 24 H 96 11/14/17 08:27 69 25 H 153/97 H 99 11/14/17 04:00 56 F L 11/14/17 03:44 98.4 F 56 L 20 132/74 99 11/14/17 02:50 70 Weight Weight 345 lb 0.375 oz I&O: 11/13/17 11/14/17 11/15/17 06:59 06:59 06:59 Intake Total 1510 1000 300 Output Total 3475 4160 Balance -1965 -3160 300 Result Diagrams: 11/15/17 07:00 11/15/17 06:25 Additional Labs: Accuchecks 11/14/17 11/14/17 11/13/17 11:28 06:43 20:02 POC Glucose 198 H 123 H 185 H 11/13/17 16:26 POC Glucose 122 H Phys Exam - Physical Examination Constitutional: NAD HEENT: PERRLA, moist MMs Neck: no nodes Respiratory: no wheezing, no rales, no rhonchi limited anterior exam but dec sounds throughout likely 2/2 habitus Cardiovascular: RRR, no significant murmur, no rub soft hear tones Gastrointestinal: soft, no distention, positive bowel sounds obese Psychiatric: normal affect, A&O x 3 Skin: normal turgor, cap refill <2 seconds Dx/Plan (1) Acute exacerbation of CHF (congestive heart failure) Code(s): I50.9 - HEART FAILURE, UNSPECIFIED Status: Acute Qualifiers: Congestive heart failure type: unspecified congestive heart failure type Qualified Code(s): I50.9 - Heart failure, unspecified (2) Acute on chronic kidney failure Code(s): N17.9 - ACUTE KIDNEY FAILURE, UNSPECIFIED; N18.9 - CHRONIC KIDNEY DISEASE, UNSPECIFIED Status: Acute Comment: esrd, initiated on HD (3) Obstructive sleep apnea Code(s): G47.33 - OBSTRUCTIVE SLEEP APNEA (ADULT) (PEDIATRIC) Status: Chronic (4) Acute diastolic CHF (congestive heart failure) Code(s): I50.31 - ACUTE DIASTOLIC (CONGESTIVE) HEART FAILURE Status: Acute Comment: Resolving, CCM at present with diuretics (5) Acute hypoxemic respiratory failure Code(s): J96.01 - ACUTE RESPIRATORY FAILURE WITH HYPOXIA Status: Acute (6) Urinary tract infection Status: Acute (7) Chronic kidney disease stage 4 Code(s): N18.4 - CHRONIC KIDNEY DISEASE, STAGE 4 (SEVERE) Status: Chronic (8) Aortic stenosis Code(s): I35.0 - NONRHEUMATIC AORTIC (VALVE) STENOSIS Status: Acute - Plan cont current plan of care acute hypoxic respiratory failure * likely multifactorial, ELIGIO, OHS, CHF, AoS * continue BiPAP QHS, NC during day as needed, ndbs * appreciate pulmonary c/s CHF * currently tenuously fluid stable * appreciate cardiology c/s * suspect complicated CHF by AoS with altered pre and after load dependence * cont on coreg, ASA, lipitor, isordil * plan for heart catheterization tomorrow to further eval cardiac status sev AoS * as per above * suspect this may be related to pt's c/o dizziness particularly with exertion DAVID on CKD currently HD * appreciate nephrology c/s * continue with HD as tolerated IDDM * levemir BID * cardiac, diabetic, renal diet diet: as above activity: as ronny, with OT dvt ppx Review of Systems - Medications/Allergies Allergies/Adverse Reactions: Allergies Allergy/AdvReac Type Severity Reaction Status Date / Time sulfamethoxazole Allergy Verified 11/07/17 18:05 [From Bactrim] trimethoprim [From Bactrim] Allergy Verified 11/07/17 18:05 Medications: Current Medications Acetaminophen (Tylenol) 650 mg PO Q4H PRN PRN Reason: Headache/Fever or Pain Acetaminophen (Tylenol) 1,000 mg PO Q6H PRN PRN Reason: Moderate to Severe Pain (6-10) Hydrocodone Bitart/Acetaminophen ([place] 5/325) 1 tab PO Q4H PRN PRN Reason: Moderate Pain (4-6) Last Admin: 11/10/17 05:44 Dose: 1 tab Albuterol/Ipratropium (Duoneb) 3 ml NEB [id number] PRN PRN Reason: SOB &/or Wheezing Albuterol/Ipratropium (Duoneb) 3 ml NEB [id number] [facility] Last Admin: 11/14/17 13:40 Dose: 3 ml Amlodipine Besylate (Norvasc) 5 mg PO DAILY [facility] Last Admin: 11/14/17 08:35 Dose: 5 mg Aspirin (Aspirin Chewable) 81 mg PO DAILY [facility] Last Admin: 11/14/17 08:35 Dose: 81 mg Atorvastatin Calcium (Lipitor) 20 mg PO HS [facility] Last Admin: 11/13/17 21:29 Dose: 20 mg Calcitriol (Rocaltrol) 0.25 mcg PO DAILY [facility] Last Admin: 11/14/17 08:36 Dose: 0.25 mcg Carvedilol (Coreg) 6.25 mg PO BID-[facility] Last Admin: 11/14/17 08:35 Dose: 6.25 mg Cefazolin Sodium (Ancef) 2 gm SLOW IVP WILLCALL [facility] Cefdinir (Omnicef) 600 mg PO DAILY [facility] Last Admin: 11/14/17 08:44 Dose: 600 mg Cholecalciferol (Vitamin D3) 2,000 units PO DAILY [facility] Last Admin: 11/14/17 08:35 Dose: 2,000 units Dextrose/Water (Dextrose 50%) 25 gm SLOW IVP PRN PRN PRN Reason: Hypoglycemia Docusate Sodium (Colace) 100 mg PO BID [facility] Last Admin: 11/14/17 08:36 Dose: 100 mg Epoetin Bryn (Procrit) 7,500 units SC Q7D@1000 [facility] Last Admin: 11/14/17 12:15 Dose: 7,500 units Famotidine (Pepcid) 20 mg PO Q24HR [facility] Last Admin: 11/13/17 21:41 Dose: 20 mg Fluticasone Propionate (Flonase Nasal Rule) 0 gm NASAL DAILY [facility] Last Admin: 11/14/17 08:34 Dose: 1 spr Glucagon (Glucagon) 1 mg IM PRN PRN PRN Reason: Hypoglycemia Heparin Sodium (Porcine) (Heparin) 5,000 units SC TID [facility] Last Admin: 11/14/17 08:35 Dose: 5,000 units Hydralazine HCl (Apresoline) 10 mg SLOW IVP Q4H PRN PRN Reason: Systolic BP > 180 Hydralazine HCl (Apresoline) 25 mg PO BID [facility] Last Admin: 11/14/17 08:36 Dose: 25 mg Dextrose/Water (D5w) 1,000 mls @ 0 mls/hr IV .Q0M PRN; As Directed PRN Reason: Hypoglycemia Insulin Detemir 15 units/ (Miscellaneous Medication) 0.15 mls @ 0 mls/hr SC BID [facility] Last Admin: 11/14/17 08:44 Dose: 0.15 mls Insulin Human Lispro (Humalog) 0 units SC .MODERATE SLIDING SC PRN PRN Reason: Moderate Correctional Scale Last Admin: 11/11/17 05:51 Dose: 2 units Insulin Human Lispro (Humalog) 0 units SC .BEDTIME SLIDING SC PRN PRN Reason: Bedtime Correctional Scale Last Admin: 11/09/17 20:19 Dose: 2 unit Isosorbide Dinitrate (Isordil) 20 mg PO BID [facility] Last Admin: 11/14/17 08:36 Dose: 20 mg Lorazepam (Ativan) 0.5 mg PO Q4H PRN PRN Reason: Anxiety/Agitation Lorazepam (Ativan) 0.5 mg SLOW IVP Q4H PRN PRN Reason: Anxiety/Agitation Last Admin: 11/09/17 04:40 Dose: 0.5 mg Magnesium Hydroxide (Milk Of Magnesium) 30 ml PO DAILYPRN PRN PRN Reason: Constipation Last Admin: 11/11/17 21:24 Dose: 30 ml Miscellaneous Information (Communication Order-Pharmacy) 0 each FS ONE [facility] Stop: 11/15/17 23:59 Miscellaneous Information (Communication Order-Pharmacy) 0 each FS ONE [facility] Stop: 11/15/17 12:00 Ondansetron HCl (Zofran) 4 mg SLOW IVP Q6H PRN PRN Reason: Nausea/Vomiting Last Admin: 11/09/17 04:39 Dose: 4 mg Sodium Chloride (Flush - Normal Saline) 10 ml IVF Q12HR [facility] Last Admin: 11/14/17 08:44 Dose: 10 ml Sodium Chloride (Flush - Normal Saline) 10 ml IVF PRN PRN PRN Reason: Saline Flush
--- NOTE | 2017-11-14 19:43 | PRG ---
DATE OF SERVICE: 11/14/2017 SERVICE: Pulmonary Medicine. INTERVAL HISTORY: The patient is doing fine from a respiratory standpoint. She is breathing comfort ably this morning. She denies any current fevers, chills, nausea, vomiting. There are no overnight events. She got out of the bed into chair 2 times a day. She actually looks much better. Otherwise , there has been no interval change to her condition. PHYSICAL EXAMINATION: VITAL SIGNS: Afebrile, pulse 72, blood pressure 144/65, respirations 20, saturation 96% on 3 liters nasal cannula. GENERAL: The patient is awake, alert, no apparent distress. LUNGS: Decent air entry. There is no prolonged expiratory phase. I do not appreciate any crackles or wheezing. HEART: Normal rate, regular. ABDOMEN: Soft, nontender, nondistended. Bowel sounds positive. MUSCULOSKELETAL: No cyanosis or clubbing. There is 1+ pitting in the bilateral lower extremities. NEUROLOGIC: Grossly nonfocal. ASSESSMENT: 1. Chronic kidney disease, currently requiring hemodialysis. 2. Anasarca, improving. 3. Acute on chronic hypoxic respiratory failure, resolved to baseline. 4. Obstructive sleep apnea, severe. 5. Aortic stenosis. DISCUSSION AND PLAN: The patient is going now for cardiac catheterization tomorrow. She may need th e BiPAP unit so that she can lay flat during the procedure. I will continue to follow her while she remains in this location. That being said, she is stable for transition out of the intermediate care unit, but we will wait to find out the results of the cath.
[2017-11-14] MEDS: Famotidine 20 MG TAB PO SCH (20:58)
[2017-11-14] MEDS: Atorvastatin Calcium 20 MG TAB PO SCH (20:58)
[2017-11-15] MEDS: hydrALAZINE 25 MG TAB PO SCH ×2 (05:48→20:51)
[2017-11-15] MEDS: Isosorbide Dinitrate 20 MG TAB PO SCH ×2 (05:49→21:06)
[2017-11-15] MEDS: Docusate 100 MG CAP PO SCH ×2 (05:49→21:05)
[2017-11-15] MEDS: Calcitriol 0.25 MCG CAP PO SCH (05:49)
[2017-11-15] MEDS: Cefdinir 300 MG CAP PO SCH (05:49)
[2017-11-15] MEDS: Amlodipine 5 MG TAB PO SCH (05:50)
[2017-11-15] MEDS: Carvedilol 6.25 MG TAB PO SCH ×2 (05:50→17:46)
[2017-11-15] MEDS: Fluticasone Propionate Nasal Spray 16 gm Bottle NASAL SCH (05:50)
[2017-11-15] MEDS: Heparin 5,000 UNITS/ML VIAL SC SCH ×3 (06:16→20:50)
[2017-11-15] MEDS: Insulin Detemir 100 UNITS/ML 15 UNITS in Pre-Filled Syringe 1 EACH SC SCH ×2 (06:16→20:51)
[2017-11-15 06:57] LABS: Hemoglobin 10.8 g/dL (12.0-16.0); Mean Corpuscular Hemoglobin 28.4 pg (27.0-31.0); Mean Corpuscular Volume 91.7 fl (81.0-99.0); Mean Platelet Volume 8.1 fL (7.4-10.4); Platelet Count 244 thou/uL (130-400); RBC Distribution Width 14.3 % (11.5-14.5); Red Blood Cell (RBC) Count 3.82 mill/uL (4.20-5.40); White Blood Cell (WBC) Count 11.2 thou/uL (4.8-10.8)
[2017-11-15 07:04] LABS: INR-International Normal Ratio 1.1; Prothrombin Time 14.4 SEC (12.0-14.7)
[2017-11-15 07:13] LABS: Anion Gap 11 mmol/L (10-20); BUN (Urea Nitrogen) 46 mg/dL (9.8-20.1); Calc. Creatinine Clearance 32 mL/min (70-130); Calcium 8.8 mg/dL (7.8-10.44); Carbon Dioxide 30 mmol/L (23-31); Chloride 99 mmol/L (98-107); Estimated GFR-MDRD 12; Glucose 142 mg/dL (83-110); Potassium 3.8 mmol/L (3.5-5.1); Sodium 136 mmol/L (136-145)
[2017-11-15 07:35] LABS: Band 7 % (5-11); Eosinophils 1 % (0-10); Lymphocytes 7 % (21-51); MDiff Complete? YES; Metamyelocyte 1 % (0-0); Monocytes 10 % (0-10); Neutrophil 73 % (42-75); Polychromasia SLIGHT = 2-3 cells (100X) (0-2/hpf); Reactive Lymphocytes 1 % (0-10)
--- NOTE | 2017-11-15 07:47 | RAD ---
PORTABLE CHEST 1 VIEW: Date: 11/15/17 Time: 0510 hours HISTORY: CHF. FINDINGS/IMPRESSION: Comparison made with exam of 11/09/17. The heart is enlarged. There is pulmonary vascular congestion with accompanying pleural effusions. Th e right-sided dialysis catheter and left-sided central line positions are unchanged. There is pulmona ry vascular congestion. Findings are concerning for CHF. POS: OFF
--- NOTE | 2017-11-15 07:58 | PDOC.PULPN ---
Progress Note: Subj/Obj - Subjective Date: 11/15/17 Time: 07:56 Narrative: feeling OK - ROS All systems: reviewed and no additional remarkable complaints except as stated Respiratory: no reported symptoms - Objective Allergies/Adverse Reactions: Allergies Allergy/AdvReac Type Severity Reaction Status Date / Time sulfamethoxazole Allergy Verified 11/07/17 18:05 [From Bactrim] trimethoprim [From Bactrim] Allergy Verified 11/07/17 18:05 Medications: Current Medications Acetaminophen (Tylenol) 650 mg PO Q4H PRN PRN Reason: Headache/Fever or Pain Acetaminophen (Tylenol) 1,000 mg PO Q6H PRN PRN Reason: Moderate to Severe Pain (6-10) Hydrocodone Bitart/Acetaminophen ([place] 5/325) 1 tab PO Q4H PRN PRN Reason: Moderate Pain (4-6) Last Admin: 11/10/17 05:44 Dose: 1 tab Albuterol/Ipratropium (Duoneb) 3 ml NEB [id number] PRN PRN Reason: SOB &/or Wheezing Albuterol/Ipratropium (Duoneb) 3 ml NEB [id number] [facility] Last Admin: 11/14/17 23:43 Dose: 3 ml Amlodipine Besylate (Norvasc) 5 mg PO DAILY [facility] Last Admin: 11/15/17 05:50 Dose: 5 mg Aspirin (Aspirin Chewable) 81 mg PO DAILY [facility] Last Admin: 11/15/17 05:50 Dose: 81 mg Atorvastatin Calcium (Lipitor) 20 mg PO HS [facility] Last Admin: 11/14/17 20:58 Dose: 20 mg Calcitriol (Rocaltrol) 0.25 mcg PO DAILY [facility] Last Admin: 11/15/17 05:49 Dose: 0.25 mcg Carvedilol (Coreg) 6.25 mg PO BID-[facility] Last Admin: 11/15/17 05:50 Dose: 6.25 mg Cefazolin Sodium (Ancef) 2 gm SLOW IVP WILLCALL [facility] Cefdinir (Omnicef) 600 mg PO DAILY [facility] Last Admin: 11/15/17 05:49 Dose: 600 mg Cholecalciferol (Vitamin D3) 2,000 units PO DAILY [facility] Last Admin: 11/15/17 05:49 Dose: 2,000 units Dextrose/Water (Dextrose 50%) 25 gm SLOW IVP PRN PRN PRN Reason: Hypoglycemia Docusate Sodium (Colace) 100 mg PO BID [facility] Last Admin: 11/15/17 05:49 Dose: 100 mg Epoetin Bryn (Procrit) 7,500 units SC Q7D@1000 [facility] Last Admin: 11/14/17 12:15 Dose: 7,500 units Famotidine (Pepcid) 20 mg PO Q24HR [facility] Last Admin: 11/14/17 20:58 Dose: 20 mg Fluticasone Propionate (Flonase Nasal [place]) 0 gm NASAL DAILY [facility] Last Admin: 11/15/17 05:50 Dose: 1 spr Glucagon (Glucagon) 1 mg IM PRN PRN PRN Reason: Hypoglycemia Heparin Sodium (Porcine) (Heparin) 5,000 units SC TID [facility] Last Admin: 11/15/17 06:16 Dose: Not Given Hydralazine HCl (Apresoline) 10 mg SLOW IVP Q4H PRN PRN Reason: Systolic BP > 180 Hydralazine HCl (Apresoline) 25 mg PO BID [facility] Last Admin: 11/15/17 05:48 Dose: 25 mg Dextrose/Water (D5w) 1,000 mls @ 0 mls/hr IV .Q0M PRN; As Directed PRN Reason: Hypoglycemia Insulin Detemir 15 units/ (Miscellaneous Medication) 0.15 mls @ 0 mls/hr SC BID [facility] Last Admin: 11/15/17 06:16 Dose: Not Given Insulin Human Lispro (Humalog) 0 units SC .MODERATE SLIDING SC PRN PRN Reason: Moderate Correctional Scale Last Admin: 11/11/17 05:51 Dose: 2 units Insulin Human Lispro (Humalog) 0 units SC .BEDTIME SLIDING SC PRN PRN Reason: Bedtime Correctional Scale Last Admin: 11/09/17 20:19 Dose: 2 unit Isosorbide Dinitrate (Isordil) 20 mg PO BID [facility] Last Admin: 11/15/17 05:49 Dose: 20 mg Lorazepam (Ativan) 0.5 mg PO Q4H PRN PRN Reason: Anxiety/Agitation Lorazepam (Ativan) 0.5 mg SLOW IVP Q4H PRN PRN Reason: Anxiety/Agitation Last Admin: 11/09/17 04:40 Dose: 0.5 mg Magnesium Hydroxide (Milk Of Magnesium) 30 ml PO DAILYPRN PRN PRN Reason: Constipation Last Admin: 11/11/17 21:24 Dose: 30 ml Miscellaneous Information (Communication Order-Pharmacy) 0 each FS [facility] Stop: 11/15/17 23:59 Miscellaneous Information (Communication Order-Pharmacy) 0 each FS [facility] Stop: 11/15/17 12:00 Ondansetron HCl (Zofran) 4 mg SLOW IVP Q6H PRN PRN Reason: Nausea/Vomiting Last Admin: 11/09/17 04:39 Dose: 4 mg Sodium Chloride (Flush - Normal Saline) 10 ml IVF Q12HR [facility] Last Admin: 11/15/17 05:59 Dose: 10 ml Sodium Chloride (Flush - Normal Saline) 10 ml IVF PRN PRN PRN Reason: Saline Flush MAR Reviewed: Yes Vital Signs: Vital Signs Temp 98.2 F 11/15/17 07:06 Pulse 53 L 11/15/17 07:06 Resp 23 H 11/15/17 07:06 BP 121/72 11/15/17 07:05 Pulse Ox 100 11/15/17 07:06 Intake & Output 11/14/17 11/15/17 11/15/17 18:59 06:59 18:59 Intake Total 300 430 Output Total 150 Balance 300 280 Weight 345 lb 4.8 oz Intake: Intake, IV Amount 30 Oral 300 400 Output: Output, [place] 150 Other: Voiding Method Indwelling Catheter Indwelling Catheter Indwelling Catheter Progress Note: Exam - Physical Exam Constitutional: NAD HEENT: PERRLA, sclera anicteric Neck: no nodes, no JVD Cardiovascular: RRR Respiratory: clear to auscultation bilaterally Gastrointestinal: soft Deviation from normal: obese Musculoskeletal: no edema Progress Note: Data - Labs Result Diagrams: 11/15/17 07:00 11/15/17 06:25 Lab results: Laboratory Results 11/13/17 11/13/17 11/13/17 13:06 16:26 20:02 WBC RBC Hgb Hct MCV MCH MCHC RDW Plt Count MPV Neutrophils % (Manual) Band Neuts % (Manual) Lymphocytes % (Manual) Reactive Lymphs % Monocytes % (Manual) Eosinophils % (Manual) Metamyelocytes % (Man) Polychromasia PT INR Sodium Potassium Chloride Carbon Dioxide Anion Gap BUN Creatinine Estimated GFR (MDRD) Glucose POC Glucose 116 H 122 H 185 H Calcium 11/14/17 11/14/17 11/14/17 06:43 11:28 16:41 WBC RBC Hgb Hct MCV MCH MCHC RDW Plt Count MPV Neutrophils % (Manual) Band Neuts % (Manual) Lymphocytes % (Manual) Reactive Lymphs % Monocytes % (Manual) Eosinophils % (Manual) Metamyelocytes % (Man) Polychromasia PT INR Sodium Potassium Chloride Carbon Dioxide Anion Gap BUN Creatinine Estimated GFR (MDRD) Glucose POC Glucose 123 H 198 H 129 H Calcium 11/14/17 11/15/17 11/15/17 20:57 05:54 06:25 WBC RBC Hgb Hct MCV MCH MCHC RDW Plt Count MPV Neutrophils % (Manual) Band Neuts % (Manual) Lymphocytes % (Manual) Reactive Lymphs % Monocytes % (Manual) Eosinophils % (Manual) Metamyelocytes % (Man) Polychromasia PT INR Sodium 136 Potassium 3.8 Chloride 99 Carbon Dioxide 30 Anion Gap 11 BUN 46 H Creatinine 3.75 H Estimated GFR (MDRD) 12 Glucose 142 H POC Glucose 165 H 130 H Calcium 8.8 11/15/17 11/15/17 07:00 07:05 WBC 11.2 H RBC 3.82 L Hgb 10.8 L Hct 35.0 L MCV 91.7 MCH 28.4 MCHC 31.0 L RDW 14.3 Plt Count 244 MPV 8.1 Neutrophils % (Manual) 73 Band Neuts % (Manual) 7 Lymphocytes % (Manual) 7 L Reactive Lymphs % 1 Monocytes % (Manual) 10 Eosinophils % (Manual) 1 Metamyelocytes % (Man) 1 H Polychromasia SLIGHT = 2-3 cells PT 14.4 INR 1.1 Sodium Potassium Chloride Carbon Dioxide Anion Gap BUN Creatinine Estimated GFR (MDRD) Glucose POC Glucose Calcium Progress Note: A/P - Problems (1) Obstructive sleep apnea Current Visit: Yes Status: Chronic Code(s): G47.33 - OBSTRUCTIVE SLEEP APNEA (ADULT) (PEDIATRIC) (2) Acute exacerbation of CHF (congestive heart failure) Current Visit: Yes Status: Acute Code(s): I50.9 - HEART FAILURE, UNSPECIFIED Qualifiers: Congestive heart failure type: unspecified congestive heart failure type Qualified Code(s): I50.9 - Heart failure, unspecified (3) Aortic stenosis, non-rheumatic Current Visit: No Status: Chronic Code(s): I35.0 - NONRHEUMATIC AORTIC ( VALVE) STENOSIS (4) Chronic respiratory failure Current Visit: No Status: Chronic Code(s): J96.10 - CHRONIC RESPIRATORY FAILURE, UNSP W HYPOXIA OR HYPERCAPNIA Qualifiers: Respiratory failure complication: hypoxia Qualified Code(s): J96.11 - Chronic respiratory failure with hypoxia (5) Morbid obesity Current Visit: No Status: Chronic Code(s): E66.01 - MORBID (SEVERE) OBESITY DUE TO EXCESS CALORIES - Plan Plan: Cardiac cath planned today, to evaluate Continue nocturnal BiPAP for ELIGIO
--- NOTE | 2017-11-15 09:38 | PRG ---
DATE OF SERVICE: 11/15/2017 SUBJECTIVE: Ms. Cox is a 77-year-old white female with history of acute kidney injury/chronic renal failure and currently placed on hemodialysis due to the worsening renal dysfunction and due to the v olume overload. She has been tolerating her dialysis. I placed her now on 3 times a week hemodialys is. This morning she is feeling better. She denies any chest pain or worsening shortness of breath. PHYSICAL EXAMINATION: VITAL SIGNS: Blood pressure 121/72, heart rate 53, respiratory rate 23, temperature 98.2, pulse ox 1 00%. GENERAL: Noted to be awake, supine, obese, not in distress. SKIN: Adequate turgor. HEENT: She has pinkish conjunctivae, anicteric sclerae. NECK: No neck mass, no carotid bruits, no JVD. CHEST: No deformities. LUNGS: Decreased breath sounds. HEART: Normal sinus rhythm. Grade 2/6 systolic murmur, no gallops or rubs. ABDOMEN: Globular, soft, nontender, no masses. EXTREMITIES: Trace edema. MEDICATIONS: 11/15/2017 - Reviewed. LABORATORY: 11/15/2017 - White count 11.2, hemoglobin 10.8, sodium 136, potassium 3.8, chloride 99, carbon dioxide 30, BUN 46, creatinine 3.75, glucose 142, calcium 8.8. ASSESSMENT AND PLAN: 1. End-stage renal disease/chronic renal failure - stable. Continue supportive hemodialysis. The p atient is scheduled for hemodialysis in a.m. 2. Congestive heart failure, clinically much improved with dialysis and fluid removal. Continue cur rent management. Cardiology is following. 3. Aortic stenosis - the patient for possible cardiac cath in the near future. 4. Anemia. I place this patient on a weekly Epogen. No indication for any blood transfusion. I agree with current management. Recheck base met and CBC in the a.m.
--- NOTE | 2017-11-15 09:40 | PDOC.PN ---
- Subjective Encounter Start Date: 11/15/17 Encounter Start Time: 09:39 Subjective: nsg notes rev, chanelle ovn, pt ronny CPAP ovn, no new c/o this AM is able to -: complete teachback re: plan of care, reports retained appetitie and was -: able to sleep well ovn - Objective Vital Signs & Weight: Vital Signs (12 hours) Temp Pulse Resp BP BP Pulse Ox 11/15/17 08:12 65 28 H 11/15/17 07:06 98.2 F 53 L 23 H 100 11/15/17 07:05 98.2 F 53 L 23 H 121/72 100 11/15/17 05:50 68 110/59 L 11/15/17 05:48 68 110/59 L 11/15/17 03:27 97.5 F L 68 17 107/49 L 100 11/14/17 23:43 66 25 H 97 11/14/17 23:32 97.4 F L 58 L 19 112/47 L 99 Weight Weight 345 lb 4.8 oz I&O: 11/14/17 11/15/17 11/16/17 06:59 06:59 06:59 Intake Total 1000 730 Output Total 4160 150 Balance -3160 580 Result Diagrams: 11/15/17 07:00 11/15/17 06:25 Additional Labs: Accuchecks 11/15/17 11/14/17 11/14/17 05:54 20:57 16:41 POC Glucose 130 H 165 H 129 H 11/14/17 11:28 POC Glucose 198 H Phys Exam - Physical Examination Constitutional: NAD HEENT: PERRLA, moist MMs Neck: no nodes Respiratory: no wheezing, no rales, no rhonchi poor air mvmt, difficult to ascultate 2/2 habitus Cardiovascular: RRR, no significant murmur, no rub soft heart tones 2/2 habitus Gastrointestinal: soft, non-tender, no distention, positive bowel sounds obese Neurological: moves all 4 limbs Psychiatric: normal affect, A&O x 3 Dx/Plan (1) Acute exacerbation of CHF (congestive heart failure) Code(s): I50.9 - HEART FAILURE, UNSPECIFIED Status: Acute Qualifiers: Congestive heart failure type: unspecified congestive heart failure type Qualified Code(s): I50.9 - Heart failure, unspecified (2) Acute on chronic kidney failure Code(s): N17.9 - ACUTE KIDNEY FAILURE, UNSPECIFIED; N18.9 - CHRONIC KIDNEY DISEASE, UNSPECIFIED Status: Acute Comment: esrd, initiated on HD (3) Obstructive sleep apnea Code(s): G47.33 - OBSTRUCTIVE SLEEP APNEA (ADULT) (PEDIATRIC) Status: Chronic (4) Acute diastolic CHF (congestive heart failure) Code(s): I50.31 - ACUTE DIASTOLIC (CONGESTIVE) HEART FAILURE Status: Acute Comment: Resolving, CCM at present with diuretics (5) Acute hypoxemic respiratory failure Code(s): J96.01 - ACUTE RESPIRATORY FAILURE WITH HYPOXIA Status: Acute (6) Urinary tract infection Status: Acute (7) Chronic kidney disease stage 4 Code(s): N18.4 - CHRONIC KIDNEY DISEASE, STAGE 4 (SEVERE) Status: Chronic (8) Aortic stenosis Code(s): I35.0 - NONRHEUMATIC AORTIC (VALVE) STENOSIS Status: Acute - Plan acute hypoxic respiratory failure, significantly improved * likely multifactorial, ELIGIO, OHS, CHF, AoS * continue BiPAP QHS, NC during day as needed, ndbs * appreciate pulmonary c/s CHF , significantly improved * currently tenuously fluid stable * appreciate cardiology c/s * suspect complicated CHF by AoS with altered pre and after load dependence * cont on coreg, ASA, lipitor, isordil * plan for heart catheterization today sev AoS * as per above * suspect this may be related to pt's c/o dizziness particularly with exertion DAVID on CKD currently HD * appreciate nephrology c/s * continue with HD as tolerated IDDM * levemir BID * cardiac, diabetic, renal diet diet: as above activity: as ronny, with OT 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 Review of Systems - Medications/Allergies Allergies/Adverse Reactions: Allergies Allergy/AdvReac Type Severity Reaction Status Date / Time sulfamethoxazole Allergy Verified 11/07/17 18:05 [From Bactrim] trimethoprim [From Bactrim] Allergy Verified 11/07/17 18:05 Medications: Current Medications Acetaminophen (Tylenol) 650 mg PO Q4H PRN PRN Reason: Headache/Fever or Pain Acetaminophen (Tylenol) 1,000 mg PO Q6H PRN PRN Reason: Moderate to Severe Pain (6-10) Hydrocodone Bitart/Acetaminophen ([place] 5/325) 1 tab PO Q4H PRN PRN Reason: Moderate Pain (4-6) Last Admin: 11/10/17 05:44 Dose: 1 tab Albuterol/Ipratropium (Duoneb) 3 ml NEB Q6AW-ND PRN PRN Reason: SOB &/or Wheezing Albuterol/Ipratropium (Duoneb) 3 ml NEB [id number] [facility] Last Admin: 11/15/17 08:12 Dose: 3 ml Amlodipine Besylate (Norvasc) 5 mg PO DAILY [facility] Last Admin: 11/15/17 05:50 Dose: 5 mg Aspirin (Aspirin Chewable) 81 mg PO DAILY [facility] Last Admin: 11/15/17 05:50 Dose: 81 mg Atorvastatin Calcium (Lipitor) 20 mg PO HS [facility] Last Admin: 11/14/17 20:58 Dose: 20 mg Calcitriol (Rocaltrol) 0.25 mcg PO DAILY [facility] Last Admin: 11/15/17 05:49 Dose: 0.25 mcg Carvedilol (Coreg) 6.25 mg PO BID[facility] Last Admin: 11/15/17 05:50 Dose: 6.25 mg Cefazolin Sodium (Ancef) 2 gm SLOW IVP [facility]CALL [facility] Cefdinir (Omnicef) 600 mg PO DAILY [facility] Last Admin: 11/15/17 05:49 Dose: 600 mg Cholecalciferol (Vitamin D3) 2,000 units PO DAILY [facility] Last Admin: 11/15/17 05:49 Dose: 2,000 units Dextrose/Water (Dextrose 50%) 25 gm SLOW IVP PRN PRN PRN Reason: Hypoglycemia Docusate Sodium (Colace) 100 mg PO BID [facility] Last Admin: 11/15/17 05:49 Dose: 100 mg Epoetin Bryn (Procrit) 7,500 units SC Q7D@1000 [facility] Last Admin: 11/14/17 12:15 Dose: 7,500 units Famotidine (Pepcid) 20 mg PO Q24HR [facility] Last Admin: 11/14/17 20:58 Dose: 20 mg Fluticasone Propionate (Flonase Nasal [place]) 0 gm NASAL DAILY [facility] Last Admin: 11/15/17 05:50 Dose: 1 spr Glucagon (Glucagon) 1 mg IM PRN PRN PRN Reason: Hypoglycemia Heparin Sodium (Porcine) (Heparin) 5,000 units SC TID [facility] Last Admin: 11/15/17 06:16 Dose: Not Given Hydralazine HCl (Apresoline) 10 mg SLOW IVP Q4H PRN PRN Reason: Systolic BP > 180 Hydralazine HCl (Apresoline) 25 mg PO BID [facility] Last Admin: 11/15/17 05:48 Dose: 25 mg Dextrose/Water (D5w) 1,000 mls @ 0 mls/hr IV .Q0M PRN; As Directed PRN Reason: Hypoglycemia Insulin Detemir 15 units/ (Miscellaneous Medication) 0.15 mls @ 0 mls/hr SC BID [facility] Last Admin: 11/15/17 06:16 Dose: Not Given Insulin Human Lispro (Humalog) 0 units SC .MODERATE SLIDING SC PRN PRN Reason: Moderate Correctional Scale Last Admin: 11/11/17 05:51 Dose: 2 units Insulin Human Lispro (Humalog) 0 units SC .BEDTIME SLIDING SC PRN PRN Reason: Bedtime Correctional Scale Last Admin: 11/09/17 20:19 Dose: 2 unit Isosorbide Dinitrate (Isordil) 20 mg PO BID [facility] Last Admin: 11/15/17 05:49 Dose: 20 mg Lorazepam (Ativan) 0.5 mg PO Q4H PRN PRN Reason: Anxiety/Agitation Lorazepam (Ativan) 0.5 mg SLOW IVP Q4H PRN PRN Reason: Anxiety/Agitation Last Admin: 11/09/17 04:40 Dose: 0.5 mg Magnesium Hydroxide (Milk Of Magnesium) 30 ml PO DAILYPRN PRN PRN Reason: Constipation Last Admin: 11/11/17 21:24 Dose: 30 ml Miscellaneous Information (Communication Order-Pharmacy) 0 each FS ONE [facility] Stop: 11/15/17 23:59 Miscellaneous Information (Communication Order-Pharmacy) 0 each FS ONE [facility] Stop: 11/15/17 12:00 Ondansetron HCl (Zofran) 4 mg SLOW IVP Q6H PRN PRN Reason: Nausea/Vomiting Last Admin: 11/09/17 04:39 Dose: 4 mg Sodium Chloride (Flush - Normal Saline) 10 ml IVF Q12HR [facility] Last Admin: 11/15/17 05:59 Dose: 10 ml Sodium Chloride (Flush - Normal Saline) 10 ml IVF PRN PRN PRN Reason: Saline Flush
[2017-11-15] MEDS ORDERED: Heparin 10,000 UNITS/1 ML VIAL ONE (10:34)
[2017-11-15] MEDS ORDERED: Iopamidol 370 76% 100 ML VIAL ONE (11:51)
[2017-11-15] MEDS ORDERED: Atropine Sulfate 1 mg/10 ml Syringe ONE (12:02)
[2017-11-15] MEDS ORDERED: Protamine Sulfate 50 MG/5 ML VIAL ONE (12:21)
[2017-11-15] MEDS ORDERED: Acetaminophen/Codeine 30-300mg Tablet PO PRN ×2 (12:41)
[2017-11-15] MEDS ORDERED: Sodium Chloride 0.9% 200 ML IV SCH (12:45)
[2017-11-15] MEDS: HYDROcodone/Acetaminophen 5/325 mg Tablet PO PRN (16:50)
[2017-11-15] MEDS: traMADol HCl 50 MG TAB PO PRN (19:38)
[2017-11-15] MEDS: Famotidine 20 MG TAB PO SCH (21:05)
[2017-11-15] MEDS: Atorvastatin Calcium 20 MG TAB PO SCH (21:05)
[2017-11-16] MEDS: traMADol HCl 50 MG TAB PO PRN (02:17)
[2017-11-16 06:09] LABS: #Eosinphils 0.1 thou/uL (0.0-0.7); #Lymphocytes 1.4 thou/uL (1.20-3.40); #Monocytes 0.8 thou/uL (0.11-0.59); #Neutrophils 9.1 thou/uL (1.40-6.50); %Basophils 0.1 % (0.0-1.0); %Lymphocytes 12.4 % (21.0-51.0); %Monocytes 7.3 % (0.0-10.0); %Neutrophils 79.2 % (42.0-75.0); Hemoglobin 9.1 g/dL (12.0-16.0); Mean Corpuscular HGB CONC 30.5 g/dL (32.0-36.0); Mean Corpuscular Hemoglobin 27.7 pg (27.0-31.0); Mean Corpuscular Volume 90.8 fl (81.0-99.0); Mean Platelet Volume 8.4 fL (7.4-10.4); Platelet Count 230 thou/uL (130-400); RBC Distribution Width 14.7 % (11.5-14.5); Red Blood Cell (RBC) Count 3.28 mill/uL (4.20-5.40); White Blood Cell (WBC) Count 11.4 thou/uL (4.8-10.8)
[2017-11-16 06:25] LABS: Anion Gap 12 mmol/L (10-20); BUN (Urea Nitrogen) 56 mg/dL (9.8-20.1); Calc. Creatinine Clearance 29 mL/min (70-130); Calcium 8.7 mg/dL (7.8-10.44); Carbon Dioxide 28 mmol/L (23-31); Chloride 98 mmol/L (98-107); Estimated GFR-MDRD 10; Glucose 182 mg/dL (83-110); Potassium 4.2 mmol/L (3.5-5.1); Sodium 134 mmol/L (136-145)
--- NOTE | 2017-11-16 07:23 | CCL ---
CARDIAC CATHETERIZATION REPORT: Date: 11/15/17 PROCEDURE: Left and right heart catheterization, selective arteriography, and left ventriculography. INDICATION: Severe aortic stenosis and respiratory failure. DESCRIPTION OF PROCEDURE: The patient was brought to the cardiac laborer airport maintenance and the right groin was prepped and draped in the usual fashion. A 7 [place] sheath was placed into the right femoral vein followed by a 6 [place] sheath in the right femoral artery. Heparin 3,000 units given. A S-tipped thermodilution Ken[place]-Gabriela catheter was inserted and was advanced into the wedge position with pressure being obtained. The balloon was deflated and was pulled back to the pulmonary artery. A double lumen pigtail was inserted and simultaneous pressures from both lumens revealed good tracking of the pressure waveform. With a straight wire, this would not cross into the left ventricle. This was then removed a 6 [place] Bereket right-4 with a straight wire was inserted and crossed into the left ventricle. Left ventricular pressure was obtained. The right-4 was then exchanged over an exchange wire for the double lumen pigtail. Simultaneous left ventricular and aortic pressures were obtained. Thermodilution cardiac output was then performed. The Kenly-Gabriela catheter was then removed. Left ventriculogram was performed using 30 ml of contrast at 12 ml/s in a RICHARDS 30 degree projection. Pressure pullback was then performed and the double lumen pigtail was removed. A 6 [place] Bereket left-4 followed by a 6 [place] Bereket right-4 were used for coronary arteriography. Protamine 10 mg given intravenous and the sheaths were pulled, and adequate hemostasis was obtained. RESULTS: PRESSURES: Right Atrium 11/14, mean of 11 Right Ventricle 81/9 Pulmonary Artery 74/29, mean of 43 Pulmonary Capillary Wedge 26/32, mean of 18 Left Ventricle 179/17 Aorta 114/53, mean of 77 HEMODYNAMICS: Cardiac Output 4.62 liters/minute Cardiac Index 1.20 liters/minute/M2 Systemic Vascular Resistance 1,159 Pulmonary Vascular Resistance 439 Mean LV-Ao gradient 54mm Hg Aortic Valve Area 0.4 cm2 LEFT VENTRICULOGRAM: Normal left ventricular contractility with ejection fraction of 50-55%. CORONARY ARTERIOGRAPHY: 1. The left main was normal. 2. The LAD was normal. 3. The circumflex was normal. 4. The right coronary artery was normal. IMPRESSION: 1. Normal coronary arteries. 2. Normal left ventricular function. 3. Severe aortic stenosis. 4. Pulmonary artery hypertension. MTDD
--- NOTE | 2017-11-16 08:53 | PRG ---
DATE OF SERVICE: 11/16/2017 SUBJECTIVE: Ms. Cox is a 77-year-old white female who was admitted for shortness of breath from CHF . Renal Service has followed up this patient. She was initiated on dialysis. This morning, she is currently on hemodialysis. I am the bedside supervising her dialysis. Her shortness of breath is mu ch improved. PHYSICAL EXAMINATION: VITAL SIGNS: Blood pressure is 114/44, heart rate 57, respiratory rate 23, temperature 98.4, pulse o x 96%. GENERAL: Noted to be awake, alert, comfortable, not in overt distress. SKIN: Adequate turgor. HEENT: She has slightly pale conjunctivae, anicteric sclerae. NECK: No neck mass, no carotid bruits, no JVD. CHEST: No deformities. LUNGS: Clear, but decreased breath sounds. HEART: Normal sinus rhythm. No murmurs, no gallops or rubs. ABDOMEN: Globular, soft, nontender. No masses. EXTREMITIES: No edema, no deformities. MEDICATIONS: Of 11/16/2017 was reviewed. LABORATORY DATA: Of 11/16/2017, white count 11.4, hemoglobin 9.1, sodium 134, potassium 4.2, chlorid e 98, carbon dioxide 28, BUN 56, creatinine 4.18, glucose 182, calcium 8.7. ASSESSMENT AND PLAN: 1. Congestive heart failure, clinically much improved with fluid removal with dialysis. 2. End-stage renal disease, stable. Continue Wednesday, Wednesday, Wednesday hemodialysis. Attempting ab out 3 liters of fluid removal as tolerated by the patient. 3. Anemia - on weekly Epogen. 4. Aortic stenosis - Cardiology is following. Eventual cardiac catheterization in the near future.
--- NOTE | 2017-11-16 09:15 | PRG ---
DATE OF SERVICE: 11/16/2017 The patient feels better. Apparently has severe aortic stenosis by cath done yesterday. PHYSICAL EXAMINATION: VITAL SIGNS: Temperature 98.4, pulse 67, respirations 20, O2 sat 96% on 5 liters, blood pressure 114 /44. HEENT: Unremarkable. NECK: No JVD. CARDIAC: S1, S2 regular with a 3/6 systolic murmur. LUNGS: Clear. ABDOMEN: Soft, obese, nontender. EXTREMITIES: Edematous. LABORATORY DATA: White blood cell count 11.4, hematocrit 29, platelet count is 230. Sodium 134, pot assium 4.2, chloride 98, CO2 28, BUN 56, creatinine 4.2, glucose 182. ASSESSMENT: 1. Chronic renal failure requiring hemodialysis. 2. Aortic stenosis. 3. Obstructive sleep apnea. PLAN: Hopefully, can proceed with aortic valve replacement soon. Continue dialysis. Continue CPAP at night. Can probably be transferred out to the floor.
--- NOTE | 2017-11-16 12:36 | PDOC.PN ---
- Subjective Encounter Start Date: 11/16/17 Encounter Start Time: 13:00 CC; Anemia, dyspnea Sub: Pt denies dyspnea, denies bleeding per rectum - Objective Vital Signs & Weight: Vital Signs (12 hours) Temp Pulse Resp BP Pulse Ox 11/16/17 12:33 69 16 11/16/17 06:53 98.4 F 57 L 23 H 114/44 L 96 11/16/17 06:43 60 16 11/16/17 03:43 97.6 F 62 16 115/42 L 96 Weight Weight 347 lb 3.2 oz I&O: 11/15/17 11/16/17 11/17/17 06:59 06:59 06:59 Intake Total 730 520 Output Total 150 350 Balance 580 170 Result Diagrams: 11/16/17 05:20 11/16/17 05:20 Additional Labs: Accuchecks 11/16/17 11/15/17 11/15/17 05:10 21:12 16:34 POC Glucose 196 H 129 H 135 H Dx/Plan - Plan Physical Examination Constitutional: NAD HEENT: PERRLA, moist MMs Neck: no nodes, positive TLC Respiratory: no wheezing, no rales, no rhonchi poor air mvmt, difficult to ascultate 2/2 habitus Cardiovascular: RRR, no significant murmur, no rub soft heart tones 2/2 habitus Gastrointestinal: soft, non-tender, no distention, positive bowel sounds obese Neurological: moves all 4 limbs, Awake, alert Psychiatric: normal affect, A&O x 3 Dx/Plan (1) Acute exacerbation of CHF (congestive heart failure) Code(s): I50.9 - HEART FAILURE, UNSPECIFIED Status: Acute Qualifiers: Congestive heart failure type: unspecified congestive heart failure type Qualified Code(s): I50.9 - Heart failure, unspecified (2) Acute on chronic kidney failure Code(s): N17.9 - ACUTE KIDNEY FAILURE, UNSPECIFIED; N18.9 - CHRONIC KIDNEY DISEASE, UNSPECIFIED Status: Acute Comment: esrd, initiated on HD (3) Obstructive sleep apnea Code(s): G47.33 - OBSTRUCTIVE SLEEP APNEA (ADULT) (PEDIATRIC) Status: Chronic (4) Acute diastolic CHF (congestive heart failure) Code(s): I50.31 - ACUTE DIASTOLIC (CONGESTIVE) HEART FAILURE Status: Acute Comment: Resolving, CCM at present with diuretics (5) Acute hypoxemic respiratory failure Code(s): J96.01 - ACUTE RESPIRATORY FAILURE WITH HYPOXIA Status: Acute (6) Urinary tract infection Status: Acute (7) Chronic kidney disease stage 4 Code(s): N18.4 - CHRONIC KIDNEY DISEASE, STAGE 4 (SEVERE) Status: Chronic (8) Aortic stenosis Code(s): I35.0 - NONRHEUMATIC AORTIC (VALVE) STENOSIS Status: Acute - Plan acute hypoxic respiratory failure, significantly improved * likely multifactorial, ELIGIO, OHS, CHF, AoS * continue BiPAP QHS, NC during day as needed, ndbs * appreciate pulmonary c/s. monitor closelt CHF , significantly improved * currently tenuously fluid stable * appreciate cardiology c/s * suspect complicated CHF by AoS with altered pre and after load dependence * cont on coreg, ASA, lipitor, isordil * s/p cath, no CAD. sev AoS * as per above * suspect this may be related to pt's c/o dizziness particularly with exertion DAVID on CKD currently HD * appreciate nephrology c/s * continue with HD as tolerated IDDM * levemir BID * cardiac, diabetic, renal diet Anemia of chronic disease: GI on board. Reviewed note. Need pulmonary clearance prior to procedure.
[2017-11-16] MEDS: Heparin 5,000 UNITS/ML VIAL SC SCH ×3 (12:54→21:00)
[2017-11-16] MEDS: Docusate 100 MG CAP PO SCH ×2 (12:54→20:57)
[2017-11-16] MEDS: Calcitriol 0.25 MCG CAP PO SCH (12:55)
[2017-11-16] MEDS: Cefdinir 300 MG CAP PO SCH (12:55)
[2017-11-16] MEDS: Isosorbide Dinitrate 20 MG TAB PO SCH ×2 (12:56→20:57)
[2017-11-16] MEDS: hydrALAZINE 25 MG TAB PO SCH ×2 (12:57→20:57)
[2017-11-16] MEDS: Amlodipine 5 MG TAB PO SCH (12:57)
[2017-11-16] MEDS: Carvedilol 6.25 MG TAB PO SCH ×2 (12:57→17:55)
[2017-11-16] MEDS ORDERED: GoLYTELY 4,000 ml Bottle PO SCH (13:00)
[2017-11-16] MEDS: Fluticasone Propionate Nasal Spray 16 gm Bottle NASAL SCH (13:01)
[2017-11-16] MEDS: Insulin Detemir 100 UNITS/ML 15 UNITS in Pre-Filled Syringe 1 EACH SC SCH (13:02)
--- NOTE | 2017-11-16 14:49 | CON ---
DATE OF CONSULTATION: 11/16/2017 REASON FOR CONSULTATION: Anemia with heme positive stool. HISTORY OF PRESENT ILLNESS: Ms. Cox is a 77-year-old female who was admitted to this hospital on with shortness of breath. She has chronic problems with dyspnea related to chronic obstruct manas pulmonary disease, morbid obesity and critical aortic stenosis. At home she is on 3 liters nasal cannula. This admission she was initially put on BiPAP and was diuresed for worsening edema. Her h emoglobin was 11.2 at that time. She was also found to be in atrial fibrillation at that time which she has had on and off in the past with good rate control. Here in the hospital she was seen by Dr. Mauro Underwood and also Dr. Devries. She underwent a heart cath yesterday. She has been on Coumadin long-term in the outpatient setting. She has had mild anem ia, but also renal insufficiency. In 10/2015 she was in the hospital with a hemoglobin was 6.9 with heme positive stool. INR 4.2. She received transfusion at that time. At that time she was seen in consultation and ultimately we just opted not to embark on endoscopy as she had critical aortic steno sis at that time and had no ongoing bleeding. She was felt to be a poor candidate for endoscopy eval uation. She did not want to proceed with endoscopy. At this time she is being reevaluated for possi ble TAVR after normal cardiac catheterization and we have been asked by Cardiology to reevaluate her for endoscopy workup. PAST MEDICAL HISTORY: Diabetes, diastolic heart failure, severe aortic stenosis, COPD, obstructive s leep apnea on BiPAP at night, chronic kidney disease stage 4, hypertension, obesity, proximal atrial fibrillation. PAST SURGICAL HISTORY: , right cataract surgery in the past, heart catheterization in the p ast. REVIEW OF SYSTEMS: Negative for melena, hematochezia or hematemesis in the outpatient setting. SOCIAL HISTORY: The patient does not smoke or drink. MEDICATIONS PRIOR TO ADMISSION: Zocor, Isordil, DuoNeb, Lantus, NovoLog, Apresoline, Levsin, Lasix, Epogen, Flonase, carvedilol, calcitriol, calcium, amlodipine, Ventolin and Tylenol. PRESENT MEDICATIONS HERE IN THE HOSPITAL: Tylenol, DuoNeb, Norvasc, Lipitor, Rocaltrol, Coreg, Ancef , vitamin D, Epogen, Pepcid, hydralazine, hydrocodone, insulin sliding scale, Isordil, Ativan, Zofran , normal saline. Other episodes this admission, she has been started on dialysis. She has had a heart cath on 018, normal coronary arteries, normal LV, severe aortic stenosis, ejection fraction 50-55%. REVIEW OF SYSTEMS: No prior history of colorectal cancer screening, endoscopy or ulcers. FAMILY HISTORY: Negative for colorectal cancer, liver disease. PHYSICAL EXAMINATION: VITAL SIGNS: Temperature is 98, pulse 87, respirations 16, saturation 96% on 5 liters nasal cannula. GENERAL: She is morbidly obese. She is alert and oriented to person, place and time. LUNGS: Clear. HEART: Regular rate and rhythm. ABDOMEN: Protuberant. No masses are palpated, but thick abdominal wall prevents any organs being pa lpated. EXTREMITIES: Extremities reveal trace edema. She has a lot of excess skin and soft tissues. LABORATORY: White count is 11.4, hemoglobin was 9.1, it was 10.2 on 10/11/2017, MCV is 90. INR 1.1. Sodium 134, potassium 4.2, BUN and creatinine are 56 and 4.18. Albumin is 3.2, is 7.4. Live r function tests are normal. Iron 19, it was 14 back in 2016, TIBC is 319. Stool occult blood 10/[address] Devries's note reports at some point in time, she has had a positive Hemocc ult. ASSESSMENT: Chronic anemia, multifactorial. There is a component of iron deficiency. I have been a sked to reevaluate her by Cardiology for endoscopy as she is going to need some chronic anticoagulati on. She is a high risk patient for endoscopy with critical aortic stenosis, morbid obesity, worsenin g sleep apnea. We will discuss with Pulmonology if they feel she is about as stable as she can be, w e can embark on endoscopy. I explained to the patient the risks, benefits, possible complications as well as her increased risk of needing intubation for having respiratory compromise or embarrassment with any type of sedation and she does wish to proceed.
[2017-11-16] MEDS: Atorvastatin Calcium 20 MG TAB PO SCH (20:57)
[2017-11-16] MEDS: Famotidine 20 MG TAB PO SCH (21:00)
[2017-11-17 05:37] LABS: #Eosinphils 0.2 thou/uL (0.0-0.7); #Lymphocytes 1.9 thou/uL (1.20-3.40); #Monocytes 1.3 thou/uL (0.11-0.59); #Neutrophils 7.1 thou/uL (1.40-6.50); %Basophils 0.4 % (0.0-1.0); %Eosinophils 2.2 % (0.0-10.0); %Lymphocytes 18.1 % (21.0-51.0); %Monocytes 12.3 % (0.0-10.0); Hemoglobin 8.9 g/dL (12.0-16.0); Mean Corpuscular HGB CONC 31.4 g/dL (32.0-36.0); Mean Corpuscular Hemoglobin 28.4 pg (27.0-31.0); Mean Corpuscular Volume 90.7 fl (81.0-99.0); Mean Platelet Volume 8.3 fL (7.4-10.4); Platelet Count 207 thou/uL (130-400); RBC Distribution Width 14.7 % (11.5-14.5); Red Blood Cell (RBC) Count 3.12 mill/uL (4.20-5.40); White Blood Cell (WBC) Count 10.6 thou/uL (4.8-10.8)
[2017-11-17 05:45] LABS: Anion Gap 14 mmol/L (10-20); Carbon Dioxide 28 mmol/L (23-31); Chloride 97 mmol/L (98-107); Potassium 4.1 mmol/L (3.5-5.1); Sodium 135 mmol/L (136-145)
--- NOTE | 2017-11-17 07:23 | PDOC.PN ---
- Subjective Encounter Start Date: 11/17/17 Encounter Start Time: 15:00 Subjective: Attempted a couple times to see patient, still down at OR - Objective MAR Reviewed: Yes Vital Signs & Weight: Vital Signs (12 hours) Temp Pulse Resp BP BP BP Pulse Ox 11/17/17 04:00 97.4 F L 64 18 103/51 L 92 L 11/17/17 00:48 53 L 18 97 11/16/17 20:57 59 L 126/56 L 11/16/17 19:27 55 L 18 95 11/16/17 19:25 97.5 F L 59 L 20 126/56 L 98 Weight Weight 343 lb 8 oz I&O: 11/16/17 11/17/17 11/18/17 06:59 06:59 06:59 Intake Total 520 5080 Output Total 350 320 Balance 170 4760 Result Diagrams: 11/17/17 05:19 11/17/17 05:19 Additional Labs: Accuchecks 11/17/17 11/16/17 11/16/17 06:36 20:55 16:35 POC Glucose 130 H 157 H 159 H Dx/Plan (1) Aortic stenosis Code(s): I35.0 - NONRHEUMATIC AORTIC (VALVE) STENOSIS Status: Chronic Comment: Severe (2) Acute exacerbation of CHF (congestive heart failure) Code(s): I50.9 - HEART FAILURE, UNSPECIFIED Status: Acute Qualifiers: Congestive heart failure type: diastolic Qualified Code(s): I50.33 - Acute on chronic diastolic (congestive) heart failure Comment: secondary to severe aortic stenosis (3) Acute on chronic kidney failure Code(s): N17.9 - ACUTE KIDNEY FAILURE, UNSPECIFIED; N18.9 - CHRONIC KIDNEY DISEASE, UNSPECIFIED Status: Acute Comment: esrd, initiated on HD (4) Obstructive sleep apnea Code(s): G47.33 - OBSTRUCTIVE SLEEP APNEA (ADULT) (PEDIATRIC) Status: Chronic (5) Adult body mass index 50.0-59.9 Code(s): Z68.43 - BODY MASS INDEX (BMI) 50-59.9 , ADULT Status: Chronic (6) Chronic atrial fibrillation Code(s): I48.2 - CHRONIC ATRIAL FIBRILLATION Status: Chronic (7) Diabetes mellitus type 2 Code(s): E11.9 - TYPE 2 DIABETES MELLITUS WITHOUT COMPLICATIONS Status: Chronic Comment: On Levemir 15u BID (8) Hyperlipidemia Code(s): E78.5 - HYPERLIPIDEMIA, UNSPECIFIED Status: Chronic (9) Hypertension Code(s): I10 - ESSENTIAL (PRIMARY) HYPERTENSION Status: Chronic Qualifiers: Hypertension type: essential hypertension Qualified Code(s): I10 - Essential (primary) hypertension Comment: controlled (10) Normocytic anemia Code(s): D64.9 - ANEMIA, UNSPECIFIED Status: Acute Comment: likely multifactoral, GI workup before chronic anticoagulation - Plan cont current plan of care, PT/OT * . - Discharge Day Encounter end time: 15:15
[2017-11-17] MEDS ORDERED: Lorazepam 0.5 MG TAB PO PRN (08:28)
[2017-11-17] MEDS ORDERED: Lorazepam 2 MG/ML VIAL SLOW IVP PRN (08:29)
--- NOTE | 2017-11-17 08:37 | PDOC.PULPN ---
Progress Note: Subj/Obj - Subjective Date: 11/17/17 Time: 08:35 Narrative: about the same - Objective Allergies/Adverse Reactions: Allergies Allergy/AdvReac Type Severity Reaction Status Date / Time sulfamethoxazole Allergy Verified 11/07/17 18:05 [From Bactrim] trimethoprim [From Bactrim] Allergy Verified 11/07/17 18:05 Medications: Current Medications Acetaminophen (Tylenol) 650 mg PO Q4H PRN PRN Reason: Headache/Fever or Pain Acetaminophen (Tylenol) 1,000 mg PO Q6H PRN PRN Reason: Moderate to Severe Pain (6-10) Acetaminophen/Codeine Phosphate (Tylenol #3) 1 tab PO Q4H PRN PRN Reason: Mild Pain (1-3) Acetaminophen/Codeine Phosphate (Tylenol #3) 2 tab PO Q4H PRN PRN Reason: Moderate Pain (4-6) Hydrocodone Bitart/Acetaminophen ([place] 5/325) 1 tab PO Q4H PRN PRN Reason: Moderate Pain (4-6) Albuterol/Ipratropium (Duoneb) 3 ml NEB [id number] PRN PRN Reason: SOB &/or Wheezing Albuterol/Ipratropium (Duoneb) 3 ml NEB [id number] [facility] Last Admin: 11/17/17 07:37 Dose: 3 ml Amlodipine Besylate (Norvasc) 5 mg PO DAILY [facility] Last Admin: 11/16/17 12:57 Dose: 5 mg Aspirin (Aspirin Chewable) 81 mg PO DAILY [facility] Last Admin: 11/16/17 12:54 Dose: 81 mg Atorvastatin Calcium (Lipitor) 20 mg PO HS [facility] Last Admin: 11/16/17 20:57 Dose: 20 mg Calcitriol (Rocaltrol) 0.25 mcg PO DAILY [facility] Last Admin: 11/16/17 12:55 Dose: 0.25 mcg Carvedilol (Coreg) 6.25 mg PO BID-[facility] Last Admin: 11/16/17 17:55 Dose: Not Given Cefazolin Sodium (Ancef) 2 gm SLOW IVP WILLCALL [facility] Cefdinir (Omnicef) 600 mg PO DAILY [facility] Last Admin: 11/16/17 12:55 Dose: 600 mg Cholecalciferol (Vitamin D3) 2,000 units PO DAILY [facility] Last Admin: 11/16/17 12:54 Dose: 2,000 units Dextrose/Water (Dextrose 50%) 25 gm SLOW IVP PRN PRN PRN Reason: Hypoglycemia Docusate Sodium (Colace) 100 mg PO BID [facility] Last Admin: 11/16/17 20:57 Dose: 100 mg Epoetin Bryn (Procrit) 7,500 units SC Q7D@1000 [facility] Last Admin: 11/14/17 12:15 Dose: 7,500 units Famotidine (Pepcid) 20 mg PO Q24HR [facility] Last Admin: 11/16/17 21:00 Dose: 20 mg Fluticasone Propionate (Flonase Nasal [place]) 0 gm NASAL DAILY [facility] Last Admin: 11/16/17 13:01 Dose: 1 spr Glucagon (Glucagon) 1 mg IM PRN PRN PRN Reason: Hypoglycemia Heparin Sodium (Porcine) (Heparin) 5,000 units SC TID [facility] Last Admin: 11/16/17 21:00 Dose: Not Given Hydralazine HCl (Apresoline) 10 mg SLOW IVP Q4H PRN PRN Reason: Systolic BP > 180 Hydralazine HCl (Apresoline) 25 mg PO BID [facility] Last Admin: 11/16/17 20:57 Dose: 25 mg Dextrose/Water (D5w) 1,000 mls @ 0 mls/hr IV .Q0M PRN; As Directed PRN Reason: Hypoglycemia Insulin Detemir 15 units/ (Miscellaneous Medication) 0.15 mls @ 0 mls/hr SC BID [facility] Last Admin: 11/16/17 13:02 Dose: Not Given Insulin Human Lispro (Humalog) 0 units SC .MODERATE SLIDING SC PRN PRN Reason: Moderate Correctional Scale Last Admin: 11/11/17 05:51 Dose: 2 units Insulin Human Lispro (Humalog) 0 units SC .BEDTIME SLIDING SC PRN PRN Reason: Bedtime Correctional Scale Last Admin: 11/09/17 20:19 Dose: 2 unit Isosorbide Dinitrate (Isordil) 20 mg PO BID [facility] Last Admin: 11/16/17 20:57 Dose: 20 mg Lorazepam (Ativan) 0.5 mg PO Q4H PRN PRN Reason: Anxiety/Agitation Lorazepam (Ativan) 0.5 mg SLOW IVP Q4H PRN PRN Reason: Anxiety/Agitation Magnesium Hydroxide (Milk Of Magnesium) 30 ml PO DAILYPRN PRN PRN Reason: Constipation Last Admin: 11/11/17 21:24 Dose: 30 ml Ondansetron HCl (Zofran) 4 mg SLOW IVP Q6H PRN PRN Reason: Nausea/Vomiting Last Admin: 11/09/17 04:39 Dose: 4 mg Sodium Chloride (Flush - Normal Saline) 10 ml IVF Q12HR [facility] Last Admin: 11/16/17 15:21 Dose: 10 ml Sodium Chloride (Flush - Normal Saline) 10 ml IVF PRN PRN PRN Reason: Saline Flush Tramadol HCl (Ultram) 50 mg PO Q6H PRN PRN Reason: Moderate Pain (4-6) Last Admin: 11/16/17 02:17 Dose: 50 mg MAR Reviewed: Yes Vital Signs: Vital Signs Temp 97.4 F L 11/17/17 04:00 Pulse 58 L 11/17/17 07:37 Resp 22 H 11/17/17 07:37 BP 103/51 L 11/17/17 04:00 Pulse Ox 97 11/17/17 07:40 Intake & Output 11/16/17 11/17/17 11/17/17 18:59 06:59 18:59 Intake Total 1080 4000 Output Total 320 Balance 1080 3680 Weight 354 lb 15.108 oz 343 lb 8 oz Intake: Oral 1080 4000 Output: Output, [place] 320 Other: Voiding Method Indwelling Catheter Progress Note: Exam - Physical Exam Constitutional: NAD HEENT: PERRLA Neck: no JVD Cardiovascular: RRR Deviation from normal: 3/6 m Respiratory: clear to auscultation bilaterally Gastrointestinal: soft, non-tender Deviation from normal: hematoma in right groin at area of recent cardiac cath Neurological: non-focal, moves all 4 limbs Psychiatric: normal affect, A&O x 3 Deviation from normal: bruised in right groin Progress Note: Data - Labs Result Diagrams: 11/17/17 05:19 11/17/17 05:19 Lab results: Laboratory Results 11/15/17 11/15/17 11/15/17 11:27 16:34 21:12 WBC RBC Hgb Hct MCV MCH MCHC RDW Plt Count MPV Neutrophils % Lymphocytes % Monocytes % Eosinophils % Basophils % Neutrophils # Lymphocytes # Monocytes # Eosinophils # Basophils # Activated Clotting Time 150 Sodium Potassium Chloride Carbon Dioxide Anion Gap BUN Creatinine Estimated GFR (MDRD) Glucose POC Glucose 135 H 129 H Calcium Blood Type Antibody Screen 11/16/17 11/16/17 11/16/17 05:10 05:20 05:20 WBC 11.4 H RBC 3.28 L Hgb 9.1 L Hct 29.8 L MCV 90.8 MCH 27.7 MCHC 30.5 L RDW 14.7 H Plt Count 230 MPV 8.4 Neutrophils % 79.2 H Lymphocytes % 12.4 L Monocytes % 7.3 Eosinophils % 1.0 Basophils % 0.1 Neutrophils # 9.1 H Lymphocytes # 1.4 Monocytes # 0.8 H Eosinophils # 0.1 Basophils # 0.0 Activated Clotting Time Sodium 134 L Potassium 4.2 Chloride 98 Carbon Dioxide 28 Anion Gap 12 BUN 56 H Creatinine 4.18 H Estimated GFR (MDRD) 10 Glucose 182 H POC Glucose 196 H Calcium 8.7 Blood Type Antibody Screen 11/16/17 11/16/17 11/17/17 16:35 20:55 05:19 WBC RBC Hgb Hct MCV MCH MCHC RDW Plt Count MPV Neutrophils % Lymphocytes % Monocytes % Eosinophils % Basophils % Neutrophils # Lymphocytes # Monocytes # Eosinophils # Basophils # Activated Clotting Time Sodium 135 L Potassium 4.1 Chloride 97 L Carbon Dioxide 28 Anion Gap 14 BUN Creatinine Estimated GFR (MDRD) Glucose POC Glucose 159 H 157 H Calcium Blood Type Antibody Screen 11/17/17 11/17/17 11/17/17 05:19 05:19 06:36 WBC 10.6 RBC 3.12 L Hgb 8.9 L Hct 28.3 L MCV 90.7 MCH 28.4 MCHC 31.4 L RDW 14.7 H Plt Count 207 MPV 8.3 Neutrophils % 67.0 Lymphocytes % 18.1 L Monocytes % 12.3 H Eosinophils % 2.2 Basophils % 0.4 Neutrophils # 7.1 H Lymphocytes # 1.9 Monocytes # 1.3 H Eosinophils # 0.2 Basophils # 0.0 Activated Clotting Time Sodium Potassium Chloride Carbon Dioxide Anion Gap BUN Creatinine Estimated GFR (MDRD) Glucose POC Glucose 130 H Calcium Blood Type O POSITIVE Antibody Screen NEGATIVE Progress Note: A/P - Problems (1) Obstructive sleep apnea Current Visit: Yes Status: Chronic Code(s): G47.33 - OBSTRUCTIVE SLEEP APNEA (ADULT) (PEDIATRIC) (2) Acute exacerbation of CHF (congestive heart failure) Current Visit: Yes Status: Acute Code(s): I50.9 - HEART FAILURE, UNSPECIFIED Qualifiers: Congestive heart failure type: diastolic Qualified Code(s): I50.33 - Acute on chronic diastolic (congestive) heart failure (3) Aortic stenosis, non-rheumatic Current Visit: No Status: Chronic Code(s): I35.0 - NONRHEUMATIC AORTIC ( VALVE) STENOSIS (4) Chronic respiratory failure Current Visit: No Status: Chronic Code(s): J96.10 - CHRONIC RESPIRATORY FAILURE, UNSP W HYPOXIA OR HYPERCAPNIA Qualifiers: Respiratory failure complication: hypoxia Qualified Code(s): J96.11 - Chronic respiratory failure with hypoxia (5) Morbid obesity Current Visit: No Status: Chronic Code(s): E66.01 - MORBID (SEVERE) OBESITY DUE TO EXCESS CALORIES - Plan Plan: colonoscopy today continue nocturnal bipap for lu continue HD eventual AVR
[2017-11-17] MEDS: Carvedilol 6.25 MG TAB PO SCH ×2 (09:00→17:16)
[2017-11-17] MEDS: Fluticasone Propionate Nasal Spray 16 gm Bottle NASAL SCH (09:00)
[2017-11-17] MEDS: Heparin 5,000 UNITS/ML VIAL SC SCH ×3 (09:00→20:31)
[2017-11-17] MEDS: Isosorbide Dinitrate 20 MG TAB PO SCH ×2 (09:00→20:30)
[2017-11-17] MEDS: Insulin Detemir 100 UNITS/ML 15 UNITS in Pre-Filled Syringe 1 EACH SC SCH ×3 (09:00→20:40)
[2017-11-17] MEDS: Docusate 100 MG CAP PO SCH ×2 (09:00→21:00)
[2017-11-17] MEDS: hydrALAZINE 25 MG TAB PO SCH ×2 (09:00→20:31)
--- NOTE | 2017-11-17 09:34 | PRG ---
DATE OF SERVICE: 11/17/2017 SUBJECTIVE: Ms. Cox is a 77-year-old white female being followed up for her chronic renal failure. We have initiated dialysis with her due to the worsening renal dysfunction as well as for volume ove rload. She is tolerating the said dialysis regimen. Today, she has a planned upper and lower GI end oscopy. She also has procedure to be done - AV graft placement by her surgeon. She voices no new co mplaints today. She denies any chest pain, no shortness of breath. PHYSICAL EXAMINATION: VITAL SIGNS: Blood pressure is 113/55, heart rate 59, respiratory rate 18, temperature 97, pulse ox 93%. GENERAL: Noted to be awake, alert, comfortable, not in distress. SKIN: Adequate turgor. HEENT: She has slightly pale conjunctivae, anicteric sclerae. NECK: No neck mass, no carotid bruits, no JVD. CHEST: No deformities. LUNGS: Decreased breath sounds. HEART: Normal sinus rhythm. No murmur, no gallops, no rubs. ABDOMEN: Globular, soft, nontender, no masses. EXTREMITIES: Trace edema. MEDICATIONS: Of 11/17/2017 reviewed. LABORATORY DATA: Of 11/17/2017, white count 10.6, hemoglobin 8.9, hematocrit 28.3. Sodium 135, pota ssium 4.1, chloride 97, carbon dioxide 28, anion gap is 14, glucose 113. ASSESSMENT AND PLAN: 1. Chronic renal failure/end-stage renal disease, stable. Continue current Wednesday, Wednesday, y hemodialysis. No indication for any dialytic intervention today. 2. Anemia - on weekly Epogen for upper and lower gastrointestinal endoscopy. Patient also scheduled for placement of an atrioventricular graft. Overall, I agree with current man agement.
[2017-11-17 11:51] VITALS: BMI 58.9
[2017-11-17] MEDS ORDERED: Fentanyl 100 MCG/2 ML VIAL ONE (11:58)
[2017-11-17] MEDS ORDERED: Bupivacaine PF 0.5% 30 ML VIAL ONE (12:00)
[2017-11-17] MEDS ORDERED: Heparin 5,000 UNITS/ML VIAL ONE (12:00)
[2017-11-17] MEDS ORDERED: Lidocaine 2% w/Epinephrine 1:200K 20 ML VIAL ONE (12:00)
[2017-11-17] MEDS ORDERED: Protamine Sulfate 50 MG/5 ML VIAL ONE (12:00)
[2017-11-17] MEDS ORDERED: CEFAZOLIN/Water 2 GM/20 ML SYRINGE ONE (12:06)
[2017-11-17] MEDS ORDERED: Ketamine 50 MG/ML VIAL ONE (12:31)
[2017-11-17] MEDS ORDERED: Propofol 500 MG/50 ML VIAL ONE (13:33)
--- NOTE | 2017-11-17 14:01 | OP ---
DATE OF PROCEDURE: 11/17/2017 SURGEON: Ashok Pham M.D. 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 There have been reports in the chart of heme-positive stool, although this may have been done in the emergency room, there is nothing documented in the la b. POSTOPERATIVE DIAGNOSES: 1. Esophagogastroduodenoscopy normal. 2. Colonoscopy, the prep was very poor, but no large masses, lesions or bleeding sites were seen. T here were some areas of formed stool in the sigmoid colon which could not be irrigated away, small le sions may have been missed. RECOMMENDATIONS: 1. Iron supplementation. 2. With the patient's body habitus and respiratory problems, would not recommend repeat colonoscopy unless there are signs of overt bleeding or the patient does not respond to iron. ANESTHESIA: TIVA. PROCEDURE IN DETAIL: After the patient was informed of the risks, benefits, possible complications o f endoscopy including perforation, bleeding, reactions to medication and aspiration, informed consent was obtained. The patient brought to the operating room, where she was going to have a fistula plac ed for dialysis. At this time, she was placed in the left lateral decubitus position, gently sedated by Anesthesia. A bite block was placed in incisural orifice. The endoscope was advanced through th e esophagus, stomach and second and third portion of duodenum. The esophagus, stomach, and duodenum were normal and third portion. There was normal villi and folds in the duodenum, the bulb was normal . Forward and retroflexed views in the stomach showed normal stomach, normal distensibility. The es ophagus was normal. The scope was removed. The patient was turned in the room. A rectal examination was performed which revealed no abnormaliti es. The endoscope was advanced through anal canal and almost immediately formed stool was encountere d. This was irrigated and evacuated to the best of our ability, although this all could not be clear ed. This was passed and the scope was advanced all the way to the right colon. The ileocecal valve was reached, but the cecal base could not be intubated despite turning the patient on her back and us ing pressure from multiple providers. It was deemed with her body habitus and the prep and tenuous r espiratory status to discontinue the procedure at that time. The scope was slowly removed with irrig ation and suction the best we could, again, no large lesions were seen, but small lesions may have b een missed secondary to prep. Retroflexed views were normal. The scope was removed. The patient to lerated the procedure well with no complications.
[2017-11-17] MEDS ORDERED: Ondansetron HCl/PF 4 MG/2 ML Vial IVP PRN (14:22)
[2017-11-17] MEDS ORDERED: Promethazine HCl 25 MG/ML VIAL SLOW IVP PRN (14:22)
[2017-11-17] MEDS ORDERED: Promethazine HCl 25 MG/ML VIAL IM PRN (14:22)
[2017-11-17] MEDS ORDERED: traMADol HCl 50 MG TAB PO PRN (15:20)
[2017-11-17] MEDS ORDERED: Lidocaine 1% PF 5 ML VIAL ONE (15:35)
[2017-11-17] MEDS ORDERED: Heparin 10,000 UNITS/ 10 ML VIAL ONE ×2 (15:35→16:05)
[2017-11-17] MEDS ORDERED: Propofol 200 MG/20 ML VIAL ONE (15:35)
[2017-11-17] MEDS: HYDROcodone/Acetaminophen 5/325 mg Tablet PO PRN (17:07)
[2017-11-17] MEDS: Amlodipine 5 MG TAB PO SCH (17:16)
[2017-11-17] MEDS: Cefdinir 300 MG CAP PO SCH (17:17)
[2017-11-17] MEDS: Calcitriol 0.25 MCG CAP PO SCH (17:17)
[2017-11-17] MEDS ORDERED: Warfarin Sodium 5 MG TAB PO SCH (19:30)
[2017-11-17] MEDS: Atorvastatin Calcium 20 MG TAB PO SCH (20:30)
[2017-11-17] MEDS: Famotidine 20 MG TAB PO SCH (20:38)
--- NOTE | 2017-11-17 21:19 | OP ---
DATE OF PROCEDURE: 11/17/2017 PREOPERATIVE DIAGNOSES: Severe aortic stenosis, normal coronary arteries, end-stage renal disease, m orbid obesity. PROCEDURE: Right arm AV fistula, perforating branch antecubital vein to the proximal radial artery, outflow cephalic and basilic vein. The basilic vein seemed to have some restriction about 4-5 centim eters proximally, although both the cephalic and basilic vein accommodated a 4 mm coronary dilator. Retrograde antecubital vein preserved. The patient will most likely need a transposition fistula sta ge in 4-6 weeks due to her obesity. SURGEON: Dr. Virgil Beckman. ANESTHESIA: Intravenous sedation, local 0.5% Marcaine, 30 mL, mixed with 2% Xylocaine with epinephri ne, 20 mL. PROCEDURE: The patient was taken to the operating room where after Dr. Pham completed colonoscopy and EGD under sedation, her right upper extremity was prepared with ChloraPrep, draped in routine fas hion. Incision made in the proximal volar forearm, carried through skin and subcutaneous tissue afte r anesthetizing the area with local anesthetic. Patient had very light sedation, but tolerated the p rocedure very well. Antecubital vein was of adequate caliber and dissected free and perforating bran ch dissected free. Branches tied with 4-0 silk ties and clips and divided and over a branch point wa s spatulated with Nogueira scissors. Patient given 6000 units of heparin intravenously. Heparinized sa line easily flushed the vein. Outflow was both the basilic and cephalic vein. Basilic vein seemed t o be a little larger, although coronary dilators passed from a 2 mm to a 4 mm coronary dilator, out b oth the cephalic and basilic vein revealed as noted above. There appeared to be some restriction whe re the coronary dilators were not passed beyond 4-5 cm out the basilic vein. The patient tolerated t he procedure well as proximal radial artery, which was of good caliber and was clamped proximally and distally and longitudinal arteriotomy made sharply and elongated with Nogueira scissors and end perfora ting branch antecubital vein anastomosed to the site of proximal radial artery with continuous suture of 6-0 Prolene. After completing the anastomosis, vascular clamps were released and there was good flow out the cephalic vein that dilated nicely and there was good hemostasis. Doppler signals reveal ed good cephalic and basilic vein outflow. The patient tolerated the procedure well without complica tions. Subcutaneous tissues approximated with 3-0 Monocryl, skin with subdermal 4-0 Monocryl and Grabiel maGlue applied.
[2017-11-17 22:29] LABS: Hemoglobin 8.5 g/dL (12.0-16.0); Platelet Count 199 thou/uL (130-400)
[2017-11-17 22:35] LABS: INR-International Normal Ratio 1.1; PTT 37.7 SEC (22.9-36.1); Prothrombin Time 14.6 SEC (12.0-14.7)
--- NOTE | 2017-11-18 09:04 | PDOC.PULPN ---
Progress Note: Subj/Obj - Subjective Date: 11/18/17 Time: 09:02 Narrative: c/o poor nursing response to her needs last pm. Sore Right arm - ROS All systems: reviewed and no additional remarkable complaints except as stated - Objective Allergies/Adverse Reactions: Allergies Allergy/AdvReac Type Severity Reaction Status Date / Time sulfamethoxazole Allergy Verified 11/07/17 18:05 [From Bactrim] trimethoprim [From Bactrim] Allergy Verified 11/07/17 18:05 Medications: Current Medications Acetaminophen (Tylenol) 650 mg PO Q4H PRN PRN Reason: Headache/Fever or Pain Acetaminophen (Tylenol) 1,000 mg PO Q6H PRN PRN Reason: Moderate to Severe Pain (6-10) Acetaminophen/Codeine Phosphate (Tylenol #3) 1 tab PO Q4H PRN PRN Reason: Mild Pain (1-3) Acetaminophen/Codeine Phosphate (Tylenol #3) 2 tab PO Q4H PRN PRN Reason: Moderate Pain (4-6) Hydrocodone Bitart/Acetaminophen ([place] 5/325) 1 tab PO Q4H PRN PRN Reason: Moderate Pain (4-6) Last Admin: 11/17/17 17:07 Dose: 1 tab Albuterol/Ipratropium (Duoneb) 3 ml NEB [id number] PRN PRN Reason: SOB &/or Wheezing Albuterol/Ipratropium (Duoneb) 3 ml NEB [id number] [facility] Last Admin: 11/18/17 07:33 Dose: Not Given Amlodipine Besylate (Norvasc) 5 mg PO DAILY [facility] Last Admin: 11/17/17 17:16 Dose: 5 mg Aspirin (Aspirin Chewable) 81 mg PO DAILY [facility] Last Admin: 11/17/17 09:00 Dose: Not Given Atorvastatin Calcium (Lipitor) 20 mg PO HS [facility] Last Admin: 11/17/17 20:30 Dose: 20 mg Calcitriol (Rocaltrol) 0.25 mcg PO DAILY [facility] Last Admin: 11/17/17 17:17 Dose: 0.25 mcg Carvedilol (Coreg) 6.25 mg PO BID-[facility] Last Admin: 11/17/17 17:16 Dose: 6.25 mg Cefazolin Sodium (Ancef) 2 gm SLOW IVP WILLCALL [facility] Cefdinir (Omnicef) 600 mg PO DAILY [facility] Last Admin: 11/17/17 17:17 Dose: 600 mg Cholecalciferol (Vitamin D3) 2,000 units PO DAILY [facility] Last Admin: 11/17/17 17:18 Dose: 2,000 units Dextrose/Water (Dextrose 50%) 25 gm SLOW IVP PRN PRN PRN Reason: Hypoglycemia Docusate Sodium (Colace) 100 mg PO BID [facility] Last Admin: 11/17/17 21:00 Dose: Not Given Epoetin Bryn (Procrit) 7,500 units SC Q7D@1000 [facility] Last Admin: 11/14/17 12:15 Dose: 7,500 units Famotidine (Pepcid) 20 mg PO Q24HR [facility] Last Admin: 11/17/17 20:38 Dose: 20 mg Ferrous Sulfate (Feosol) 325 mg PO BID-[facility] Fluticasone Propionate (Flonase Nasal [place]) 0 gm NASAL DAILY [facility] Last Admin: 11/17/17 09:00 Dose: Not Given Glucagon (Glucagon) 1 mg IM PRN PRN PRN Reason: Hypoglycemia Heparin Sodium (Porcine) (Heparin) 5,000 units SC TID [facility] Last Admin: 11/17/17 20:31 Dose: 5,000 units Hydralazine HCl (Apresoline) 10 mg SLOW IVP Q4H PRN PRN Reason: Systolic BP > 180 Hydralazine HCl (Apresoline) 25 mg PO BID [facility] Last Admin: 11/17/17 20:31 Dose: Not Given Dextrose/Water (D5w) 1,000 mls @ 0 mls/hr IV .Q0M PRN; As Directed PRN Reason: Hypoglycemia Insulin Detemir 15 units/ (Miscellaneous Medication) 0.15 mls @ 0 mls/hr SC BID [facility] Last Admin: 11/17/17 20:40 Dose: 0.15 mls Insulin Human Lispro (Humalog) 0 units SC .MODERATE SLIDING SC PRN PRN Reason: Moderate Correctional Scale Last Admin: 11/11/17 05:51 Dose: 2 units Insulin Human Lispro (Humalog) 0 units SC .BEDTIME SLIDING SC PRN PRN Reason: Bedtime Correctional Scale Last Admin: 11/09/17 20:19 Dose: 2 unit Isosorbide Dinitrate (Isordil) 20 mg PO BID [facility] Last Admin: 11/17/17 20:30 Dose: 20 mg Lorazepam (Ativan) 0.5 mg PO Q4H PRN PRN Reason: Anxiety/Agitation Lorazepam (Ativan) 0.5 mg SLOW IVP Q4H PRN PRN Reason: Anxiety/Agitation Magnesium Hydroxide (Milk Of Magnesium) 30 ml PO DAILYPRN PRN PRN Reason: Constipation Last Admin: 11/11/17 21:24 Dose: 30 ml Ondansetron HCl (Zofran) 4 mg SLOW IVP Q6H PRN PRN Reason: Nausea/Vomiting Last Admin: 11/09/17 04:39 Dose: 4 mg Sodium Chloride (Flush - Normal Saline) 10 ml IVF Q12HR [facility] Last Admin: 11/17/17 17:10 Dose: Not Given Sodium Chloride (Flush - Normal Saline) 10 ml IVF PRN PRN PRN Reason: Saline Flush Tramadol HCl (Ultram) 50 mg PO Q6H PRN PRN Reason: Moderate Pain (4-6) Last Admin: 11/16/17 02:17 Dose: 50 mg Tramadol HCl (Ultram) 100 mg PO Q6H PRN PRN Reason: Pain (7-10) Warfarin Sodium (Coumadin) 5 mg PO 1700 [facility] DEC Reviewed: Yes Vital Signs: Vital Signs Temp 98.9 F 11/18/17 04:00 Pulse 63 11/18/17 04:00 Resp 17 11/18/17 04:00 BP 126/58 L 11/18/17 04:00 Pulse Ox 98 11/18/17 05:31 Intake & Output 11/17/17 11/18/17 11/18/17 18:59 06:59 18:59 Intake Total 420 280 Output Total 260 Balance 420 20 Weight 343 lb 8 oz 341 lb 9.6 oz Intake: Oral 420 280 Output: Output, [place] 260 Other: Voiding Method Indwelling Catheter Indwelling Catheter Progress Note: Exam - Physical Exam Constitutional: NAD HEENT: PERRLA, sclera anicteric Neck: no nodes, no JVD Cardiovascular: RRR Respiratory: clear to auscultation bilaterally Deviation from normal: obese, soft Musculoskeletal: edema present Neurological: non-focal, moves all 4 limbs Psychiatric: normal affect, A&O x 3 Skin: no rash Progress Note: Data - Labs Result Diagrams: 11/17/17 22:13 11/17/17 05:19 Progress Note: A/P - Problems (1) Obstructive sleep apnea Current Visit: Yes Status: Chronic Code(s): G47.33 - OBSTRUCTIVE SLEEP APNEA (ADULT) (PEDIATRIC) (2) Acute exacerbation of CHF (congestive heart failure) Current Visit: Yes Status: Acute Code(s): I50.9 - HEART FAILURE, UNSPECIFIED Qualifiers: Congestive heart failure type: diastolic Qualified Code(s): I50.33 - Acute on chronic diastolic (congestive) heart failure (3) Aortic stenosis, non-rheumatic Current Visit: No Status: Chronic Code(s): I35.0 - NONRHEUMATIC AORTIC ( VALVE) STENOSIS (4) Chronic respiratory failure Current Visit: No Status: Chronic Code(s): J96.10 - CHRONIC RESPIRATORY FAILURE, UNSP W HYPOXIA OR HYPERCAPNIA Qualifiers: Respiratory failure complication: hypoxia Qualified Code(s): J96.11 - Chronic respiratory failure with hypoxia (5) Morbid obesity Current Visit: No Status: Chronic Code(s): E66.01 - MORBID (SEVERE) OBESITY DUE TO EXCESS CALORIES - Plan Plan: Pulm status is stable. I think we are just waiting on outpt dialysis plans to get situated. AVR to be done after she has been at home for a while
[2017-11-18 09:16] LABS: INR-International Normal Ratio 1.1; PTT 31.1 SEC (22.9-36.1); Prothrombin Time 14.8 SEC (12.0-14.7)
[2017-11-18] MEDS: Activase 2 MG VIAL CATH SCH ×2 (09:38→09:39)
--- NOTE | 2017-11-18 10:33 | PRG ---
DATE OF SERVICE: 11/18/2017 SUBJECTIVE: Ms. Cox is a 77-year-old white female with ESRD, has been initiated for hemodialysis du e to the worsening renal dysfunction and congestive heart failure. She is currently at the dialysis unit. Initial dialysis was done, but the blood flow was only 250 mL per minute. For that reason, we stopped dialysis and infused Activase. Hopefully, after the one-hour Activase infusion, her blood f low hopefully will improve where we can do an adequate dialysis. In the interim, she underwent an AV fistula placement as well as underwent upper and lower GI endoscopy with negative findings. No new complaints today. PHYSICAL EXAMINATION: VITAL SIGNS: Blood pressure is 126/58, heart rate 63, respiratory rate 17, temperature 98.9, pulse o x 94%. GENERAL: Noted to be awake, alert, obese, supine, comfortable. SKIN: Adequate turgor. HEENT: She has slightly pale conjunctivae, anicteric sclerae. NECK: No neck mass, no carotid bruits, no JVD. CHEST: No deformities. LUNGS: Clear breath sounds. No wheezing, no crackles. HEART: Normal sinus rhythm. No murmur, no gallops or rubs. ABDOMEN: Globular, soft, nontender, no masses. EXTREMITIES: No edema, no deformities. Positive for right upper extremity AV fistula, positive for bruit. LABORATORY DATA: In 11/2017, glucose 129; 11/17/2017, sodium 135, potassium 4.1, chloride 97, carbon dioxide 28. Hemoglobin 8.5, hematocrit 26.7. ASSESSMENT AND PLAN: 1. End-stage renal disease/chronic renal failure, hemodialysis on Wednesday, , and Wednesday. Fluid removal only as tolerated. Due to the decreased blood flow with the dialysis catheter, Activas e was infused for a plan total of 1 hour. Continue current hemodialysis regimen. 2. Anemia, continuing weekly Epogen. Upper and lower GI endoscopy was reported as negative. 3. Status post right upper extremity AV fistula and positive for bruit. Surgery is following. Recheck basic met and CBC in a.m.
--- NOTE | 2017-11-18 13:55 | PDOC.PN ---
- Subjective Encounter Start Date: 11/18/17 Encounter Start Time: 12:00 Patient is seen today, at HD, waiting to go home with outpairent dialysis. - Objective MAR Reviewed: Yes Vital Signs & Weight: Vital Signs (12 hours) Temp Pulse Resp BP Pulse Ox 11/18/17 05:31 98 11/18/17 04:00 98.9 F 63 17 126/58 L 94 L Weight Admit Weight 371 lb 11.2 oz Weight 341 lb 9.6 oz I&O: 11/17/17 11/18/17 11/19/17 06:59 06:59 06:59 Intake Total 5080 700 Output Total 320 260 Balance 4760 440 Result Diagrams: 11/17/17 22:13 11/17/17 05:19 Additional Labs: Accuchecks 11/18/17 11/17/17 11/17/17 05:45 19:57 16:54 POC Glucose 129 H 149 H 138 H Phys Exam - Physical Examination HEENT: PERRLA, moist MMs Neck: no nodes, no JVD Respiratory: no wheezing, no rales Cardiovascular: RRR, no significant murmur Gastrointestinal: soft, non-tender Musculoskeletal: edema present Neurological: non-focal, normal sensation Lymphatic: no nodes Psychiatric: normal affect Dx/Plan (1) Acute exacerbation of CHF (congestive heart failure) Code(s): I50.9 - HEART FAILURE, UNSPECIFIED Status: Acute Qualifiers: Congestive heart failure type: diastolic Qualified Code(s): I50.33 - Acute on chronic diastolic (congestive) heart failure Comment: secondary to severe aortic stenosis (2) Acute on chronic kidney failure Code(s): N17.9 - ACUTE KIDNEY FAILURE, UNSPECIFIED; N18.9 - CHRONIC KIDNEY DISEASE, UNSPECIFIED Status: Acute Comment: esrd, initiated on HD (3) Normocytic anemia Code(s): D64.9 - ANEMIA, UNSPECIFIED Status: Acute Comment: likely multifactoral, GI workup before chronic anticoagulation (4) Aortic stenosis Code(s): I35.0 - NONRHEUMATIC AORTIC (VALVE) STENOSIS Status: Chronic Comment: Severe, planned TAVR in [place]. (5) Atrial fibrillation Code(s): I48.91 - UNSPECIFIED ATRIAL FIBRILLATION Status: Chronic Qualifiers: Atrial fibrillation type: paroxysmal Qualified Code(s): I48.0 - Paroxysmal atrial fibrillation Comment: [place] Rate Controlled (6) Diabetes mellitus type 2 Code(s): E11.9 - TYPE 2 DIABETES MELLITUS WITHOUT COMPLICATIONS Status: Chronic Comment: On Levemir 15u BID (7) Hypertension Code(s): I10 - ESSENTIAL (PRIMARY) HYPERTENSION Status: Chronic Qualifiers: Hypertension type: essential hypertension Qualified Code(s): I10 - Essential (primary) hypertension Comment: controlled - Plan cont current plan of care, potter catheter, continue antibiotics, DVT proph w/ lovenox * . - Discharge Day Encounter end time: 12:30 Review of Systems - Review of Systems Constitutional: negative: fever, chills, sweats, weakness, malaise, other Eyes: negative: Pain, Vision Change, Conjunctivae Inflammation, Eyelid Inflammation, Redness, Other ENT: negative: Ear Pain, Ear Discharge, Nose Pain, Nose Discharge, Nose Congestion, Mouth Pain, Mouth Swelling, Throat Pain, Throat Swelling, Other Respiratory: negative: Cough, Dry, Shortness of Breath, Hemoptysis, SOB with Excertion, Pleuritic Pain, Sputum, Wheezing Cardiovascular: negative: chest pain, palpitations, orthopnea, paroxysmal nocturnal dyspnea, edema, light headedness, other Gastrointestinal: negative: Nausea, Vomiting, Abdominal Pain, Diarrhea, Constipation, Melena, Hematochezia, Other Musculoskeletal: negative: Neck Pain, Shoulder Pain, Arm Pain, Back Pain, Hand Pain, Leg Pain, Foot Pain, Other Skin: negative: Rash, Lesions, Jimbo, Bruising, Other - Medications/Allergies Allergies/Adverse Reactions: Allergies Allergy/AdvReac Type Severity Reaction Status Date / Time sulfamethoxazole Allergy Verified 11/07/17 18:05 [From Bactrim] trimethoprim [From Bactrim] Allergy Verified 11/07/17 18:05 Medications: Current Medications Acetaminophen (Tylenol) 650 mg PO Q4H PRN PRN Reason: Headache/Fever or Pain Acetaminophen (Tylenol) 1,000 mg PO Q6H PRN PRN Reason: Moderate to Severe Pain (6-10) Acetaminophen/Codeine Phosphate (Tylenol #3) 1 tab PO Q4H PRN PRN Reason: Mild Pain (1-3) Acetaminophen/Codeine Phosphate (Tylenol #3) 2 tab PO Q4H PRN PRN Reason: Moderate Pain (4-6) Hydrocodone Bitart/Acetaminophen ([place] 5/325) 1 tab PO Q4H PRN PRN Reason: Moderate Pain (4-6) Last Admin: 11/17/17 17:07 Dose: 1 tab Albuterol/Ipratropium (Duoneb) 3 ml NEB [id number] PRN PRN Reason: SOB &/or Wheezing Albuterol/Ipratropium (Duoneb) 3 ml NEB [id number] [facility] Last Admin: 11/18/17 13:06 Dose: Not Given Alteplase, Recombinant (Cathflo) 2 mg CATH ASDIR [facility] Stop: 11/18/17 21:00 Last Admin: 11/18/17 09:39 Dose: 2 mg Amlodipine Besylate (Norvasc) 5 mg PO DAILY [facility] Last Admin: 11/17/17 17:16 Dose: 5 mg Aspirin (Aspirin Chewable) 81 mg PO DAILY [facility] Last Admin: 11/17/17 09:00 Dose: Not Given Atorvastatin Calcium (Lipitor) 20 mg PO HS [facility] Last Admin: 11/17/17 20:30 Dose: 20 mg Calcitriol (Rocaltrol) 0.25 mcg PO DAILY [facility] Last Admin: 11/17/17 17:17 Dose: 0.25 mcg [facility]il[facility] ([facility]g) [facility] Last Admin: 11/17/17 17:16 Dose: 6.25 mg Cefdinir (Omnicef) 600 mg PO DAILY [facility] Last Admin: 11/17/17 17:17 Dose: 600 mg Cholecalciferol (Vitamin D3) 2,000 units PO DAILY [facility] Last Admin: 11/17/17 17:18 Dose: 2,000 units Dextrose/Water (Dextrose 50%) 25 gm SLOW IVP PRN PRN PRN Reason: Hypoglycemia Docusate Sodium (Colace) 100 mg PO BID [facility] Last Admin: 11/17/17 21:00 Dose: Not Given Epoetin Bryn (Procrit) 7,500 units SC Q7D@1000 [facility] Last Admin: 11/14/17 12:15 Dose: 7,500 units Famotidine (Pepcid) 20 mg PO Q24HR [facility] Last Admin: 11/17/17 20:38 Dose: 20 mg Ferrous Sulfate (Feosol) 325 mg PO BID-[facility] Fluticasone Propionate (Flonase Nasal [place]) 0 gm NASAL DAILY [facility] Last Admin: 11/17/17 09:00 Dose: Not Given Glucagon (Glucagon) 1 mg IM PRN PRN PRN Reason: Hypoglycemia Heparin Sodium (Porcine) (Heparin) 5,000 units SC TID [facility] Last Admin: 11/17/17 20:31 Dose: 5,000 units Hydralazine HCl (Apresoline) 10 mg SLOW IVP Q4H PRN PRN Reason: Systolic BP > 180 Hydralazine HCl (Apresoline) 25 mg PO BID [facility] Last Admin: 11/17/17 20:31 Dose: Not Given Dextrose/Water (D5w) 1,000 mls @ 0 mls/hr IV .Q0M PRN; As Directed PRN Reason: Hypoglycemia Insulin Detemir 15 units/ (Miscellaneous Medication) 0.15 mls @ 0 mls/hr SC BID [facility] Last Admin: 11/17/17 20:40 Dose: 0.15 mls Insulin Human Lispro (Humalog) 0 units SC .MODERATE SLIDING SC PRN PRN Reason: Moderate Correctional Scale Last Admin: 11/11/17 05:51 Dose: 2 units Insulin Human Lispro (Humalog) 0 units SC .BEDTIME SLIDING SC PRN PRN Reason: Bedtime Correctional Scale Last Admin: 11/09/17 20:19 Dose: 2 unit Isosorbide Dinitrate (Isordil) 20 mg PO BID [facility] Last Admin: 11/17/17 20:30 Dose: 20 mg Lorazepam (Ativan) 0.5 mg PO Q4H PRN PRN Reason: Anxiety/Agitation Lorazepam (Ativan) 0.5 mg SLOW IVP Q4H PRN PRN Reason: Anxiety/Agitation Magnesium Hydroxide (Milk Of Magnesium) 30 ml PO DAILYPRN PRN PRN Reason: Constipation Last Admin: 11/11/17 21:24 Dose: 30 ml Ondansetron HCl (Zofran) 4 mg SLOW IVP Q6H PRN PRN Reason: Nausea/Vomiting Last Admin: 11/09/17 04:39 Dose: 4 mg Sodium Chloride (Flush - Normal Saline) 10 ml IVF Q12HR [facility] Last Admin: 11/17/17 17:10 Dose: Not Given Sodium Chloride (Flush - Normal Saline) 10 ml IVF PRN PRN PRN Reason: Saline Flush Tramadol HCl (Ultram) 50 mg PO Q6H PRN PRN Reason: Moderate Pain (4-6) Last Admin: 11/16/17 02:17 Dose: 50 mg Tramadol HCl (Ultram) 100 mg PO Q6H PRN PRN Reason: Pain (7-10) Warfarin Sodium (Coumadin) 5 mg PO 1700 [facility]INE
--- NOTE | 2017-11-18 16:24 | PRG ---
DATE OF SERVICE: 11/18/2017 SUBJECTIVE: Diana Cox is doing well today. The patient's right arm fistula has a good thrill and br uit. Surgical wound looks good. I have encouraged her to use her arm and exercise it. She should f ollow up in my office in 4-5 weeks. She will need a transposition fistula due to her obesity. We wi ll probably perform this after aortic valve replacement. Please call if necessary hospitalization.
--- NOTE | 2017-11-18 16:47 | PRG ---
DATE OF SERVICE: 11/18/2017. OBJECTIVE: VITAL SIGNS: Temperature 97, pulse 63, blood pressure 127/58, overweight. ABDOMEN: Obese, but nontender. LABORATORY STUDIES: Hemoglobin 8.5 yesterday evening, was 8.9 yesterday morning. Sodium 135, potass ium 4.1, chloride 97, bicarbonate 28. ASSESSMENT: 1. Anemia, chronic. 2. Iron deficiency. 3. No occult blood positive studies in the lab here. 4. Upper and lower endoscopies normal yesterday. RECOMMENDATIONS: Iron supplementation as needed. For signs of acute GI bleeding, we will be happy t o re-evaluate. At this time, probably attribute her anemia to chronic disease. End-stage renal dise ase, she has just recently started dialysis.
[2017-11-18] MEDS: HYDROcodone/Acetaminophen 5/325 mg Tablet PO PRN (18:40)
[2017-11-18] MEDS: Warfarin Sodium 5 MG TAB PO SCH (18:42)
[2017-11-18] MEDS: Carvedilol 6.25 MG TAB PO SCH ×2 (18:43)
[2017-11-18] MEDS: Cefdinir 300 MG CAP PO SCH (18:45)
[2017-11-18] MEDS: Calcitriol 0.25 MCG CAP PO SCH (18:45)
[2017-11-18] MEDS: Docusate 100 MG CAP PO SCH ×2 (18:46→20:57)
[2017-11-18] MEDS: Amlodipine 5 MG TAB PO SCH (18:46)
[2017-11-18] MEDS: Ferrous Sulfate 325 MG TAB PO SCH ×2 (18:49)
[2017-11-18] MEDS: Heparin 5,000 UNITS/ML VIAL SC SCH ×2 (18:49→20:58)
[2017-11-18] MEDS: hydrALAZINE 25 MG TAB PO SCH ×2 (18:50→20:57)
[2017-11-18] MEDS: Isosorbide Dinitrate 20 MG TAB PO SCH ×2 (18:50→20:57)
[2017-11-18] MEDS: Insulin Detemir 100 UNITS/ML 15 UNITS in Pre-Filled Syringe 1 EACH SC SCH ×2 (18:50→20:58)
[2017-11-18] MEDS: Fluticasone Propionate Nasal Spray 16 gm Bottle NASAL SCH (18:50)
[2017-11-18] MEDS: Atorvastatin Calcium 20 MG TAB PO SCH (20:57)
[2017-11-18] MEDS: Famotidine 20 MG TAB PO SCH (21:01)
[2017-11-19 05:34] LABS: #Basophils 0.1 thou/uL (0.0-0.2); #Eosinphils 0.2 thou/uL (0.0-0.7); #Monocytes 1.4 thou/uL (0.11-0.59); #Neutrophils 7.6 thou/uL (1.40-6.50); %Basophils 0.5 % (0.0-1.0); %Eosinophils 1.6 % (0.0-10.0); %Lymphocytes 18.1 % (21.0-51.0); %Monocytes 12.1 % (0.0-10.0); %Neutrophils 67.7 % (42.0-75.0); Hemoglobin 8.3 g/dL (12.0-16.0); Mean Corpuscular HGB CONC 31.2 g/dL (32.0-36.0); Mean Corpuscular Hemoglobin 28.6 pg (27.0-31.0); Mean Corpuscular Volume 91.6 fl (81.0-99.0); Mean Platelet Volume 8.5 fL (7.4-10.4); Platelet Count 207 thou/uL (130-400); RBC Distribution Width 15.1 % (11.5-14.5); Red Blood Cell (RBC) Count 2.91 mill/uL (4.20-5.40); White Blood Cell (WBC) Count 11.3 thou/uL (4.8-10.8)
[2017-11-19 05:43] LABS: Anion Gap 12 mmol/L (10-20); BUN (Urea Nitrogen) 28 mg/dL (9.8-20.1); Calc. Creatinine Clearance 28 mL/min (70-130); Calcium 8.7 mg/dL (7.8-10.44); Carbon Dioxide 31 mmol/L (23-31); Chloride 96 mmol/L (98-107); Estimated GFR-MDRD 10; Glucose 153 mg/dL (83-110); Potassium 3.4 mmol/L (3.5-5.1); Sodium 136 mmol/L (136-145)
--- NOTE | 2017-11-19 07:46 | PDOC.PULPN ---
Progress Note: Subj/Obj - Subjective Date: 11/19/17 Time: 07:44 Narrative: Slept well on bipap. Breathing OK - ROS All systems: reviewed and no additional remarkable complaints except as stated - Objective Allergies/Adverse Reactions: Allergies Allergy/AdvReac Type Severity Reaction Status Date / Time sulfamethoxazole Allergy Verified 11/07/17 18:05 [From Bactrim] trimethoprim [From Bactrim] Allergy Verified 11/07/17 18:05 Medications: Current Medications Acetaminophen (Tylenol) 650 mg PO Q4H PRN PRN Reason: Headache/Fever or Pain Acetaminophen (Tylenol) 1,000 mg PO Q6H PRN PRN Reason: Moderate to Severe Pain (6-10) Acetaminophen/Codeine Phosphate (Tylenol #3) 1 tab PO Q4H PRN PRN Reason: Mild Pain (1-3) Acetaminophen/Codeine Phosphate (Tylenol #3) 2 tab PO Q4H PRN PRN Reason: Moderate Pain (4-6) Hydrocodone Bitart/Acetaminophen ([place] 5/325) 1 tab PO Q4H PRN PRN Reason: Moderate Pain (4-6) Last Admin: 11/18/17 18:40 Dose: 1 tab Albuterol/Ipratropium (Duoneb) 3 ml NEB [id number] PRN PRN Reason: SOB &/or Wheezing Albuterol/Ipratropium (Duoneb) 3 ml NEB [id number] Last Admin: 11/19/17 00:38 Dose: 3 ml Amlodipine Besylate (Norvasc) 5 mg PO DAILY [facility] Last Admin: 11/18/17 18:46 Dose: 5 mg Aspirin (Aspirin Chewable) 81 mg PO DAILY [facility] Last Admin: 11/18/17 18:46 Dose: 81 mg Atorvastatin Calcium (Lipitor) 20 mg PO [facility] Last Admin: 11/18/17 20:57 Dose: 20 mg Calcitriol (Rocaltrol) 0.25 mcg PO DAILY [facility] Last Admin: 11/18/17 18:45 Dose: 0.25 mcg Carvedilol (Coreg) 6.25 mg PO BID-[facility] Last Admin: 11/18/17 18:43 Dose: 6.25 mg Cefdinir (Omnicef) 600 mg PO DAILY [facility] Last Admin: 11/18/17 18:45 Dose: 600 mg Cholecalciferol (Vitamin D3) 2,000 units PO DAILY [facility] Last Admin: 11/18/17 18:46 Dose: 2,000 units Dextrose/Water (Dextrose 50%) 25 gm SLOW IVP PRN PRN PRN Reason: Hypoglycemia Docusate Sodium (Colace) 100 mg PO BID [facility] Last Admin: 11/18/17 20:57 Dose: 100 mg Epoetin Bryn (Procrit) 7,500 units SC Q7D@1000 [facility] Last Admin: 11/14/17 12:15 Dose: 7,500 units Famotidine (Pepcid) 20 mg PO Q24HR [facility] Last Admin: 11/18/17 21:01 Dose: 20 mg Ferrous Sulfate (Feosol) 325 mg PO BID-[facility] Last Admin: 11/18/17 18:49 Dose: 325 mg Fluticasone Propionate (Flonase Nasal [place]) 0 gm NASAL DAILY [facility] Last Admin: 11/18/17 18:50 Dose: Not Given Glucagon (Glucagon) 1 mg IM PRN PRN PRN Reason: Hypoglycemia Heparin Sodium (Porcine) (Heparin) 5,000 units SC TID [facility] Last Admin: 11/18/17 20:58 Dose: 5,000 units Hydralazine HCl (Apresoline) 10 mg SLOW IVP Q4H PRN PRN Reason: Systolic BP > 180 Hydralazine HCl (Apresoline) 25 mg PO BID [facility] Last Admin: 11/18/17 20:57 Dose: 25 mg Dextrose/Water (D5w) 1,000 mls @ 0 mls/hr IV .Q0M PRN; As Directed PRN Reason: Hypoglycemia Insulin Detemir 15 units/ (Miscellaneous Medication) 0.15 mls @ 0 mls/hr SC BID [facility] Last Admin: 11/18/17 20:58 Dose: 0.15 mls Insulin Human Lispro (Humalog) 0 units SC .MODERATE SLIDING SC PRN PRN Reason: Moderate Correctional Scale Last Admin: 11/11/17 05:51 Dose: 2 units Insulin Human Lispro (Humalog) 0 units SC .BEDTIME SLIDING SC PRN PRN Reason: Bedtime Correctional Scale Last Admin: 11/09/17 20:19 Dose: 2 unit Isosorbide Dinitrate (Isordil) 20 mg PO BID [facility] Last Admin: 11/18/17 20:57 Dose: 20 mg Lorazepam (Ativan) 0.5 mg PO Q4H PRN PRN Reason: Anxiety/Agitation Lorazepam (Ativan) 0.5 mg SLOW IVP Q4H PRN PRN Reason: Anxiety/Agitation Magnesium Hydroxide (Milk Of Magnesium) 30 ml PO DAILYPRN PRN PRN Reason: Constipation Last Admin: 11/11/17 21:24 Dose: 30 ml Ondansetron HCl (Zofran) 4 mg SLOW IVP Q6H PRN PRN Reason: Nausea/Vomiting Last Admin: 11/09/17 04:39 Dose: 4 mg Sodium Chloride (Flush - Normal Saline) 10 ml IVF Q12HR [facility] Last Admin: 11/18/17 21:05 Dose: 10 ml Sodium Chloride (Flush - Normal Saline) 10 ml IVF PRN PRN PRN Reason: Saline Flush Tramadol HCl (Ultram) 50 mg PO Q6H PRN PRN Reason: Moderate Pain (4-6) Last Admin: 11/16/17 02:17 Dose: 50 mg Tramadol HCl (Ultram) 100 mg PO Q6H PRN PRN Reason: Pain (7-10) Warfarin Sodium (Coumadin) 5 mg PO 1700 ALINE Last Admin: 11/18/17 18:42 Dose: 5 mg MAR Reviewed: Yes Vital Signs: Vital Signs Temp 97.5 F L 11/19/17 07:24 Pulse 64 11/19/17 07:24 Resp 20 11/19/17 07:24 BP 119/59 L 11/19/17 07:24 Pulse Ox 96 11/19/17 07:24 Intake & Output 11/18/17 11/19/17 11/19/17 18:59 06:59 18:59 Intake Total 720 350 Output Total 250 Balance 720 100 Weight 335 lb 15.752 oz Intake: Oral 360 350 Oral Supplement 360 Output: Output, [place] 250 Other: Voiding Method Indwelling Catheter Indwelling Catheter Progress Note: Exam - Physical Exam Constitutional: NAD HEENT: PERRLA Neck: no nodes, no JVD Cardiovascular: RRR Deviation from normal: 2/6 SM Respiratory: clear to auscultation bilaterally Gastrointestinal: soft, non-tender Musculoskeletal: edema present Neurological: moves all 4 limbs Lymphatic: no nodes Psychiatric: normal affect, A&O x 3 Skin: no rash Progress Note: Data - Labs Result Diagrams: 11/19/17 04:15 11/19/17 04:15 Lab results: Laboratory Results 11/17/17 11/17/17 11/17/17 12:12 16:54 19:57 WBC RBC Hgb Hct MCV MCH MCHC RDW Plt Count MPV Neutrophils % Lymphocytes % Monocytes % Eosinophils % Basophils % Neutrophils # Lymphocytes # Monocytes # Eosinophils # Basophils # PT INR APTT Sodium Potassium Chloride Carbon Dioxide Anion Gap BUN Creatinine Estimated GFR (MDRD) Glucose POC Glucose 119 H 138 H 149 H Calcium 11/17/17 11/17/17 11/18/17 22:13 22:13 05:45 WBC RBC Hgb 8.5 L Hct 26.7 L MCV MCH MCHC RDW Plt Count 199 MPV Neutrophils % Lymphocytes % Monocytes % Eosinophils % Basophils % Neutrophils # Lymphocytes # Monocytes # Eosinophils # Basophils # PT 14.6 INR 1.1 APTT 37.7 H Sodium Potassium Chloride Carbon Dioxide Anion Gap BUN Creatinine Estimated GFR (MDRD) Glucose POC Glucose 129 H Calcium 11/18/17 11/18/17 11/18/17 08:51 17:49 19:33 WBC RBC Hgb Hct MCV MCH MCHC RDW Plt Count MPV Neutrophils % Lymphocytes % Monocytes % Eosinophils % Basophils % Neutrophils # Lymphocytes # Monocytes # Eosinophils # Basophils # PT 14.8 H INR 1.1 APTT 31.1 Sodium Potassium Chloride Carbon Dioxide Anion Gap BUN Creatinine Estimated GFR (MDRD) Glucose POC Glucose 182 H 176 H Calcium 11/19/17 11/19/17 11/19/17 04:15 04:15 06:03 WBC 11.3 H RBC 2.91 L Hgb 8.3 L Hct 26.6 L MCV 91.6 MCH 28.6 MCHC 31.2 L RDW 15.1 H Plt Count 207 MPV 8.5 Neutrophils % 67.7 Lymphocytes % 18.1 L Monocytes % 12.1 H Eosinophils % 1.6 Basophils % 0.5 Neutrophils # 7.6 H Lymphocytes # 2.0 Monocytes # 1.4 H Eosinophils # 0.2 Basophils # 0.1 PT INR APTT Sodium 136 Potassium 3.4 L Chloride 96 L Carbon Dioxide 31 Anion Gap 12 BUN 28 H Creatinine 4.21 H Estimated GFR (MDRD) 10 Glucose 153 H POC Glucose 159 H Calcium 8.7 Progress Note: A/P - Problems (1) Obstructive sleep apnea Current Visit: Yes Status: Chronic Code(s): G47.33 - OBSTRUCTIVE SLEEP APNEA (ADULT) (PEDIATRIC) (2) Acute exacerbation of CHF (congestive heart failure) Current Visit: Yes Status: Acute Code(s): I50.9 - HEART FAILURE, UNSPECIFIED Qualifiers: Congestive heart failure type: diastolic Qualified Code(s): I50.33 - Acute on chronic diastolic (congestive) heart failure (3) Aortic stenosis, non-rheumatic Current Visit: No Status: Chronic Code(s): I35.0 - NONRHEUMATIC AORTIC ( VALVE) STENOSIS (4) Chronic respiratory failure Current Visit: No Status: Chronic Code(s): J96.10 - CHRONIC RESPIRATORY FAILURE, UNSP W HYPOXIA OR HYPERCAPNIA Qualifiers: Respiratory failure complication: hypoxia Qualified Code(s): J96.11 - Chronic respiratory failure with hypoxia (5) Morbid obesity Current Visit: No Status: Chronic Code(s): E66.01 - MORBID (SEVERE) OBESITY DUE TO EXCESS CALORIES - Plan Plan: Stable ELIGIO on nocturnal bipap Respiratory status much improved with dialysis From Pulmonary standpoint, she is Ok for discharge. Dr. Marinelli is available this weekend if help needed.
[2017-11-19] MEDS: Heparin 5,000 UNITS/ML VIAL SC SCH ×3 (08:28→21:42)
[2017-11-19] MEDS: Insulin Detemir 100 UNITS/ML 15 UNITS in Pre-Filled Syringe 1 EACH SC SCH ×2 (08:28→21:42)
[2017-11-19] MEDS: HumaLOG 300 UNITS/3 ML VIAL SC PRN ×3 (08:29→17:43)
[2017-11-19] MEDS: Docusate 100 MG CAP PO SCH ×2 (08:29→21:41)
[2017-11-19] MEDS: Amlodipine 5 MG TAB PO SCH (08:29)
[2017-11-19] MEDS: Cefdinir 300 MG CAP PO SCH (08:29)
[2017-11-19] MEDS: Calcitriol 0.25 MCG CAP PO SCH (08:29)
[2017-11-19] MEDS: HYDROcodone/Acetaminophen 5/325 mg Tablet PO PRN (08:30)
[2017-11-19] MEDS: Isosorbide Dinitrate 20 MG TAB PO SCH ×2 (08:31→21:41)
[2017-11-19] MEDS: Carvedilol 6.25 MG TAB PO SCH ×2 (08:31→17:42)
[2017-11-19] MEDS: Ferrous Sulfate 325 MG TAB PO SCH ×2 (08:31→17:42)
[2017-11-19] MEDS: hydrALAZINE 25 MG TAB PO SCH ×2 (08:31→21:41)
--- NOTE | 2017-11-19 09:19 | PRG ---
DATE OF SERVICE: 11/19/2017 RENAL MEDICINE SUBJECTIVE: Ms. Cox is a 77-year-old white female who was admitted for CHF. Hemodialysis was initi ated with her and she is tolerating her current regular dialysis regimen. She underwent dialysis yes terday with fluid removal. This morning, she voices no new complaints. Cardiology continues to foll ow her up for possible repair of her valve problems. The patient voices no new complaints today. Her breathing is much improved. No chest pain or shortn ess of breath. PHYSICAL EXAMINATION: VITAL SIGNS: Blood pressure 119/59, heart rate 58, respiratory rate is 20, and pulse ox 95%. GENERAL: Noted to be awake, supine, comfortable, obese. SKIN: Adequate turgor. HEENT: She has slightly pale conjunctivae, anicteric sclerae. NECK: No neck mass. No carotid bruits. No JVD. CHEST: No deformities. LUNGS: Clear breath sounds. No wheezing, no crackles. HEART: Normal sinus rhythm. No murmur, no gallops, no rubs. ABDOMEN: Globular, soft, nontender, no masses. EXTREMITIES: No edema, no deformities. MEDICATIONS: Medications of 11/19/2017 was reviewed. LABORATORY DATA: Laboratories of 11/19/2017; white count 11.2, hemoglobin 8.3, hematocrit 26.6. Sod ium 136, potassium 3.4, chloride 96, carbon dioxide 31, BUN 28, creatinine 4.21, glucose 153, and jackie cium 8.7. ASSESSMENT AND PLAN: 1. Anemia - on weekly Epogen, p.r.n. blood transfusion. 2. End-stage renal disease/chronic renal failure, stable. Tolerating current hemodialysis regimen. Fluid removal as tolerated. We have made outpatient arrangements in anticipation of future possible discharge. 3. Shortness of breath - surgery following. Possibility of cardiac ischemia. Also, patient has sig nificant aortic valve disease. The patient might be eventually referred to [facility] for further muna gemrayray. Overall, agree with current management, recheck basic metabolic panel and CBC in a.m.
[2017-11-19 09:22] LABS: INR-International Normal Ratio 1.2; PTT 41.7 SEC (22.9-36.1); Prothrombin Time 14.9 SEC (12.0-14.7)
[2017-11-19] MEDS: Fluticasone Propionate Nasal Spray 16 gm Bottle NASAL SCH (10:14)
--- NOTE | 2017-11-19 12:45 | PDOC.PN ---
- Subjective Encounter Start Date: 11/19/17 Encounter Start Time: 11:35 Patient is seen today, alert and oriented. pt feels she has not tried getting out of bed, will be evalauted by PT/OT for safe dischagre to home/ SNF. - Objective MAR Reviewed: Yes Vital Signs & Weight: Vital Signs (12 hours) Temp Pulse Resp BP BP Pulse Ox 11/19/17 11:11 56 L 22 H 112/56 L 93 L 11/19/17 08:31 58 L 11/19/17 08:29 58 L 119/59 L 11/19/17 08:24 95 11/19/17 08:23 58 L 20 11/19/17 07:24 97.5 F L 56 L 22 H 119/59 L 96 11/19/17 04:00 97.4 F L 63 22 H 126/60 94 L 11/19/17 01:31 94 L Weight Admit Weight 371 lb 11.2 oz Weight 335 lb 15.752 oz I&O: 11/18/17 11/19/17 11/20/17 06:59 06:59 06:59 Intake Total 700 1070 Output Total 260 250 Balance 440 820 Result Diagrams: 11/19/17 04:15 11/19/17 04:15 Additional Labs: Accuchecks 11/19/17 11/18/17 11/18/17 06:03 19:33 17:49 POC Glucose 159 H 176 H 182 H Radiology Reviewed by me: Yes Phys Exam - Physical Examination HEENT: PERRLA, moist MMs Neck: no nodes, no JVD Respiratory: no wheezing, no rales Cardiovascular: RRR, no significant murmur Gastrointestinal: soft, non-tender Musculoskeletal: no edema, pulses present Neurological: non-focal, normal sensation Dx/Plan (1) Acute exacerbation of CHF (congestive heart failure) Code(s): I50.9 - HEART FAILURE, UNSPECIFIED Status: Acute Qualifiers: Congestive heart failure type: diastolic Qualified Code(s): I50.33 - Acute on chronic diastolic (congestive) heart failure Comment: Improved, on HD, Continue to Monitor. Likely secondary to severe aortic stenosis (2) Acute on chronic kidney failure Code(s): N17.9 - ACUTE KIDNEY FAILURE, UNSPECIFIED; N18.9 - CHRONIC KIDNEY DISEASE, UNSPECIFIED Status: Acute Comment: esrd, initiated on HD (3) Normocytic anemia Code(s): D64.9 - ANEMIA, UNSPECIFIED Status: Acute Comment: likely multifactoral, GI workup before chronic anticoagulation (4) Aortic stenosis Code(s): I35.0 - NONRHEUMATIC AORTIC (VALVE) STENOSIS Status: Chronic Comment: Severe, planned TAVR in lebo. (5) Atrial fibrillation Code(s): I48.91 - UNSPECIFIED ATRIAL FIBRILLATION Status: Chronic Qualifiers: Atrial fibrillation type: paroxysmal Qualified Code(s): I48.0 - Paroxysmal atrial fibrillation Comment: [place] Rate Controlled (6) Diabetes mellitus type 2 Code(s): E11.9 - TYPE 2 DIABETES MELLITUS WITHOUT COMPLICATIONS Status: Chronic Comment: On Levemir 15u BID (7) Hypertension Code(s): I10 - ESSENTIAL (PRIMARY) HYPERTENSION Status: Chronic Qualifiers: Hypertension type: essential hypertension Qualified Code(s): I10 - Essential (primary) hypertension Comment: controlled - Plan cont current plan of care, potter catheter, PT/OT (need evalkaution for safe dischagre to home/ SNF/ Rehab), social services coordinator (Planned for placement to SNF/ Rehab), respiratory therapy, incentive spirometry, DVT proph w/SCDs * . - Discharge Day Encounter end time: 12:05 Review of Systems - Review of Systems Constitutional: weakness Eyes: negative: Pain, Vision Change, Conjunctivae Inflammation, Eyelid Inflammation, Redness, Other ENT: negative: Ear Pain, Ear Discharge, Nose Pain, Nose Discharge, Nose Congestion, Mouth Pain, Mouth Swelling, Throat Pain, Throat Swelling, Other Respiratory: Cough, Shortness of Breath, SOB with Excertion Cardiovascular: negative: chest pain, palpitations, orthopnea, paroxysmal nocturnal dyspnea, edema, light headedness, other Gastrointestinal: negative: Nausea, Vomiting, Abdominal Pain, Diarrhea, Constipation, Melena, Hematochezia, Other Genitourinary: negative: Dysuria, Frequency, Incontinence, Hematuria, Retention , Other Musculoskeletal: negative: Neck Pain, Shoulder Pain, Arm Pain, Back Pain, Hand Pain, Leg Pain, Foot Pain, Other Skin: negative: Rash, Lesions, Jimbo, Bruising, Other - Medications/Allergies Allergies/Adverse Reactions: Allergies Allergy/AdvReac Type Severity Reaction Status Date / Time sulfamethoxazole Allergy Verified 11/07/17 18:05 [From Bactrim] trimethoprim [From Bactrim] Allergy Verified 11/07/17 18:05 Medications: Current Medications Acetaminophen (Tylenol) 650 mg PO Q4H PRN PRN Reason: Headache/Fever or Pain Acetaminophen (Tylenol) 1,000 mg PO Q6H PRN PRN Reason: Moderate to Severe Pain (6-10) Acetaminophen/Codeine Phosphate (Tylenol #3) 1 tab PO Q4H PRN PRN Reason: Mild Pain (1-3) Acetaminophen/Codeine Phosphate (Tylenol #3) 2 tab PO Q4H PRN PRN Reason: Moderate Pain (4-6) Hydrocodone Bitart/Acetaminophen ([place] 5/325) 1 tab PO Q4H PRN PRN Reason: Moderate Pain (4-6) Last Admin: 11/19/17 08:30 Dose: 1 tab Albuterol/Ipratropium (Duoneb) 3 ml NEB [id number] PRN PRN Reason: SOB &/or Wheezing Albuterol/Ipratropium (Duoneb) 3 ml NEB [id number] [facility] Last Admin: 11/19/17 08:23 Dose: 3 ml Amlodipine Besylate (Norvasc) 5 mg PO DAILY [facility] Last Admin: 11/19/17 08:29 Dose: 5 mg Aspirin (Aspirin Chewable) 81 mg PO DAILY [facility] Last Admin: 11/19/17 08:31 Dose: 81 mg Atorvastatin Calcium (Lipitor) 20 mg PO HS [facility] Last Admin: 11/18/17 20:57 Dose: 20 mg Calcitriol (Rocaltrol) 0.25 mcg PO DAILY [facility] Last Admin: 11/19/17 08:29 Dose: 0.25 mcg [facility] Last Admin: 11/19/17 08:31 Dose: 6.25 mg Cefdinir (Omnicef) 600 mg PO DAILY [facility] Last Admin: 11/19/17 08:29 Dose: 600 mg Cholecalciferol (Vitamin D3) 2,000 units PO DAILY [facility] Last Admin: 11/19/17 08:31 Dose: 2,000 units Dextrose/Water (Dextrose 50%) 25 gm SLOW IVP PRN PRN PRN Reason: Hypoglycemia Docusate Sodium (Colace) 100 mg PO BID [facility] Last Admin: 11/19/17 08:29 Dose: 100 mg Epoetin Bryn (Procrit) 7,500 units SC Q7D@1000 [facility] Last Admin: 11/14/17 12:15 Dose: 7,500 units Famotidine (Pepcid) 20 mg PO Q24HR [facility] Last Admin: 11/18/17 21:01 Dose: 20 mg Ferrous Sulfate (Feosol) 325 mg PO BID[facility] Last Admin: 11/19/17 08:31 Dose: 325 mg Fluticasone Propionate (Flonase Nasal [place]) 0 gm NASAL DAILY [facility] Last Admin: 11/19/17 10:14 Dose: 1 spr Glucagon (Glucagon) 1 mg IM PRN PRN PRN Reason: Hypoglycemia Heparin Sodium (Porcine) (Heparin) 5,000 units SC TID [facility] Last Admin: 11/19/17 08:28 Dose: 5,000 units Hydralazine HCl (Apresoline) 10 mg SLOW IVP Q4H PRN PRN Reason: Systolic BP > 180 Hydralazine HCl (Apresoline) 25 mg PO BID [facility] Last Admin: 11/19/17 08:31 Dose: 25 mg Dextrose/Water (D5w) 1,000 mls @ 0 mls/hr IV .Q0M PRN; As Directed PRN Reason: Hypoglycemia Insulin Detemir 15 units/ (Miscellaneous Medication) 0.15 mls @ 0 mls/hr SC BID [facility] Last Admin: 11/19/17 08:28 Dose: 0.15 mls Insulin Human Lispro (Humalog) 0 units SC .MODERATE SLIDING SC PRN PRN Reason: Moderate Correctional Scale Last Admin: 11/19/17 11:56 Dose: 4 units Insulin Human Lispro (Humalog) 0 units SC .BEDTIME SLIDING SC PRN PRN Reason: Bedtime Correctional Scale Last Admin: 11/09/17 20:19 Dose: 2 unit Isosorbide Dinitrate (Isordil) 20 mg PO BID [facility] Last Admin: 11/19/17 08:31 Dose: 20 mg Lorazepam (Ativan) 0.5 mg PO Q4H PRN PRN Reason: Anxiety/Agitation Lorazepam (Ativan) 0.5 mg SLOW IVP Q4H PRN PRN Reason: Anxiety/Agitation Magnesium Hydroxide (Milk Of Magnesium) 30 ml PO DAILYPRN PRN PRN Reason: Constipation Last Admin: 11/11/17 21:24 Dose: 30 ml Ondansetron HCl (Zofran) 4 mg SLOW IVP Q6H PRN PRN Reason: Nausea/Vomiting Last Admin: 11/09/17 04:39 Dose: 4 mg Sodium Chloride (Flush - Normal Saline) 10 ml IVF Q12HR [facility] Last Admin: 11/19/17 08:32 Dose: 10 ml Sodium Chloride (Flush - Normal Saline) 10 ml IVF PRN PRN PRN Reason: Saline Flush Tramadol HCl (Ultram) 50 mg PO Q6H PRN PRN Reason: Moderate Pain (4-6) Last Admin: 11/16/17 02:17 Dose: 50 mg Tramadol HCl (Ultram) 100 mg PO Q6H PRN PRN Reason: Pain (7-10) Warfarin Sodium (Coumadin) 5 mg PO 1700 [facility] Last Admin: 11/18/17 18:42 Dose: 5 mg
[2017-11-19] MEDS: Warfarin Sodium 5 MG TAB PO SCH (17:42)
[2017-11-19] MEDS: Atorvastatin Calcium 20 MG TAB PO SCH (21:41)
[2017-11-19] MEDS: Famotidine 20 MG TAB PO SCH (21:41)
[2017-11-19 21:44] LABS: Hemoglobin 8.7 g/dL (12.0-16.0); Platelet Count 209 thou/uL (130-400)
[2017-11-20 05:58] LABS: #Eosinphils 0.2 thou/uL (0.0-0.7); #Lymphocytes 1.9 thou/uL (1.20-3.40); #Monocytes 1.2 thou/uL (0.11-0.59); #Neutrophils 7.2 thou/uL (1.40-6.50); %Basophils 0.4 % (0.0-1.0); %Eosinophils 2.3 % (0.0-10.0); %Lymphocytes 18.3 % (21.0-51.0); %Monocytes 11.6 % (0.0-10.0); %Neutrophils 67.4 % (42.0-75.0); Hemoglobin 8.3 g/dL (12.0-16.0); Mean Corpuscular HGB CONC 30.8 g/dL (32.0-36.0); Mean Corpuscular Hemoglobin 28.3 pg (27.0-31.0); Mean Corpuscular Volume 91.8 fl (81.0-99.0); Mean Platelet Volume 8.1 fL (7.4-10.4); Platelet Count 230 thou/uL (130-400); RBC Distribution Width 15.3 % (11.5-14.5); Red Blood Cell (RBC) Count 2.92 mill/uL (4.20-5.40); White Blood Cell (WBC) Count 10.6 thou/uL (4.8-10.8)
[2017-11-20 06:20] LABS: Anion Gap 14 mmol/L (10-20); BUN (Urea Nitrogen) 35 mg/dL (9.8-20.1); Calc. Creatinine Clearance 22 mL/min (70-130); Calcium 8.8 mg/dL (7.8-10.44); Carbon Dioxide 29 mmol/L (23-31); Chloride 94 mmol/L (98-107); Estimated GFR-MDRD 8; Glucose 106 mg/dL (83-110); Potassium 3.4 mmol/L (3.5-5.1); Sodium 134 mmol/L (136-145)
[2017-11-20 09:12] LABS: INR-International Normal Ratio 1.2; PTT 31.9 SEC (22.9-36.1); Prothrombin Time 15.1 SEC (12.0-14.7)
--- NOTE | 2017-11-20 11:05 | PRG ---
DATE OF SERVICE: 11/20/2017 RENAL MEDICINE SUBJECTIVE: Ms. Cox is a 77-year-old white female with known history of ESRD. Currently, patient i s undergoing dialysis. I am at the bedside supervising her dialysis. We are awaiting for rehab repl acement. No new complaints. No chest pain, shortness of breath. PHYSICAL EXAMINATION: VITAL SIGNS: Blood pressure 126/58, heart rate 66, respiratory rate 20, temperature 97.4, pulse ox 9 2%. GENERAL: Awake, alert, comfortable, not in distress. SKIN: Adequate turgor. HEENT: She has slightly pale conjunctivae, anicteric sclerae. NECK: No neck mass, no carotid bruits, no JVD. CHEST: No deformities. LUNGS: Clear breath sounds. HEART: Normal sinus rhythm. No murmur, no gallops, no rubs. ABDOMEN: Globular, soft, nontender. No masses. EXTREMITIES: Trace edema. MEDICATIONS: Medications of 11/20/2017 was reviewed. LABORATORY DATA: Laboratories of 11/20/2017; white count 10.6, hemoglobin 8.3, sodium 134, potassium 3.4, chloride 94, carbon dioxide 29, BUN 35, creatinine 5.4, glucose 106, calcium 8.8. ASSESSMENT AND PLAN: 1. End-stage renal disease/chronic renal failure, currently undergoing dialysis. Tolerating said tr eatment, fluid removal only as tolerated. 2. Anemia, continuing weekly Epogen. 3. Mild hypokalemia. Adjust potassium bath with dialysis to 4.0. Agree with current management.
[2017-11-20] MEDS: Heparin 5,000 UNITS/ML VIAL SC SCH ×3 (11:10→21:05)
[2017-11-20] MEDS: Ferrous Sulfate 325 MG TAB PO SCH ×2 (11:10→17:04)
[2017-11-20] MEDS: Carvedilol 6.25 MG TAB PO SCH ×2 (11:10→17:05)
[2017-11-20] MEDS: Cefdinir 300 MG CAP PO SCH (11:42)
[2017-11-20] MEDS: hydrALAZINE 25 MG TAB PO SCH ×2 (11:43→21:04)
[2017-11-20] MEDS: Amlodipine 5 MG TAB PO SCH (11:43)
[2017-11-20] MEDS: Docusate 100 MG CAP PO SCH ×2 (11:44→21:05)
[2017-11-20] MEDS: Calcitriol 0.25 MCG CAP PO SCH (11:44)
[2017-11-20] MEDS: Isosorbide Dinitrate 20 MG TAB PO SCH ×2 (11:47→21:06)
[2017-11-20] MEDS: Fluticasone Propionate Nasal Spray 16 gm Bottle NASAL SCH (11:47)
[2017-11-20] MEDS: Insulin Detemir 100 UNITS/ML 15 UNITS in Pre-Filled Syringe 1 EACH SC SCH ×2 (11:47→21:05)
--- NOTE | 2017-11-20 14:50 | PDOC.PN ---
- Subjective Encounter Start Date: 11/20/17 Encounter Start Time: 12:30 Patient is seen today, alert and oriented. she is [place], waiting on Rehab/ SNF placement. - Objective MAR Reviewed: Yes Vital Signs & Weight: Vital Signs (12 hours) Temp Pulse Resp BP BP BP BP 11/20/17 13:22 11/20/17 13:19 68 16 11/20/17 11:43 53 L 141/64 H 11/20/17 11:25 97.8 F 53 L 18 11/20/17 11:20 97.8 F 53 L 18 141/64 H 11/20/17 11:10 110/56 L 11/20/17 07:07 66 20 126/58 L 11/20/17 04:00 97.4 F L 59 L 18 118/58 L Pulse Ox 11/20/17 13:22 97 11/20/17 13:19 11/20/17 11:43 11/20/17 11:25 95 11/20/17 11:20 95 11/20/17 11:10 11/20/17 07:07 11/20/17 04:00 92 L Weight Admit Weight 371 lb 11.2 oz Weight 339 lb I&O: 11/19/17 11/20/17 11/21/17 06:59 06:59 06:59 Intake Total 1070 1190 Output Total 250 175 Balance 820 1015 Result Diagrams: 11/20/17 05:47 11/20/17 05:47 Additional Labs: Accuchecks 11/20/17 11/20/17 11/19/17 11:30 06:08 20:34 POC Glucose 125 H 231 H 156 H 11/19/17 11/19/17 17:00 11:51 POC Glucose 177 H 225 H Phys Exam - Physical Examination HEENT: PERRLA Neck: no nodes Respiratory: no wheezing Cardiovascular: RRR Gastrointestinal: soft Musculoskeletal: edema present Neurological: non-focal, normal sensation Lymphatic: no nodes Psychiatric: normal affect, A&O x 3 Dx/Plan (1) Acute exacerbation of CHF (congestive heart failure) Code(s): I50.9 - HEART FAILURE, UNSPECIFIED Status: Acute Qualifiers: Congestive heart failure type: diastolic Qualified Code(s): I50.33 - Acute on chronic diastolic (congestive) heart failure Comment: Improved, on HD, Continue to Monitor. Likely secondary to severe aortic stenosis (2) Acute on chronic kidney failure Code(s): N17.9 - ACUTE KIDNEY FAILURE, UNSPECIFIED; N18.9 - CHRONIC KIDNEY DISEASE, UNSPECIFIED Status: Acute Comment: esrd, initiated on HD (3) Normocytic anemia Code(s): D64.9 - ANEMIA, UNSPECIFIED Status: Acute Comment: likely multifactoral, GI workup before chronic anticoagulation (4) Aortic stenosis Code(s): I35.0 - NONRHEUMATIC AORTIC (VALVE) STENOSIS Status: Chronic Comment: Severe, planned TAVR in ely. (5) Atrial fibrillation Code(s): I48.91 - UNSPECIFIED ATRIAL FIBRILLATION Status: Chronic Qualifiers: Atrial fibrillation type: paroxysmal Qualified Code(s): I48.0 - Paroxysmal atrial fibrillation Comment: [place] Rate Controlled (6) Diabetes mellitus type 2 Code(s): E11.9 - TYPE 2 DIABETES MELLITUS WITHOUT COMPLICATIONS Status: Chronic Comment: On Levemir 15u BID (7) Hypertension Code(s): I10 - ESSENTIAL (PRIMARY) HYPERTENSION Status: Chronic Qualifiers: Hypertension type: essential hypertension Qualified Code(s): I10 - Essential (primary) hypertension Comment: controlled - Plan cont current plan of care, PT/OT, 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 - Discharge Day Encounter end time: 13:00 Review of Systems - Review of Systems Constitutional: sweats, weakness Eyes: negative: Pain, Vision Change, Conjunctivae Inflammation, Eyelid Inflammation, Redness, Other ENT: negative: Ear Pain, Ear Discharge, Nose Pain, Nose Discharge, Nose Congestion, Mouth Pain, Mouth Swelling, Throat Pain, Throat Swelling, Other Respiratory: negative: Cough, Dry, Shortness of Breath, Hemoptysis, SOB with Excertion, Pleuritic Pain, Sputum, Wheezing Cardiovascular: negative: chest pain, palpitations, orthopnea, paroxysmal nocturnal dyspnea, edema, light headedness, other Gastrointestinal: negative: Nausea, Vomiting, Abdominal Pain, Diarrhea, Constipation, Melena, Hematochezia, Other Genitourinary: negative: Dysuria, Frequency, Incontinence, Hematuria, Retention , Other Musculoskeletal: negative: Neck Pain, Shoulder Pain, Arm Pain, Back Pain, Hand Pain, Leg Pain, Foot Pain, Other Skin: negative: Rash, Lesions, Jimbo, Bruising, Other - Medications/Allergies Allergies/Adverse Reactions: Allergies Allergy/AdvReac Type Severity Reaction Status Date / Time sulfamethoxazole Allergy Verified 11/07/17 18:05 [From Bactrim] trimethoprim [From Bactrim] Allergy Verified 11/07/17 18:05 Medications: Current Medications Acetaminophen (Tylenol) 650 mg PO Q4H PRN PRN Reason: Headache/Fever or Pain Acetaminophen (Tylenol) 1,000 mg PO Q6H PRN PRN Reason: Moderate to Severe Pain (6-10) Acetaminophen/Codeine Phosphate (Tylenol #3) 1 tab PO Q4H PRN PRN Reason: Mild Pain (1-3) Acetaminophen/Codeine Phosphate (Tylenol #3) 2 tab PO Q4H PRN PRN Reason: Moderate Pain (4-6) Hydrocodone Bitart/Acetaminophen ([place] 5/325) 1 tab PO Q4H PRN PRN Reason: Moderate Pain (4-6) Last Admin: 11/19/17 08:30 Dose: 1 tab Albuterol/Ipratropium (Duoneb) 3 ml NEB [id number] PRN PRN Reason: SOB &/or Wheezing Albuterol/Ipratropium (Duoneb) 3 ml NEB [id number] [facility] Last Admin: 11/20/17 13:19 Dose: 3 ml Amlodipine Besylate (Norvasc) 5 mg PO DAILY [facility] Last Admin: 11/20/17 11:43 Dose: 5 mg Aspirin (Aspirin Chewable) 81 mg PO DAILY [facility] Last Admin: 11/20/17 11:47 Dose: 81 mg Atorvastatin Calcium (Lipitor) 20 mg PO HS [facility] Last Admin: 11/19/17 21:41 Dose: 20 mg Calcitriol (Rocaltrol) 0.25 mcg PO DAILY [facility] Last Admin: 11/20/17 11:44 Dose: 0.25 mcg Carvedilol (Coreg) 6.25 mg PO BID[facility] Last Admin: 11/20/17 11:10 Dose: Not Given Cefdinir (Omnicef) 600 mg PO 1200 [facility] Last Admin: 11/20/17 11:42 Dose: 600 mg Cholecalciferol (Vitamin D3) 2,000 units PO DAILY [facility] Last Admin: 11/20/17 11:42 Dose: 2,000 units Dextrose/Water (Dextrose 50%) 25 gm SLOW IVP PRN PRN PRN Reason: Hypoglycemia Docusate Sodium (Colace) 100 mg PO BID [facility] Last Admin: 11/20/17 11:44 Dose: 100 mg Epoetin Bryn (Procrit) 7,500 units SC Q7D@1000 [facility] Last Admin: 11/14/17 12:15 Dose: 7,500 units Famotidine (Pepcid) 20 mg PO Q24HR [facility] Last Admin: 11/19/17 21:41 Dose: 20 mg Ferrous Sulfate (Feosol) 325 mg PO BID-[facility] Last Admin: 11/20/17 11:10 Dose: Not Given Fluticasone Propionate (Flonase Nasal [place]) 0 gm NASAL DAILY [facility] Last Admin: 11/20/17 11:47 Dose: 1 spr Glucagon (Glucagon) 1 mg IM PRN PRN PRN Reason: Hypoglycemia Heparin Sodium (Porcine) (Heparin) 5,000 units SC TID [facility] Last Admin: 11/20/17 11:10 Dose: Not Given Hydralazine HCl (Apresoline) 10 mg SLOW IVP Q4H PRN PRN Reason: Systolic BP > 180 Hydralazine HCl (Apresoline) 25 mg PO BID [facility] Last Admin: 11/20/17 11:43 Dose: 25 mg Dextrose/Water (D5w) 1,000 mls @ 0 mls/hr IV .Q0M PRN; As Directed PRN Reason: Hypoglycemia Insulin Detemir 15 units/ (Miscellaneous Medication) 0.15 mls @ 0 mls/hr SC BID [facility] Last Admin: 11/20/17 11:47 Dose: 0.15 mls Insulin Human Lispro (Humalog) 0 units SC .MODERATE SLIDING SC PRN PRN Reason: Moderate Correctional Scale Last Admin: 11/19/17 17:43 Dose: 2 units Insulin Human Lispro (Humalog) 0 units SC .BEDTIME SLIDING SC PRN PRN Reason: Bedtime Correctional Scale Last Admin: 11/09/17 20:19 Dose: 2 unit Isosorbide Dinitrate (Isordil) 20 mg PO BID [facility] Last Admin: 11/20/17 11:47 Dose: 20 mg Lorazepam (Ativan) 0.5 mg PO Q4H PRN PRN Reason: Anxiety/Agitation Lorazepam (Ativan) 0.5 mg SLOW IVP Q4H PRN PRN Reason: Anxiety/Agitation Magnesium Hydroxide (Milk Of Magnesium) 30 ml PO DAILYPRN PRN PRN Reason: Constipation Last Admin: 11/11/17 21:24 Dose: 30 ml Ondansetron HCl (Zofran) 4 mg SLOW IVP Q6H PRN PRN Reason: Nausea/Vomiting Last Admin: 11/09/17 04:39 Dose: 4 mg Sodium Chloride (Flush - Normal Saline) 10 ml IVF Q12HR [facility] Last Admin: 11/20/17 11:48 Dose: 10 ml Sodium Chloride (Flush - Normal Saline) 10 ml IVF PRN PRN PRN Reason: Saline Flush Tramadol HCl (Ultram) 50 mg PO Q6H PRN PRN Reason: Moderate Pain (4-6) Last Admin: 11/16/17 02:17 Dose: 50 mg Tramadol HCl (Ultram) 100 mg PO Q6H PRN PRN Reason: Pain (7-10) Warfarin Sodium (Coumadin) 5 mg PO 1700 [facility] Last Admin: 11/19/17 17:42 Dose: 5 mg
[2017-11-20] MEDS: HumaLOG 300 UNITS/3 ML VIAL SC PRN (17:05)
[2017-11-20] MEDS: Warfarin Sodium 5 MG TAB PO SCH (18:03)
[2017-11-20] MEDS: Atorvastatin Calcium 20 MG TAB PO SCH (21:05)
[2017-11-20] MEDS: Famotidine 20 MG TAB PO SCH (21:05)
[2017-11-21] MEDS: Cefdinir 300 MG CAP PO SCH ×2 (02:49→11:26)
[2017-11-21 04:52] LABS: INR-International Normal Ratio 1.4
[2017-11-21] MEDS: HumaLOG 300 UNITS/3 ML VIAL SC PRN (05:54)
[2017-11-21] MEDS: Calcitriol 0.25 MCG CAP PO SCH (08:02)
[2017-11-21] MEDS: hydrALAZINE 25 MG TAB PO SCH (08:02)
[2017-11-21] MEDS: Heparin 5,000 UNITS/ML VIAL SC SCH ×2 (08:02→14:13)
[2017-11-21] MEDS: Ferrous Sulfate 325 MG TAB PO SCH (08:02)
[2017-11-21] MEDS: Docusate 100 MG CAP PO SCH (08:03)
[2017-11-21] MEDS: Amlodipine 5 MG TAB PO SCH (08:03)
[2017-11-21] MEDS: Isosorbide Dinitrate 20 MG TAB PO SCH (08:03)
[2017-11-21] MEDS: Fluticasone Propionate Nasal Spray 16 gm Bottle NASAL SCH (08:04)
[2017-11-21] MEDS: Insulin Detemir 100 UNITS/ML 15 UNITS in Pre-Filled Syringe 1 EACH SC SCH (08:04)
[2017-11-21] MEDS: Carvedilol 6.25 MG TAB PO SCH (08:05)
[2017-11-21 09:08] VITALS: TEMP 98.2
[2017-11-21 10:04] LABS: INR-International Normal Ratio 1.4; PTT 43.1 SEC (22.9-36.1); Prothrombin Time 17.2 SEC (12.0-14.7)
[2017-11-21] MEDS: Epoetin (ESRD) 20,000 UNITS/ML SC SCH (11:43)
[2017-11-21 13:54] VITALS: BP 96/55
--- NOTE | 2017-11-21 15:43 | DIS ---
DATE OF ADMISSION: 11/07/2017 DATE OF DISCHARGE: 11/21/2017 ADMITTING DIAGNOSES: Acute congestive heart failure, diastolic dysfunction. DISCHARGE DIAGNOSES: Acute congestive heart failure with diastolic dysfunction. SECONDARY DIAGNOSES: 1. Acute atrial fibrillation with rapid ventricular rate. 2. Type 2 diabetes mellitus. 3. Morbid obesity. 4. Acute on chronic kidney disease, stage 4. 5. Acute severe aortic stenosis. 6. Chronic obstructive sleep apnea. CONSULTANTS: Involved in the care is Dr. Reymundo Devries, Dr. Matt Shah, Dr. Mauro Underwood, and Dr. Virgil Beckman. PROCEDURES: Done during this admission are, 1. Dialysis access, arteriovenous access. 2. History of cardiac catheterization by Dr. Reymundo Devries, showing a normal left main, normal lef t LAD, normal circumflex, and normal right coronary artery with ejection fraction of 50%-55%. HISTORY OF PRESENT ILLNESS AND HOSPITAL COURSE: In brief, this is a 77-year-old white female, who wa s admitted to the hospital with shortness of breath with chronic problems with dyspepsia related to c hronic pulmonary disease, morbid obesity and critical aortic stenosis. Patient was initially on 3 li ters of nasal cannula and she was started on BiPAP, because of the worsening shortness of breath and worsening edema. The patient had a drop in her hemoglobin. So, the patient was seen by GI, as the p atient had heme-positive stool, and it was unremarkable. EGD and colonoscopy was unremarkable. The patient was seen by Dr. Mauro Underwood, because of the worsening renal functions and volume overload state, and needing hemodialysis. So, hemodialysis catheter was placed by Dr. Virgil Beckman and the patient was noted to have a severe aortic stenosis and the patient is being followed by Dr. Devries, who did a cardiac catheterization, which showed above findings. The patient was needing aortic valv e replacement through the time of the procedure and recommended a referral to Cardiothoracic Surgery in [place]. The patient had problems with volume overload and was acutely short of breath. So, she has been seen by Pulmonology to rule out any pulmonary issues. The patient showed good improvement f ollowing hemodialysis regularly. She was on Coumadin, which was held initially for all these procedu res and was later restarted, and her INR did come back to normal. The patient was pretty weak, so e physical therapy was consulted, who suggested inpatient rehabilitation. The patient was discharged to inpatient rehab in stable condition. PHYSICAL EXAMINATION: On day of discharge, VITAL SIGNS: Blood pressure is 114/66, heart rate is 69, respiratory rate is 18, saturation 98%. GENERAL: The patient is moderately built and morbidly obese. She is alert and oriented x3. HEENT: Atraumatic, normocephalic. PERRLA. Extraocular movements are intact. Oral mucosa is pink a nd moist. CARDIOVASCULAR: S1, S2 normal. No murmurs, no rubs, no gallops. LUNGS: Bilateral air entry was equal. No wheezing. No crackles. DISCHARGE MEDICATIONS: 1. Albuterol inhalation q.2 hours. 2. Lasix 40 mg p.o. daily. 3. Guaifenesin 15 mL p.o. q.4 hours. 4. Insulin aspart 6 units subcu with meals. 5. Insulin glargine 30 units subcu b.i.d. 6. Ipratropium. 7. Levocetirizine. 8. Amlodipine 5 mg p.o. daily. 9. Aspirin 81 mg daily. 10. Calcitriol 1 capsule p.o. daily. 11. Cholecalciferol. 12. Epoetin 7500 units subcutaneously q7 days. 13. Fluticasone 1 spray nasally daily. 14. Hydralazine 25 mg p.o. b.i.d. 15. Isosorbide 20 mg p.o. b.i.d. 16. Simvastatin 40 mg p.o. at bedtime. DISCHARGE INSTRUCTIONS: Continue activity as tolerated. Advised to follow up with the primary care physician in 1-2 weeks. Advised to follow up with Dr. Devries in 2-3 weeks and follow up with his r ecommendations about following up with Cardiothoracic Surgery at [place] after her rehabilitation. P aye will follow up with hemodialysis, which is already set up by Dr. Underwood from Nephrology. I advis ed to continue on the cardiac and renal diet. The patient is discharged to inpatient rehabilitation. I spent 35 minutes on this patient on the day of discharge.
== END 2017-11-21 16:22 | DRG 264 ==
LOC: ERS 13:03 → IMCU/EMU 17:56 → 2NO 11-16 17:44 → T4-B 11-20 14:23
PROVIDERS: ADMIT Internal Medicine; ATTEND Internal Medicine
PROC: 02HV33Z Insertion of Infusion Device into Superior Vena Cava, Percutaneous Approach (ICD-10-PCS; 2017-11-09)
PROC: B518YZA Fluoroscopy of Superior Vena Cava using Other Contrast, Guidance (ICD-10-PCS; 2017-11-09)
PROC: B548ZZA Ultrasonography of Superior Vena Cava, Guidance (ICD-10-PCS; 2017-11-09)
PROC: 5A1D70Z Performance of Urinary Filtration, Intermittent, Less than 6 Hours Per Day (ICD-10-PCS; 2017-11-10)
PROC: 5A1D70Z Performance of Urinary Filtration, Intermittent, Less than 6 Hours Per Day (ICD-10-PCS; 2017-11-12)
PROC: 5A1D70Z Performance of Urinary Filtration, Intermittent, Less than 6 Hours Per Day (ICD-10-PCS; 2017-11-13)
PROC: 4A023N8 Measurement of Cardiac Sampling and Pressure, Bilateral, Percutaneous Approach (ICD-10-PCS; principal; 2017-11-15)
PROC: B2111ZZ Fluoroscopy of Multiple Coronary Arteries using Low Osmolar Contrast (ICD-10-PCS; 2017-11-15)
PROC: B2161ZZ Fluoroscopy of Right and Left Heart using Low Osmolar Contrast (ICD-10-PCS; 2017-11-15)
PROC: 5A1D70Z Performance of Urinary Filtration, Intermittent, Less than 6 Hours Per Day (ICD-10-PCS; 2017-11-16)
PROC: 031B0ZF Bypass Right Radial Artery to Lower Arm Vein, Open Approach (ICD-10-PCS; 2017-11-17)
PROC: 0DJ08ZZ Inspection of Upper Intestinal Tract, Via Natural or Artificial Opening Endoscopic (ICD-10-PCS; 2017-11-17)
PROC: 0DJD8ZZ Inspection of Lower Intestinal Tract, Via Natural or Artificial Opening Endoscopic (ICD-10-PCS; 2017-11-17)
PROC: 5A1D70Z Performance of Urinary Filtration, Intermittent, Less than 6 Hours Per Day (ICD-10-PCS; 2017-11-18)
PROC: 5A1D70Z Performance of Urinary Filtration, Intermittent, Less than 6 Hours Per Day (ICD-10-PCS; 2017-11-20)
DX: I13.2 Hypertensive heart and chronic kidney disease with heart failure and with stage 5 chronic kidney disease, or end stage renal disease (principal); J96.21 Acute and chronic respiratory failure with hypoxia; N17.9 Acute kidney failure, unspecified; E66.01 Morbid (severe) obesity due to excess calories; E11.21 Type 2 diabetes mellitus with diabetic nephropathy; I08.2 Rheumatic disorders of both aortic and tricuspid valves; I50.33 Acute on chronic diastolic (congestive) heart failure; N18.6 End stage renal disease; Z68.43 Body mass index [BMI] 50.0-59.9, adult; N39.0 Urinary tract infection, site not specified; N25.81 Secondary hyperparathyroidism of renal origin; I27.20 Pulmonary hypertension, unspecified; E11.22 Type 2 diabetes mellitus with diabetic chronic kidney disease; I48.0 Paroxysmal atrial fibrillation; D63.1 Anemia in chronic kidney disease; G47.33 Obstructive sleep apnea (adult) (pediatric); I48.2 Chronic atrial fibrillation; E78.5 Hyperlipidemia, unspecified; Z99.2 Dependence on renal dialysis; I25.110 Atherosclerotic heart disease of native coronary artery with unstable angina pectoris; J44.9 Chronic obstructive pulmonary disease, unspecified; Z99.81 Dependence on supplemental oxygen; E87.6 Hypokalemia; D50.9 Iron deficiency anemia, unspecified; E88.81 Metabolic syndrome and other insulin resistance; Z79.4 Long term (current) use of insulin; E78.00 Pure hypercholesterolemia, unspecified
CPT/HCPCS: 36415; 36416; 51702; 71045; 76000; 80048; 80051; 80053; 81003; 81015; 82553; 83880; 84484; 85007; 85014; 85018; 85025; 85027; 85049; 85347; 85379; 85610; 85730; 86580; 86704; 86706; 86803; 86850; 86900; 86901; 87077; 87086; 87186; 87340; 90935; 93005; 93460; 93561; 93798; 93970; 94660; 94760; 96374; A4216; C1752; C1769; G0257; G0365; G8978-GP-CM; G8979-GP-CK; G8987-GO-CL; G8988-GO-CK; J0461; J0696; J1644; J1815; J1940; J2001; J2704; J2720; J2997; J3010; J7620; Q4081; S0020

== ENCOUNTER 2018-01-20 10:34 | Observation (INO) | payer MEDICARE, MEDICAID ==
--- NOTE | 2018-01-20 11:13 | RAD ---
SINGLE VIEW CHEST: Date: 01/20/18 COMPARISON: 11/09/17. HISTORY: Dyspnea. Dialysis patient with renal failure. FINDINGS: Single view of the chest shows an enlarged but stable cardiomediastinal silhouette. Dialysis catheter is unchanged in position. Retrocardiac opacity is seen which may represent atelectasis or an infiltr ate. IMPRESSION: 1. Cardiomegaly. 2. Retrocardiac atelectasis versus infiltrate. POS: DIONICIO
[2018-01-20 11:21] LABS: #Lymphocytes 1.1 thou/uL (1.20-3.40); #Monocytes 1.1 thou/uL (0.11-0.59); #Neutrophils 14.5 thou/uL (1.40-6.50); %Basophils 0.1 % (0.0-1.0); %Lymphocytes 6.7 % (21.0-51.0); %Monocytes 6.3 % (0.0-10.0); %Neutrophils 86.9 % (42.0-75.0); Hemoglobin 11.8 g/dL (12.0-16.0); Mean Corpuscular Volume 96.8 fl (81.0-99.0); Mean Platelet Volume 8.7 fL (7.4-10.4); Platelet Count 202 thou/uL (130-400); RBC Distribution Width 15.4 % (11.5-14.5); Red Blood Cell (RBC) Count 3.93 mill/uL (4.20-5.40); White Blood Cell (WBC) Count 16.7 thou/uL (4.8-10.8)
[2018-01-20 11:46] LABS: ALT (SGPT) 9 U/L (8-55); AST (SGOT) 11 U/L (5-34); Albumin 3.4 g/dL (3.4-4.8); Alkaline Phosphatase 80 U/L (40-150); Anion Gap 14 mmol/L (10-20); BUN (Urea Nitrogen) 73 mg/dL (9.8-20.1); Bilirubin, Total 0.5 mg/dL (0.2-1.2); Calc. Creatinine Clearance 0 mL/min (70-130); Calcium 9.4 mg/dL (7.8-10.44); Carbon Dioxide 24 mmol/L (23-31); Chloride 96 mmol/L (98-107); Estimated GFR-MDRD 8; Globulin 4.2 g/dL (2.4-3.5); Glucose 160 mg/dL (83-110); Potassium 4.1 mmol/L (3.5-5.1); Protein, Total 7.6 g/dL (6.0-8.3); Sodium 130 mmol/L (136-145)
[2018-01-20 11:47] LABS: CKMB 0.5 ng/mL (0-6.6); Troponin I 0.069 ng/mL (< 0.028)
--- NOTE | 2018-01-20 12:48 | CON ---
DATE OF CONSULTATION: 01/20/2018 HISTORY OF PRESENT ILLNESS: Ms. Cox is a 77-year-old white female with ESRD - on maintenance hemodi alysis and admitted for shortness of breath. During the initial evaluation, she was noted to be hypo xemic on room air. However, nasal cannula 2-3 liters was started and oxygenation now 95%. We are no w being consulted for emergent hemodialysis with this patient. Of note, this patient due for dialysi s today. REVIEW OF SYSTEMS: Positive for shortness of breath, no nausea, no vomiting, no diarrhea. No headac he. Occasional back pain, no diplopia, no gross hematuria, no dysuria, no urinary frequency. Appeti te and energy level is decreased. No headache, no fever or chills, no abdominal pain, no hematochezi a, no melena, no hematemesis. HOME MEDICATIONS: Hydralazine 25 mg p.o. b.i.d., Coumadin as directed, simvastatin 40 mg at bedtime, levocetirizine 1 tab at bedtime, Isordil 20 mg p.o. b.i.d., DuoNeb q.4h. p.r.n., insulin NovoLog 6 u nits subcutaneous q.a.m., Lantus 30 units subcu b.i.d., furosemide 40 mg daily, Epogen 7500 units sub cutaneously every week, carvedilol 6.25 mg p.o. b.i.d., aspirin 81 mg tab once a day, amlodipine 5 mg once a day, Albuterol 2.5 nebs treatment every 2 hours p.r.n. PAST MEDICAL HISTORY: 1. ESRD from diabetic nephropathy. 2. Hypertension. 3. Type 2 diabetes mellitus. 4. Status post CHF. 5. Hyperlipidemia. 6. Hypertension. 7. COPD. 8. Chronic anemia of chronic renal disease. 9. Secondary hyperparathyroidism. 10. Patient also has history of morbid obesity. 11. History of macular degeneration. PAST SURGICAL HISTORY: 1. Status post cuffed hemodialysis catheter placement. 2. Status post section. 3. Status post right cataract surgery. 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 The patient lives in [place]. No history of smoking, no alcohol intake, sedentary lifes tyle. Status post blood transfusion. Education; high school. FAMILY HISTORY: Positive family history of ESRD. ALLERGIES: None. TRAUMA: None. IMMUNIZATIONS: Up to date. HOSPITALIZATIONS: Please see past medical history. PHYSICAL EXAMINATION: VITAL SIGNS: Blood pressure is 140/70, heart rate 78, pulse ox 97% on 2 liters of oxygen. GENERAL: Noted to be awake, obese, in mild respiratory distress. SKIN: Adequate turgor. HEENT: Pinkish conjunctivae, anicteric sclerae. NECK: No neck mass, no carotid bruits, no JVD. CHEST: No deformities. LUNGS: Decreased breath sounds, occasional crackles. HEART: Normal sinus rhythm. No murmur, no gallops or rubs. ABDOMEN: Globular, soft, nontender, no masses. EXTREMITIES: No edema, no deformities. NEUROLOGICAL: Awake, oriented to 3 spheres. Moving all extremities. No tremors, no asterixis. LABORATORY: 01/20/2018 - Pending. Chest x-ray, increased lung marking, ? of atelectasis. ASSESSMENT AND PLAN: 1. Congestive heart failure/shortness of breath - consider chronic obstructive pulmonary disease exa cerbation. Start DuoNeb treatment. In addition, we will initiate hemodialysis. We will max out 3 l iter fluid removal as tolerated by the patient. 2. End-stage renal disease, stable. We will continue 3 times a week hemodialysis regimen with this patient. We will attempt to use no heparin. We will use a standard dialysis bath for the moment. 3. Hypertension. Continue current blood pressure medications. 4. Anemia, on weekly Epogen. Overall, I agree with current management.
[2018-01-20] MEDS ORDERED: Ondansetron ODT 4 MG TAB SL PRN (13:31)
[2018-01-20] MEDS ORDERED: Acetaminophen 325 MG TAB PO PRN (13:31)
[2018-01-20] MEDS ORDERED: Ondansetron HCl/PF 4 MG/2 ML Vial IVP PRN ×2 (13:31→16:07)
[2018-01-20] MEDS ORDERED: HumaLOG 300 UNITS/3 ML VIAL SC PRN (16:07)
[2018-01-20] MEDS ORDERED: Dextrose 50% Abboject 50 ML SYRINGE SLOW IVP PRN (16:07)
[2018-01-20] MEDS ORDERED: Guaifenesin DM 100-10/5 ML UDCUP PO PRN (16:07)
[2018-01-20] MEDS ORDERED: Ondansetron ODT 4 MG TAB PO PRN (16:07)
[2018-01-20] MEDS ORDERED: Dextrose 5% in Water 1,000 ML IV PRN (16:07)
[2018-01-20] MEDS ORDERED: Albuterol Sulfate 2.5 mg/3 ml Neb NEB PRN (16:07)
[2018-01-20] MEDS ORDERED: Warfarin Sodium 2.5 MG TAB PO SCH (17:00)
[2018-01-20 17:13] LABS: INR-International Normal Ratio 1.5; Prothrombin Time 18.5 SEC (12.0-14.7)
[2018-01-20] MEDS: Calcium Acetate 667 MG CAP PO SCH (18:27)
[2018-01-20] MEDS: Carvedilol 6.25 MG TAB PO SCH (18:27)
[2018-01-20] MEDS: HumaLOG 300 UNITS/3 ML VIAL SC SCH (18:27)
[2018-01-20] MEDS: Ferrous Sulfate 325 MG TAB PO SCH (18:28)
[2018-01-20] MEDS: Acetaminophen 325 MG TAB PO PRN (18:28)
--- NOTE | 2018-01-20 18:34 | CON ---
DATE OF CONSULTATION: 01/20/2018 REASON FOR CONSULTATION: Fluid overload. HISTORY OF PRESENT ILLNESS: Ms. Cox is an unfortunate 77-year-old woman with history of end-stage r enal disease in addition to her severe aortic stenosis, who is a patient of Dr. Reymundo Devries. She has undergone a cardiac workup with last angiogram performed in 10/2017. She was found to have a no rmal left main, LAD, circumflex artery, and right coronary artery. Aortic valve area is estimated at 0.4. She recently presented with shortness of breath, nausea and lower extremity edema. She states she still s not missed her dialysis. She states she recently was placed on a new medication by her nephrologis t. PAST MEDICAL HISTORY: As above including acute on chronic diastolic heart failure, severe , GI ble ed, hypertension, diabetes mellitus, hyperlipidemia, morbid obesity. HOME MEDICATIONS: Include amlodipine, aspirin, calcitriol, carvedilol, Procrit, Flonase, hydralazine , NovoLog, DuoNeb, simvastatin, isosorbide. ALLERGIES: VANCOMYCIN. SOCIAL HISTORY: No current tobacco or alcohol use. REVIEW OF SYSTEMS: Ten point review of systems reviewed and as above, otherwise negative. PHYSICAL EXAMINATION: GENERAL: She is morbidly obese. VITAL SIGNS: Blood pressure 136/76, pulse 80, respirations 20. NEUROLOGIC: The patient is alert and oriented times 3 with no focal neurologic deficits. HEENT: Sclerae without icterus. Mouth has moist mucous membranes with normal pallor. NECK: No JVD. Carotid upstroke brisk. No bruits bilaterally. LUNGS: Clear to auscultation with unlabored respirations. BACK: No scoliosis or kyphosis. CARDIAC: Regular rate and rhythm with 2/6 systolic ejection murmur. ABDOMEN: Soft, nontender, nondistended. No peritoneal signs present. No hepatosplenomegaly. No ab normal striae. EXTREMITIES: 2+ pitting edema. SKIN: No gross abnormalities. PERTINENT LABORATORY DATA: Hemoglobin 11.8. Creatinine 5.1. IMPRESSION: 1. Acute on chronic diastolic heart failure. 2. Severe aortic stenosis. 3. End-stage renal disease. 4. Morbid obesity. RECOMMENDATIONS: From a CV standpoint, there are limited options. I tried to get an appointment wit Dr. Sanders in [place]. We will try and expedite her visit. I think there was some confusion on whe re she was going to be sent. At this point, she was seen and evaluated on dialysis and would continu e. Certainly a difficult situation given severe aortic stenosis.
[2018-01-20 19:24] VITALS: BMI 25.7
[2018-01-20] MEDS: Insulin Detemir 100 UNITS/ML 30 UNITS in Pre-Filled Syringe 1 EACH SC SCH (20:30)
[2018-01-20] MEDS: Famotidine 20 MG TAB PO SCH (20:33)
[2018-01-20] MEDS ORDERED: Non-Formulary Item 1 EACH (Insulin Glargine,Hum.Rec.Anlog 30 UNITS) SC SCH (21:00)
[2018-01-20] MEDS ORDERED: Loratadine 10 MG TAB PO SCH (21:00)
[2018-01-20] MEDS ORDERED: Atorvastatin Calcium 20 MG TAB PO SCH (21:00)
[2018-01-21] MEDS: Acetaminophen 325 MG TAB PO PRN ×3 (00:48→13:34)
[2018-01-21] MEDS ORDERED: Heparin 10,000 UNITS/ 10 ML VIAL ONE (07:59)
[2018-01-21] MEDS ORDERED: Fluticasone Propionate Nasal Spray 16 gm Bottle NASAL SCH (09:00)
[2018-01-21 09:12] LABS: #Lymphocytes 0.9 thou/uL (1.20-3.40); #Neutrophils 13.3 thou/uL (1.40-6.50); %Basophils 0.1 % (0.0-1.0); %Eosinophils 0.1 % (0.0-10.0); %Lymphocytes 6.1 % (21.0-51.0); %Monocytes 6.6 % (0.0-10.0); %Neutrophils 87.1 % (42.0-75.0); Hemoglobin 11.1 g/dL (12.0-16.0); Mean Corpuscular HGB CONC 30.7 g/dL (32.0-36.0); Mean Corpuscular Hemoglobin 29.8 pg (27.0-31.0); Mean Corpuscular Volume 96.8 fl (81.0-99.0); Mean Platelet Volume 8.6 fL (7.4-10.4); Platelet Count 213 thou/uL (130-400); RBC Distribution Width 15.2 % (11.5-14.5); Red Blood Cell (RBC) Count 3.73 mill/uL (4.20-5.40); White Blood Cell (WBC) Count 15.3 thou/uL (4.8-10.8)
[2018-01-21] MEDS: Ferrous Sulfate 325 MG TAB PO SCH (09:26)
[2018-01-21] MEDS: Famotidine 20 MG TAB PO SCH (09:26)
[2018-01-21] MEDS: Calcium Acetate 667 MG CAP PO SCH ×2 (09:27→13:23)
[2018-01-21] MEDS: Carvedilol 6.25 MG TAB PO SCH (09:27)
[2018-01-21] MEDS: Insulin Detemir 100 UNITS/ML 30 UNITS in Pre-Filled Syringe 1 EACH SC SCH (09:28)
[2018-01-21 09:29] LABS: Anion Gap 15 mmol/L (10-20); BUN (Urea Nitrogen) 40 mg/dL (9.8-20.1); Calc. Creatinine Clearance 33 mL/min (70-130); Calcium 9.2 mg/dL (7.8-10.44); Carbon Dioxide 26 mmol/L (23-31); Chloride 98 mmol/L (98-107); Estimated GFR-MDRD 13; Glucose 108 mg/dL (83-110); Magnesium 2.1 mg/dL (1.6-2.6); Potassium 3.9 mmol/L (3.5-5.1); Sodium 135 mmol/L (136-145)
[2018-01-21] MEDS: HumaLOG 300 UNITS/3 ML VIAL SC SCH ×2 (09:29→13:24)
--- NOTE | 2018-01-21 10:13 | PRG ---
DATE OF SERVICE: 01/21/2018 SUBJECTIVE: Ms. Cox feels better. She continues to have shortness of breath and chest tightness. She was dialyzed yesterday with significant output present. OBJECTIVE: VITAL SIGNS: Blood pressure 132/58, pulse 82, temperature 98. LUNGS: Clear to auscultation. CARDIAC: Regular rate and rhythm with a 2/6 systolic ejection murmur. ABDOMEN: Soft, nontender, nondistended. She is obese. EXTREMITIES: 1+ pitting edema. PERTINENT LABORATORY DATA: Hemoglobin 11.1, platelet count 213, creatinine 3.45. IMPRESSION: 1. Severe aortic stenosis. 2. End-stage renal disease. 3. Morbid obesity. RECOMMENDATIONS: I did discuss with Dr. Reymundo Devries. The patient is not felt to be an appropria te surgical candidate. It was recommended she proceed with a second opinion in [place]. She is amen able. We will try to reach out to [place] today or Wednesday to expedite her office visit. Otherwise, we will continue Coreg, atorvastatin in addition to Coumadin. She has no coronary artery disease per recent angio.
--- NOTE | 2018-01-21 14:39 | DIS ---
DATE OF ADMISSION: 01/20/2018 DATE OF DISCHARGE: 01/21/2018 PRIMARY CARE PHYSICIAN: Dr. Laura De Anda PRIMARY SERVICE DESK LEAD: Dr. Reymundo Devries. PRIMARY BRASS CHASER: Dr. Shah. PRIMARY CARPENTRY SUPERVISOR: Dr. Mauro Underwood. DISCHARGE DIAGNOSES: 1. Critical aortic stenosis. 2. Acute on chronic diastolic and valvular heart congestive heart failure. 3. Volume overload. 4. Diabetes mellitus, type 2. 5. Severe obesity. 6. Hyperlipidemia. 7. Hypertension. 8. Chronic hypoxic respiratory failure, requiring oxygen. 9. Chronic obstructive pulmonary disease without acute exacerbation. 10. Paroxysmal atrial fibrillation. 11. Pulmonary hypertension, likely secondary. 12. Obstructive sleep apnea and probable obesity hypoventilation syndrome. 13. Hypothyroidism. CONSULTATIONS: 1. Dr. Crowley with Cardiology. 2. Dr. Underwood with Nephrology. HISTORY AND PHYSICAL: Ms. Cox is a 77-year-old female with the above history, recently started on d ialysis for end-stage renal disease, likely secondary to cardiopulmonary syndrome, on 0-ebsa-k-week d ialysis. She underwent dialysis on a normal schedule 2 days prior to admission. The day of admission she had increasing shortness of breath, was unable to go to dialysis, so came to the ER. She was initially going to be started on BiPAP, but was able to be transferred to dialysis quickly and did not require it. We were called for admission. HOSPITAL COURSE: The patient was seen and examined by me, and she was placed on observation. Cardio logy was consulted. She continued her home medications. She had 3.7 liters removed with dialysis, w hich she tolerated well, and subsequently was back to 100% on 2 liters nasal cannula. Overnight, she did well, she was still short of breath, but likely close to her baseline. Medically, things were back to her baseline, she was stable for discharge, family requested transfer to [place] for a valve evaluation and Dr. Crowley was kind enough to contact Dr. Orlando Jackson in [place], who graciously accepted and so the patient is being discharged; she was transferred to, I believe, [facility]. PHYSICAL EXAMINATION: The patient was seen and examined on the day of discharge. Discharge plan and disposition were initially discussed with the patient [id number] at the bedside. I did return whe n the plans changed to update her to the current plan. DISCHARGE MEDICATIONS: Resume all of her home medications. 1. Albuterol sulfate 2.5 mg nebulized q.2 hours p.r.n. 2. Norvasc 5 mg daily. 3. Aspirin 81 mg daily. 4. PhosLo 667 mg p.o. t.i.d. a.c. 5. Coreg 6.25 mg p.o. b.i.d. 6. Cholecalciferol 2000 units p.o. daily. 7. Iron sulfate 325 mg p.o. b.i.d. 8. Fluticasone spray 1 spray nasally b.i.d. 9. Robitussin as needed. 10. Hydralazine 25 mg p.o. b.i.d. 11. Insulin 6 units subcu a.c. 12. Lantus 30 units subcu b.i.d. 13. DuoNeb q.4 hours. 14. Levocetirizine 5 mg p.o. at bedtime. 15. Zoloft 25 mg daily. 16. Zocor 40 mg at bedtime. 17. Warfarin 2.5 mg daily, except for Wednesday and Wednesday she gets 5 mg. FOLLOWUP APPOINTMENTS: 1. Primary care physician after a week after she gets out. 2. Dr. Underwood in 1 week after she gets out of [place]. 3. Dr. Reymundo Devries in 1 week after she is out of [place]. DISCHARGE CONDITION: Stable. DISPOSITION: The patient being transferred to [facility] in [place] for evaluation by Dr. Orlando Jackson. DISCHARGE DIET: She is currently on a heart-healthy diabetic renal diet. DISCHARGE ACTIVITY: Per cardiopulmonary limits.
[2018-01-21 16:50] VITALS: BP 123/69; TEMP 97.4
[2018-01-21] MEDS ORDERED: Warfarin Sodium 5 MG TAB PO SCH (17:00)
--- NOTE | 2018-01-21 17:17 | HP ---
DATE OF ADMISSION: 01/20/2018 PRIMARY CARE PHYSICIAN: Dr. Laura De Anda. PRIMARY HEAVY EQUIPMENT SERVICE MANAGER: Dr. Underwood. PRIMARY COMMERCIAL REAL ESTATE PARALEGAL: Dr. Reymundo Devries. PRIMARY PROPAGATOR: Dr. Shah. CHIEF COMPLAINT: Shortness of breath. HISTORY OF PRESENT ILLNESS: Ms. Cox is a 77-year-old female with history of severe obesity, end-sta ge renal disease on hemodialysis likely secondary to cardiorenal syndrome, critical aortic stenosis w ith aortic valve area in 11/2017 at 0.4 cm, diabetes, hypertension, hyperlipidemia, chronic home O2 u se, paroxysmal atrial fibrillation, and COPD. The patient presents to the Emergency Department on the day of admission with shortness of breath and was getting worse over 2 nights prior to presentation. She was ready to go to hemodialysis on day o f admission, but was not able to breathe well enough so came to the Emergency Department instead. She denies any fevers or chills, no cough or sputum production, no fevers or chills, no nausea, vomit ing or diarrhea or constipation. She was last admitted from 11/13/2017-11/21/2017, at the time, she had a PermCath placed and was [facility] hemodialysis. She did undergo a cardiac catheterization that showed aortic valve area 0.[address] Devries referred her to [facility] in [place] for aortic valve replacement; [facility], they had been unable to get hold of the patient. She subsequently was seen in the ER. She was noted to be in respiratory distress. They had initiall y ordered BiPAP, but then contact Dr. Underwood and arrange hemodialysis and she was able to tolerate nasal cannula without having to be put on BiPAP. She was sent up to dialysis unit for hemodialysis where I saw her. She corroborated the above history. She denies drinking or eating more than she is supposed to. She states she has been compliant with her medications. PAST MEDICAL HISTORY: 1. End-stage renal disease. 2. Congestive heart failure, last EF of 50% to 55%, she has moderate MR, severe with aortic valve area 0.4, moderate AI, and moderate concentric LVH. Echo on 10/10/2017 and catheterization on 11/15 showed aortic valve area 0.4 cm square. 3. Diabetes mellitus type 2, insulin-dependent. 4. Hyperlipidemia. 5. Hypertension. 6. Home oxygen 2 liters continuous. 7. Chronic obstructive pulmonary disease without acute exacerbation. 8. Chronic atrial fibrillation. 9. Severe aortic stenosis as above. 10. Severe pulmonary hypertension with estimated pulmonary artery pressure of 50. PAST SURGICAL HISTORY: Includes, 1. x2 remotely. 2. Right forearm fistula creation and right chest PermCath placement on 11/28/2017. HOME MEDICATIONS: 1. Albuterol 2.5 mg nebulizer q.2 hours p.r.n. 2. Lasix 40 mg daily. 3. Guaifenesin 15 mL p.o. q.4 hours p.r.n. cough. 4. Humalog 6 units a.c. 5. Lantus 30 units subcu b.i.d. 6. Ipratropium inhaler q.i.d. 7. Levocetirizine as needed. 8. Amlodipine 5 mg p.o. daily. 9. Calcitriol as needed. 10. Erythropoietin 7500 units weekly. 11. Fluticasone 1 puff inhaled b.i.d. 12. Hydralazine 25 mg p.o. b.i.d. 13. Isosorbide mononitrate 20 mg p.o. b.i.d. She states she is not taking hydralazine and the Isoso rbide anymore. 14. Zocor 40 mg p.o. at bedtime. 15. Coreg 12.5 b.i.d. 16. Coumadin. She takes 2.5 mg daily, except for Wednesday and Wednesday, she takes 5 mg. ALLERGIES: BACTRIM. FAMILY HISTORY: Negative for clotting or bleeding disorder. No immune dysfunction. SOCIAL HISTORY: Negative habits x3. She dialyzes 3 times a week and hemodialysis currently at [facility]. REVIEW OF SYSTEMS: Ten-point review of systems was performed. She is somewhat short of breath and u nable to give a full review of history and was able to nod and shake her head appropriately. Review of systems negative except as stated above. PHYSICAL EXAMINATION: VITAL SIGNS: Temperature 98.3, pulse 62, blood pressure 99/48, respiratory rate 20, satting initiall y 84% on room air, and she is always on a nasal cannula and currently 96% on 3 liters. GENERAL: She is awake. She is alert. She is oriented x3. Severe obese white female lying in the d ialysis bed, appears to be in no acute distress. HEENT: Normocephalic, atraumatic. Pupils equal and reactive bilaterally, mucous membranes are moist . No visible lesions. No thrush. No cannula in place. NECK: Supple. There is no lymphadenopathy or JVD that I can appreciate. She had a severely obese a nd short neck, it is hard to appreciate. LUNGS: Have coarse bilateral breath sounds. She has got poor air movement in and out and has increa sed pleuritic type chest pain with deep inspiration. CARDIOVASCULAR: She has a normal cardiac. She has normal S1, S2. I hear a faint soft holosystolic murmur. I think but due to body habitus it is hard to be certain. ABDOMEN: Severely obese. I cannot palpate any organs. She has got no rebound, rigidity or guarding . She does have good bowel sounds in all 4 quadrants. EXTREMITIES: There is no cyanosis or clubbing. She has 2+ lower extremity edema to about the level of mid tibia. SKIN: Cool but well perfused. Cap refill is less than 3 seconds. MUSCULOSKELETAL: Difficult to assess. She does have adequate range of motion. She has no appreciab le abnormalities. There is no palpable effusions. NEUROLOGIC: Cranial nerves II-XII grossly intact, she has 5/5 strength, she has no focal deficits. Normal speech. LABORATORY DATA: Sodium 130, potassium 4.1, chloride 96, bicarbonate 24, BUN 73, creatinine 5.10, gl ucose 160, calcium 9.4. Liver function within normal limits. CBC showed a white count 16.7, hemoglobin 11.8, hematocrit 38.0, platelet count is 202,000. She has a fairly normal differential. Lactic acid normal at 1.9, CK-MB normal at 0.5, troponin I is slightly elevated at 0.069. Chest x-ra y showed a retrocardiac atelectasis versus infiltrate. ASSESSMENT AND PLAN: 1. Acute on chronic diastolic congestive heart failure likely secondary volume overload. I am unsur e of her compliance with a heart healthy renal diet. She is due for dialysis. She is undergoing ryan lysis now. She already had 800 mL removed and is tolerating nasal cannula. They are trying to get u p to 5 liters off her today. We will observe her overnight. We will follow cardiac biomarkers. We will continue home medications, and reevaluate. 2. End-stage renal disease on hemodialysis above. 3. Diabetes mellitus type 2, we will continue home medications. Diabetic diet, renal diet, heart he althy diet. 4. Hyperlipidemia, on Zocor. 5. Hypertension. We will continue home medications. 6. Home oxygen. We will continue 2 liters nasal cannula minimum. 7. Chronic obstructive pulmonary disease without acute exacerbation. 8. Paroxysmal atrial fibrillation, currently in sinus rhythm. 9. Severe aortic stenosis, the patient was supposed to follow up already in [place]. Dr. Jaycob bejarano as actually surprised when I spoke with him that she had not had an appointment there yet. We will a sk him to evaluate, however, he mentioned that he is not on-call today and out of town tomorrow thus we will have the on-call team to comment. 10. Pulmonary hypertension as above.
== END 2018-01-21 16:35 | disposition short-term general hospital (02) ==
LOC: ERS 10:34 → IMCU/EMU 11:39 → 2NO 15:18
PROVIDERS: ADMIT Internal Medicine Infectious Disease; ATTEND Internal Medicine Infectious Disease
DX: E87.70 Fluid overload, unspecified (principal); I13.2 Hypertensive heart and chronic kidney disease with heart failure and with stage 5 chronic kidney disease, or end stage renal disease; E11.22 Type 2 diabetes mellitus with diabetic chronic kidney disease; N18.6 End stage renal disease; I50.33 Acute on chronic diastolic (congestive) heart failure; E11.21 Type 2 diabetes mellitus with diabetic nephropathy; I35.0 Nonrheumatic aortic (valve) stenosis; E78.5 Hyperlipidemia, unspecified; I48.0 Paroxysmal atrial fibrillation; J44.9 Chronic obstructive pulmonary disease, unspecified; N25.81 Secondary hyperparathyroidism of renal origin; E03.9 Hypothyroidism, unspecified; E66.01 Morbid (severe) obesity due to excess calories; Z68.42 Body mass index [BMI] 45.0-49.9, adult; Z88.2 Allergy status to sulfonamides; Z88.8 Allergy status to other drugs, medicaments and biological substances; Z79.4 Long term (current) use of insulin; Z79.01 Long term (current) use of anticoagulants; Z79.899 Other long term (current) drug therapy; Z99.2 Dependence on renal dialysis; Z99.81 Dependence on supplemental oxygen; Z88.1 Allergy status to other antibiotic agents
CPT/HCPCS: 71045; 80048; 80053; 82553; 82962 ×2; 83605; 83735; 84484; 85025 ×2; 85610; 87070; 87205; 93005; 94640 ×3; 94760; 99291; G0378; 36415; 36416; 90935; G0257; J1644; J1815; J7620

== ENCOUNTER 2018-02-28 10:28 | Inpatient (IN) | payer MEDICARE, MEDICAID ==
[2018-02-28 11:51] LABS: #Eosinphils 0.2 thou/uL (0.0-0.7); #Lymphocytes 1.1 thou/uL (1.20-3.40); #Monocytes 0.5 thou/uL (0.11-0.59); #Neutrophils 4.3 thou/uL (1.40-6.50); %Basophils 0.6 % (0.0-1.0); %Eosinophils 2.8 % (0.0-10.0); %Lymphocytes 18.4 % (21.0-51.0); %Neutrophils 70.2 % (42.0-75.0); Hemoglobin 12.4 g/dL (12.0-16.0); Mean Corpuscular HGB CONC 30.3 g/dL (32.0-36.0); Mean Corpuscular Volume 95.6 fl (81.0-99.0); Mean Platelet Volume 7.9 fL (7.4-10.4); Platelet Count 174 thou/uL (130-400); RBC Distribution Width 15.3 % (11.5-14.5); Red Blood Cell (RBC) Count 4.27 mill/uL (4.20-5.40); White Blood Cell (WBC) Count 6.1 thou/uL (4.8-10.8)
[2018-02-28 11:57] LABS: INR-International Normal Ratio 1.5; PTT 40.1 SEC (22.9-36.1); Prothrombin Time 18.9 SEC (12.0-14.7)
[2018-02-28 12:15] LABS: ALT (SGPT) 7 U/L (8-55); AST (SGOT) 14 U/L (5-34); Albumin 3.2 g/dL (3.4-4.8); Alkaline Phosphatase 93 U/L (40-150); Anion Gap 11 mmol/L (10-20); BUN (Urea Nitrogen) 31 mg/dL (9.8-20.1); Bilirubin, Total 0.4 mg/dL (0.2-1.2); Calc. Creatinine Clearance 0 mL/min (70-130); Calcium 10.2 mg/dL (7.8-10.44); Carbon Dioxide 30 mmol/L (23-31); Chloride 101 mmol/L (98-107); Estimated GFR-MDRD 12; Globulin 3.5 g/dL (2.4-3.5); Glucose 111 mg/dL (83-110); Potassium 4.5 mmol/L (3.5-5.1); Protein, Total 6.7 g/dL (6.0-8.3); Sodium 137 mmol/L (136-145)
--- NOTE | 2018-02-28 13:00 | ULT ---
RIGHT UPPER EXTREMITY DIALYSIS FISTULA ULTRASOUND EXAMINATION Date: 02-28-18 History: Right upper extremity dialysis fistula pain. Technique: Multiple longitudinal and transverse images of the right upper extremity dialysis fistula was obtained using a multihertz linear array transducer. Real-time, color flow and spectral waveform doppler analysis is used to evaluate the upper extremity. FINDINGS: The right subclavian vein, axillary vein are patent. The draining portions of the right upper extremi ty dialysis fistula is patent without evidence of clot. The fistula itself is patent. The end flow is also patent. Hyperechoic noncompressible clot is seen in the right internal jugular vein. IMPRESSION: Right upper extremity dialysis fistula is patent. There is acute clot in the right internal jugular v ein. POS: DIONICIO
[2018-02-28] MEDS ORDERED: Heparin 5,000 UNITS/ML VIAL ONE (15:05)
[2018-02-28] MEDS ORDERED: Heparin 25,000 units/D5W 500 ML ONE (15:05)
[2018-02-28] MEDS ORDERED: Heparin 10,000 UNITS/ 10 ML VIAL SLOW IVP SCH (15:15)
[2018-02-28] MEDS ORDERED: Guaifenesin DM 100-10/5 ML UDCUP PO PRN (15:38)
[2018-02-28] MEDS ORDERED: Albuterol Sulfate 2.5 mg/3 ml Neb NEB PRN (15:38)
--- NOTE | 2018-02-28 15:52 | ULT ---
PELVIC ULTRASAOUND: Date: 02/28/18 HISTORY: Pelvic pain and vaginal bleeding. FINDINGS: Multiple transabdominal sonographic images of the pelvis are obtained. Endovaginal imaging was not pe rformed. FINDINGS: The ovaries are not visualized bilaterally. The uterus is not well seen on this exam. The uterus, whe re visualized, measures 6.6 cm x 3.2 cm x 2.9 cm. Endometrial stripe cannot be delineated. No obvious fluid or fluid collection is seen in the endometrial canal. No free fluid is seen in the pelvis. IMPRESSION: Limited examination with nonvisualization of bilateral ovaries and only limited evaluation of the carrie kevin. However, no gross abnormalities are seen involving the uterus. POS: DIONICIO
--- NOTE | 2018-02-28 17:03 | HP ---
DATE OF ADMISSION: 02/28/2018 CHIEF COMPLAINT: Right arm pain. HISTORY OF PRESENT ILLNESS: This is a 77-year-old, morbidly obese, white female with a known history of end-stage renal disease, patient of Dr. Underwood. The patient was having some pain in the right arm s wednesday, associated with worsening swelling. Then, she noticed that she was having some vaginal bleeding, which was progressively getting worse. She decided to come to the ER specifically for the bleeding. The patient has a known history of a recent aortic valve replacement and was started on Co umadin for that reason. She has a Port-A-Cath on her right side to which she gets dialysis and has a right AV access, which is still not matured, and has been followed by Dr. Beckman. The patient was s een in the ER, she was alert and oriented. She did not have any fever, no nausea, no vomiting, no di arrhea, no constipation. She continues to have the vaginal bleeding. PAST MEDICAL HISTORY: 1. End-stage renal disease, on hemodialysis. 2. Congestive heart failure with moderate MR and severe aortic stenosis, which was recently replaced . 3. Type 2 diabetes mellitus, insulin-dependent. 4. Dyslipidemia. 5. Hypertension. 6. Chronic home oxygen. 7. Chronic obstructive pulmonary disease. 8. Chronic atrial fibrillation. 9. Severe aortic stenosis as above, which is being corrected. PAST SURGICAL HISTORY: 1. Aortic valve replacement 3 weeks ago. 2. x2. 3. Right forearm fistula creation and the right chest PermCath placement on 11/28/2017. HOME MEDICATIONS: 1. Albuterol inhaler. 2. Lasix 40 mg daily. 3. Guaifenesin. 4. Lantus 30 units subcu b.i.d. 5. Humalog 60 units a.c. and at bedtime. 6. Ipratropium inhaler. 7. Amlodipine 5 mg p.o. 8. Erythromycin. 9. Fluticasone. 10. Hydralazine 25 mg p.o. b.i.d. 11. Isosorbide mononitrate 20 mg p.o. b.i.d. 12. Zocor 40 mg p.o. at bedtime. 13. Coreg 12.5 mg p.o. b.i.d. 14. Coumadin 2.5 mg daily, except for Wednesdays and Saturdays; on those day, she takes 5 mg. ALLERGIES: BACTRIM. FAMILY HISTORY: Negative for any clots or bleeding disorder. SOCIAL HISTORY: No history of smoking. No history of alcohol. No history of illicit drug use. She lives with her daughter and grandson. REVIEW OF SYSTEMS: All 12 systems are reviewed with the patient thoroughly and found to be negative at this time. Constitutional: Weight loss or gain, sense of well-being, ability to conduct usual activities, exerc ise tolerance. Skin/Breast: Rash, itching, changes in hair growth or loss, nail changes, breast lumps, tenderness, swelling, nipple discharge. Eyes: Vision, double vision, tearing, blind spots, pain. ENT/Mouth: Headaches (location, time of onset, duration, precipitating factors), vertigo, lightheadedness, injury. Vision, double vision, tearing, blind spots, pain, nose b leeding, colds, obstruction, discharge, dental difficulties, gingival bleeding, dentures, neck stiffn ess, pain, tenderness, masses in thyroid or other areas Cardiovascular: Precordial pain, substernal distress, palpitations, syncope, dyspnea on exertion, or thopnea, nocturnal paroxysmal dyspnea, edema, cyanosis, hypertension, heart murmurs, varicosities, ph lebitis, claudication. Respiratory: Pain, shortness of breath, wheezing, stridor, cough, hemoptysis, fever or night sweats Gastrointestinal: Poor appetite, dysphagia, indigestion, abdominal pain, heartburn, eructation, naus ea, vomiting, hematemesis, jaundice, constipation, or diarrhea, abnormal stools (camila-colored, tarry, bloody, greasy, foul smelling), flatulence, hemorrhoids, recent changes in bowel habits. Genitourinary: Urgency, frequency, dysuria, nocturia, hematuria, polyuria, oliguria, unusual (or flaco nge in) color of urine, stones, hesitancy, change in size of stream, dribbling, acute retention or in continence, libido, potency. Musculoskeletal: Pain, swelling, redness or heat of muscles or joints, limitation, of motion, muscular weakness, atrophy, cramps. Neurologic/Psychiatric: Convulsions, paralyses, tremor, incoordination, parasthesias, difficulties w ith memory of speech, sensory or motor disturbances, or muscular coordination (ataxia, tremor), emoti onal problems, anxiety, depression, previous psychiatric care, unusual perceptions, hallucinations. Allergy/Immunologic: Skin rash, anemia, bleeding tendency, polydipsia, polyuria, intolerance to heat or cold. PHYSICAL EXAMINATION: VITAL SIGNS: Blood pressures are 120/88, respiratory rate is 18, saturation is 94% on 2 liters. GENERAL: The patient is moderately built and morbidly obese. She is alert and oriented x3. HEENT: Atraumatic, normocephalic. PERRLA. Extraocular movements were intact. Oral mucosa pink and moist. CARDIOVASCULAR: S1, S2 normal. No murmurs, rubs or gallops. LUNGS: Bilateral air entry was equal. No wheezing, no crackles. ABDOMEN: Soft, nontender. No guarding. No rebound tenderness. Bowel sounds normal. MUSCULOSKELETAL: No calf tenderness. No pedal edema. No joint tenderness. No joint swelling. SKIN: No cyanosis, no erythema, no rash, no pallor. NEUROLOGIC: Cranial nerve examination II-XII intact. No focal deficits were noted. PSYCHIATRIC: No suicidal ideation. No signs of pasha. LABORATORY DATA: WBC 6.1, hemoglobin 12.5, hematocrit is 40.8, platelets is 174. Sodium 137, potass ium 4.5, chloride 101, bicarbonate 30, BUN 31, creatinine 3.66. IMAGING: Ultrasound of the pelvis was done, which showed evidence of bilateral ovaries. Limited joyce luation of the uterus; however, no gross abnormalities are seen involving the uterus. Vascular ultra sound was done which showed an evidence of DVT in the right internal jugular vein. ASSESSMENT: 1. Acute right internal jugular deep venous thrombosis. 2. Acute vaginal bleeding. 3. Morbid obesity. 4. End-stage renal disease. 5. Status post aortic valve replacement and needing anticoagulation. 6. Type 2 diabetes mellitus. 7. Morbid obesity. 8. Chronic obstructive pulmonary disease. 9. Chronic hypoxic respiratory failure. 10. Hypertension. 11. Hyperlipidemia. PLAN: 1. The plan is to closely monitor this patient at this time. We will start the patient on heparin d rip per DVT protocol as the patient is high risk for clots secondary to prosthetic aortic valve. She is also be continued on the Coumadin. We will closely monitor this and will plan to consult Hematol ogy if needed as the patient failed on the Coumadin therapy. Either this could be because of the pat ient not being compliant or the patient could be resistant to Coumadin. 2. The patient has vaginal bleeding. SUBSTANCE ABUSE RN Hospitalist had been consulted. We will follow with eir recommendations currently. Ultrasound of the pelvis was done, which did not show any evidence of bleeding source or any cause for the bleeding. We will closely monitor her bleeding status. 3. The patient has a history of chronic obstructive pulmonary disease. We will closely monitor. Co ntinue the patient on the home medications. 4. The patient has a history of chronic hypoxia, on oxygen. We will continue with this at this time . 5. The patient has end-stage renal disease, on hemodialysis. We will consult Dr. Underwood and continue w ith hemodialysis per her schedule. 6. Hypertension is well controlled. We will closely monitor. 7. Code status has been discussed and the patient is a FULL CODE per the discussion. I spent 30 min utes with advanced care plan. I spent 75 minutes with this patient.
[2018-02-28] MEDS ORDERED: Ondansetron HCl/PF 4 MG/2 ML Vial IVP PRN (18:21)
[2018-02-28] MEDS ORDERED: Acetaminophen 325 MG TAB PO PRN (18:21)
[2018-02-28] MEDS ORDERED: HYDROcodone/Acetaminophen 5/325 mg Tablet PO PRN (18:21)
[2018-02-28 18:25] VITALS: BMI 55.2
[2018-02-28] MEDS: Calcium Acetate 667 MG CAP PO SCH (19:08)
[2018-02-28] MEDS: Ferrous Sulfate 325 MG TAB PO SCH (19:08)
[2018-02-28] MEDS: Carvedilol 6.25 MG TAB PO SCH (19:08)
[2018-02-28] MEDS ORDERED: INSULIN GLARGINE HUM REC ANLOG 30 UNIT SC SCH (21:00)
--- NOTE | 2018-02-28 21:53 | CON ---
DATE OF CONSULTATION: 02/28/2018 TIME OF SERVICE: 1900. ADMITTING PHYSICIAN: Ron Christy MD. CONSULTING PHYSICIAN: Josh Montemayor MD. REASON FOR CONSULTATION: Vaginal bleeding postmenopausal. HISTORY OF PRESENT ILLNESS: Ms. Cox is a 77-year-old 2, para 2, morbidly obese white female with a long history of multiple medical conditions. These include end-stage renal disease on dialys is, aortic valve disease status post AVR, anticoagulation status post AVR, diabetes mellitus, hyperte nsion, chronic home oxygen for COPD, chronic atrial fibrillation. She reports that on Wednesday one o f her caregivers noted some blood in her underwear that they said was fairly significant amount. Sin ce then, only a small amount has been noted. She denies pain. OB-PEDIATRIC ONCOLOGIST HISTORY: x2, no history of dysplasia, 20 years status post menopause. PAST MEDICAL HISTORY: As noted in the HPI. PAST SURGICAL HISTORY: C-sections, AVR and right forearm AV fistula for PermCath. MEDICATIONS: Include albuterol, Lasix, guaifenesin, Lantus, Humalog, asthma inhaler, amlodipine, devi thromycin, fluconazole, hydralazine, Isordil, Coreg, Zocor and Coumadin. ALLERGIES: BACTRIM. FAMILY HISTORY: No family history of gynecologic malignancy. SOCIAL HISTORY: Denies tobacco, alcohol or IV drug abuse. PHYSICAL EXAMINATION GENITOURINARY: Limited. ABDOMEN: Unremarkable except for her morbid obesity. Perineum has no gross blood at this time. Per ER doctor, they noted a small amount of old blood in the vagina. PELVIC: As the patient is in a hospital bed with morbid obesity, pelvic exam is impossible and was d eferred. LABORATORY DATA: Hematocrit is 41%, white count is normal at 6.1. PT is elevated at 18.9, PTT is 40 .1. Her creatinine is elevated at 3.6. RADIOLOGIC STUDIES: Vaginal and abdominal pelvic ultrasound was ordered. Vaginal was not performed secondary to patient discomfort. Abdominal ultrasound was suboptimal with no evaluation of the endom etrial stripe secondary to the patient's large obese abdomen; however, her uterus only measured 6 x 3 x 3 cm. No free fluid was noted. IMPRESSION AND PLAN: Postmenopausal bleeding/spotting on a chronically anticoagulated morbidly obese white female with diabetes, heart disease and chronic obstructive pulmonary disease. The etiology of the patient's bleeding is uncertain. Certainly, the patient has a risk for endometri al hyperplasia with or without atypia and endometrial cancer. This is secondary to her unopposed est rogen from peripheral conversion and her morbid obesity. However, she is at increased risk for vagin al bleeding even in the absence of these secondary to her anticoagulation. Ultrasound is not suggest manas of endometrial malignancy. With the patient's multiple issues and disease status along with her morbid obesity, she would not be a surgical candidate. Likely treatment of hyperplasia with or witho ut atypia and/or endometrial malignancy would be chronic progestin therapy. PLAN: We will start Provera 20 mg t.i.d. for 2 days, decrease to 20 mg b.i.d. for 2 days, then go to 10 mg p.o. b.i.d. for 2 days, and then drop to 10 mg daily. We would recommend this on a chronic ba sis, both in hospital or in the outpatient detention facility or home basis. If bleeding incre ases or recurs, would need to take the patient to the operating room or somewhere appropriate for pel neftali exam, although visualization of the cervix and obtaining endometrial sampling with the patient's morbid obesity would be difficult.
[2018-02-28] MEDS: Atorvastatin Calcium 20 MG TAB PO SCH (21:58)
[2018-02-28] MEDS: Loratadine 10 MG TAB PO SCH (21:58)
[2018-02-28] MEDS: medroxyPROGESTERone Acetate 5 MG TAB PO SCH (21:58)
[2018-02-28] MEDS: Docusate 100 MG CAP PO SCH (21:59)
[2018-02-28] MEDS: hydrALAZINE 25 MG TAB PO SCH (21:59)
[2018-02-28] MEDS: Insulin Glargine 30 UNITS in Pre-Filled Syringe 1 EACH SC SCH (21:59)
[2018-02-28 22:18] LABS: PTT Greater than 250.0 SEC (22.9-36.1)
--- NOTE | 2018-02-28 22:36 | CON ---
HISTORY OF PRESENT ILLNESS: Ms. Cox is a 77-year-old white female with known history of ESRD and ad mitted for vaginal bleeding. She also complained of her right upper extremity swelling. Vascular st udies were done which showed an no axillary or subclavian venous thrombosis; however, finding of an I J thrombosis was noted. In addition, the blood vessels were noted to be patent. She does have a rig ht IJ catheter on that side. She also complained of vaginal bleeding. The pelvic ultrasound was done which also showed no gross a bnormalities. COAL TRAM DRIVER consult has been done. We are being consulted for maintenance hemodialysis. REVIEW OF SYSTEMS: Positive for right upper extremity swelling and vaginal bleeding. The patient de nies any chest pain, shortness of breath. No nausea, no vomiting, no diarrhea, no constipation, no p roductive cough, no fever or chills, no headache, no diplopia, no sore throat, no hematochezia, no me pippa. Positive for vaginal bleeding. HOME MEDICATIONS: Includes hydralazine 25 mg p.o. b.i.d., Coumadin 2.5 mg daily, simvastatin 40 mg a t bedtime, sertraline 25 mg daily, levocetirizine 1 tab at bedtime, DuoNeb q.4 hours p.r.n., Lantus i nsulin 30 units subcu b.i.d., NovoLog FlexPen 6 units subcutaneous before meals, colic vitamin D3 200 0 international units daily, calcium acetate 667 mg p.o. t.i.d. with meals, amlodipine 5 mg daily. PAST MEDICAL HISTORY: 1. Aortic valve disease. 2. End-stage renal disease. 3. Chronic obstructive pulmonary disease. 4. Status post congestive heart failure. 5. Patient also has a history of morbid obesity. 6. Hyperlipidemia. 7. Hypertension. 8. History of macular degeneration. 9. Type 2 diabetes mellitus. 10. Diabetic nephropathy. PAST SURGICAL HISTORY: 1. Status post cuffed hemodialysis catheter placement. 2. Status post cardiac catheterization. 3. Status post right cataract surgery. 4. Status post section. 5. Status post TAVR - done in [place]. SOCIAL HISTORY: Currently at the [facility]. 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 The patient lives in [place]. No smoking, no alcohol intake, sed entary lifestyle. Status post blood transfusion. Education high school. FAMILY HISTORY: Positive family history of ESRD. ALLERGIES: None. TRAUMA: None. IMMUNIZATIONS: Up to date. HOSPITALIZATIONS: Please see past medical history. PHYSICAL EXAMINATION: VITAL SIGNS: Blood pressure noted at 140/70, heart rate 70. GENERAL: Awake, supine, comfortable, morbidly obese. SKIN: Adequate turgor. HEENT: Pinkish conjunctivae, anicteric sclerae. NECK: No neck mass, no carotid bruits, no JVD. CHEST: No deformities. LUNGS: Clear breath sounds, no wheezing, no crackles. HEART: Normal sinus rhythm. No murmur, no gallops, no rubs. ABDOMEN: Globular, soft, nontender, no masses. EXTREMITIES: No edema, no deformities. Please note that right upper extremity has only very minimal swelling. LABORATORY AND X-RAY FINDINGS: Of 02/28/2018, white count 6.1, hemoglobin 12.4, hematocrit 40.8. So dium 137, potassium 4.5, chloride 101, carbon dioxide 30, BUN 31, creatinine 3.66, glucose 111, calci um 10.2, AST 14, ALT 7, albumin 3.2. White count is 6.1, hemoglobin 12.4, hematocrit 40.8. ASSESSMENT AND PLAN: 1. End-stage renal disease from diabetic nephropathy, stable. We will continue current Wednesday, Wed, and Wednesday hemodialysis regimen. Fluid removal as tolerated. 2. Incidental finding of IJ thrombosis - patient is on Coumadin. We will adjust Coumadin, currently also started on a heparin drip. 3. Right upper extremity swelling - minimal physical findings. Please note axillary vein and subcla vian vein are noted to be patent. 4. Vaginal bleeding. COAL TRAM DRIVER consult has been done for further pelvic evaluation. Overall, prognosis remains guarded.
[2018-03-01 01:11] LABS: PTT 242.8 SEC (22.9-36.1)
[2018-03-01 05:11] LABS: #Eosinphils 0.3 thou/uL (0.0-0.7); #Lymphocytes 1.4 thou/uL (1.20-3.40); #Monocytes 0.7 thou/uL (0.11-0.59); #Neutrophils 3.7 thou/uL (1.40-6.50); %Basophils 0.6 % (0.0-1.0); %Eosinophils 4.2 % (0.0-10.0); %Lymphocytes 22.5 % (21.0-51.0); %Monocytes 10.8 % (0.0-10.0); %Neutrophils 61.8 % (42.0-75.0); Hemoglobin 11.6 g/dL (12.0-16.0); Mean Corpuscular HGB CONC 30.4 g/dL (32.0-36.0); Mean Corpuscular Hemoglobin 28.9 pg (27.0-31.0); Mean Corpuscular Volume 95.3 fl (81.0-99.0); Mean Platelet Volume 8.1 fL (7.4-10.4); Platelet Count 175 thou/uL (130-400); RBC Distribution Width 15.3 % (11.5-14.5); Red Blood Cell (RBC) Count 4.02 mill/uL (4.20-5.40)
[2018-03-01 05:22] LABS: Anion Gap 10 mmol/L (10-20); BUN (Urea Nitrogen) 36 mg/dL (9.8-20.1); Calc. Creatinine Clearance 31 mL/min (70-130); Calcium 9.6 mg/dL (7.8-10.44); Carbon Dioxide 28 mmol/L (23-31); Chloride 102 mmol/L (98-107); Estimated GFR-MDRD 12; Glucose 112 mg/dL (83-110); Potassium 4.1 mmol/L (3.5-5.1); Sodium 136 mmol/L (136-145)
[2018-03-01] MEDS: medroxyPROGESTERone Acetate 5 MG TAB PO SCH ×3 (05:57→21:36)
[2018-03-01] MEDS: Carvedilol 6.25 MG TAB PO SCH ×2 (07:44→17:26)
[2018-03-01] MEDS: HumaLOG 300 UNITS/3 ML VIAL SC SCH ×3 (07:44→17:30)
[2018-03-01] MEDS: Calcium Acetate 667 MG CAP PO SCH ×3 (07:44→17:27)
[2018-03-01] MEDS: Ferrous Sulfate 325 MG TAB PO SCH ×2 (07:44→17:27)
[2018-03-01] MEDS: Heparin 25,000 units/D5W 500 ML IV SCH ×2 (08:16→21:37)
[2018-03-01] MEDS ORDERED: Prevnar 13-Val Conj/PF 0.5 ML SYRINGE IM ONE (09:00)
[2018-03-01] MEDS ORDERED: Heparin 10,000 UNITS/ 10 ML VIAL ONE (10:00)
--- NOTE | 2018-03-01 12:58 | PRG ---
DATE OF SERVICE: 03/01/2018 RENAL MEDICINE SUBJECTIVE: Ms. Cox is a 77-year-old white female with ESRD and being followed by the [facility] for her maintenance hemodialysis. She was initially admitted for mild right upper extremity swellin g and vaginal bleeding. Steward/Stewardess has seen the patient and she has been started and it has been r ecommended that she will be started on Provera. We are following this patient for maintenance hemodialysis. She is currently at the dialysis center and I am the bedside supervising her dialysis. PHYSICAL EXAMINATION: VITAL SIGNS: Blood pressure 150/66, heart rate 60, respiratory rate 18, temperature 97.6, pulse ox 9 8%. GENERAL: She is noted to be awake, supine, comfortable, not in distress, obese. SKIN: Adequate turgor. HEENT: Pinkish conjunctivae, anicteric sclerae. NECK: No neck mass, no carotid bruits, no JVD. CHEST: No deformities. LUNGS: Clear breath sounds, no wheezing, no crackles. HEART: Normal sinus rhythm. No murmur, no gallops, no rubs. ABDOMEN: Globular, soft, nontender, no masses. EXTREMITIES: Trace edema. MEDICATIONS: Medications of 03/01/2018 was reviewed. LABORATORY DATA: Laboratories of 03/01/2018; hemoglobin 11.6. Sodium 136, potassium 4.1, chloride 1 02, carbon dioxide 28, BUN 36, creatinine 3.62, GFR 12 mL per minute, glucose 112, calcium 9.6. ASSESSMENT AND PLAN: 1. End-stage renal disease, stable. Tolerating current hemodialysis regimen. No heparin use. Flui d removal as tolerated by the patient. 2. Vaginal bleeding - ASSISTANT VICE PRESIDENT is following. Started on Provera. Continue supportive care. 3. Right upper extremity swelling. Doppler of the right upper extremity shows patent blood vessels.
[2018-03-01] MEDS: Amlodipine 5 MG TAB PO SCH (13:22)
[2018-03-01] MEDS: Fluticasone Propionate Nasal Spray 16 gm Bottle NASAL SCH (13:23)
[2018-03-01] MEDS: Docusate 100 MG CAP PO SCH ×2 (13:23→21:18)
[2018-03-01] MEDS: hydrALAZINE 25 MG TAB PO SCH ×2 (13:25→21:16)
[2018-03-01 13:26] LABS: INR-International Normal Ratio 1.6
[2018-03-01] MEDS: Insulin Glargine 30 UNITS in Pre-Filled Syringe 1 EACH SC SCH ×2 (13:33→21:18)
--- NOTE | 2018-03-01 14:36 | PDOC.PN ---
- Subjective Encounter Start Date: 03/01/18 Encounter Start Time: 10:00 Patient is seen today, alert and oriented. No other Concerns noted. She is at Dialysis, Started on progesterone by OBGyn hospitalist, bleeding reduced. - Objective Resuscitation Status: Resuscitation Status FULL:Full Resuscitation MAR Reviewed: Yes Vital Signs & Weight: Vital Signs (12 hours) Temp Pulse Resp BP Pulse Ox 03/01/18 14:23 59 L 18 96 03/01/18 13:16 97.4 F L 60 18 131/58 L 100 03/01/18 07:19 97.6 F 60 18 150/66 H 98 03/01/18 03:56 98 03/01/18 03:55 98 03/01/18 03:46 96.2 F L 60 16 141/63 H 100 Weight Weight 326 lb 14.4 oz Result Diagrams: 03/01/18 04:34 03/01/18 04:34 Additional Labs: Accuchecks 03/01/18 03/01/18 02/28/18 13:17 05:58 20:50 POC Glucose 125 H 119 H 115 H Radiology Reviewed by me: Yes Phys Exam - Physical Examination HEENT: PERRLA, moist MMs Neck: no nodes, no JVD Respiratory: no wheezing, no rales Cardiovascular: RRR, no significant murmur Gastrointestinal: soft, non-tender Musculoskeletal: no edema, pulses present Neurological: non-focal, normal sensation Lymphatic: no nodes Psychiatric: normal affect, A&O x 3 Dx/Plan (1) Vaginal bleeding, abnormal Code(s): N93.9 - ABNORMAL UTERINE AND VAGINAL BLEEDING, UNSPECIFIED Status: Acute Comment: PT is started on progesterone 20mg on tapering dose to 10mg by Obn HGospitalist, Slowing down GI bleeding now. Closley monitor. (2) Internal jugular (IJ) vein thromboembolism, acute Code(s): I82.C19 - ACUTE EMBOLISM AND THROMBOSIS OF UNSP INTERNAL JUGULAR VEIN Status: Acute Comment: PT is on Coumedin and Heparin drip, Will monitor Closley, if INR is Therapeutic will d/c heparin drip. (3) Acute on chronic kidney failure Code(s): N17.9 - ACUTE KIDNEY FAILURE, UNSPECIFIED; N18.9 - CHRONIC KIDNEY DISEASE, UNSPECIFIED Status: Acute Comment: esrd, initiated on HD (4) Chronic atrial fibrillation Code(s): I48.2 - CHRONIC ATRIAL FIBRILLATION Status: Chronic Comment: On Coumedin with INR goal 2-3 (5) Diabetes mellitus type 2 Code(s): E11.9 - TYPE 2 DIABETES MELLITUS WITHOUT COMPLICATIONS Status: Chronic Comment: On Levemir 15u BID (6) Morbid obesity Code(s): E66.01 - MORBID (SEVERE) OBESITY DUE TO EXCESS CALORIES Status: Chronic (7) Obstructive sleep apnea Code(s): G47.33 - OBSTRUCTIVE SLEEP APNEA (ADULT) (PEDIATRIC) Status: Chronic Comment: On Cpap at Night (8) Anticoagulated on Coumadin Code(s): Z51.81 - ENCOUNTER FOR THERAPEUTIC DRUG LEVEL MONITORING; Z79.01 - WHEAT SHIPPER (CURRENT) USE OF ANTICOAGULANTS Status: Acute Comment: On coumedin for Aortic prosthetic valvem if Therapeutoic can be dischagred to Home. - Plan cont current plan of care, PT/OT, manager social work, respiratory therapy, incentive spirometry, out of bed/ambulate, DVT proph w/heparin * .
[2018-03-01 14:56] LABS: PTT 180.1 SEC (22.9-36.1)
[2018-03-01] MEDS ORDERED: Warfarin Sodium 2.5 MG TAB PO SCH (17:00)
[2018-03-01] MEDS: Atorvastatin Calcium 20 MG TAB PO SCH (21:18)
[2018-03-01] MEDS: Loratadine 10 MG TAB PO SCH (21:18)
[2018-03-02 01:03] LABS: PTT 181.2 SEC (22.9-36.1)
[2018-03-02 03:47] LABS: INR-International Normal Ratio 1.4; Prothrombin Time 17.6 SEC (12.0-14.7)
[2018-03-02] MEDS: medroxyPROGESTERone Acetate 5 MG TAB PO SCH ×2 (05:29→13:21)
[2018-03-02] MEDS: HumaLOG 300 UNITS/3 ML VIAL SC SCH ×3 (05:55→17:35)
[2018-03-02] MEDS: Carvedilol 6.25 MG TAB PO SCH ×2 (08:02→17:34)
[2018-03-02] MEDS: Calcium Acetate 667 MG CAP PO SCH ×3 (08:02→17:35)
[2018-03-02] MEDS: Docusate 100 MG CAP PO SCH ×2 (08:02→21:03)
[2018-03-02] MEDS: Ferrous Sulfate 325 MG TAB PO SCH ×2 (08:03→17:35)
[2018-03-02] MEDS: Amlodipine 5 MG TAB PO SCH (08:04)
[2018-03-02] MEDS: hydrALAZINE 25 MG TAB PO SCH ×2 (08:05→21:03)
[2018-03-02] MEDS: Fluticasone Propionate Nasal Spray 16 gm Bottle NASAL SCH (08:07)
[2018-03-02] MEDS: Insulin Glargine 30 UNITS in Pre-Filled Syringe 1 EACH SC SCH ×2 (09:56→21:03)
--- NOTE | 2018-03-02 13:06 | PDOC.PN ---
- Subjective Encounter Start Date: 03/02/18 Encounter Start Time: 11:40 Subjective: wants her heparin drip to be stopped -: no sob, her vaginal bleed is receding per staff - Objective Resuscitation Status: Resuscitation Status FULL:Full Resuscitation MAR Reviewed: Yes Vital Signs & Weight: Vital Signs (12 hours) Temp Pulse Resp BP BP Pulse Ox 03/02/18 10:42 70 14 03/02/18 08:05 64 03/02/18 08:04 64 121/54 L 03/02/18 08:02 121/54 L 03/02/18 08:00 97.7 F 64 14 121/54 L 98 03/02/18 06:45 70 16 03/02/18 04:45 97.3 F L 60 18 140/75 99 03/02/18 02:02 92 L Weight Admit Weight 326 lb 14.4 oz Weight 326 lb 14.4 oz I&O: 03/01/18 03/02/18 03/03/18 06:59 06:59 06:59 Intake Total 1389 Output Total 0 Balance 1389 Result Diagrams: 03/01/18 04:34 03/01/18 04:34 Additional Labs: Accuchecks 03/02/18 03/02/18 03/01/18 11:30 05:39 20:36 POC Glucose 91 91 175 H 03/01/18 03/01/18 16:59 13:17 POC Glucose 121 H 125 H Phys Exam - Physical Examination HEENT: PERRLA, moist MMs Neck: no JVD, supple Respiratory: no wheezing, no rales Cardiovascular: RRR, no significant murmur Gastrointestinal: soft, non-tender, no distention, positive bowel sounds Musculoskeletal: no edema, pulses present Neurological: non-focal, moves all 4 limbs Psychiatric: normal affect, A&O x 3 Dx/Plan (1) Vaginal bleeding, abnormal Code(s): N93.9 - ABNORMAL UTERINE AND VAGINAL BLEEDING, UNSPECIFIED Status: Acute Comment: PT is started on progesterone 20mg on tapering dose to 10mg by ObGyn Hospitalist, Slowing down vaginal bleeding now. Nathailaley monitor. (2) ESRD (end stage renal disease) on dialysis Code(s): N18.6 - END STAGE RENAL DISEASE; Z99.2 - DEPENDENCE ON RENAL DIALYSIS Status: Chronic (3) Normocytic anemia Code(s): D64.9 - ANEMIA, UNSPECIFIED Status: Chronic (4) Adult body mass index 50.0-59.9 Code(s): Z68.43 - BODY MASS INDEX (BMI) 50-59.9 , ADULT Status: Chronic (5) Atrial fibrillation Code(s): I48.91 - UNSPECIFIED ATRIAL FIBRILLATION Status: Chronic Qualifiers: Atrial fibrillation type: paroxysmal Qualified Code(s): I48.0 - Paroxysmal atrial fibrillation (6) Chronic diastolic heart failure Code(s): I50.32 - CHRONIC DIASTOLIC (CONGESTIVE) HEART FAILURE Status: Chronic (7) Diabetes mellitus type 2 Code(s): E11.9 - TYPE 2 DIABETES MELLITUS WITHOUT COMPLICATIONS Status: Chronic (8) Hyperlipidemia Code(s): E78.5 - HYPERLIPIDEMIA, UNSPECIFIED Status: Chronic (9) Hypertension Code(s): I10 - ESSENTIAL (PRIMARY) HYPERTENSION Status: Chronic Qualifiers: Hypertension type: essential hypertension Qualified Code(s): I10 - Essential (primary) hypertension Comment: controlled - Plan on provera taper -: continue coumadin, dc heparin drip, d/w -: on coreg, asp, lipitor, hydralazine and lantus -: dc plan in am to [place]or/home with PT and nursing -: to mobilize as tolerated * . Review of Systems - Medications/Allergies Allergies/Adverse Reactions: Allergies Allergy/AdvReac Type Severity Reaction Status Date / Time sulfamethoxazole Allergy Verified 02/28/18 18:25 [From Bactrim] trimethoprim [From Bactrim] Allergy Verified 02/28/18 18:25 Medications: Current Medications Acetaminophen (Tylenol) 650 mg PO Q4H PRN PRN Reason: Headache/Fever or Pain Hydrocodone Bitart/Acetaminophen ([place] 5/325) 1 tab PO Q4H PRN PRN Reason: Moderate Pain (4-6) Albuterol Sulfate (Ventolin) 2.5 mg NEB Q2H PRN PRN Reason: Wheezing Albuterol/Ipratropium (Duoneb) 3 ml NEB [id number] [facility] Last Admin: 03/02/18 10:42 Dose: 3 ml Amlodipine Besylate (Norvasc) 5 mg PO DAILY [facility] Last Admin: 03/02/18 08:04 Dose: Not Given Aspirin (Aspirin Chewable) 81 mg PO DAILY [facility] Last Admin: 03/02/18 08:06 Dose: Not Given Atorvastatin Calcium (Lipitor) [address] [facility] Last Admin: 03/01/18 21:18 Dose: 20 mg Calcium Acetate (Phoslo) 667 mg PO TID-[facility] Last Admin: 03/02/18 12:25 Dose: 667 mg Carvedilol (Coreg) 6.25 mg PO BID-[facility] Last Admin: 03/02/18 08:02 Dose: 6.25 mg Docusate Sodium (Colace) 100 mg PO BID [facility] Last Admin: 03/02/18 08:02 Dose: 100 mg Ferrous Sulfate (Feosol) 325 mg PO BID-[facility] Last Admin: 03/02/18 08:03 Dose: 325 mg Fluticasone Propionate (Flonase Nasal [place]) 0 gm NASAL DAILY [facility] Last Admin: 03/02/18 08:07 Dose: 1 spr Guaifenesin/Dextromethorphan (Robitussin Dm) 15 ml PO Q4H PRN PRN Reason: Cough Hydralazine HCl (Apresoline) 25 mg PO BID [facility] Last Admin: 03/02/18 08:05 Dose: Not Given Insulin Glargine 30 units/ (Miscellaneous Medication) 0.3 mls @ 0 mls/hr SC [facility] Last Admin: 03/01/18 21:18 Dose: 0.3 mls Insulin Glargine 30 units/ (Miscellaneous Medication) 0.3 mls @ 0 mls/hr SC QAM [facility] Last Admin: 03/02/18 09:56 Dose: 0.2 mls Insulin Human Lispro (Humalog) 6 units SC AC [facility] Last Admin: 03/02/18 12:36 Dose: Not Given Loratadine (Claritin) [address] [facility] Last Admin: 03/01/18 21:18 Dose: 10 mg Medroxyprogesterone Acetate (Provera) 20 mg PO Q8HR [facility] Stop: 03/02/18 14:01 Last Admin: 03/02/18 05:29 Dose: 20 mg Medroxyprogesterone Acetate (Provera) 20 mg PO BID [facility] Miscellaneous Medication (Pharmacy To Dose) 0 each PO ASDIR PRN PRN Reason: Pharmacy to Dose [facility] Ondansetron HCl (Zofran) 4 mg IVP Q6H PRN PRN Reason: Nausea/Vomiting Sertraline HCl (Zoloft) 25 mg PO DAILY [facility] Last Admin: 03/02/18 08:05 Dose: 25 mg Warfarin Sodium (Coumadin) 2.5 mg PO 1700 [facility] Last Admin: 03/01/18 17:29 Dose: 2.5 mg
--- NOTE | 2018-03-02 15:05 | PRG ---
DATE OF SERVICE: 03/02/2018 SUBJECTIVE: Ms. Cox is a 77-year-old white female with ESRD and being followed by renal service for her maintenance hemodialysis. The patient requested to have her heparin drip discontinued. I discu ssed this with Dr. Cassidy and we plan to stop the IV heparin and just placed on oral Coumadin. She is doing well. Her right upper extremity swelling is actually improved. She will undergo an AV fistulogram due to the fact that the AV fistula in the right upper extremity is not maturing. No oth er complaints today. No chest pain or shortness of breath. OBJECTIVE: VITAL SIGNS: Blood pressure 121/54, heart rate 64, respiratory rate 14, temperature 97.7. GENERAL: Awake, alert, obese, comfortable, not in distress. SKIN: Adequate turgor. HEENT: She has pinkish conjunctivae, anicteric sclerae. NECK: No neck mass, no carotid bruits, no JVD. CHEST: No deformities. LUNGS: Clear breath sounds. No wheezing, no crackles. HEART: Normal sinus rhythm. No murmur, no gallops, no rubs. ABDOMEN: Globular, soft, nontender. No masses. EXTREMITIES: No edema. Right upper extremity AV fistula nonmaturing but positive for bruit. MEDICATIONS: Of 03/02/2010 reviewed. LABORATORY: Of 03/02/2018, glucose 91. On 03/01/2018, BUN 36, creatinine 3.62, hemoglobin 11.6. ASSESSMENT AND PLAN: 1. End-stage renal disease, stable. No indication for any dialytic intervention. Continue current hemodialysis regimen Wednesday, , and Wednesday. Fluid removal as tolerated. 2. Nonfunctioning AV fistula. I did examine the AV fistula. It is not maturing. The plan is for h er to schedule for an AV fistulogram. 3. Right upper extremity swelling - resolved. No indication for any IV heparin with this patient. Agree with current management.
[2018-03-02] MEDS ORDERED: Warfarin Sodium 5 MG TAB PO SCH (17:00)
[2018-03-02] MEDS: Atorvastatin Calcium 20 MG TAB PO SCH (21:02)
[2018-03-02] MEDS: Loratadine 10 MG TAB PO SCH (21:03)
[2018-03-03] MEDS: Carvedilol 6.25 MG TAB PO SCH ×2 (05:28→18:25)
[2018-03-03 05:48] LABS: INR-International Normal Ratio 1.5
[2018-03-03] MEDS: HumaLOG 300 UNITS/3 ML VIAL SC SCH ×3 (06:38→18:32)
[2018-03-03] MEDS ORDERED: Heparin 10,000 UNITS/ 10 ML VIAL ONE (09:00)
[2018-03-03] MEDS: Ferrous Sulfate 325 MG TAB PO SCH ×2 (09:39→18:25)
[2018-03-03] MEDS: Docusate 100 MG CAP PO SCH ×2 (09:39→21:17)
[2018-03-03] MEDS: Calcium Acetate 667 MG CAP PO SCH ×3 (09:40→18:25)
[2018-03-03] MEDS: hydrALAZINE 25 MG TAB PO SCH ×2 (09:40→21:26)
[2018-03-03] MEDS: Amlodipine 5 MG TAB PO SCH (09:40)
[2018-03-03] MEDS: Fluticasone Propionate Nasal Spray 16 gm Bottle NASAL SCH (09:42)
[2018-03-03] MEDS: medroxyPROGESTERone Acetate 2.5 MG TAB PO SCH ×2 (09:43→21:22)
[2018-03-03] MEDS: Insulin Glargine 30 UNITS in Pre-Filled Syringe 1 EACH SC SCH ×2 (09:44→21:20)
--- NOTE | 2018-03-03 12:21 | PDOC.PN ---
- Subjective Encounter Start Date: 03/03/18 Encounter Start Time: 11:00 Subjective: getting HD, no sob - Objective Resuscitation Status: Resuscitation Status FULL:Full Resuscitation MAR Reviewed: Yes Vital Signs & Weight: Vital Signs (12 hours) Temp Pulse Resp BP BP Pulse Ox 03/03/18 11:30 98.0 F 60 20 100/60 97 03/03/18 11:00 98.0 F 60 20 96/50 L 97 03/03/18 10:45 98.0 F 64 20 120/60 03/03/18 10:30 98.0 F 60 20 124/65 97 03/03/18 10:15 98.1 F 62 19 107/50 L 97 03/03/18 10:00 98.1 F 60 20 134/76 98 03/03/18 09:54 60 16 97 03/03/18 09:40 60 03/03/18 08:00 98.1 F 60 20 03/03/18 07:24 97.6 F 60 20 114/78 97 03/03/18 06:10 62 17 97 03/03/18 06:08 61 17 92 L 03/03/18 05:28 139/58 L 03/03/18 02:14 61 14 92 L Weight Admit Weight 326 lb 14.4 oz Weight 326 lb 14.4 oz I&O: 03/02/18 03/03/18 03/04/18 06:59 06:59 06:59 Intake Total 1389 1160 Output Total 0 1 Balance 1389 1159 Result Diagrams: 03/01/18 04:34 03/01/18 04:34 Additional Labs: Accuchecks 03/03/18 03/03/18 03/02/18 11:23 06:03 20:45 POC Glucose 129 H 87 101 03/02/18 17:03 POC Glucose 92 Phys Exam - Physical Examination HEENT: PERRLA, moist MMs Neck: no JVD, supple Respiratory: no wheezing, no rales Cardiovascular: RRR, no significant murmur Gastrointestinal: soft, non-tender, positive bowel sounds Musculoskeletal: no edema, pulses present Neurological: non-focal, moves all 4 limbs Psychiatric: normal affect, A&O x 3 Dx/Plan (1) Vaginal bleeding, abnormal Code(s): N93.9 - ABNORMAL UTERINE AND VAGINAL BLEEDING, UNSPECIFIED Status: Acute Comment: on provera taper (2) ESRD (end stage renal disease) on dialysis Code(s): N18.6 - END STAGE RENAL DISEASE; Z99.2 - DEPENDENCE ON RENAL DIALYSIS Status: Chronic (3) Normocytic anemia Code(s): D64.9 - ANEMIA, UNSPECIFIED Status: Chronic (4) Adult body mass index 50.0-59.9 Code(s): Z68.43 - BODY MASS INDEX (BMI) 50-59.9 , ADULT Status: Chronic (5) Atrial fibrillation Code(s): I48.91 - UNSPECIFIED ATRIAL FIBRILLATION Status: Chronic Qualifiers: Atrial fibrillation type: paroxysmal Qualified Code(s): I48.0 - Paroxysmal atrial fibrillation (6) Chronic diastolic heart failure Code(s): I50.32 - CHRONIC DIASTOLIC (CONGESTIVE) HEART FAILURE Status: Chronic (7) Diabetes mellitus type 2 Code(s): E11.9 - TYPE 2 DIABETES MELLITUS WITHOUT COMPLICATIONS Status: Chronic (8) Hyperlipidemia Code(s): E78.5 - HYPERLIPIDEMIA, UNSPECIFIED Status: Chronic (9) Hypertension Code(s): I10 - ESSENTIAL (PRIMARY) HYPERTENSION Status: Chronic Qualifiers: Hypertension type: essential hypertension Qualified Code(s): I10 - Essential (primary) hypertension Comment: controlled - Plan shuntogram today -: increase coumadin to 7.5mg daily, inr is 1.5 -: dc plan in am to [place], will need daily inr at [place] -: postmenopausal vaginal bleeding is stable and resolving on provera taper -: continue asp, lipitor, coreg, hydralazine, lantus 30u bid * . PT to mobilize as tolerated. Review of Systems - Medications/Allergies Allergies/Adverse Reactions: Allergies Allergy/AdvReac Type Severity Reaction Status Date / Time sulfamethoxazole Allergy Verified 02/28/18 18:25 [From Bactrim] trimethoprim [From Bactrim] Allergy Verified 02/28/18 18:25 Medications: Current Medications Acetaminophen (Tylenol) 650 mg PO Q4H PRN PRN Reason: Headache/Fever or Pain Hydrocodone Bitart/Acetaminophen ([place] 5/325) 1 tab PO Q4H PRN PRN Reason: Moderate Pain (4-6) Albuterol Sulfate (Ventolin) 2.5 mg NEB Q2H PRN PRN Reason: Wheezing Albuterol/Ipratropium (Duoneb) 3 ml NEB Q1QD-[facility] Last Admin: 03/03/18 09:54 Dose: 3 ml Amlodipine Besylate (Norvasc) 5 mg PO DAILY [facility] Last Admin: 03/03/18 09:40 Dose: 5 mg Aspirin (Aspirin Chewable) 81 mg PO DAILY [facility] Last Admin: 03/03/18 09:40 Dose: 81 mg Atorvastatin Calcium (Lipitor) 20 mg PO [facility] Last Admin: 03/02/18 21:02 Dose: 20 mg Calcium Acetate (Phoslo) 667 mg PO TID-[facility] Last Admin: 03/03/18 12:12 Dose: 667 mg Carvedilol (Coreg) 6.25 mg PO BID-[facility] Last Admin: 03/03/18 05:28 Dose: 6.25 mg Docusate Sodium (Colace) 100 mg PO BID [facility] Last Admin: 03/03/18 09:39 Dose: 100 mg Ferrous Sulfate (Feosol) 325 mg PO BID-[facility] Last Admin: 03/03/18 09:39 Dose: 325 mg Fluticasone Propionate (Flonase Nasal [place]) 0 gm NASAL DAILY [facility] Last Admin: 03/03/18 09:42 Dose: Not Given Guaifenesin/Dextromethorphan (Robitussin Dm) 15 ml PO Q4H PRN PRN Reason: Cough Hydralazine HCl (Apresoline) 25 mg PO BID [facility] Last Admin: 03/03/18 09:40 Dose: 25 mg Insulin Glargine 30 units/ (Miscellaneous Medication) 0.3 mls @ 0 mls/hr SC HS [facility] Last Admin: 03/02/18 21:03 Dose: Not Given Insulin Glargine 30 units/ (Miscellaneous Medication) 0.3 mls @ 0 mls/hr SC QAM [facility] Last Admin: 03/03/18 09:44 Dose: Not Given Insulin Human Lispro (Humalog) 6 units SC AC [facility] Last Admin: 03/03/18 12:13 Dose: Not Given Loratadine (Claritin) 10 mg PO [facility] Last Admin: 03/02/18 21:03 Dose: 10 mg Medroxyprogesterone Acetate (Provera) 20 mg PO BID [facility] Last Admin: 03/03/18 09:43 Dose: 20 mg Miscellaneous Medication (Pharmacy To Dose) 0 each PO ASDIR PRN PRN Reason: Pharmacy to Dose [facility] Ondansetron HCl (Zofran) 4 mg IVP Q6H PRN PRN Reason: Nausea/Vomiting Sertraline HCl (Zoloft) 25 mg PO DAILY [facility] Last Admin: 03/03/18 09:40 Dose: 25 mg Sodium Chloride (Flush - Normal Saline) 10 ml IVF Q12HR [facility] Last Admin: 03/03/18 09:45 Dose: 10 ml Sodium Chloride (Flush - Normal Saline) 10 ml IVF PRN PRN PRN Reason: Saline Flush Warfarin Sodium (Coumadin) 7.5 mg PO 1700 [facility]
--- NOTE | 2018-03-03 13:11 | SPC ---
RIGHT UPPER EXTREMITY FISTULOGRAM: Date: 03/03/18 EXPOSURE: 2.8 minutes. 25963 mGy*cm^2. HISTORY: Nonmaturing fistula. FINDINGS: Successful right upper extremity fistulogram. The basilic venous outflow tract demonstrates very smal l collaterals. The cephalic venous outflow tract demonstrates a single moderate collateral. There is brisk outflow of contrast. Despite manual pressure, contrast could not be refluxed into the arterial inflow. TECHNIQUE: Consent obtained to perform a right upper extremity fistulogram. Right arm was prepped and draped in the sterile fashion. 1% lidocaine, buffered with sodium bicarbonate, used for local anesthesia. Micro puncture needle was used to cannulate the basilic venous outflow tract. Via a 4 [place] sheath, right upper extremity fistulogram was performed. The cephalic and venous outflow tracts have prompt washout . Despite attempts to cause reflux, the arterial anastomosis/inflow cannot be opacified, suggesting b risk inflow. The central venous system is unremarkable. No stenosis. IMPRESSION: 1. No significant stenosis. 2. Prompt washout of the cephalic and basilic venous outflow tracts. POS: DIONICIO
[2018-03-03] MEDS ORDERED: Warfarin Sodium 7.5 MG TAB PO SCH (17:00)
--- NOTE | 2018-03-03 19:29 | PRG ---
DATE OF SERVICE: 03/03/2018 RENAL MEDICINE SUBJECTIVE: Ms. oCx is a 77-year-old white female with ESRD - on maintenance hemodialysis and admit rachel for vaginal bleeding. She was also seen for right upper extremity swelling. Doppler showed salazar nt blood vessels. In addition, she had a right AV fistulogram done today due to nonmaturing fistula. There was no significant stenosis and there was pressure of the cephalic and basilic venous outflow tracts. No other complaints today. I am at the bedside supervising her dialysis today. PHYSICAL EXAMINATION: VITAL SIGNS: Blood pressure is ranging from 90/55 to 122/60, heart rate 60, respiratory rate 20, tem perature 98, pulse ox 97% on room air. GENERAL: Awake, alert, comfortable, obese. SKIN: Adequate turgor. HEENT: She has pinkish conjunctivae, anicteric sclerae. NECK: No neck mass, no carotid bruits, no JVD. CHEST: No deformities. LUNGS: Clear breath sounds. HEART: Normal sinus rhythm. Grade 2/6 systolic murmur, no gallops, no rubs. ABDOMEN: Globular, soft, nontender, no masses. EXTREMITIES: No edema. MEDICATIONS: Medications of 03/03/2018 was reviewed. LABORATORY DATA: Laboratories of 03/01/2018; white count 6, hemoglobin 11.6. On 03/03/2018, glucose 129. ASSESSMENT AND PLAN: 1. End-stage renal disease, stable. Continuing 4-hour hemodialysis on Wednesday, , and ay. Fluid removal only as tolerated. 2. Vaginal bleeding, resolved, seen by Gynecology. Currently on hormonal replacement. We will recheck base met and CBC in a.m.
[2018-03-03] MEDS: Atorvastatin Calcium 20 MG TAB PO SCH (21:17)
[2018-03-03] MEDS: Loratadine 10 MG TAB PO SCH (21:19)
[2018-03-04 05:26] LABS: #Eosinphils 0.1 thou/uL (0.0-0.7); #Lymphocytes 1.1 thou/uL (1.20-3.40); #Monocytes 0.5 thou/uL (0.11-0.59); #Neutrophils 3.4 thou/uL (1.40-6.50); %Basophils 0.3 % (0.0-1.0); %Eosinophils 2.9 % (0.0-10.0); %Monocytes 8.7 % (0.0-10.0); %Neutrophils 66.2 % (42.0-75.0); Hemoglobin 12.3 g/dL (12.0-16.0); Mean Corpuscular Hemoglobin 29.1 pg (27.0-31.0); Mean Corpuscular Volume 93.8 fl (81.0-99.0); Mean Platelet Volume 7.9 fL (7.4-10.4); Platelet Count 198 thou/uL (130-400); RBC Distribution Width 15.2 % (11.5-14.5); Red Blood Cell (RBC) Count 4.23 mill/uL (4.20-5.40); White Blood Cell (WBC) Count 5.2 thou/uL (4.8-10.8)
[2018-03-04 05:54] LABS: Anion Gap 11 mmol/L (10-20); BUN (Urea Nitrogen) 24 mg/dL (9.8-20.1); Calc. Creatinine Clearance 43 mL/min (70-130); Carbon Dioxide 26 mmol/L (23-31); Chloride 102 mmol/L (98-107); Estimated GFR-MDRD 17; Glucose 118 mg/dL (83-110); Potassium 3.9 mmol/L (3.5-5.1); Sodium 135 mmol/L (136-145)
[2018-03-04 06:12] LABS: INR-International Normal Ratio 1.6; Prothrombin Time 19.2 SEC (12.0-14.7)
[2018-03-04] MEDS: HumaLOG 300 UNITS/3 ML VIAL SC SCH ×2 (08:58→12:53)
[2018-03-04] MEDS: Calcium Acetate 667 MG CAP PO SCH ×2 (09:00→13:52)
[2018-03-04] MEDS: hydrALAZINE 25 MG TAB PO SCH (09:00)
[2018-03-04] MEDS: Carvedilol 6.25 MG TAB PO SCH (09:00)
[2018-03-04] MEDS: Ferrous Sulfate 325 MG TAB PO SCH (09:00)
[2018-03-04] MEDS: Amlodipine 5 MG TAB PO SCH (09:01)
[2018-03-04] MEDS: Docusate 100 MG CAP PO SCH (09:01)
[2018-03-04] MEDS: medroxyPROGESTERone Acetate 2.5 MG TAB PO SCH (09:22)
[2018-03-04] MEDS: Insulin Glargine 30 UNITS in Pre-Filled Syringe 1 EACH SC SCH (09:22)
[2018-03-04] MEDS: Fluticasone Propionate Nasal Spray 16 gm Bottle NASAL SCH (09:22)
--- NOTE | 2018-03-04 09:42 | PRG ---
DATE OF SERVICE: 03/04/2018 SERVICE: Renal Medicine. SUBJECTIVE: Ms. Cox is a 77-year-old white female who was admitted for vaginal bleeding. Gynecolog y saw the patient and was given estrogen. No new complaints today. We are following her up for her maintenance hemodialysis. The patient underwent dialysis yesterday without any difficulty. PHYSICAL EXAMINATION: VITAL SIGNS: Blood pressure is noted at 103/62, heart rate 59, respiratory rate 14, pulse ox 96%. GENERAL: Awake, comfortable, obese, not in distress. SKIN: Adequate turgor. HEENT: Pinkish conjunctivae, anicteric sclerae. NECK: No neck mass, no carotid bruits, no JVD. CHEST: No deformities. LUNGS: Clear breath sounds. HEART: Normal sinus rhythm. No murmur, no gallops, no rubs. ABDOMEN: Globular, soft, nontender. No masses. EXTREMITIES: No edema, no deformities. MEDICATIONS: Of 03/04/2018 was reviewed. LABORATORY DATA: Of 03/04/2018, white count 5.2, hemoglobin 12.3. Sodium 135, potassium 3.9, chlori de 102, carbon dioxide 26, BUN 24, creatinine 2.67, glucose 118, calcium 9. ASSESSMENT AND PLAN: 1. End-stage renal disease, stable. We will continue current Wednesday, , and Wednesday dialys is. AV fistula still noted to be not mature for use. Status post AV fistulogram. 2. Vaginal bleeding resolved on estrogen supplementation. Agree with current management.
[2018-03-04 11:17] VITALS: BP 118/70; TEMP 97.7
--- NOTE | 2018-03-04 13:42 | PDOC.PN ---
- Subjective Encounter Start Date: 03/04/18 Encounter Start Time: 07:20 Subjective: no sob or pain -: feels better -: no further bleeding per vagina - Objective Resuscitation Status: Resuscitation Status FULL:Full Resuscitation MAR Reviewed: Yes Vital Signs & Weight: Vital Signs (12 hours) Temp Pulse Resp BP BP Pulse Ox 03/04/18 11:16 97.7 F 59 L 18 118/70 95 03/04/18 10:31 65 16 96 03/04/18 09:01 60 145/62 H 03/04/18 09:00 60 145/62 H 03/04/18 08:00 97.6 F 60 18 60 L 03/04/18 07:12 97.6 F 60 18 145/62 H 98 03/04/18 06:18 62 16 97 03/04/18 06:16 62 16 97 03/04/18 02:11 59 L 14 96 Weight Admit Weight 326 lb 14.4 oz Weight 326 lb 14.4 oz I&O: 03/03/18 03/04/18 03/05/18 06:59 06:59 06:59 Intake Total 1160 240 Output Total 1 Balance 1159 240 Result Diagrams: 03/04/18 05:06 03/04/18 05:06 Additional Labs: Accuchecks 03/04/18 03/04/18 03/03/18 11:38 05:02 20:38 POC Glucose 125 H 108 104 03/03/18 18:06 POC Glucose 127 H Phys Exam - Physical Examination HEENT: PERRLA, moist MMs Neck: no JVD, supple Respiratory: no wheezing, no rales Cardiovascular: RRR, no significant murmur Gastrointestinal: soft, non-tender, positive bowel sounds Musculoskeletal: no edema, pulses present Neurological: non-focal, moves all 4 limbs Psychiatric: normal affect, A&O x 3 Dx/Plan (1) Vaginal bleeding, abnormal Code(s): N93.9 - ABNORMAL UTERINE AND VAGINAL BLEEDING, UNSPECIFIED Status: Acute Comment: on provera taper (2) ESRD (end stage renal disease) on dialysis Code(s): N18.6 - END STAGE RENAL DISEASE; Z99.2 - DEPENDENCE ON RENAL DIALYSIS Status: Chronic (3) Normocytic anemia Code(s): D64.9 - ANEMIA, UNSPECIFIED Status: Chronic (4) Adult body mass index 50.0-59.9 Code(s): Z68.43 - BODY MASS INDEX (BMI) 50-59.9 , ADULT Status: Chronic (5) Atrial fibrillation Code(s): I48.91 - UNSPECIFIED ATRIAL FIBRILLATION Status: Chronic Qualifiers: Atrial fibrillation type: paroxysmal Qualified Code(s): I48.0 - Paroxysmal atrial fibrillation (6) Chronic diastolic heart failure Code(s): I50.32 - CHRONIC DIASTOLIC (CONGESTIVE) HEART FAILURE Status: Chronic (7) Diabetes mellitus type 2 Code(s): E11.9 - TYPE 2 DIABETES MELLITUS WITHOUT COMPLICATIONS Status: Chronic (8) Hyperlipidemia Code(s): E78.5 - HYPERLIPIDEMIA, UNSPECIFIED Status: Chronic (9) Hypertension Code(s): I10 - ESSENTIAL (PRIMARY) HYPERTENSION Status: Chronic Qualifiers: Hypertension type: essential hypertension Qualified Code(s): I10 - Essential (primary) hypertension Comment: controlled - Plan hemostable -: inr is 1.6 on coumadin 7.5mg -: may dc to snf if they can check daily inr and f/u with coumadin dose -: to f/u OBGyn in 1 week, on provera 10mg daily * . Review of Systems - Medications/Allergies Allergies/Adverse Reactions: Allergies Allergy/AdvReac Type Severity Reaction Status Date / Time sulfamethoxazole Allergy Verified 02/28/18 18:25 [From Bactrim] trimethoprim [From Bactrim] Allergy Verified 02/28/18 18:25 Medications: Current Medications Acetaminophen (Tylenol) 650 mg PO Q4H PRN PRN Reason: Headache/Fever or Pain Hydrocodone Bitart/Acetaminophen ([place] 5/325) 1 tab PO Q4H PRN PRN Reason: Moderate Pain (4-6) Albuterol Sulfate (Ventolin) 2.5 mg NEB Q2H PRN PRN Reason: Wheezing Albuterol/Ipratropium (Duoneb) 3 ml NEB Q4IN-NZ [facility] Last Admin: 03/04/18 10:31 Dose: 3 ml Aspirin (Aspirin Chewable) 81 mg PO DAILY [facility] Last Admin: 03/04/18 09:04 Dose: Not Given Atorvastatin Calcium (Lipitor) 20 mg PO HS [facility] Last Admin: 03/03/18 21:17 Dose: 20 mg Calcium Acetate (Phoslo) 667 mg PO TID-[facility] Last Admin: 03/04/18 09:00 Dose: 667 mg Carvedilol (Coreg) 6.25 mg PO BID-[facility] Last Admin: 03/04/18 09:00 Dose: 6.25 mg Docusate Sodium (Colace) 100 mg PO BID [facility] Last Admin: 03/04/18 09:01 Dose: 100 mg Ferrous Sulfate (Feosol) 325 mg PO BID-[facility] Last Admin: 03/04/18 09:00 Dose: 325 mg Fluticasone Propionate (Flonase Nasal [place]) 0 gm NASAL DAILY [facility] Last Admin: 03/04/18 09:22 Dose: 1 spr Guaifenesin/Dextromethorphan (Robitussin Dm) 15 ml PO Q4H PRN PRN Reason: Cough Insulin Glargine 30 units/ (Miscellaneous Medication) 0.3 mls @ 0 mls/hr SC HS [facility] Last Admin: 03/03/18 21:20 Dose: Not Given Insulin Glargine 30 units/ (Miscellaneous Medication) 0.3 mls @ 0 mls/hr SC QAM [facility] Last Admin: 03/04/18 09:22 Dose: 0.2 mls Insulin Human Lispro (Humalog) 6 units SC AC [facility] Last Admin: 03/04/18 12:53 Dose: Not Given Loratadine (Claritin) 10 mg PO [facility] Last Admin: 03/03/18 21:19 Dose: 10 mg Medroxyprogesterone Acetate (Provera) 20 mg PO BID [facility] Last Admin: 03/04/18 09:22 Dose: 20 mg Miscellaneous Medication (Pharmacy To Dose) 0 each PO ASDIR PRN PRN Reason: Pharmacy to Dose [facility] Ondansetron HCl (Zofran) 4 mg IVP Q6H PRN PRN Reason: Nausea/Vomiting Sertraline HCl (Zoloft) 25 mg PO DAILY [facility] Last Admin: 03/04/18 09:00 Dose: 25 mg Sodium Chloride (Flush - Normal Saline) 10 ml IVF Q12HR [facility] Last Admin: 03/04/18 09:01 Dose: 10 ml Sodium Chloride (Flush - Normal Saline) 10 ml IVF PRN PRN PRN Reason: Saline Flush Warfarin Sodium (Coumadin) 7.5 mg PO 1700 [facility] Last Admin: 03/03/18 18:30 Dose: 7.5 mg
--- NOTE | 2018-03-04 20:45 | DIS ---
DATE OF ADMISSION: 02/28/2018 DATE OF DISCHARGE: 03/04/2018 DISCHARGE DISPOSITION: To [facility]. PRIMARY DISCHARGE DIAGNOSES: Postmenopausal bleeding, on Provera tapering dose, end-stage renal dise ase on hemodialysis, chronic anemia, morbid obesity, chronic atrial fibrillation, chronic diastolic h eart failure, diabetes mellitus type 2, hypertension, dyslipidemia. PROCEDURES DONE DURING HOSPITALIZATION: Patient has had right upper extremity dialysis fistula ultra sound which showed the fistula to be patent. There was a clot in the right internal jugular vein. P elvic ultrasound done showed no gross abnormalities, but this examination was limited due to patient' s body habitus. AV shuntogram done on 03/03/2018 showed the flow to be normal. Blood cultures x2 no growth. Stool occult blood was negative. Discharge H&H 12 and 39, platelet count 198. Discharge B UN and creatinine is 24 and 2.6. 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 Underwood for Nephrology. DISCHARGE MEDICATIONS: Patient to continue Coumadin 7.5 mg p.o. daily, Zocor 40 mg p.o. at bedtime, sertraline 25 mg p.o. daily, Provera 10 mg p.o. daily, levocetirizine 5 mg p.o. at bedtime, DuoNebs q .4 hourly, Lantus 30 units subQ twice daily, NovoLog 6 units subQ before meals, ferrous sulfate 325 m g p.o. twice daily, Coreg 6.25 mg p.o. twice daily, PhosLo 667 mg p.o. 3 times daily, albuterol nebul izer q.4. hourly p.r.n. ALLERGIES: SULFA. BRIEF COURSE DURING HOSPITALIZATION: Patient initially got admitted on the after she was sent f [facility] for complaints of right arm pain. She also had associated swelling of the right arm. Patient has a fistula on the side and she has also had IJ tunneled catheter for hemodialysis. Initial ultrasound of the right upper extremity showed thrombus in the internal jugular vein. Patie nt also complained of postmenopausal bleeding. She was on Coumadin for chronic atrial fibrillation. Patient has had consultation with Dr. Montemayor for [employer] chief. She was placed on Provera and this has stopped her vaginal bleeding completely at present. She needs to continue the tapering dose as prescribed. Patient needs to follow up with Dr. Montemayor in the outpatient setting in 2 weeks. She is otherwise hemodynamically stable. She is deconditioned and needs further physical therapy and ambul ation prior to going home. In view of this, she is being discharged back to the swing bed at [facility] prior to going home. Please note, patient had hemodialysis yesterday and needs to continue on Wednesday, , Saturdays. TIME SPENT: Total of 35 minutes was spent on discharge plan. Please see a [id number] documentatio n on [facility] for the day of discharge.
[2018-03-05] MEDS ORDERED: medroxyPROGESTERone Acetate 5 MG TAB PO SCH (09:00)
--- NOTE | 2018-03-07 09:25 | PQF ---
PHILIPPE DAVIS VINAYA KUMAR MD [id number] CLINICAL DOCUMENTATION CLARIFICATION FORM: POST DISCHARGE Please exercise your independent, professional judgment in responding to the clarification form. Clinical indicators are provided on the bottom of this form for your review Please check appropriate box(s): [ ]Right internal jugular thrombosis is a complication of recent IJ tunneled catheter for hemodialysis [ ] Right internal jugular thrombosis is not a complication of recent IJ tunneled catheter for hemodialysis [ ] Other diagnosis [ x ] Unable to determine In addition, please specify: Present on Admission (POA): [ ] Yes [ ] No [ ] Unable to determine CLINICAL INDICATORS - SIGNS / SYMPTOMS / LABS US 02/28/2018 - Right upper extremity dialysis is patent. There is acute clot in the right internal jugular vein. RISK FACTORS Recent IJ hemodialysis catheter TREATMENT: Warfarin 75mg PO - PN 03/04/2018 Heparin drip - PN 03/01/2018 (This form is maintained as a part of the permanent medical record) 2014 [employer], [employer]. All Rights Reserved Nga Baker, CCS, PARTS COUNTER ASSOCIATE, CASC [email or web address]
== END 2018-03-04 15:00 | DRG 299 ==
LOC: ERS 10:28 → ERHOLD 14:31 → 2NO 18:02 → T4-B 03-01 14:33
PROVIDERS: ADMIT Family Medicine; ATTEND Family Medicine
PROC: B51W1ZZ Fluoroscopy of Dialysis Shunt/Fistula using Low Osmolar Contrast (ICD-10-PCS; principal; 2018-03-03)
DX: I82.C11 Acute embolism and thrombosis of right internal jugular vein (principal); N18.6 End stage renal disease; I13.2 Hypertensive heart and chronic kidney disease with heart failure and with stage 5 chronic kidney disease, or end stage renal disease; J96.11 Chronic respiratory failure with hypoxia; I50.32 Chronic diastolic (congestive) heart failure; Z68.43 Body mass index [BMI] 50.0-59.9, adult; T82.898A Other specified complication of vascular prosthetic devices, implants and grafts, initial encounter; N17.9 Acute kidney failure, unspecified; N95.0 Postmenopausal bleeding; I48.0 Paroxysmal atrial fibrillation; E66.01 Morbid (severe) obesity due to excess calories; E11.22 Type 2 diabetes mellitus with diabetic chronic kidney disease; J44.9 Chronic obstructive pulmonary disease, unspecified; E78.5 Hyperlipidemia, unspecified; Y83.2 Surgical operation with anastomosis, bypass or graft as the cause of abnormal reaction of the patient, or of later complication, without mention of misadventure at the time of the procedure; R60.9 Edema, unspecified; E11.21 Type 2 diabetes mellitus with diabetic nephropathy; D64.9 Anemia, unspecified; G47.33 Obstructive sleep apnea (adult) (pediatric); Z95.2 Presence of prosthetic heart valve; Z99.2 Dependence on renal dialysis; Z79.4 Long term (current) use of insulin; Z79.51 Long term (current) use of inhaled steroids; Z79.01 Long term (current) use of anticoagulants; Z79.899 Other long term (current) drug therapy
CPT/HCPCS: 36415; 36416; 36901; 76856; 80048; 80053; 82274; 85025; 85610; 85730; 87040; 90935; 94640; 94660; 96365; 96366; 96376; A4216; G0257; G8978-GP-CM; G8979-GP-CK; G8987-GO-CL; G8988-GO-CJ; J1644; J7620

== ENCOUNTER 2018-05-04 11:32 | Inpatient (IN) | payer MEDICARE, MEDICAID ==
--- NOTE | 2018-05-02 11:18 | HP ---
HISTORY OF PRESENT ILLNESS: Diana Cox is a 77-year-old female, morbidly obese. I placed a primary fistula and established dialysis access for hemodialysis catheter, 11/17/2017. She has arterial inf low, proximal radial artery; outflow, basilic and cephalic vein. Undergone a fistulogram recently do cumenting good outflow. The patient is obese and will need transposition to accomplish a functioning fistula. Plan is to hold her Coumadin 4 days prior to operation and perform under regional anesthes ia transposition cephalic basilic vein fistula. Risk of infection, bleeding, and re-operation were e xplained and she consents. ALLERGIES: . TOBACCO: None. ALCOHOL: None. MEDICATIONS: Carvedilol 6.25 mg daily, NovoLog insulin, Levemir insulin, ferrous sulfate 325 once a day, simvastatin 40 mg at bedtime, doxycycline q.12 hours, sertraline 25 mg daily, vitamin D3, calcit riol, Coumadin. PAST MEDICAL HISTORY: Hypertension; hyperlipidemia; insulin-dependent diabetes mellitus; diastolic h eart failure; atrial fibrillation; morbid obesity; metabolic syndrome; end-stage renal disease, on [facility] dialysis Wednesday, , and Wednesday at [address], followed by Dr. Rosalinda Underwood. Primary care physician is Dr. De Anda. Equity Analyst is Dr. Devries. Oxygen therapy a t home. Vitamin D deficiency. PAST SURGICAL HISTORY: BTL, , shoulder surgery, IVC filter in 11/2009, bladder suspension, right arm fistula on 11/17/2017, TAVR procedure in [place] along with pacemaker on 01/28/2018. FAMILY HISTORY: Father . Mother . Family history of lung cancer. REVIEW OF SYSTEMS: Ten point noncontributory. PHYSICAL EXAMINATION: VITAL SIGNS: 147/40, 61, 97 degrees. She is on oxygen. CHEST: Pacemaker in left chest. LUNGS: Clear to auscultation. No wheezing. CARDIAC: Regular rate and rhythm with prosthetic valve murmur. ABDOMEN: Obese, soft. EXTREMITIES: Right upper arm fistula. Right upper arm obesity, deep fistula, good thrill and bruit. ASSESSMENT AND PLAN: 1. On Coumadin. We will hold her Coumadin 4 days prior to basilic vein/cephalic vein transposition fistula. Risk of infection, bleeding, reoperation for thrombosis of the fistula were discussed and s he consents. 2. Intravenous access blood draws from her dialysis catheter. Hold her Coumadin 4 days prior. 3. Prosthetic aortic valve. 4. Metabolic syndrome. 5. Diabetes mellitus type 2, insulin dependent. 6. Hypertension. 7. Inferior vena cava filter.
[2018-05-03 10:40] VITALS: BMI 53.5
[2018-05-04 13:03] LABS: #Eosinphils 0.1 thou/uL (0.0-0.7); #Lymphocytes 1.1 thou/uL (1.20-3.40); #Monocytes 0.6 thou/uL (0.11-0.59); #Neutrophils 7.5 thou/uL (1.40-6.50); %Eosinophils 0.7 % (0.0-10.0); %Lymphocytes 11.6 % (21.0-51.0); %Monocytes 6.3 % (0.0-10.0); %Neutrophils 81.4 % (42.0-75.0); Hemoglobin 10.2 g/dL (12.0-16.0); Mean Corpuscular HGB CONC 31.8 g/dL (32.0-36.0); Mean Corpuscular Volume 94.5 fL (78.0-98.0); Mean Platelet Volume 8.3 fL (7.4-10.4); Platelet Count 187 thou/uL (130-400); RBC Distribution Width 14.8 % (11.5-14.5); White Blood Cell (WBC) Count 9.2 thou/uL (4.8-10.8)
[2018-05-04 13:20] LABS: INR-International Normal Ratio 1.5; Prothrombin Time 18.4 SEC (12.0-14.7)
[2018-05-04 13:35] LABS: Anion Gap 14 mmol/L (10-20); BUN (Urea Nitrogen) 42 mg/dL (9.8-20.1); Calc. Creatinine Clearance 29 mL/min (70-130); Carbon Dioxide 27 mmol/L (23-31); Chloride 102 mmol/L (98-107); Estimated GFR-MDRD 12; Glucose 146 mg/dL (83-110); Potassium 3.8 mmol/L (3.5-5.1); Sodium 139 mmol/L (136-145)
[2018-05-04] MEDS ORDERED: Bupivacaine HCl 0.5%/Epinephrine 1:200,000/PF 30 ml Vial ONE (13:36)
[2018-05-04] MEDS ORDERED: Heparin 5,000 UNITS/ML VIAL ONE (13:36)
[2018-05-04] MEDS ORDERED: Protamine Sulfate 50 MG/5 ML VIAL ONE (13:36)
[2018-05-04] MEDS ORDERED: Lidocaine 2% 10 ML INJ ONE (13:36)
[2018-05-04] MEDS ORDERED: Ioversol 68 % 50 ML VIAL ONE (13:36)
[2018-05-04] MEDS ORDERED: Dextrose 5% in Water 1,000 ML IV PRN ×2 (13:55→13:57)
[2018-05-04] MEDS ORDERED: Dextrose 50% Abboject 50 ML SYRINGE SLOW IVP PRN ×2 (13:55→13:57)
[2018-05-04] MEDS ORDERED: Ondansetron ODT 4 MG TAB PO PRN (13:57)
[2018-05-04] MEDS ORDERED: HumaLOG 300 UNITS/3 ML VIAL SC PRN (13:57)
[2018-05-04] MEDS ORDERED: hydrALAZINE 20 MG/ML VIAL SLOW IVP PRN (13:57)
[2018-05-04] MEDS ORDERED: Albuterol Sulfate 2.5 mg/3 ml Neb NEB PRN (14:01)
--- NOTE | 2018-05-04 14:14 | RAD ---
FRONTAL VIEW CHEST: COMPARISON: 11/15/17. INDICATION: Difficulty breathing. FINDINGS: Tunneled right side vascular catheter remains. There is marked enlargement of the cardiac silhouette , with prominence of pulmonary vasculature. The left lung base is obscured by the enlarged cardiac s ilhouette. There is bilateral interstitial prominence as well as patchy bilateral perihilar alveolar consolidation/edema. There has been interval removal of prior left IJ catheter. IMPRESSION: Evidence of congestive heart failure. Edema pattern is improved from prior exam. POS: DIONICIO
--- NOTE | 2018-05-04 15:11 | HP ---
HISTORY OF PRESENT ILLNESS: Diana Cox was seen today for a right arm basilic/cephalic vein transp osition fistula. The patient is nonmobile. She had a cardiac catheterization earlier this year that was normal without coronary disease. She had a TAVR procedure for severe aortic stenosis. Anesthes ia felt she was too dyspneic for regional anesthesia or general. She has not seen Dr. Devries since her TAVR procedure. Given her progressive dyspnea the last 2 days, her surgery today was postponed. She has held her Coumadin in the last few days to have this procedure. The plan at this time is to admit her to the hospital, have Pulmonary Medicine see her. Dr. Marinelli has already seen her and believes that she is at baseline pulmonary status. We will await Dr. Devries' s consult. We will tentatively plan operation tomorrow after dialysis today. I will speak with Dr. Underwood about dialyzing her today or early in the morning.
--- NOTE | 2018-05-04 15:43 | EKG ---
Test Reason : PREOP Blood Pressure : / mmHG Vent. Rate : 062 BPM Atrial Rate : 312 BPM P-R Int : 000 ms QRS Dur : 188 ms QT Int : 522 ms P-R-T Axes : 000 118 039 degrees QTc Int : 529 ms Electronic ventricular pacemaker When compared with ECG of 20-JAN-2018 10:46, Electronic ventricular pacemaker has replaced Atrial fibrillation Confirmed by АННА BLUM, DR. Cardenas ([id number]) on 05/04/2018 3:43:00 PM Referred By: MARYLOU Confirmed By:DR. Tehresa JJ MD
[2018-05-04 16:23] LABS: Actual Bicarbonate (HCO3a) 26.5 mEq/L (22-28); Base Excess (BEa) 1.3 mEq/L (-2.0 to +3.0); CO2 Tension 44.7 mmHg (35.0-45.0); Hemoglobin (Hb) 10.9 g/dL (12.0-16.0); O2 Tension (PaO2) 87.1 mmHg (> 70.0); pH, Arterial 7.39 (7.35-7.45)
[2018-05-04 16:24] LABS: ALV-art Gradient 56.665 (0-20); Calcium, Ionized 1.1 mmol/L (1.12-1.30); Puncture Site LRA
[2018-05-04] MEDS ORDERED: Warfarin Sodium 2.5 MG TAB PO SCH (17:00)
--- NOTE | 2018-05-04 19:02 | PDOC.PN ---
- Subjective Encounter Start Date: 05/04/18 Encounter Start Time: 19:00 THis is morbidly Obese White Female, Admitted for Tranpositioing of the Fistula by Dr. Cline, pt developed Acute SOB with Rapid breathing, she is knonw COPD, with CHF and CKD with Endstage. and Obstructive sleep apnea. Pt is back on 2 liter now. No chest pain or SOB a tthis time, No nausea or vomitng, no recent worseing of Cough or Sputum production, pt is on Coumedin for Afib INR is subtherapeutic. 1.3, Patient deneis any abdomianl pain, Hospitalist is consulted for medical management. - Objective MAR Reviewed: Yes Vital Signs & Weight: Vital Signs (12 hours) Temp Pulse Resp BP Pulse Ox 05/04/18 16:00 97.7 F 60 22 H 100 05/04/18 15:25 97.7 F 60 22 H 115/61 100 Weight Weight 312 lb Result Diagrams: 05/04/18 12:00 05/04/18 12:00 Additional Labs: Accuchecks 05/04/18 16:11 POC Glucose 121 H Radiology Reviewed by me: Yes EKG Reviewed by me: Yes Phys Exam - Physical Examination HEENT: PERRLA, moist MMs Neck: no nodes, no JVD Respiratory: no wheezing, no rhonchi Cardiovascular: RRR, no significant murmur Gastrointestinal: soft, non-tender Musculoskeletal: edema present Neurological: non-focal, normal sensation, moves all 4 limbs Psychiatric: normal affect, A&O x 3 Skin: no rash, normal turgor Dx/Plan (1) Acute hypoxemic respiratory failure Code(s): J96.01 - ACUTE RESPIRATORY FAILURE WITH HYPOXIA Status: Acute Comment: Chest Xray is review showed sign of CHF but not very severe, Will get ABG to look for any A-a gradiet, Will get LoweR extremity US to look for DVT. INR is subtherapeutic Likiely coumedin held for the procedure. Will continue with neb Duo and Albuteral. (2) Acute on chronic kidney failure Code(s): N17.9 - ACUTE KIDNEY FAILURE, UNSPECIFIED; N18.9 - CHRONIC KIDNEY DISEASE, UNSPECIFIED Status: Acute Comment: esrd, initiated on HD, Planned for Transposition of the Fistula by Dr. Cline tomorrow. (3) Anticoagulated on Coumadin Code(s): Z51.81 - ENCOUNTER FOR THERAPEUTIC DRUG LEVEL MONITORING; Z79.01 - ART HISTORIAN (CURRENT) USE OF ANTICOAGULANTS Status: Acute Comment: On coumedin for Aortic prosthetic valvem but sub therapeutic (4) Chronic atrial fibrillation Code(s): I48.2 - CHRONIC ATRIAL FIBRILLATION Status: Chronic Comment: On Coumedin with INR goal 2-3 (5) Chronic diastolic heart failure Code(s): I50.32 - CHRONIC DIASTOLIC (CONGESTIVE) HEART FAILURE Status: Chronic Comment: Will cotninue her home Meds. (6) Diabetes mellitus type 2 Code(s): E11.9 - TYPE 2 DIABETES MELLITUS WITHOUT COMPLICATIONS Status: Chronic Comment: Continue pt on home dose of lantus/ SSI. (7) ESRD (end stage renal disease) on dialysis Code(s): N18.6 - END STAGE RENAL DISEASE; Z99.2 - DEPENDENCE ON RENAL DIALYSIS Status: Chronic Comment: Plan as above . (8) Morbid obesity Code(s): E66.01 - MORBID (SEVERE) OBESITY DUE TO EXCESS CALORIES Status: Chronic (9) Obstructive sleep apnea Code(s): G47.33 - OBSTRUCTIVE SLEEP APNEA (ADULT) (PEDIATRIC) Status: Chronic Comment: On Cpap at Night - Plan cont current plan of care, PT/OT, social service worker, respiratory therapy, incentive spirometry, out of bed/ambulate, DVT proph w/SCDs * . Review of Systems - Review of Systems Constitutional: weakness, malaise Eyes: negative: Pain, Vision Change, Conjunctivae Inflammation, Eyelid Inflammation, Redness, Other ENT: negative: Ear Pain, Ear Discharge, Nose Pain, Nose Discharge, Nose Congestion, Mouth Pain, Mouth Swelling, Throat Pain, Throat Swelling, Other Respiratory: Shortness of Breath, SOB with Excertion, Wheezing Cardiovascular: negative: chest pain, palpitations, orthopnea, paroxysmal nocturnal dyspnea, edema, light headedness, other Gastrointestinal: negative: Nausea, Vomiting, Abdominal Pain, Diarrhea, Constipation, Melena, Hematochezia, Other Genitourinary: negative: Dysuria, Frequency, Incontinence, Hematuria, Retention , Other Musculoskeletal: negative: Neck Pain, Shoulder Pain, Arm Pain, Back Pain, Hand Pain, Leg Pain, Foot Pain, Other Skin: negative: Rash, Lesions, Jimbo, Bruising, Other - Medications/Allergies Allergies/Adverse Reactions: Allergies Allergy/AdvReac Type Severity Reaction Status Date / Time sulfamethoxazole Allergy Verified 05/03/18 10:40 [From Bactrim] trimethoprim [From Bactrim] Allergy Verified 05/03/18 10:40 Medications: Current Medications Albuterol Sulfate (Ventolin) 2.5 mg NEB Q2H PRN PRN Reason: Wheezing Albuterol/Ipratropium (Duoneb) 3 ml NEB [id number] [facility] Last Admin: 05/04/18 16:25 Dose: Not Given Calcium Acetate (Phoslo) 667 mg PO TID-[facility] Carvedilol (Coreg) 6.25 mg PO BID-[facility] Clopidogrel Bisulfate (Plavix) 75 mg PO DAILY [facility] Dextrose/Water (Dextrose 50%) 25 gm SLOW IVP PRN PRN PRN Reason: Hypoglycemia Dextrose/Water (Dextrose 50%) 25 gm SLOW IVP PRN PRN PRN Reason: Hypoglycemia Famotidine (Pepcid) 20 mg PO 2100 [facility] Ferrous Sulfate (Feosol) 325 mg PO BID-[facility] Fluticasone Propionate (Flonase Nasal [place]) 0 gm NASAL DAILY [facility] Glucagon (Glucagon) 1 mg IM PRN PRN PRN Reason: Hypoglycemia Glucagon (Glucagon) 1 mg IM PRN PRN PRN Reason: Hypoglycemia Heparin Sodium (Porcine) (Heparin) 5,000 units SC TID [facility] Stop: 05/05/18 06:00 Hydralazine HCl (Apresoline) 10 mg SLOW IVP Q4H PRN PRN Reason: SBP > 170 or DBP > 100 Dextrose/Water (D5w) 1,000 mls @ 0 mls/hr IV .Q0M PRN; As Directed PRN Reason: Hypoglycemia Dextrose/Water (D5w) 1,000 mls @ 0 mls/hr IV .Q0M PRN; As Directed PRN Reason: Hypoglycemia Insulin Human Lispro (Humalog) 0 units SC .MODERATE SLIDING SC PRN PRN Reason: Moderate Correctional Scale Insulin Human Lispro (Humalog) 6 units SC AC [facility] Loratadine (Claritin) 10 mg PO HS [facility] Medroxyprogesterone Acetate (Provera) 10 mg PO DAILY [facility] Ondansetron HCl (Zofran Odt) 4 mg PO Q6H PRN PRN Reason: Nausea/Vomiting Senna/Docusate Sodium (Senokot S) 1 tab PO DAILY [facility] Sertraline HCl (Zoloft) 25 mg PO QAM [facility] Simvastatin (Zocor) 40 mg PO HS [facility] Sodium Chloride (Flush - Normal Saline) 10 ml IVF PRN PRN PRN Reason: Saline Flush Sodium Chloride (Flush - Normal Saline) 10 ml IVF PRN PRN PRN Reason: Saline Flush
[2018-05-04] MEDS: HumaLOG 300 UNITS/3 ML VIAL SC SCH (20:25)
[2018-05-04] MEDS: Calcium Acetate 667 MG CAP PO SCH (20:27)
[2018-05-04] MEDS: Ferrous Sulfate 325 MG TAB PO SCH (20:27)
[2018-05-04] MEDS: Carvedilol 6.25 MG TAB PO SCH (20:27)
[2018-05-04] MEDS: Heparin 5,000 UNITS/ML VIAL SC SCH ×2 (20:27→22:33)
[2018-05-04] MEDS ORDERED: Famotidine 20 MG TAB PO SCH (21:00)
[2018-05-04] MEDS ORDERED: Loratadine 10 MG TAB PO SCH (21:00)
[2018-05-04] MEDS ORDERED: Simvastatin 40 MG TAB PO SCH (21:00)
--- NOTE | 2018-05-04 21:34 | CON ---
DATE OF CONSULTATION: 05/04/2018 Ms. Cox is a female who has not walked for 8 years, wheelchair ridden. She sees Dr. Rios er on a regular basis. She was due to have an access port in the right forearm and apparently I am t old that anesthesia was concerned about her respiratory status that she was more short of breath appa rently hypoxic. Surgery was canceled. She will be admitted to get her pulmonary status improved. She has longstanding history of respiratory failure, acute on chronic for a long time as noted. She has not walked for 8 years. When I arrived to the room, she appeared to be in no distress. Sats are 96% on 2 liters with a pulse of 80 and a blood pressure 140/90. She says she has got a slight cough, but postnasal drip. No fever or chills. She just came back from [place], had an aortic valve percutaneous surgery done for severe aortic sten osis. Baseline medical problem. PAST MEDICAL HISTORY: Diabetes, diastolic failure, chronic obstructive pulmonary disease, sleep apne a on BiPAP, renal failure, dialysis, hypertension, obesity, atrial fibrillation. PAST SURGICAL HISTORY: Cataract , aortic valve surgery done. SOCIAL HISTORY: No history of alcohol or tobacco abuse. MEDICINE FROM HOME: Includes Provera 10 a day, Coumadin 2.5, Zocor 40, Zoloft 25, insulin nebulizer, Plavix 75, Coreg 6.25, calcium, albuterol. ALLERGIES: BACTRIM. REVIEW OF SYSTEMS: Otherwise negative. PHYSICAL EXAMINATION: GENERAL: In the PACU today as noted, she appears to be in no acute distress. She was transferred 4t h floor tower. VITAL SIGNS: Once again, sats 90% on 2 liters. Unlabored respirations 20, pulse 59, temperature 97, blood pressure 118/70. CHEST: Minimal crackles without any wheezing. CARDIAC: Normal S1, S2, no gallops. ABDOMEN: Massive. EXTREMITIES: Reveal trace edema. NEUROLOGIC: She is awake, moves all 4 extremities. LABORATORY AND X-RAY FINDINGS: Chest x-ray shows cardiomegaly. I do not see any acute infiltrates. Creatinine 3.7. White count is 9000, H&H 10 and 30, platelet count 187. IMPRESSION: 1. Recent aortic valve surgery done. 2. Dyspnea, multifactorial. 3. Morbid obesity. 4. Sleep apnea. 5. Chronic obstructive pulmonary disease. 6. Probably diastolic dysfunction. PLAN: Pulmonary kan, agree with present neb treatments, supportive care, nocturnal BiPAP. Hopefully, she is stabilized, she can proceed with the access in the next day or two. Dr. Marinelli will follow. Notify Dr. Shah. This is a 70-minute consultation with 50% in direct patient care.
[2018-05-04] MEDS ORDERED: Acetaminophen 500 MG TAB PO PRN (22:13)
[2018-05-05 04:57] LABS: INR-International Normal Ratio 1.5; Prothrombin Time 17.7 SEC (12.0-14.7)
[2018-05-05 04:59] LABS: Anion Gap 16 mmol/L (10-20); BUN (Urea Nitrogen) 32 mg/dL (9.8-20.1); Calc. Creatinine Clearance 33 mL/min (70-130); Calcium 8.8 mg/dL (7.8-10.44); Carbon Dioxide 26 mmol/L (23-31); Chloride 100 mmol/L (98-107); Estimated GFR-MDRD 14; Glucose 106 mg/dL (83-110); Potassium 3.5 mmol/L (3.5-5.1); Sodium 138 mmol/L (136-145)
[2018-05-05 05:00] LABS: #Eosinphils 0.1 thou/uL (0.0-0.7); #Lymphocytes 1.1 thou/uL (1.20-3.40); #Monocytes 0.7 thou/uL (0.11-0.59); #Neutrophils 6.5 thou/uL (1.40-6.50); %Basophils 0.2 % (0.0-1.0); %Eosinophils 1.2 % (0.0-10.0); %Lymphocytes 12.7 % (21.0-51.0); %Monocytes 7.9 % (0.0-10.0); Mean Corpuscular HGB CONC 30.3 g/dL (32.0-36.0); Mean Corpuscular Hemoglobin 28.9 pg (27.0-31.0); Mean Corpuscular Volume 95.4 fL (78.0-98.0); Mean Platelet Volume 8.8 fL (7.4-10.4); Platelet Count 193 thou/uL (130-400); RBC Distribution Width 14.9 % (11.5-14.5); Red Blood Cell (RBC) Count 3.45 mill/uL (4.20-5.40); White Blood Cell (WBC) Count 8.3 thou/uL (4.8-10.8)
--- NOTE | 2018-05-05 07:38 | CON ---
DATE OF SERVICE: 05/04/2018 HISTORY OF PRESENT ILLNESS: The patient is a 77-year-old woman who presented with increasing dyspnea . The patient has a long history of aortic stenosis and congestive heart failure. The patient was a dmitted with increasing dyspnea. She most recently underwent a cardiac evaluation for severe aortic stenosis. She underwent a cardiac catheterization which revealed normal coronary arteries with criti jackie aortic stenosis. The patient subsequently underwent a TAVR procedure. The patient also has a hi story of chronic atrial fibrillation and has had placement of an electronic pacemaker. The patient was in her usual state of health when recently developed a progressive increasing dyspnea. The patie nt denies having any chest discomfort. PAST MEDICAL HISTORY: 1. Hypertension. 2. End-stage renal disease. 3. Congestive heart failure. 4. Hypertension. 5. History of aortic stenosis. 6. Dyslipidemia. 7. Morbid obesity. PAST SURGICAL HISTORY: She had aortic valve replacement, and a fistula. MEDICATIONS: See nursing list. ALLERGIES: She is allergic to BACTRIM. FAMILY HISTORY: There is a positive family history of CAD. REVIEW OF SYSTEMS: Noticeable for increasing dyspnea. Otherwise, 10-point system otherwise unremark able. PHYSICAL EXAMINATION: GENERAL: This is an obese woman in no acute distress. VITAL SIGNS: Blood pressure 115/60. NECK: Full. LUNGS: Coarse breath sounds bilateral. HEART: Regular rate and rhythm, normal S1, S2, 2/6 systolic murmur. ABDOMEN: Distended. EXTREMITIES: Show moderate edema. NEUROLOGIC: Nonfocal. LABORATORY RESULTS: Her sodium was 139, potassium 3.8, chloride 102, bicarbonate 27, BUN 42, creatin ine 3.77. White blood count 9.2, hemoglobin 10.2, hematocrit 32.1 and platelets are 187. INR is 1.5 . Her EKG revealed her to have electronic ventricular pacemaker. Chest x-ray revealed cardiomegaly wit h evidence of pulmonary edema. IMPRESSION: 1. Congestive heart failure, systolic/diastolic dysfunction. 2. Status post TAVR. 3. Hypertension. 4. Chronic atrial fibrillation. 5. Morbid obesity. This patient presents with congestive heart failure. The patient is undergoing dialysis. She had a recent catheterization that revealed normal coronary arteries. From a cardiac standpoint, she should be an acceptable risk for surgery.
[2018-05-05] MEDS ORDERED: medroxyPROGESTERone Acetate 5 MG TAB PO SCH (09:00)
[2018-05-05] MEDS ORDERED: Clopidogrel Bisulfate 75 MG TAB PO SCH (09:00)
[2018-05-05] MEDS ORDERED: Senokot S 8.6-50 MG TAB PO SCH (09:00)
[2018-05-05] MEDS ORDERED: Epoetin (ESRD) 20,000 UNITS/ML SC SCH (09:00)
[2018-05-05] MEDS ORDERED: Fluticasone Propionate Nasal Spray 16 gm Bottle NASAL SCH (09:00)
--- NOTE | 2018-05-05 09:27 | PRG ---
DATE OF SERVICE: 05/05/2018 This morning she is better. She is less short of breath. She wore a CPAP at home. PHYSICAL EXAMINATION: VITAL SIGNS: Sats are 90% on supplemental 2 liters, respiration 22, temperature 98, blood pressure 9 5/60. She is being dialyzed. CHEST: Chest reveals decreased breath sounds, no wheezing. CARDIAC: Normal S1, S2. No gallops. ABDOMEN: Soft, no masses. LABORATORY DATA: White count is normal. H&H stable. Electrolytes are normal. Creatinine is 3. IMPRESSION: 1. Morbid obesity. 2. Sleep apnea. 3. Renal failure. 4. Diastolic dysfunction. PLAN: She appears to be stable enough to have an access placed in. We will continue nocturnal venti lation, supportive care, neb treatments. We will follow.
[2018-05-05] MEDS ORDERED: Mometasone/Formoterol 120 PUFF INHALER INH SCH ×2 (09:30→18:30)
[2018-05-05] MEDS: Calcium Acetate 667 MG CAP PO SCH ×3 (10:27→15:36)
[2018-05-05] MEDS: HumaLOG 300 UNITS/3 ML VIAL SC SCH ×3 (10:27→17:55)
[2018-05-05] MEDS: Ferrous Sulfate 325 MG TAB PO SCH ×2 (10:28→15:35)
[2018-05-05] MEDS: Carvedilol 6.25 MG TAB PO SCH ×2 (10:28→15:36)
--- NOTE | 2018-05-05 10:48 | CON ---
DATE OF CONSULTATION: 05/05/2018 HISTORY OF PRESENT ILLNESS: Ms. Cox is a 77-year-old white female with known history of end-stage r enal disease - on maintenance hemodialysis. She was admitted for a possible right upper extremity tr ansposition of her AV fistula. We were consulted for her maintenance hemodialysis. Due to the mild shortness of breath yesterday a 2-hour hemodialysis was done. We removed 3 liters. She is currently undergoing hemodialysis this morning for her regular dialysis regimen. The patient requested a shor ter treatment today. We will attempt a 3-hour dialysis treatment with maximal fluid removal as sandeep ated. She did cramp yesterday. She is also being cleared by Pulmonary and Cardiology for her planne d AV fistula transposition. REVIEW OF SYSTEMS: No chest pain. Positive for chronic baseline shortness of breath, no nausea, no vomiting, no syncopal episode, no productive cough, no fever or chills. Appetite and energy level is fair. No gross hematuria, no hematochezia, no melena, no hematemesis, no abdominal pain, no headach e, no diplopia, no sore throat, no new skin rash. No tremors, no asterixis. MEDICATIONS: Tylenol 1000 mg q.i.d. p.r.n., DuoNeb neb treatment p.r.n., PhosLo 667 mg 1 tab t.i.d. with meals, Coreg 6.25 mg b.i.d., Plavix 75 mg once a day, Pepcid 20 mg tab daily, ferrous sulfate 32 5 mg b.i.d. - not given, fluticasone nasal inhaler, hydralazine 10 mg IV q.4 hours p.r.n., Humalog sl iding scale, Humalog lispro 6 units subcutaneous before meals, Claritin 10 mg at bedtime p.r.n., Med roxyprogesterone acetate 10 mg daily, Dulera oral inhaler, Zofran 4 mg q.6 hours p.r.n., Zoloft 25 mg q.a.m., Zocor 40 mg at bedtime. PAST MEDICAL HISTORY: 1. End-stage renal disease - currently on maintenance hemodialysis Wednesday, , and Wednesday. 2. Aortic valve disease/aortic stenosis. 3. Chronic obstructive pulmonary disease status post congestive heart failure. 4. Morbid obesity. 5. Hyperlipidemia. 6. Hypertension. 7. History of macular degeneration. 8. Type 2 diabetes mellitus. 9. Diabetic nephropathy. PAST SURGICAL HISTORY: 1. Status post TAVR done in [place]. 2. Status post cardiac catheterization. 3. Status post section. 4. Status post AV fistula placement. 5. Status post cuffed hemodialysis catheter placement. SOCIAL HISTORY: The patient currently at [facility], [facility]. , 2 children. 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 No smoking, no alcohol, no IV drug abuse. Status post multiple blood transfusions. Education; high school. Sedentary lifestyle. FAMILY HISTORY: Positive family history of ESRD. ALLERGIES: None. TRAUMA: None. IMMUNIZATIONS: Up to date. HOSPITALIZATIONS: Please see past medical history. PHYSICAL EXAMINATION: VITAL SIGNS: Blood pressure 98/45, heart rate 60, respiratory rate 18, temperature 97.4, pulse ox 96 %. GENERAL: Noted to be awake, obese, comfortable, supine, not in distress. SKIN: Adequate turgor. HEENT: She has slightly pale conjunctivae, anicteric sclerae. NECK: No neck mass, no carotid bruits, no JVD. CHEST: No deformities. LUNGS: Decreased breath sounds, no wheezing, no crackles. HEART: Normal sinus rhythm. Grade 2/6 systolic murmur, no gallops or rubs. ABDOMEN: Globular, soft, nontender. No masses. EXTREMITIES: No edema, no deformities. LABORATORY: 05/05/2018 - White count 8.3, hemoglobin 10. Sodium 138, potassium 3.5, chloride 100, c arbon dioxide 26, BUN 32, creatinine 3.3, calcium 8.8. BNP 2741. 05/04/2018 - Chest x-ray showed evidence of increased lung markings/congestive heart failure. 05/04/2018 - Cardiac echo shows EF of 45%. ASSESSMENT AND PLAN: 1. Congestive heart failure - maxing out fluid removal. The patient received extra hemodialysis yes terday for fluid removal. She is currently at the dialysis. I am supervising her dialysis. We are attempting to max out fluid removal as tolerated by the patient. 2. End-stage renal disease - stable, adequate KT/V with the last review. Continue current hemodialy sis regimen. No changes to be made with the current dialysis regimen. The patient will have an AV f istula revision/transposition by Dr. Beckman. 3. Anemia. We will continue Epogen - we will give 7500 units subcutaneously every week. Continue i caroline supplementation. I agree with current management.
--- NOTE | 2018-05-05 13:07 | ULT ---
BILATERAL LOWER EXTREMITY VENOUS DUPLEX ULTRASOUND INCLUDING COLOR AND SPECTRAL DOPPLER IMAGING: HISTORY: A 77-year-old female with swelling and edema of both legs. Exam is limited by large body habitus. COMPARISON: 09/12/2006 FINDINGS: Portions of the distal superficial femoral vein are obscured by large body habitus and are not demons trated. Exam performed from the groin to the ankle, including the visualized greater saphenous, common femora l, superficial femoral, profunda femoral, popliteal, trifurcation, and posterior tibial vein regions. Phasic flow with normal compressibility and normal augmentation noted at all visualized levels. No intraluminal thrombus. IMPRESSION: No evidence for deep venous thrombosis. Portions of the distal superficial femoral vein are obscured by large body habitus. POS: DIONICIO
--- NOTE | 2018-05-05 13:59 | PDOC.PN ---
- Subjective Encounter Start Date: 05/05/18 Encounter Start Time: 13:56 Subjective: nsg notes rev, chanelle ovn, no new issues -: pt reports feeling very fatigued and wants to know if she can further defer -: this procedure - Objective Vital Signs & Weight: Vital Signs (12 hours) Temp Pulse Resp BP Pulse Ox 05/05/18 13:51 61 16 96 05/05/18 12:00 98.1 F 61 16 90/45 L 99 05/05/18 08:00 98.1 F 61 16 95/50 L 99 05/05/18 05:56 92 14 96 05/05/18 04:05 97.4 F L 60 18 98/45 L 96 05/05/18 02:04 63 16 97 Weight Weight 312 lb I&O: 05/04/18 05/05/18 05/06/18 06:59 06:59 06:59 Intake Total 250 Balance 250 Result Diagrams: 05/05/18 03:54 05/05/18 03:54 Additional Labs: Accuchecks 05/05/18 05/05/18 05/04/18 12:24 04:30 20:18 POC Glucose 100 125 H 347 H 05/04/18 05/04/18 16:11 13:21 POC Glucose 121 H 122 H Phys Exam - Physical Examination Constitutional: NAD lying in hospital bed HEENT: PERRLA, moist MMs, sclera anicteric slightly dry mm Respiratory: no wheezing, no rales, clear to auscultation bilateral Cardiovascular: RRR, no significant murmur Gastrointestinal: soft, positive bowel sounds Neurological: moves all 4 limbs Psychiatric: normal affect, A&O x 3 Dx/Plan - Plan (1) Acute hypoxemic respiratory failure Code(s): J96.01 - ACUTE RESPIRATORY FAILURE WITH HYPOXIA Status: Acute Comment: Chest Xray is review showed sign of CHF but not very severe, apprec pulm c/s. Will continue with neb Duo and Albuteral. (2) Acute on chronic kidney failure Code(s): N17.9 - ACUTE KIDNEY FAILURE, UNSPECIFIED; N18.9 - CHRONIC KIDNEY DISEASE, UNSPECIFIED Status: Acute Comment: esrd, initiated on HD, Planned for Transposition of the Fistula today. (3) Anticoagulated on Coumadin Code(s): Z51.81 - ENCOUNTER FOR THERAPEUTIC DRUG LEVEL MONITORING; Z79.01 - ALF (CURRENT) USE OF ANTICOAGULANTS Status: Acute Comment: On coumedin for Aortic prosthetic valve; held pre-op, may resume as per surg post- op (4) Chronic atrial fibrillation Code(s): I48.2 - CHRONIC ATRIAL FIBRILLATION Status: Chronic Comment: On Coumedin with INR goal 2-3 (5) Chronic diastolic heart failure Code(s): I50.32 - CHRONIC DIASTOLIC (CONGESTIVE) HEART FAILURE Status: Chronic Comment: Will cotninue her home Meds. (6) Diabetes mellitus type 2 Code(s): E11.9 - TYPE 2 DIABETES MELLITUS WITHOUT COMPLICATIONS Status: Chronic Comment: Continue pt on home dose of lantus/ SSI. (7) ESRD (end stage renal disease) on dialysis Code(s): N18.6 - END STAGE RENAL DISEASE; Z99.2 - DEPENDENCE ON RENAL DIALYSIS Status: Chronic Comment: Plan as above . (8) Morbid obesity Code(s): E66.01 - MORBID (SEVERE) OBESITY DUE TO EXCESS CALORIES Status: Chronic (9) Obstructive sleep apnea Code(s): G47.33 - OBSTRUCTIVE SLEEP APNEA (ADULT) (PEDIATRIC) Status: Chronic Comment: On Cpap at Night - Plan cont current plan of care, PT/OT, social and human services assistant, respiratory therapy, incentive spirometry, out of bed/ambulate, DVT proph w/SCDs deconditioning PT/OT as above Review of Systems - Medications/Allergies Allergies/Adverse Reactions: Allergies Allergy/AdvReac Type Severity Reaction Status Date / Time sulfamethoxazole Allergy Verified 05/03/18 10:40 [From Bactrim] trimethoprim [From Bactrim] Allergy Verified 05/03/18 10:40 Medications: Current Medications Acetaminophen (Tylenol) 1,000 mg PO QIDPRN PRN PRN Reason: Headache/Fever or Pain Last Admin: 05/04/18 22:33 Dose: 1,000 mg Albuterol Sulfate (Ventolin) 2.5 mg NEB Q2H PRN PRN Reason: Wheezing Albuterol/Ipratropium (Duoneb) 3 ml NEB Q0OS-AE ALINE Last Admin: 05/05/18 13:51 Dose: 3 ml Calcium Acetate (Phoslo) 667 mg PO TID-WM ALINE Last Admin: 05/05/18 12:03 Dose: Not Given Carvedilol (Coreg) 6.25 mg PO BID-[facility] Last Admin: 05/05/18 10:28 Dose: Not Given Clopidogrel Bisulfate (Plavix) 75 mg PO DAILY [facility] Dextrose/Water (Dextrose 50%) 25 gm SLOW IVP PRN PRN PRN Reason: Hypoglycemia Epoetin Bryn (Procrit) 7,500 units SC Q7D@0900 [facility] Famotidine (Pepcid) 20 mg PO 2100 [facility] Last Admin: 05/04/18 20:33 Dose: 20 mg Ferrous Sulfate (Feosol) 325 mg PO BID-[facility] Last Admin: 05/05/18 10:28 Dose: Not Given Fluticasone Propionate (Flonase Nasal [place]) 0 gm NASAL DAILY [facility] Glucagon (Glucagon) 1 mg IM PRN PRN PRN Reason: Hypoglycemia Hydralazine HCl (Apresoline) 10 mg SLOW IVP Q4H PRN PRN Reason: SBP > 170 or DBP > 100 Dextrose/Water (D5w) 1,000 mls @ 0 mls/hr IV .Q0M PRN; As Directed PRN Reason: Hypoglycemia Insulin Human Lispro (Humalog) 0 units SC .MODERATE SLIDING SC PRN PRN Reason: Moderate Correctional Scale Last Admin: 05/04/18 20:33 Dose: 8 unit Insulin Human Lispro (Humalog) 6 units SC [facility] Last Admin: 05/05/18 12:01 Dose: Not Given Loratadine (Claritin) 10 mg PO [facility] Last Admin: 05/04/18 20:33 Dose: 10 mg Medroxyprogesterone Acetate (Provera) 10 mg PO DAILY [facility] Mometasone Furoate/Formoterol Fumar (Dulera 200 Mcg/5 Mcg Inhaler) 2 puff INH BID-RT [facility] Ondansetron HCl (Zofran Odt) 4 mg PO Q6H PRN PRN Reason: Nausea/Vomiting Senna/Docusate Sodium (Senokot S) 1 tab PO DAILY [facility] Sertraline HCl (Zoloft) 25 mg PO QAM [facility] Simvastatin (Zocor) 40 mg PO [facility] Last Admin: 05/04/18 20:33 Dose: 40 mg Sodium Chloride (Flush - Normal Saline) 10 ml IVF PRN PRN PRN Reason: Saline Flush Sodium Chloride (Flush - Normal Saline) 10 ml IVF PRN PRN PRN Reason: Saline Flush
[2018-05-05 16:32] VITALS: TEMP 98.6
[2018-05-05 17:57] VITALS: BP 100/50
[2018-05-06] MEDS ORDERED: Heparin 10,000 UNITS/ 10 ML VIAL ONE (15:00)
== END 2018-05-05 18:10 | disposition home or self-care (01) | DRG 291 ==
LOC: SDC 11:32 → T4-B 14:55
PROVIDERS: ADMIT Specialist; ATTEND Specialist
PROC: 5A1D70Z Performance of Urinary Filtration, Intermittent, Less than 6 Hours Per Day (ICD-10-PCS; principal; 2018-05-05)
DX: I13.2 Hypertensive heart and chronic kidney disease with heart failure and with stage 5 chronic kidney disease, or end stage renal disease (principal); N18.6 End stage renal disease; J96.21 Acute and chronic respiratory failure with hypoxia; I50.42 Chronic combined systolic (congestive) and diastolic (congestive) heart failure; N17.9 Acute kidney failure, unspecified; Z79.01 Long term (current) use of anticoagulants; Z95.2 Presence of prosthetic heart valve; E66.01 Morbid (severe) obesity due to excess calories; E11.22 Type 2 diabetes mellitus with diabetic chronic kidney disease; Z99.2 Dependence on renal dialysis; J44.9 Chronic obstructive pulmonary disease, unspecified; E11.21 Type 2 diabetes mellitus with diabetic nephropathy; D64.9 Anemia, unspecified; I48.2 Chronic atrial fibrillation; E78.5 Hyperlipidemia, unspecified; Z88.2 Allergy status to sulfonamides; Z99.3 Dependence on wheelchair; G47.33 Obstructive sleep apnea (adult) (pediatric)
CPT/HCPCS: 36415; 36416; 71045; 80048; 82805; 83880; 85025; 85610; 86850; 86900; 86901; 93005; 93010; 93306; 93970; 94640; J0670; J1644; J2720; J7620; Q4081; Q9967

== ENCOUNTER 2018-06-01 06:05 | Day surgery (SDC) | payer MEDICARE, MEDICAID ==
[2018-05-31 13:03] VITALS: BMI 53.1
[2018-06-01] MEDS ORDERED: Heparin 5,000 UNITS/ML VIAL ONE (06:42)
[2018-06-01] MEDS ORDERED: Lidocaine 2% 10 ML INJ ONE (06:42)
[2018-06-01] MEDS ORDERED: Protamine Sulfate 50 MG/5 ML VIAL ONE (06:45)
[2018-06-01] MEDS ORDERED: Bupivacaine HCl 0.5%/Epinephrine 1:200,000/PF 30 ml Vial ONE ×2 (06:45→09:18)
[2018-06-01] MEDS ORDERED: Lidocaine 1% (PF) 30 ML VIAL ONE (07:22)
[2018-06-01] MEDS ORDERED: CEFAZOLIN/Water 2 GM/20 ML SYRINGE ONE (07:27)
[2018-06-01 07:33] LABS: Mean Corpuscular HGB CONC 30.7 g/dL (32.0-36.0); Mean Corpuscular Hemoglobin 28.6 pg (27.0-31.0); Mean Corpuscular Volume 93.1 fL (78.0-98.0); Mean Platelet Volume 7.7 fL (7.4-10.4); Platelet Count 281 thou/uL (130-400); RBC Distribution Width 15.5 % (11.5-14.5); Red Blood Cell (RBC) Count 3.86 mill/uL (4.20-5.40); White Blood Cell (WBC) Count 8.3 thou/uL (4.8-10.8)
[2018-06-01 07:38] LABS: INR-International Normal Ratio 1.5
[2018-06-01] MEDS ORDERED: Fentanyl 100 MCG/2 ML VIAL ONE (07:38)
[2018-06-01] MEDS ORDERED: Midazolam HCl 2 mg/2 ml Vial ONE (07:38)
[2018-06-01] MEDS ORDERED: Ketamine 50 MG/ML VIAL ONE (07:38)
[2018-06-01 07:47] LABS: Anion Gap 13 mmol/L (10-20); BUN (Urea Nitrogen) 26 mg/dL (9.8-20.1); Calc. Creatinine Clearance 37 mL/min (70-130); Calcium 8.8 mg/dL (7.8-10.44); Carbon Dioxide 27 mmol/L (23-31); Chloride 103 mmol/L (98-107); Estimated GFR-MDRD 16; Glucose 86 mg/dL (83-110); Potassium 4.1 mmol/L (3.5-5.1); Sodium 139 mmol/L (136-145)
[2018-06-01 07:51] LABS: Band 4 % (5-11); Lymphocytes 16 % (21-51); MDiff Complete? YES; Monocytes 6 % (0-10); Neutrophil 73 % (42-75); PLT Morphology Comment Appears Adequate; Polychromasia SLIGHT = 2-3 cells (100X) (0-2/hpf); Reactive Lymphocytes 1 % (0-10)
[2018-06-01] MEDS ORDERED: Bupivacaine/Epinephrine 0.25% 30 ML VIAL ONE (08:08)
[2018-06-01] MEDS ORDERED: Albuterol Sulfate 2.5 mg/3 ml Neb ONE (10:20)
[2018-06-01] MEDS ORDERED: Heparin 10,000 UNITS/ 10 ML VIAL ONE ×2 (10:24→11:26)
--- NOTE | 2018-06-01 15:50 | OP ---
DATE OF PROCEDURE: 06/01/2018 PREOPERATIVE DIAGNOSES: Morbid obesity, end-stage renal disease, dysfunctional AV fistula, acc ess, oxygen dependent home use. PROCEDURE PERFORMED: Basilic vein transposition fistula with usage of cephalic vein stump, pro ximal radial artery inflow. SURGEON: Virgil Beckman M.D. ANESTHESIA: Regional, TIVA. Local 0.25% Marcaine with epinephrine 60 mL mixed with 2% Xylocaine, 10 mL, total volume used 25-30 mL. ESTIMATED BLOOD LOSS: 100 mL FINDINGS: Excellent basilic vein, excellent cephalic vein, well distended. DESCRIPTION OF PROCEDURE: The patient was taken to the operating room where under regional anesthesi a and intravenous sedation, right upper extremity was prepped with ChloraPrep, draped in routine fash ion. Incision made from the proximal volar forearm through the old skin incision from creation of th e fistula along the medial upper arm creating a flap anteriorly towards the cephalic vein, unroofing the basilic and cephalic vein, protecting nerves along the way, dividing branch between 4-0 silk ties , 3-0 silk ties and clips. It was mobilized high into the axilla. A 12 mm Xin-Wick tunneler used to create a tunnel and patient was given 6000 units of heparin intravenously and vein marked for orie ntation to prevent torsion and inflow of the vein and a proximal volar forearm clamped with vascular clamp and cephalic vein outflow stump preserved for lengthening and in the proximal forearm, the vein ligated with 2-0 silk tie and the vein divided and distended nicely under arterial pressure and then a vascular clamp applied. The basilic vein origin from the bifurcation was divided and then stump c losed with continuous suture of 6-0 Prolene and vein distended with heparinized saline solution conne cted to the tunneler tunneled and then disconnected from the tunneler and then flushed with hepariniz ed saline solution, it flushed well without obstruction. End to end vein anastomosis created after s patulating both the ends, creating the anastomosis with continuous suture of 6-0 Prolene. Vascular c lamps were released and there was good flow in the fistula. It distended nicely. Hemostasis gained in the harvest bed medial upper arm with cautery and clips. Good hemostasis noted. SurgiSeal placed in the harvest bed. Subcutaneous tissue is approximated with 3-0 Monocryl, skin, clovis. Sterile dressing applied. The patient tolerated the procedure well.
== END 2018-06-01 12:35 | disposition home or self-care (01) ==
LOC: SDC 06:05
PROVIDERS: ATTEND Specialist
PROC: 051 Upper Veins, Bypass (ICD-10-PCS; principal; 2018-06-01)
DX: T82.590A Other mechanical complication of surgically created arteriovenous fistula, initial encounter (principal); N18.6 End stage renal disease; E66.01 Morbid (severe) obesity due to excess calories; Z88.2 Allergy status to sulfonamides; Z88.8 Allergy status to other drugs, medicaments and biological substances; Z79.899 Other long term (current) drug therapy; Z68.41 Body mass index [BMI] 40.0-44.9, adult
CPT/HCPCS: 80048; 85025; 85610; 86850; 86900; 86901; J0670; J1644; J2001; J2250; J2720; J3010; J7611

== ENCOUNTER 2018-08-07 19:58 | Inpatient (IN) | payer MEDICARE, MEDICAID ==
[~2018-08-07 19:58] MED LIST: Heparin 1,000 UNITS/ML VIAL ONE
[2018-08-07 20:57] LABS: #Eosinphils 0.1 thou/uL (0.0-0.7); #Lymphocytes 0.9 thou/uL (1.20-3.40); #Monocytes 0.7 thou/uL (0.11-0.59); #Neutrophils 9.9 thou/uL (1.40-6.50); %Basophils 0.4 % (0.0-1.0); %Lymphocytes 7.8 % (21.0-51.0); %Monocytes 5.8 % (0.0-10.0); Hemoglobin 12.4 g/dL (12.0-16.0); Mean Corpuscular HGB CONC 29.1 g/dL (32.0-36.0); Mean Corpuscular Hemoglobin 28.3 pg (27.0-31.0); Mean Corpuscular Volume 97.3 fL (78.0-98.0); Mean Platelet Volume 8.2 fL (7.4-10.4); Platelet Count 249 thou/uL (130-400); RBC Distribution Width 14.4 % (11.5-14.5); Red Blood Cell (RBC) Count 4.37 mill/uL (4.20-5.40); White Blood Cell (WBC) Count 11.7 thou/uL (4.8-10.8)
[2018-08-07 20:59] LABS: INR-International Normal Ratio 1.4; PTT 29.8 SEC (22.9-36.1); Prothrombin Time 16.8 SEC (12.0-14.7)
--- NOTE | 2018-08-07 21:08 | RAD ---
CHEST ONE VIEW: History: Chest pain. Comparison: 05-04-18 FINDINGS: Cardiac silhouette is magnified and enlarged. Pulmonary vasculature is engorged with widespread retic ular nodular interstitial prominence. Mediastinum is midline with aortic calcification and a large ca liber right internal jugular dialysis type catheter. No lobar consolidation or evidence of pneumothor ax. IMPRESSION: 1. Cardiomegaly with mild pulmonary edema. 2. Atherosclerosis. POS: DIONICIO
[2018-08-07 21:09] LABS: ALT (SGPT) 18 U/L (8-55); AST (SGOT) 20 U/L (5-34); Albumin 3.3 g/dL (3.4-4.8); Alkaline Phosphatase 73 U/L (40-150); Anion Gap 18 mmol/L (10-20); BUN (Urea Nitrogen) 82 mg/dL (9.8-20.1); Bilirubin, Total 0.3 mg/dL (0.2-1.2); Calc. Creatinine Clearance 0 mL/min (70-130); Calcium 7.9 mg/dL (7.8-10.44); Carbon Dioxide 18 mmol/L (23-31); Chloride 103 mmol/L (98-107); Estimated GFR-MDRD 8; Globulin 3.7 g/dL (2.4-3.5); Glucose 195 mg/dL (83-110); Potassium 5.2 mmol/L (3.5-5.1); Sodium 134 mmol/L (136-145)
[2018-08-07 21:13] LABS: CKMB 1.4 ng/mL (0-6.6); Troponin I 0.017 ng/mL (< 0.028)
[2018-08-07] MEDS ORDERED: Acetaminophen 325 MG TAB PO PRN (23:05)
[2018-08-07] MEDS ORDERED: Ondansetron ODT 4 MG TAB SL PRN (23:05)
[2018-08-07] MEDS ORDERED: Ondansetron PF 4 MG/2 ML Vial IVP PRN (23:05)
[2018-08-08 00:27] LABS: HBSAg Index 0.18 S/CO (0-0.99); Hep B Surf Ag Non-Reactive S/CO (NonReactive)
[2018-08-08] MEDS ORDERED: Senokot S 8.6-50 MG TAB PO PRN (01:36)
[2018-08-08 03:46] LABS: Troponin I 0.015 ng/mL (< 0.028)
[2018-08-08 06:23] LABS: Anion Gap 17 mmol/L (10-20); BUN (Urea Nitrogen) 53 mg/dL (9.8-20.1); Calc. Creatinine Clearance 32 mL/min (70-130); Calcium 8.8 mg/dL (7.8-10.44); Carbon Dioxide 23 mmol/L (23-31); Chloride 100 mmol/L (98-107); Estimated GFR-MDRD 12; Glucose 153 mg/dL (83-110); Potassium 4.5 mmol/L (3.5-5.1); Sodium 135 mmol/L (136-145)
[2018-08-08] MEDS ORDERED: Dextrose 5% in Water 1,000 ML IV PRN (06:32)
[2018-08-08] MEDS ORDERED: Dextrose 50% Abboject 50 ML SYRINGE SLOW IVP PRN (06:32)
[2018-08-08 06:48] LABS: #Basophils 0.1 thou/uL (0.0-0.2); #Lymphocytes 0.5 thou/uL (1.20-3.40); #Monocytes 0.1 thou/uL (0.11-0.59); #Neutrophils 11.9 thou/uL (1.40-6.50); %Basophils 0.5 % (0.0-1.0); %Eosinophils 0.2 % (0.0-10.0); %Lymphocytes 3.9 % (21.0-51.0); %Monocytes 0.8 % (0.0-10.0); %Neutrophils 94.6 % (42.0-75.0); Mean Corpuscular HGB CONC 29.8 g/dL (32.0-36.0); Mean Corpuscular Hemoglobin 28.8 pg (27.0-31.0); Mean Corpuscular Volume 96.5 fL (78.0-98.0); Mean Platelet Volume 8.5 fL (7.4-10.4); Platelet Count 260 thou/uL (130-400); RBC Distribution Width 14.2 % (11.5-14.5); White Blood Cell (WBC) Count 12.6 thou/uL (4.8-10.8)
--- NOTE | 2018-08-08 07:17 | HP ---
CHIEF COMPLAINT: Shortness of breath. HISTORY OF PRESENT ILLNESS: The patient is a 77-year-old female with a history of end-stage renal di cammy on hemodialysis. The patient reports that she was doing well and she and Dr. Underwood had talked ab out decreasing her hemodialysis to twice a week rather than 3 times a week; however, they had not ini tiated that plan as of yet. The patient presented to the Emergency Department with the complaint of some increasing shortness of breath over the last couple of days. She has had some mild worsening of the swelling of her extremities. She reports she has been compliant with her dialysis regimen. She is not aware of having missed any. She also reports that she has had some upper respiratory tract s ymptoms as well prior to this onset. She had no specific fevers, but she does have a minimal cough w hich is productive of clear to whitish sputum. REVIEW OF SYSTEMS: The patient subjectively has had some potential low grade fevers, but nothing obj ective, otherwise a 10 system review was negative except for those things mentioned in the history of present illness. PAST MEDICAL HISTORY: End-stage renal disease on Wednesday, , Wednesday regimen, history of aor tic valve stenosis status post valve replacement with prosthesis, COPD, history of congestive heart f ailure, morbid obesity, hyperlipidemia, hypertension, macular degeneration, type 2 diabetes mellitus. PAST SURGICAL HISTORY: TAVR done in [place], , AV fistula placement. FAMILY HISTORY: Positive for end-stage renal disease. SOCIAL HISTORY: The patient resides at [facility], is essentially wheelchair bound, no history of alcohol, tobacco or drugs. She does have a history of multiple transfusions. CODE STATUS: She is a full code. ALLERGIES: None. MEDICATIONS: Progesterone 10 mg every day, Coumadin 2.5 mg alternating with 5 mg, Zocor 40 mg at bed time, sertraline 25 mg q.a.m., sennosides, docusate 1 p.o. daily, levocetirizine 1 at bedtime, Levem ir FlexPen, DuoNebs p.r.n., NovoLog FlexPen 6 units subcu q.a.c., Flonase 1 spray every day, ferrou s sulfate 325 b.i.d., famotidine 20 mg at bedtime, Plavix 75 every day, Coreg 6.25 mg 1 p.o. b.i.d. a nd calcium 667 per day. PHYSICAL EXAMINATION: VITAL SIGNS: Temperature 97.7, pulse 74, respirations 20, O2 sat 100% on 3 liters nasal cannula, BP 146/66. GENERAL APPEARANCE: A morbidly obese, age appropriate female. She is presently receiving dialysis. She is in no distress. She is a bit somnolent. She is a little dusky at the lips, but doing better with the oxygen. She appears to have a little bit of potential sleep apnea going on. She does awak en and is conversant. HEENT: Pupils are equal and reactive. She has no acute lesion. CARDIOVASCULAR: Heart has a 2/6 murmur at the right upper sternal border. LUNGS: Lungs reveal fairly harsh rales throughout both lung johnson, worse at the bases with fair air exchange. ABDOMEN: Soft, nontender, nondistended, positive bowel sounds, no masses, no organomegaly. EXTREMITIES: Reveal 2+ pitting edema bilaterally of the lower extremities. LABORATORY DATA: White count 11.7, hemoglobin 12.4, platelets 249. INR is 1.4, PT 29.8. Initial so dium 134, potassium 5.2, chloride 103, CO2 is 18, BUN is 82, creatinine 5.02, glucose 195. BNP 3078. Troponin 0.017. Liver enzymes are normal. Albumin 3.3. Chest x-ray: Cardiomegaly with pulmonary edema and atherosclerosis. ASSESSMENT AND PLAN: 1. Volume overload secondary to chronic renal disease and likely some history of congestive heart fa ilure. The patient is receiving dialysis for volume removal. 2. Hyperkalemia secondary to chronic kidney disease. Again, being acutely addressed with hemodialys is. Consult Nephrology to follow up as well. 3. Mild leukocytosis. The patient may be having some upper respiratory symptoms. We will need to r eassess when she has been through the full course of the dialysis. 4. Diabetes mellitus. Continue with her usual home regimen and monitor with Accu-Cheks. 5. History of TVAR, stable. Continue with warfarin. 6. Hyperlipidemia. Continue with her home dose of Lipitor. 7. Continue to cover with bronchodilators as needed.
[2018-08-08] MEDS ORDERED: Non-Formulary Item 1 EACH (Levemir Flexpen [Levemir Flexpen] 30 UNIT) SC SCH (09:00)
[2018-08-08 10:11] LABS: INR-International Normal Ratio 1.4; Prothrombin Time 17.1 SEC (12.0-14.7)
--- NOTE | 2018-08-08 10:58 | CON ---
DATE OF CONSULTATION: 08/08/2018 SERVICE: Renal Medicine. HISTORY OF PRESENT ILLNESS: Ms. Cox is a 77-year-old white female with ESRD and admitted for shortn ess of breath. She missed dialysis for the last 2 sessions. In addition, the reason she missed dial ysis, she has not been feeling well. She has been having diffuse myalgia and productive cough. We a re being consulted for her hemodialysis. I did an emergent hemodialysis for 2 hours late last night. My plan is to do another hemodialysis session with her for about 4 hours and then resume back on he r Wednesday, , and Wednesday regimen. Her shortness of breath is only slightly improved. REVIEW OF SYSTEMS: Positive for productive cough. Denies any fever. Positive for shortness of candace th. No chest pain and no syncopal episode. Appetite fair. Energy level is fair. No hematochezia, no melena, no hematemesis, no dysuria, no urine frequency, no headache. Positive for myalgia and pos itive for joint pains. Positive for sore throat. No diplopia. No new skin rash. No dysuria. MEDICATIONS: The patient is currently on DuoNeb q.4 hours and p.r.n., Lipitor 20 mg at bedtime, Phos Lo 667 mg 1 tab b.i.d. with meals, Coreg 6.25 mg b.i.d., Plavix 75 mg once a day, Pepcid 20 mg at bed time, ferrous sulfate 325 mg p.o. b.i.d., Lantus 20 units subcu b.i.d., Humalog sliding scale, [employer] [place] Attendant a 10 mg once a day, Zofran 4 mg IV q.6 hours p.r.n., Zoloft 25 mg at bedtime, Coumadin as directed. PAST MEDICAL HISTORY: 1. ESRD from diabetic nephropathy. 2. Type 2 diabetes mellitus. 3. Status post CHF. 4. Valvular heart disease. 5. COPD. 6. Chronic anemia from chronic renal disease. 7. Morbid obesity. 8. History of macular degeneration. 9. Diabetic nephropathy. 10. Status post aortic stenosis. PAST SURGICAL HISTORY: 1. Status post AV fistula placement. 2. Status post cuffed dialysis catheter placement. 3. Status post cardiac catheterization. 4. Status post TAVR - done in [place]. 5. Status post section. SOCIAL HISTORY: The patient lives in [place]. She is and lives with one of her children. 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 No smoking, no alcohol, no IV drug abuse. Sta tus post multiple blood transfusions. Education, high school. Sedentary lifestyle. FAMILY HISTORY: No family history of ESRD. ALLERGIES: None. TRAUMA: None. IMMUNIZATIONS: Up-to-date. HOSPITALIZATIONS: Please see past medical history. FAMILY HISTORY: Positive family history for ESRD. PHYSICAL EXAMINATION: VITAL SIGNS: Blood pressure is noted at 141/65, heart rate 71, respiratory rate 20, temperature 97.7 , pulse ox 97% on 3 liters nasal cannula. GENERAL EXAM: Awake, supine, morbidly obese, not in overt distress. SKIN: Adequate turgor. HEENT: She has pinkish conjunctivae, anicteric sclerae. NECK: No neck mass, no carotid bruits, no JVD. CHEST: No deformities. LUNGS: Decreased breath sounds. No wheezing. HEART: Normal sinus rhythm. She has a grade 2/6 systolic murmur, no gallops, no rubs. ABDOMEN: Globular, soft, nontender, no masses. EXTREMITIES: No edema, no deformities. NEUROLOGICAL EXAM: Moving all extremities. No tremors or asterixis. Oriented to 3 spheres. LABORATORY DATA: Laboratories of 08/08/2018, white count 12.6, hemoglobin 13. Sodium 135, potassium 4.5, chloride 100, carbon dioxide 23, BUN 53, creatinine 3.59, glucose 153, calcium 8.8. BNP 3078. Chest x-ray of 08/07/2018 showed cardiomegaly with pulmonary edema. ASSESSMENT AND PLAN: 1. Congestive heart failure - received emergent 2-hour hemodialysis late last night with fluid remov al. The plan is for her to do another dialysis session. At this time, we will do a 4-hour hemodialy sis regimen with this patient. 2. End-stage renal disease, stable. Review of the last Kt/V suggests she is adequately dialyzed wit h the current dialysis regimen. My concern is she requested to do 2 times a week hemodialysis. I wi ll do a 4-hour hemodialysis again today with this patient with maxing out fluid removal as tolerated and then we will resume her back temporarily on a Wednesday, , and Wednesday dialysis regimen. Overall, agree with current management.
[2018-08-08] MEDS: Fluticasone Propionate Nasal Spray 16 gm Bottle NASAL SCH (12:07)
[2018-08-08] MEDS: HumaLOG 300 UNITS/3 ML VIAL SC SCH ×3 (12:08→18:34)
[2018-08-08] MEDS: Insulin Glargine 30 UNITS in Pre-Filled Syringe 1 EACH SC SCH ×2 (12:09→21:50)
[2018-08-08] MEDS: Calcium Acetate 667 MG CAP PO SCH ×2 (18:19→18:33)
[2018-08-08] MEDS: Carvedilol 6.25 MG TAB PO SCH ×2 (18:19→18:33)
[2018-08-08] MEDS: Ferrous Sulfate 325 MG TAB PO SCH ×2 (18:19→18:34)
[2018-08-08] MEDS: Clopidogrel Bisulfate 75 MG TAB PO SCH (18:32)
[2018-08-08] MEDS: Warfarin Sodium 2.5 MG TAB PO SCH (18:34)
[2018-08-08] MEDS: Benzonatate 100 MG CAP PO PRN ×2 (18:35→22:50)
[2018-08-08] MEDS: medroxyPROGESTERone Acetate 5 MG TAB PO SCH (18:36)
[2018-08-08] MEDS: Loratadine 10 MG TAB PO SCH (20:46)
[2018-08-08] MEDS: Famotidine 20 MG TAB PO SCH (20:46)
[2018-08-08] MEDS: Atorvastatin Calcium 20 MG TAB PO SCH (20:47)
[2018-08-08] MEDS: Acetaminophen 325 MG TAB PO PRN (20:47)
[2018-08-08 21:57] LABS: Platelet Count 255 thou/uL (130-400)
[2018-08-09 04:56] LABS: INR-International Normal Ratio 1.3; Prothrombin Time 15.9 SEC (12.0-14.7)
[2018-08-09] MEDS: HumaLOG 300 UNITS/3 ML VIAL SC SCH ×3 (08:00→18:18)
[2018-08-09] MEDS ORDERED: Heparin 10,000 UNITS/ 10 ML VIAL ONE (09:15)
--- NOTE | 2018-08-09 09:30 | PRG ---
DATE OF SERVICE: 08/09/2018 SERVICE: Renal Medicine. SUBJECTIVE: Ms. Cox is a 77-year-old white female with ESRD, admitted for shortness of breath. She was found to be in CHF. She has undergone daily dialysis. I am currently still dialyzing this lluvia ent. My plan is to do a 3-hour hemodialysis with maximal fluid removal only as tolerated. No other complaints. Her shortness of breath is actually improved compared on admission. She denies any othe r complaints. PHYSICAL EXAMINATION: VITAL SIGNS: Blood pressure 130/80, heart rate 61, respiratory rate 22, temperature 97.6, pulse oxim etry 100%. GENERAL EXAM: Noted to be awake, supine, comfortable, morbidly obese. SKIN: Adequate turgor. HEENT: She has pinkish conjunctivae, anicteric sclerae. NECK: No neck mass, no carotid bruits, no JVD. CHEST: No deformities. LUNGS: Decreased breath sounds. HEART: Normal sinus rhythm. No murmur, no gallops or rubs. ABDOMEN: Globular, soft, nontender, no masses. EXTREMITIES: Positive for edema. Medications of 08/09/2018 were reviewed. LABORATORY DATA: Laboratories of 08/08/2018, sodium 135, potassium 4.5, chloride 100, carbon dioxide 23, BUN 53, creatinine 3.59, glucose 153, calcium 8.8. 08/09/2018, glucose 134. ASSESSMENT AND PLAN: 1. End-stage renal disease, stable. Continuing current hemodialysis regimen. We will do a 3-hour h emodialysis today and then place this patient back on a Wednesday, , and Wednesday dialysis chelle men. As previously mentioned, we will max out fluid removal. 2. Congestive heart failure, clinically improving with fluid removal with dialysis. Continue suppor tive care. Continue neb treatment.
[2018-08-09] MEDS: medroxyPROGESTERone Acetate 5 MG TAB PO SCH (12:54)
[2018-08-09] MEDS: Fluticasone Propionate Nasal Spray 16 gm Bottle NASAL SCH (12:54)
[2018-08-09] MEDS: Calcium Acetate 667 MG CAP PO SCH ×2 (12:55→16:35)
[2018-08-09] MEDS: Carvedilol 6.25 MG TAB PO SCH ×2 (12:55→16:35)
[2018-08-09] MEDS: Clopidogrel Bisulfate 75 MG TAB PO SCH (12:55)
[2018-08-09] MEDS: Ferrous Sulfate 325 MG TAB PO SCH ×2 (12:55→16:35)
[2018-08-09] MEDS: Insulin Glargine 30 UNITS in Pre-Filled Syringe 1 EACH SC SCH ×2 (12:56→20:24)
[2018-08-09] MEDS: Benzonatate 100 MG CAP PO PRN (16:45)
[2018-08-09] MEDS: Warfarin Sodium 2.5 MG TAB PO SCH (16:45)
[2018-08-09] MEDS: Acetaminophen 325 MG TAB PO PRN (16:46)
[2018-08-09] MEDS: Atorvastatin Calcium 20 MG TAB PO SCH (20:24)
[2018-08-09] MEDS: Famotidine 20 MG TAB PO SCH (20:24)
[2018-08-09] MEDS: Loratadine 10 MG TAB PO SCH (20:24)
[2018-08-10 05:30] LABS: INR-International Normal Ratio 1.3; Prothrombin Time 16.3 SEC (12.0-14.7)
[2018-08-10] MEDS: Calcium Acetate 667 MG CAP PO SCH ×2 (08:13→17:31)
[2018-08-10] MEDS: Clopidogrel Bisulfate 75 MG TAB PO SCH (08:13)
[2018-08-10] MEDS: HumaLOG 300 UNITS/3 ML VIAL SC SCH ×3 (08:13→17:24)
[2018-08-10] MEDS: Ferrous Sulfate 325 MG TAB PO SCH ×2 (08:14→17:33)
[2018-08-10] MEDS: Fluticasone Propionate Nasal Spray 16 gm Bottle NASAL SCH (08:14)
[2018-08-10] MEDS: Carvedilol 6.25 MG TAB PO SCH ×2 (08:14→17:31)
--- NOTE | 2018-08-10 08:42 | PRG ---
DATE OF SERVICE: 08/10/2018 SERVICE: Renal Medicine. SUBJECTIVE: Ms. Cox is a 77-year-old white female with ESRD and was admitted for shortness of breat h. She was found to be in CHF. She has undergone daily dialysis. This morning, her breathing is im proved. She denies any chest pain. She does complain of occasional productive cough. OBJECTIVE: VITAL SIGNS: Blood pressure is 139/74 with a heart rate of 65, respiratory rate 22, temperature is 9 7.4, pulse ox 93%. GENERAL EXAM: Awake, supine, comfortable, morbidly obese, not in distress. SKIN: Adequate turgor. HEENT: She has pinkish conjunctivae, anicteric sclerae. NECK: No neck mass, no carotid bruits, no JVD. CHEST: No deformities. LUNGS: Decreased breath sounds. HEART: Normal sinus rhythm. No murmur, no gallops, no rubs. ABDOMEN: Globular, soft, nontender, no masses. EXTREMITIES: Trace edema. Medications of 08/10/2018 reviewed. LABORATORY DATA: Laboratories of 08/10/2018, glucose 96; 08/08/2018, potassium 4.5, BUN 53, creatini ne 3.59. ASSESSMENT AND PLAN: 1. Congestive heart failure, clinically much improved with daily dialysis. Fluid removal only as to lerated with dialysis. 2. End-stage renal disease, stable. We will be continuing current Wednesday, , and Wednesday h emodialysis regimen with this patient. Again, fluid removal only as tolerated. Agree with current management. Recheck base met and CBC in a.m.
[2018-08-10] MEDS: Insulin Glargine 30 UNITS in Pre-Filled Syringe 1 EACH SC SCH ×2 (11:40→21:06)
[2018-08-10] MEDS: medroxyPROGESTERone Acetate 5 MG TAB PO SCH (11:45)
[2018-08-10] MEDS ORDERED: Warfarin Sodium 5 MG TAB PO SCH ×2 (17:00)
[2018-08-10] MEDS: Benzonatate 100 MG CAP PO PRN (17:31)
[2018-08-10] MEDS: Loratadine 10 MG TAB PO SCH (20:45)
[2018-08-10] MEDS: Famotidine 20 MG TAB PO SCH (20:45)
[2018-08-10] MEDS: Atorvastatin Calcium 20 MG TAB PO SCH (20:45)
[2018-08-10 21:09] LABS: Hemoglobin 14.6 g/dL (12.0-16.0); Platelet Count 256 thou/uL (130-400)
[2018-08-11 05:04] LABS: INR-International Normal Ratio 1.4; Prothrombin Time 17.2 SEC (12.0-14.7)
[2018-08-11 05:10] LABS: #Eosinphils 0.2 thou/uL (0.0-0.7); #Lymphocytes 1.6 thou/uL (1.20-3.40); #Monocytes 0.6 thou/uL (0.11-0.59); #Neutrophils 10.5 thou/uL (1.40-6.50); %Eosinophils 1.2 % (0.0-10.0); %Lymphocytes 12.2 % (21.0-51.0); %Monocytes 4.9 % (0.0-10.0); %Neutrophils 81.7 % (42.0-75.0); Hemoglobin 14.4 g/dL (12.0-16.0); Mean Corpuscular HGB CONC 29.9 g/dL (32.0-36.0); Mean Corpuscular Hemoglobin 28.3 pg (27.0-31.0); Mean Corpuscular Volume 94.7 fL (78.0-98.0); Mean Platelet Volume 8.4 fL (7.4-10.4); Platelet Count 250 thou/uL (130-400); Red Blood Cell (RBC) Count 5.07 mill/uL (4.20-5.40); White Blood Cell (WBC) Count 12.9 thou/uL (4.8-10.8)
[2018-08-11 05:19] LABS: Anion Gap 17 mmol/L (10-20); BUN (Urea Nitrogen) 74 mg/dL (9.8-20.1); Calc. Creatinine Clearance 20 mL/min (70-130); Calcium 8.9 mg/dL (7.8-10.44); Carbon Dioxide 24 mmol/L (23-31); Chloride 97 mmol/L (98-107); Estimated GFR-MDRD 8; Glucose 67 mg/dL (83-110); Potassium 3.9 mmol/L (3.5-5.1); Sodium 134 mmol/L (136-145)
[2018-08-11] MEDS: HumaLOG 300 UNITS/3 ML VIAL SC SCH ×3 (07:53→16:27)
[2018-08-11] MEDS: Insulin Glargine 30 UNITS in Pre-Filled Syringe 1 EACH SC SCH ×2 (07:54→20:40)
[2018-08-11] MEDS: Carvedilol 6.25 MG TAB PO SCH ×2 (07:54→16:27)
[2018-08-11] MEDS: Clopidogrel Bisulfate 75 MG TAB PO SCH (07:54)
[2018-08-11] MEDS: Fluticasone Propionate Nasal Spray 16 gm Bottle NASAL SCH (07:54)
[2018-08-11] MEDS: Ferrous Sulfate 325 MG TAB PO SCH ×2 (07:54→16:28)
[2018-08-11] MEDS: Calcium Acetate 667 MG CAP PO SCH ×2 (07:54→16:27)
[2018-08-11] MEDS: medroxyPROGESTERone Acetate 5 MG TAB PO SCH ×2 (07:55→16:26)
--- NOTE | 2018-08-11 09:10 | PRG ---
DATE OF SERVICE: 08/11/2018 SERVICE: Renal Medicine. SUBJECTIVE: Ms. Cox is a 77-year-old white female with end-stage renal disease who was admitted for shortness of breath secondary to congestive heart failure. She is undergoing hemodialysis today. I am attempting to max out fluid removal as tolerated by this patient. The patient voices no new comp laints. She tells me shortness of breath is improving. OBJECTIVE: VITAL SIGNS: Blood pressure is 134/82, heart rate 66, respiratory rate 24, temperature 98.1, pulse o x 94%. GENERAL: Awake, alert, comfortable, not in distress. SKIN: Adequate turgor. HEENT: She has pinkish conjunctivae, anicteric sclerae. NECK: No neck mass, no carotid bruits, no JVD. CHEST: No deformities. LUNGS: Clear breath sounds. HEART: Normal sinus rhythm. No murmur, no gallops or rubs. ABDOMEN: Globular, soft, nontender, no masses. EXTREMITIES: Trace edema. MEDICATIONS: Of 08/11/2018 was reviewed. LABORATORY DATA: Of 08/11/2018, sodium 134, potassium 3.9, chloride 97, carbon dioxide 24, BUN 74, c reatinine 5.24, glucose 67, calcium 8.9. White count 12.9, hemoglobin 14.4. ASSESSMENT AND PLAN: 1. Congestive heart failure, clinically improving. Maxing out fluid removal with dialysis. 2. End-stage renal disease, stable. The patient undergoing hemodialysis. My plan is to do a 4-hour hemodialysis today with fluid removal as tolerated. No changes will be made with the RN with the cu rrent dialysis regimen. Agree with current management.
[2018-08-11 12:39] VITALS: BMI 53.1
[2018-08-11] MEDS: Warfarin Sodium 2.5 MG TAB PO SCH (16:27)
[2018-08-11] MEDS: Benzonatate 100 MG CAP PO PRN (18:25)
[2018-08-11] MEDS: Loratadine 10 MG TAB PO SCH (20:40)
[2018-08-11] MEDS: Famotidine 20 MG TAB PO SCH (20:40)
[2018-08-11] MEDS: Atorvastatin Calcium 20 MG TAB PO SCH (20:40)
--- NOTE | 2018-08-11 21:17 | RAD ---
TWO VIEWS CHEST: 08/11/18 HISTORY: Cough. COMPARISON: 08/07/18. FINDINGS: Stable stent projecting over the aortic root and ascending thoracic aorta. There is atherosclerosis. Loop recorder is noted. Heart is enlarged. Pulmonary vessels are within normal limits. Blunting of th e left costophrenic angle. Right costophrenic angle is clear. Parenchymal changes in the lung bases, left slightly greater than right. No pneumothorax or osseous abnormalities. IMPRESSION: 1. Stable right sided hemosplit dialysis catheter. 2. Congestive heart failure/volume overload. 3. Atherosclerosis. POS: LEYDI
[2018-08-12 04:23] LABS: INR-International Normal Ratio 1.6; Prothrombin Time 18.9 SEC (12.0-14.7)
[2018-08-12] MEDS: Carvedilol 6.25 MG TAB PO SCH ×2 (08:59→16:24)
[2018-08-12] MEDS: Clopidogrel Bisulfate 75 MG TAB PO SCH (08:59)
[2018-08-12] MEDS: Ferrous Sulfate 325 MG TAB PO SCH ×2 (08:59→16:24)
[2018-08-12] MEDS: Calcium Acetate 667 MG CAP PO SCH ×2 (08:59→16:24)
[2018-08-12] MEDS: HumaLOG 300 UNITS/3 ML VIAL SC SCH ×3 (09:00→16:34)
[2018-08-12] MEDS: Fluticasone Propionate Nasal Spray 16 gm Bottle NASAL SCH (09:00)
[2018-08-12] MEDS ORDERED: Heparin 10,000 UNITS/ 10 ML VIAL ONE (10:02)
--- NOTE | 2018-08-12 10:03 | PRG ---
DATE OF SERVICE: 08/12/2018 SERVICE: Renal Medicine. SUBJECTIVE: Ms. Cox is a 77-year-old white female with end-stage renal disease and was admitted for CHF. She has been complaining of more cough in the last few days. A repeat chest x-ray was done on 08/11/2018 and it showed the heart to be enlarged. No infiltrates are noted. In addition, there is slightly increased lung markings. Please note, the patient underwent dialysis yesterday and we removed 4 liters of fluid. PHYSICAL EXAMINATION: VITAL SIGNS: Blood pressure is 111/62, heart rate 61, respiratory rate 18, temperature 97.6, pulse o x 97%. GENERAL: Awake, alert, comfortable, obese. SKIN: Adequate turgor. HEENT: She has pinkish conjunctivae, anicteric sclerae. NECK: No neck mass, no carotid bruits, no JVD. CHEST: No deformities. LUNGS: Decreased breath sounds. HEART: Normal sinus rhythm. No murmur, no gallops, no rubs. ABDOMEN: Globular, soft, nontender, no masses. EXTREMITIES: No edema, no deformities. MEDICATIONS: Of 08/12/2018 was reviewed. LABORATORY DATA: Of 08/11/2018, white count 12.9, hemoglobin 14.4. Sodium 134, potassium 3.9, chlor merline 97, carbon dioxide 24, BUN 74, creatinine 5.24, calcium 8.9. ASSESSMENT AND PLAN: 1. Congestive heart failure, clinically improved. Her breathing is actually much improved. Removal of 4 liters of fluid yesterday. I have advised this patient to resume 3 times a week hemodialysis r ather than 2 times a week hemodialysis. 2. End-stage renal disease. We will continue current hemodialysis regimen. I do not find any indic ation for any emergent hemodialysis today. From a renal point of view, she can be sent home any time . I did instruct her if she gets discharged today to report for dialysis tomorrow.
[2018-08-12] MEDS: Insulin Glargine 30 UNITS in Pre-Filled Syringe 1 EACH SC SCH (12:30)
[2018-08-12 12:40] VITALS: BP 156/80
[2018-08-12] MEDS: medroxyPROGESTERone Acetate 5 MG TAB PO SCH (12:50)
[2018-08-12 16:22] VITALS: TEMP 97
[2018-08-12] MEDS ORDERED: Warfarin Sodium 5 MG TAB PO SCH (17:00)
--- NOTE | 2018-08-13 23:07 | EKG ---
Test Reason : Blood Pressure : / mmHG Vent. Rate : 086 BPM Atrial Rate : 075 BPM P-R Int : 000 ms QRS Dur : 180 ms QT Int : 440 ms P-R-T Axes : 071 113 002 degrees QTc Int : 526 ms Electronic ventricular pacemaker Confirmed by BOGDAN OTTO ([id number]), script editor JILLIAN SANDERS ([id number]) on 08/13/2018 11:07:03 PM Referred By: Confirmed By:BOGDAN OTTO
== END 2018-08-12 17:17 | disposition home or self-care (01) | DRG 291 ==
LOC: ERS 19:58 → 2NO 21:22 → T4-B 08-08 22:01
PROVIDERS: ADMIT Internal Medicine; ATTEND Internal Medicine
PROC: 5A1D70Z Performance of Urinary Filtration, Intermittent, Less than 6 Hours Per Day (ICD-10-PCS; 2018-08-07)
PROC: 5A1D70Z Performance of Urinary Filtration, Intermittent, Less than 6 Hours Per Day (ICD-10-PCS; 2018-08-08)
PROC: 5A1D70Z Performance of Urinary Filtration, Intermittent, Less than 6 Hours Per Day (ICD-10-PCS; 2018-08-09)
PROC: 5A1D70Z Performance of Urinary Filtration, Intermittent, Less than 6 Hours Per Day (ICD-10-PCS; principal; 2018-08-11)
DX: I13.2 Hypertensive heart and chronic kidney disease with heart failure and with stage 5 chronic kidney disease, or end stage renal disease (principal); N18.6 End stage renal disease; Z68.43 Body mass index [BMI] 50.0-59.9, adult; E87.70 Fluid overload, unspecified; Z99.2 Dependence on renal dialysis; J44.9 Chronic obstructive pulmonary disease, unspecified; E11.22 Type 2 diabetes mellitus with diabetic chronic kidney disease; I50.9 Heart failure, unspecified; E66.01 Morbid (severe) obesity due to excess calories; E78.5 Hyperlipidemia, unspecified; Z79.01 Long term (current) use of anticoagulants; Z79.02 Long term (current) use of antithrombotics/antiplatelets; E87.5 Hyperkalemia; D72.829 Elevated white blood cell count, unspecified; E11.21 Type 2 diabetes mellitus with diabetic nephropathy; D63.1 Anemia in chronic kidney disease
CPT/HCPCS: 36415; 36416; 71045; 71046; 80048; 80053; 82553; 83880; 84484; 85014; 85018; 85025; 85049; 85610; 85730; 87340; 90935; 93005; 93798; 94640; 94760; G0257; J1644; J7620

== ENCOUNTER 2018-11-28 14:44 | Outpatient (CLI) | payer MEDICARE, MEDICAID ==
--- NOTE | 2018-11-28 16:23 | ULT ---
EXAM: BILATERAL LOWER EXTREMITY VENOUS DUPLEX ULTRASOUND INCLUDING COLOR AND SPECTRAL DOPPLER IMAGIN11/28/18 HISTORY: Bilateral leg pain and edema. Exam limited because of large body habitus. COMPARISON: 05/05/18. FINDINGS: Exam performed from groin to ankle including visualized greater saphenous, common femoral, superficia l femoral, profunda femoral, popliteal, trifurcation, and posterior tibial vein regions. There is pha sic flow at all levels with normal compressibility and normal augmentation. No intraluminal thrombus. IMPRESSION: No evidence for deep venous thrombosis. POS: LILIANA
== END 2018-11-28 14:45 | disposition home or self-care (01) ==
LOC: ULT 14:44
PROVIDERS: ATTEND Family Medicine
DX: M79.604 Pain in right leg (principal); M79.605 Pain in left leg
CPT/HCPCS: 93970

== ENCOUNTER 2019-02-02 20:30 | Outpatient (CLI) | payer MEDICARE, MEDICAID | END 2019-02-02 20:31 | disposition home or self-care (01) | LOC: SLEEPLAB 20:30 | PROVIDERS: ATTEND Internal Medicine Critical Care Medicine | DX: G47.33 Obstructive sleep apnea (adult) (pediatric) (principal); R53.83 Other fatigue; G47.61 Periodic limb movement disorder | CPT/HCPCS: 95806 ==

== ENCOUNTER 2019-05-31 20:30 | Outpatient (CLI) | payer MEDICARE, MEDICAID | END 2019-05-31 20:31 | disposition home or self-care (01) | LOC: SLEEPLAB 20:30 | PROVIDERS: ATTEND Internal Medicine Critical Care Medicine | DX: G47.33 Obstructive sleep apnea (adult) (pediatric) (principal); R53.83 Other fatigue; R06.83 Snoring; G47.10 Hypersomnia, unspecified; N18.6 End stage renal disease; I50.9 Heart failure, unspecified; E66.9 Obesity, unspecified; Z68.43 Body mass index [BMI] 50.0-59.9, adult | CPT/HCPCS: 95811 ==

== ENCOUNTER 2019-11-30 14:49 | Inpatient (IN) | payer MEDICARE, MEDICAID ==
[2019-11-30 15:20] LABS: #Eosinphils 0.1 thou/uL (0.0-0.7); #Monocytes 0.5 thou/uL (0.11-0.59); #Neutrophils 8.1 thou/uL (1.40-6.50); %Basophils 0.4 % (0.0-1.0); %Eosinophils 0.8 % (0.0-10.0); %Lymphocytes 10.4 % (21.0-51.0); %Monocytes 5.3 % (0.0-10.0); %Neutrophils 83.1 % (42.0-75.0); Hemoglobin 13.1 g/dL (12.0-16.0); Mean Corpuscular Hemoglobin 30.7 pg (27.0-31.0); Mean Platelet Volume 8.2 fL (7.4-10.4); Platelet Count 231 thou/uL (130-400); RBC Distribution Width 12.8 % (11.5-14.5); Red Blood Cell (RBC) Count 4.25 mill/uL (4.20-5.40); White Blood Cell (WBC) Count 9.7 thou/uL (4.8-10.8)
--- NOTE | 2019-11-30 15:57 | RAD ---
EXAM: CHEST ONE VIEW HISTORY: Cough COMPARISON: 08/11/2018 FINDINGS: Previously seen aortic valve replacement is less well delineated on this exam due to technique of the exam. Loop recording device is again seen overlying the left lung base. Cardiac silhouette is magnified by projection but does appear mildly enlarged. Pulmonary vasculature is similar to the prio r study and appears mildly increased. No consolidation or pleural fluid is seen. Vascular calcifications are again seen in the thoracic aorta. The tunneled right internal jugular vein hemodia lysis catheter has been removed. IMPRESSION: 1. No acute cardiopulmonary process. 2. Cardiomegaly with mild pulmonary vascular congestion.
[2019-11-30 16:03] LABS: ALT (SGPT) 8 U/L (8-55); AST (SGOT) 18 U/L (5-34); Albumin 3.9 g/dL (3.4-4.8); Alkaline Phosphatase 94 U/L (40-110); Anion Gap 30 mmol/L (10-20); BUN (Urea Nitrogen) 95 mg/dL (9.8-20.1); Bilirubin, Total 0.7 mg/dL (0.2-1.2); Calc. Creatinine Clearance 0 mL/min (70-130); Calcium 8.4 mg/dL (7.8-10.44); Carbon Dioxide 17 mmol/L (23-31); Chloride 92 mmol/L (98-107); Estimated GFR-MDRD 3; Glucose 57 mg/dL (83-110); Lipase 13 U/L (8-78); Potassium 5.8 mmol/L (3.5-5.1); Protein, Total 8.9 g/dL (6.0-8.3); Sodium 133 mmol/L (136-145)
[2019-11-30 16:05] LABS: CKMB 2.1 ng/mL (0-6.6)
[2019-11-30] MEDS ORDERED: cefTRIAXone\\ROCEPHIN 2 GM VIAL ONE (16:21)
[2019-11-30] MEDS ORDERED: Senokot S 8.6-50 MG TAB PO PRN (16:49)
[2019-11-30] MEDS ORDERED: Bisacodyl 5 MG TAB PO PRN (16:49)
[2019-11-30] MEDS ORDERED: Dextrose 50% Abboject 50 ML SYRINGE SLOW IVP PRN (16:51)
[2019-11-30] MEDS ORDERED: Dextrose 5% in Water 1,000 ML IV PRN (16:51)
--- NOTE | 2019-11-30 17:30 | CON ---
DATE OF CONSULTATION: SUBJECTIVE: Ms. Cox is a 79-year-old white female with ESRD, was admitted due to cough, runny nose, and fever. She was evaluated in the ER and she was diagnosed to have a flu. In addition, she has missed dialysis for the last one week. We are now being consulted for management of her ESRD. Chest x-ray revealed some mild pulmonary vascular congestion. REVIEW OF SYSTEMS: Positive for cough. Positive for fever. Positive for runny nose. Positive for mild shortness of breath. No nausea. No vomiting. No diarrhea. Decreased appetite. Decreased energy level. No leg edema. No headache. No diplopia. Appetite and energy level are decreased. No gross hematuria. No dysuria. No urinary frequency. No nausea. No vomiting. No melena. No hematemesis. MEDICATIONS: Based on the home medication list; 1. Calcium acetate 667 mg p.o. b.i.d. with meals. 2. Carvedilol 6.25 mg p.o. b.i.d. 3. Clopidogrel 75 mg once a day. 4. Ferrous sulfate 325 mg p.o. b.i.d. 5. Insulin/NovoLog 6 units subcu q.a.m. 6. Levemir 30 units subcu b.i.d. 7. Levocetirizine one tablet at bedtime. 8. Sertraline 25 mg q.a.m. 9. Zocor 40 mg at bedtime. 10. Coumadin as directed. 11. Provera 10 mg daily. PAST MEDICAL HISTORY: 1. ESRD from a presumed diabetic nephropathy-on maintenance hemodialysis. 2. Type 2 diabetes mellitus, status post aortic stenosis, diabetic nephropathy, history of macular degeneration, morbid obesity, anemia of chronic renal disease , COPD, valvular heart disease, status post CHF. PAST SURGICAL HISTORY: Status post TAVR done in [place], status post section, status post cardiac cath, status post cuffed hemodialysis catheter placement, status post AV fistula placement. SOCIAL HISTORY: The patient lives in [place], , lives with one of her children. 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 No smoking. No alcohol. No IV drug abuse. Status post multiple blood transfusion. Education, high school. Sedentary lifestyle. ALLERGIES: NONE. TRAUMA: None. IMMUNIZATIONS: Up-to-date. HOSPITALIZATIONS: Please see past medical history. FAMILY HISTORY: Positive family history of ESRD. PHYSICAL EXAMINATION: VITAL SIGNS: Blood pressure 140/70, heart rate 70, and pulse ox 95%. GENERAL: The patient is awake, supine, comfortable, obese. SKIN: Adequate turgor. HEENT: Pinkish conjunctivae. Anicteric sclerae. NECK: No neck mass. No carotid bruits. No JVD. CHEST: No deformities. LUNGS: Harsh breath sounds. No wheezing. HEART: Normal sinus rhythm. She has a grade 2/6 systolic murmur. No gallops. No rubs. ABDOMEN: Globular, soft, nontender. No masses. EXTREMITIES: No edema. LABORATORY DATA: Laboratories of November 30, 2019; white count 9.7, hemoglobin 13.1. Sodium 133, potassium 5.8, chloride 92, carbon dioxide 17, BUN 95, creatinine 12.5, glucose 57, calcium 8.4. AST 18, ALT 8. BNP is 2413. Albumin 3.9, lactic acid is 2.5. Chest x-ray shows increased lung markings. ASSESSMENT AND PLAN: 1. End-stage renal disease-with volume overload in a mild hyperkalemia. We will proceed with hemodialysis. My plan is to do regular 3- to 4-hour hemodialysis with this patient. Fluid removal only as tolerated. 2. Flu-supportive care. Patient may have presented too late for active Tamiflu treatment. 3. Anemia. There is no indication for any Epogen. Her hemoglobin is noted to be greater than 10. 4. End-stage renal disease, stable. We will continue current Wednesday, , Wednesday hemodialysis regimen. Review of the last Kt/V suggests she is adequately dialyzed with the current dialysis regimen. Thank you for the consult. We will continue to follow. Job ID: [id number] [facility]
[2019-11-30 17:58] LABS: INR-International Normal Ratio 3.5; PTT 75.1 SEC (22.9-36.1); Prothrombin Time 35.1 SEC (12.0-14.7)
[2019-11-30 18:50] LABS: Troponin I 0.059 ng/mL (< 0.028)
[2019-11-30] MEDS ORDERED: methylPREDNISolone Sod Succ 40 MG VIAL IVP SCH (19:00)
--- NOTE | 2019-11-30 19:46 | HP ---
CHIEF COMPLAINT: Shortness of breath. HISTORY OF PRESENT ILLNESS: The patient is a 79-year-old female with a past medical history of end-stage renal disease, on dialysis; obesity, and atrial fibrillation, who presents to the hospital with complaints of worsening shortness of breath and generalized weakness going on for the past week. The patient states that she has had sick grand kids at home. She has not been able to make dialysis for the week. She tried to go to dialysis today; however, she just felt very tired, loss of appetite, so she came into the ER for further evaluation. The patient also states that she has not been eating and drinking very much. Also, has been sleeping quite a bit. She has been complaining of shortness of breath. Normally, she uses oxygen at night with her CPAP; however, she has been using it all day. She also has been using neb treatments and her symptoms have not gotten any better. PAST MEDICAL HISTORY: 1. She has a history of atrial fibrillation, currently rate controlled on anticoagulation. 2. She has end-stage renal disease, on dialysis. 3. Obesity. 4. Hypertension. 5. She has had heart failure. 6. COPD. However, she states that she is not a smoker. 7. Hyperlipidemia. 8. Sleep apnea. 9. Diabetes type 2. PAST SURGICAL HISTORY: She has had a TAVR done in [place]. She has had a , had AV fistula placement. FAMILY HISTORY: Positive for end-stage renal disease. SOCIAL HISTORY: She currently lives with her family. She is wheelchair bound. No history of alcohol use, drug use, or tobacco. She is a full code. She lives with her family. ALLERGIES: SHE HAS NO KNOWN DRUG ALLERGIES. MEDICATIONS: Prior as of the following. She is on: 1. Warfarin 2.5 mg daily. 2. Levemir units twice a day. 3. Zoloft 25 mg daily. 4. NovoLog as needed. 5. DuoNeb as needed. 6. Clopidogrel 75 mg daily. 7. Carvedilol 6.25 p.o. daily. 8. Calcium acetate 667 mg p.o. b.i.d. 9. Iron 325 p.o. daily. REVIEW OF SYSTEMS: All negative except for the ones mentioned above in the HPI. PHYSICAL EXAMINATION: VITAL SIGNS: Temperature of 98.1, oxygen 98 on 2 L, respirations are 18, blood pressure 163/44, 88 pulse. GENERAL: She is awake, alert, and oriented x3. Appears ill. CV: S1 and S2 present. Irregularly irregular. LUNGS: Have extensive wheezing all around. ABDOMEN: Obese. Bowel sounds are present x2. EXTREMITIES: Mild 1+ lower extremity pitting edema. NEUROVASCULAR: No focal deficits noted. SKIN: No cuts, lesions, or bruises noted. LABORATORY RESULTS: She is flu positive. Influenza A positive. Lactic acid of 2.5. Sodium 133, potassium of 5.8, BUN of 95, creatinine of 12.5. Her bicarb is 17. Her troponin is 0.052. Chest x-ray, per my interpretation appears to have cardiomegaly with some congestion. BNP of 2413. WBC of 9.7, hemoglobin of 13.1, hematocrit of 40.8, and neutrophils of 83.1. ASSESSMENT AND PLAN: The patient is a 79-year-old female who presents to the hospital with complaints of shortness of breath and generalized weakness. 1. Sepsis. We will start the patient on some Levaquin for community-acquired pneumonia. Also she is flu positive. Tamiflu is not recommended and also she has been having symptoms for the past week. We will also start her on some DuoNeb. We will also start her on some gentle steroids. 2. End-stage renal disease, on dialysis. She has significant electrolyte abnormalities. Nephrology has been consulted. We will undergo dialysis today. 3. Lactic acidosis, most likely secondary to her problem #1. 4. Atrial fibrillation, rate control. We will check PT, INR, and continue to monitor. 5. Mildly elevated troponins, most likely demand related. We will trend and continue to monitor. 6. Hypertension. Again, we will continue her home medications. 7. Heart failure. Currently, her BNP is elevated. However, this could be secondary to her not undergoing dialysis for the past week. We will continue to monitor. She has had an echocardiogram. This was in 2018 with the EF of 40% to 45%. May repeat an echocardiogram. 8. Deep venous thrombosis prophylaxis. She is already on Coumadin. Job ID: [id number]
[2019-11-30] MEDS ORDERED: Heparin 5,000 UNITS/ML VIAL SC SCH (21:00)
[2019-11-30 21:46] LABS: Troponin I 0.071 ng/mL (< 0.028)
[2019-12-01] MEDS: Atorvastatin Calcium 20 MG TAB PO SCH ×2 (00:44→22:55)
[2019-12-01 03:49] VITALS: BMI 57.1
[2019-12-01] MEDS: Ferrous Sulfate 325 MG TAB PO SCH ×3 (04:01→18:18)
[2019-12-01 04:37] LABS: #Eosinphils 0.1 thou/uL (0.0-0.7); #Lymphocytes 0.6 thou/uL (1.20-3.40); #Monocytes 0.7 thou/uL (0.11-0.59); #Neutrophils 6.6 thou/uL (1.40-6.50); %Basophils 0.4 % (0.0-1.0); %Eosinophils 0.9 % (0.0-10.0); %Lymphocytes 7.1 % (21.0-51.0); %Monocytes 8.3 % (0.0-10.0); %Neutrophils 83.3 % (42.0-75.0); Hemoglobin 11.4 g/dL (12.0-16.0); Mean Corpuscular HGB CONC 32.8 g/dL (32.0-36.0); Mean Corpuscular Hemoglobin 31.1 pg (27.0-31.0); Mean Corpuscular Volume 94.8 fL (78.0-98.0); Mean Platelet Volume 7.9 fL (7.4-10.4); Platelet Count 202 thou/uL (130-400); RBC Distribution Width 12.5 % (11.5-14.5); Red Blood Cell (RBC) Count 3.65 mill/uL (4.20-5.40); White Blood Cell (WBC) Count 7.9 thou/uL (4.8-10.8)
[2019-12-01 04:41] LABS: INR-International Normal Ratio 3.7; Prothrombin Time 36.7 SEC (12.0-14.7)
[2019-12-01 04:59] LABS: Anion Gap 19 mmol/L (10-20); BUN (Urea Nitrogen) 46 mg/dL (9.8-20.1); Calc. Creatinine Clearance 14 mL/min (70-130); Calcium 8.1 mg/dL (7.8-10.44); Carbon Dioxide 24 mmol/L (23-31); Chloride 93 mmol/L (98-107); Estimated GFR-MDRD 5; Glucose 85 mg/dL (83-110); Potassium 4.5 mmol/L (3.5-5.1); Sodium 131 mmol/L (136-145)
[2019-12-01] MEDS ORDERED: Clopidogrel Bisulfate 75 MG TAB PO SCH (09:00)
--- NOTE | 2019-12-01 09:26 | PRG ---
DATE OF SERVICE: 12/01/2019 SERVICE: Renal Medicine. SUBJECTIVE: Ms. Cox is a 79-year-old white female with ESRD - on maintenance hemodialysis. She was admitted due to symptoms of her fever, cough, runny nose. She was found to have a flu infection. We are following up for her maintenance hemodialysis. She underwent hemodialysis yesterday. Please note, she missed a week of dialysis treatment due to the fact she has not been feeling well. She has been having somewhat nauseated. Decreased energy level. Decreased appetite. This morning, she is feeling a little better. Denies any chest pain or shortness of breath. OBJECTIVE: VITAL SIGNS: Blood pressure 122/57, heart rate 63, respiratory rate 20, and O2 saturation is 99%. GENERAL: Awake, obese, comfortable, not in distress. SKIN: Adequate turgor. HEENT: Pinkish conjunctivae. Anicteric sclerae. NECK: No neck mass. No carotid bruits. No JVD. CHEST: No deformities. LUNGS: Clear breath sounds. HEART: Normal sinus rhythm. No murmur. No gallops. No rubs. ABDOMEN: Globular, soft, and nontender. No masses. EXTREMITIES: No edema. No deformities. MEDICATIONS: Medications of December 01, 2019, were reviewed. LABORATORY DATA: Laboratories of December 01, 2019; white count 7.9, hemoglobin 11.4. Sodium 131, potassium 4.5, chloride 93, carbon dioxide 24, BUN 46, creatinine 7.84, glucose 85, and calcium 8.1. ASSESSMENT AND PLAN: 1. End-stage renal disease, stable. Continue current 3 times a week hemodialysis. The patient underwent hemodialysis for 3 hours yesterday. Fluid removal was done. The patient tolerated the said treatment. We will continue her current 3 times a week hemodialysis regimen. No indication for any dialytic intervention. 2. Acute respiratory infection - the patient has underlying flu. Continue supportive care. Agree with current management. Recheck basic metabolic panel and CBC in a.m. Job ID: [id number]
[2019-12-01] MEDS: Carvedilol 6.25 MG TAB PO SCH ×2 (09:34→17:34)
[2019-12-01] MEDS: methylPREDNISolone Sod Succ 40 MG VIAL IVP SCH (09:35)
[2019-12-01] MEDS: Bacteriostatic Water 30 ML VIAL FS PRN (09:35)
--- NOTE | 2019-12-01 14:06 | PDOC.HOSPP ---
- Subjective Encounter Date: 12/01/19 Encounter Time: 10:15 Subjective: pt up in bed feels a bit better today - Objective Vital Signs & Weight: Vital Signs (12 hours) Temp Pulse Resp BP Pulse Ox 12/01/19 13:45 76 16 12/01/19 11:20 97.9 F 76 20 118/54 L 96 12/01/19 08:29 66 20 12/01/19 08:20 99 12/01/19 08:09 97.6 F 63 20 122/57 L 99 12/01/19 02:45 97.9 F 91 18 136/76 99 Weight Weight 332 lb 9.6 oz Result Diagrams: 12/01/19 04:22 12/01/19 04:22 Additional Labs: Accuchecks 12/01/19 12/01/19 11/30/19 10:40 06:00 17:35 POC Glucose 92 80 93 Hospitalist ROS - Review of Systems Respiratory: reports: shortness of breath Cardiovascular: denies: chest pain, palpitations, orthopnea, paroxysmal noc. dyspnea, edema, light headedness, other Gastrointestinal: denies: nausea, vomiting, abdominal pain, diarrhea, constipation, melena, hematochezia, other - Medication Medications: Active Medications Generic Name Dose Route Start Last Admin Trade Name Freq PRN Reason Stop Dose Admin Albuterol/Ipratropium 3 ml 11/30/19 19:00 12/01/19 13:45 Duoneb NEB 3 ml [id number] ALINE Administration Atorvastatin Calcium 20 mg 11/30/19 21:00 12/01/19 00:44 Lipitor PO 20 mg HS ALINE Administration Carvedilol 6.25 mg 12/01/19 08:00 12/01/19 09:34 Coreg PO Not Given BID-WM ALINE Ferrous Sulfate 325 mg 11/30/19 17:00 12/01/19 09:33 Feosol PO 325 mg BID-WM ALINE Administration Methylprednisolone Sodium Succinate 40 mg 12/01/19 09:00 12/01/19 09:35 Solu-Medrol IVP 40 mg DAILY ALINE Administration Sterile Water 1 ml 11/30/19 18:58 12/01/19 09:35 Bacteriostatic Water FS 1 ml PRN PRN Administration RECONSTITUTION - Exam Neck: negative: supple, symmetric, no JVD, no thyromegaly, no lymphadenopathy, no carotid bruit, JVD Heart: negative: RRR, no murmur, no gallops, no rubs, normal peripheral pulses, irregular, diminshed peripheral pulses, murmur present, II/IV, III/IV Respiratory: rales, wheezes Gastrointestinal: negative: soft, non-tender, non-distended, normal bowel sounds , no palpable masses, no hepatomegaly, no splenomegaly, no bruit, no guarding, no rigidity, tender to palpation, distended, diminished bowl sounds, voluntary guarding Extremities: negative: no cyanosis, no clubbing, no edema, 1+ LE edema, 2+ LE edema, clubbing Hosp A/P (1) Influenza B Code(s): J10.1 - FLU DUE TO OTH IDENT INFLUENZA VIRUS W OTH RESP MANIFEST Status: Acute (2) Anticoagulated on Coumadin Code(s): Z51.81 - ENCOUNTER FOR THERAPEUTIC DRUG LEVEL MONITORING; Z79.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 ANTICOAGULANTS Status: Acute (3) Chronic atrial fibrillation Code(s): I48.2 - CHRONIC ATRIAL FIBRILLATION * DO NOT USE * Status: Chronic (4) ESRD (end stage renal disease) on dialysis Code(s): N18.6 - END STAGE RENAL DISEASE; Z99.2 - DEPENDENCE ON RENAL DIALYSIS Status: Chronic (5) Hypertension Code(s): I10 - ESSENTIAL (PRIMARY) HYPERTENSION Status: Chronic Qualifiers: (6) Morbid obesity Code(s): E66.01 - MORBID (SEVERE) OBESITY DUE TO EXCESS CALORIES Status: Chronic (7) SOB (shortness of breath) Code(s): R06.02 - SHORTNESS OF BREATH Status: Acute (8) Sleep apnea Code(s): G47.30 - SLEEP APNEA, UNSPECIFIED Status: Acute (9) Elevated troponin Code(s): R79.89 - OTHER SPECIFIED ABNORMAL FINDINGS OF BLOOD CHEMISTRY Status : Acute - Plan pt feels well today, will continue steroids and duonebs. she underwent dialysis yest and feels much better. echo done. elevated trops most likely due to demand related. she has had symptoms for about a week i do not think she needs tamiflue.
[2019-12-01] MEDS ORDERED: Warfarin Sodium 2.5 MG TAB PO SCH (17:00)
[2019-12-02 04:25] LABS: #Lymphocytes 0.4 thou/uL (1.20-3.40); #Monocytes 0.3 thou/uL (0.11-0.59); %Basophils 0.4 % (0.0-1.0); %Eosinophils 0.1 % (0.0-10.0); %Lymphocytes 5.2 % (21.0-51.0); %Neutrophils 90.3 % (42.0-75.0); Hemoglobin 11.1 g/dL (12.0-16.0); Mean Corpuscular HGB CONC 33.3 g/dL (32.0-36.0); Mean Corpuscular Hemoglobin 31.3 pg (27.0-31.0); Mean Corpuscular Volume 93.9 fL (78.0-98.0); Mean Platelet Volume 7.9 fL (7.4-10.4); Platelet Count 197 thou/uL (130-400); RBC Distribution Width 12.5 % (11.5-14.5); Red Blood Cell (RBC) Count 3.54 mill/uL (4.20-5.40); White Blood Cell (WBC) Count 7.7 thou/uL (4.8-10.8)
[2019-12-02 04:32] LABS: INR-International Normal Ratio 2.8; Prothrombin Time 29.3 SEC (12.0-14.7)
[2019-12-02 04:43] LABS: Anion Gap 22 mmol/L (10-20); BUN (Urea Nitrogen) 69 mg/dL (9.8-20.1); Calc. Creatinine Clearance 12 mL/min (70-130); Calcium 8.1 mg/dL (7.8-10.44); Carbon Dioxide 23 mmol/L (23-31); Chloride 92 mmol/L (98-107); Estimated GFR-MDRD 4; Glucose 194 mg/dL (83-110); Sodium 132 mmol/L (136-145)
[2019-12-02] MEDS: methylPREDNISolone Sod Succ 40 MG VIAL IVP SCH (09:00)
--- NOTE | 2019-12-02 09:51 | PRG ---
DATE OF SERVICE: 12/02/2019 SUBJECTIVE: Ms. Cox is a 79-year-old white female with ESRD and followed up by the Renal Service for maintenance hemodialysis. She is currently undergoing hemodialysis. This patient was admitted for an acute respiratory infection. She was also diagnosed to have the flu. She is still complaining some upper respiratory tract symptoms. Still having a dry cough. Denies any chest pain or shortness of breath. OBJECTIVE: VITAL SIGNS: Blood pressure 114/57, heart rate 64, respiratory rate 16, temperature 97.8, and pulse ox 98%. GENERAL: Awake, alert, obese, and comfortable, not in distress. SKIN: Adequate turgor. HEENT: Pinkish conjunctivae. Anicteric sclerae. NECK: No neck mass. No carotid bruits. No JVD. CHEST: No deformities. LUNGS: Clear breath sounds. No wheezing. No crackles. HEART: Normal sinus rhythm. No murmur. No gallops. No rubs. ABDOMEN: Globular, soft, and nontender. No masses. EXTREMITIES: Trace edema. MEDICATIONS: Of December 02, 2019, was reviewed. LABORATORY DATA: Laboratories of December 02, 2019; sodium 132, potassium 5, chloride 92, carbon dioxide 23, BUN 69, creatinine 9.54, glucose 194, and calcium 8.1. White count 7.7 and hemoglobin 11.3. ASSESSMENT AND PLAN: 1. End-stage renal disease, stable. We will continue current hemodialysis regimen of Wednesday, , and Wednesday. Maximizing fluid removal as tolerated by the patient. 2. Acute respiratory infection-being treated empirically for an acute bronchitis. In addition, the patient has also superimposed flu infection. Continue supportive care. Agree with current management. Job ID: [id number]
[2019-12-02] MEDS: Benzonatate 100 MG CAP PO PRN (10:09)
[2019-12-02] MEDS: Carvedilol 6.25 MG TAB PO SCH ×2 (11:17→17:29)
[2019-12-02] MEDS: Ferrous Sulfate 325 MG TAB PO SCH ×2 (11:18→17:29)
[2019-12-02 17:06] LABS: Anion Gap 19 mmol/L (10-20); BUN (Urea Nitrogen) 24 mg/dL (9.8-20.1); Calc. Creatinine Clearance 23 mL/min (70-130); Calcium 8.8 mg/dL (7.8-10.44); Carbon Dioxide 26 mmol/L (23-31); Chloride 95 mmol/L (98-107); Estimated GFR-MDRD 9; Glucose 118 mg/dL (83-110); Magnesium 2.1 mg/dL (1.6-2.6); Potassium 3.9 mmol/L (3.5-5.1); Sodium 136 mmol/L (136-145)
[2019-12-02] MEDS: Warfarin Sodium 5 MG TAB PO SCH (17:29)
--- NOTE | 2019-12-02 17:39 | PDOC.HOSPP ---
- Subjective Encounter Date: 12/02/19 Encounter Time: 11:30 Subjective: pt up in bed still on oxygen, she feels better today. - Objective Vital Signs & Weight: Vital Signs (12 hours) Temp Pulse Resp BP Pulse Ox 12/02/19 16:15 97.8 F 84 16 129/60 98 12/02/19 08:00 97 F L 60 18 133/50 L 97 12/02/19 07:32 64 16 Weight Weight 332 lb 9.6 oz I&O: 12/01/19 12/02/19 12/03/19 06:59 06:59 06:59 Intake Total 1211 240 Output Total 150 Balance 1061 240 Result Diagrams: 12/02/19 04:14 12/02/19 16:22 Additional Labs: Accuchecks 12/02/19 12/02/19 12/01/19 16:49 04:48 20:56 POC Glucose 118 H 182 H 212 H 12/01/19 17:13 POC Glucose 158 H Hospitalist ROS - Review of Systems Respiratory: reports: wheezing. denies: cough, dry, shortness of breath, hemoptysis, SOB with excertion, pleuritic pain, sputum, other Cardiovascular: denies: chest pain, palpitations, orthopnea, paroxysmal noc. dyspnea, edema, light headedness, other Gastrointestinal: denies: nausea, vomiting, abdominal pain, diarrhea, constipation, melena, hematochezia, other - Medication Medications: Active Medications Generic Name Dose Route Start Last Admin Trade Name Freq PRN Reason Stop Dose Admin Albuterol/Ipratropium 3 ml 11/30/19 19:00 12/02/19 13:12 Duoneb NEB 3 ml [id number] ALINE Administration Atorvastatin Calcium 20 mg 11/30/19 21:00 12/01/19 22:55 Lipitor PO 20 mg HS ALINE Administration Benzonatate 100 mg 12/02/19 09:30 12/02/19 10:09 Tessalon PO 100 mg TIDPRN PRN Administration Cough Carvedilol 6.25 mg 12/01/19 08:00 12/02/19 17:29 Coreg PO Not Given BID-WM ALINE Ferrous Sulfate 325 mg 11/30/19 17:00 12/02/19 17:29 Feosol PO 325 mg BID-WM ALINE Administration Levofloxacin 250 mg/ Device 50 mls @ 100 mls/hr 12/02/19 17:00 12/02/19 17:36 IVPB 50 mls Q2D ALINE Administration Methylprednisolone Sodium Succinate 40 mg 12/01/19 09:00 12/02/19 09:00 Solu-Medrol IVP Not Given DAILY ALINE Sterile Water 1 ml 11/30/19 18:58 12/01/19 09:35 Bacteriostatic Water FS 1 ml PRN PRN Administration RECONSTITUTION Warfarin Sodium 5 mg 12/02/19 17:00 12/02/19 17:29 Coumadin PO 5 mg 1700 ALINE Administration - Exam Neck: negative: supple, symmetric, no JVD, no thyromegaly, no lymphadenopathy, no carotid bruit, JVD Heart: negative: RRR, no murmur, no gallops, no rubs, normal peripheral pulses, irregular, diminshed peripheral pulses, murmur present, II/IV, III/IV Respiratory: wheezes. 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 Status: Acute (3) Chronic atrial fibrillation Code(s): I48.2 - CHRONIC ATRIAL FIBRILLATION * DO NOT USE * Status: Chronic (4) ESRD (end stage renal disease) on dialysis Code(s): N18.6 - END STAGE RENAL DISEASE; Z99.2 - DEPENDENCE ON RENAL DIALYSIS Status: Chronic (5) Hypertension Code(s): I10 - ESSENTIAL (PRIMARY) HYPERTENSION Status: Chronic Qualifiers: (6) Morbid obesity Code(s): E66.01 - MORBID (SEVERE) OBESITY DUE TO EXCESS CALORIES Status: Chronic (7) SOB (shortness of breath) Code(s): R06.02 - SHORTNESS OF BREATH Status: Acute (8) Sleep apnea Code(s): G47.30 - SLEEP APNEA, UNSPECIFIED Status: Acute (9) Elevated troponin Code(s): R79.89 - OTHER SPECIFIED ABNORMAL FINDINGS OF BLOOD CHEMISTRY Status : Acute - Plan pt feels well today, will continue steroids and duonebs. she underwent dialysis yest and feels much better. echo done. elevated trops most likely due to demand related. she has had symptoms for about a week i do not think she needs tamiflue. 12/02 pt up in bed feels well, will continue steroids and duonebs. INR therapeutic. ESRD on dialysis.
[2019-12-02] MEDS: Atorvastatin Calcium 20 MG TAB PO SCH (20:26)
[2019-12-03 04:46] LABS: INR-International Normal Ratio 2.7; Prothrombin Time 28.2 SEC (12.0-14.7)
[2019-12-03] MEDS: Ferrous Sulfate 325 MG TAB PO SCH ×2 (10:23→17:34)
[2019-12-03] MEDS: methylPREDNISolone Sod Succ 40 MG VIAL IVP SCH (10:24)
[2019-12-03] MEDS: Bacteriostatic Water 30 ML VIAL FS PRN (10:24)
--- NOTE | 2019-12-03 10:30 | PRG ---
DATE OF SERVICE: 12/03/2019 SUBJECTIVE: Ms. Cox is a 79-year-old white female, followed up by the Renal Service for her ESRD. She underwent hemodialysis without difficulty yesterday. She was initially admitted for acute respiratory infection. She was found also to have a flu infection. Due to the late presentation, this patient did not qualify for Tamiflu. However, she is being empirically treated with IV antibiotics. Still with dry cough and cold symptoms. No complaints of chest pain or shortness of breath. OBJECTIVE: VITAL SIGNS: Blood pressure is 121/56, heart rate 70, respiratory rate 18, temperature 97.6, and pulse ox 97%. GENERAL: Awake, alert, and comfortable, not in distress. SKIN: Adequate turgor. HEENT: She has a pinkish conjunctivae. Anicteric sclerae. NECK: No neck mass. No carotid bruits. No JVD. CHEST: No deformities. LUNGS: Harsh breath sounds. No wheezing. HEART: Normal sinus rhythm. No murmurs. No gallops. No rubs. ABDOMEN: Globular, soft, and nontender. No masses. EXTREMITIES: No edema. No deformities. MEDICATIONS: Medications of December 03, 2019, reviewed. LABORATORY DATA: Laboratories of December 02, 2019, white count 7.7 and hemoglobin 11.1. Sodium 136, potassium 3.9, chloride 95, carbon dioxide 26, BUN 24, creatinine 4.82, calcium 8.8, and magnesium 2.1. ASSESSMENT AND PLAN: 1. End-stage renal disease, stable. We will continue current 3 times a week hemodialysis regimen. Fluid removal only as tolerated. 2. Acute respiratory infection - on empiric IV antibiotics. Supportive care for flu. 3. Recheck basic metabolic and CBC in a.m. Job ID: [id number]
[2019-12-03] MEDS: Carvedilol 6.25 MG TAB PO SCH ×2 (10:41→17:27)
--- NOTE | 2019-12-03 11:01 | PDOC.HOSPP ---
- Subjective Encounter Date: 12/03/19 Encounter Time: 10:56 Subjective: no fever, chills, still somewhat SOB - Objective Vital Signs & Weight: Vital Signs (12 hours) Temp Pulse Resp BP Pulse Ox 12/03/19 08:30 97.6 F 70 18 121/56 L 97 12/03/19 07:40 88 20 12/03/19 04:59 96.9 F L 60 18 115/53 L 96 12/03/19 01:11 58 L 16 97 Weight Weight 332 lb 9.6 oz I&O: 12/02/19 12/03/19 12/04/19 06:59 06:59 06:59 Intake Total 1211 1130 Output Total 150 700 Balance 1061 430 Result Diagrams: 12/02/19 04:14 12/02/19 16:22 Additional Labs: Accuchecks 12/03/19 12/02/19 12/02/19 06:13 20:30 16:49 POC Glucose 177 H 211 H 118 H Hospitalist ROS - Medication Medications: Active Medications Generic Name Dose Route Start Last Admin Trade Name Freq PRN Reason Stop Dose Admin Albuterol/Ipratropium 3 ml 11/30/19 19:00 12/03/19 07:40 Duoneb NEB 3 ml [id number] ALINE Administration Atorvastatin Calcium 20 mg 11/30/19 21:00 12/02/19 20:26 Lipitor PO 20 mg HS ALINE Administration Benzonatate 100 mg 12/02/19 09:30 12/02/19 10:09 Tessalon PO 100 mg TIDPRN PRN Administration Cough Carvedilol 6.25 mg 12/01/19 08:00 12/03/19 10:41 Coreg PO Not Given BID-WM ALINE Ferrous Sulfate 325 mg 11/30/19 17:00 12/03/19 10:23 Feosol PO 325 mg BID-WM ALINE Administration Levofloxacin 250 mg/ Device 50 mls @ 100 mls/hr 12/02/19 17:00 12/02/19 17:36 IVPB 50 mls Q2D ALINE Administration Methylprednisolone Sodium Succinate 40 mg 12/01/19 09:00 12/03/19 10:24 Solu-Medrol IVP 40 mg DAILY ALINE Administration Sterile Water 1 ml 11/30/19 18:58 12/03/19 10:24 Bacteriostatic Water FS 1 ml PRN PRN Administration RECONSTITUTION Warfarin Sodium 5 mg 12/02/19 17:00 12/02/19 17:29 Coumadin PO 5 mg 1700 ALINE Administration - Exam General Appearance: awake alert Neck: no JVD Heart: no murmur, irregular Respiratory - other findings: bilat coarse BS Gastrointestinal: soft, normal bowel sounds Extremities: 1+ LE edema Hosp A/P (1) Chronic anticoagulation Code(s): Z79.01 - [facility] (CURRENT) USE OF ANTICOAGULANTS Status: Acute (2) Influenza B Code(s): J10.1 - FLU DUE TO OTH IDENT INFLUENZA VIRUS W OTH RESP MANIFEST Status: Acute (3) Sleep apnea Code(s): G47.30 - SLEEP APNEA, UNSPECIFIED Status: Acute (4) Acute hypoxemic respiratory failure Code(s): J96.01 - ACUTE RESPIRATORY FAILURE WITH HYPOXIA Status: Acute (5) Atrial fibrillation Code(s): I48.91 - UNSPECIFIED ATRIAL FIBRILLATION Status: Chronic Qualifiers: Atrial fibrillation type: paroxysmal Qualified Code(s): I48.0 - Paroxysmal atrial fibrillation (6) Diabetes mellitus type 2 Code(s): E11.9 - TYPE 2 DIABETES MELLITUS WITHOUT COMPLICATIONS Status: Chronic (7) ESRD (end stage renal disease) on dialysis Code(s): N18.6 - END STAGE RENAL DISEASE; Z99.2 - DEPENDENCE ON RENAL DIALYSIS Status: Chronic (8) Hyperlipidemia Code(s): E78.5 - HYPERLIPIDEMIA, UNSPECIFIED Status: Chronic - Plan nebs, O2, steroids tamiflu + antibx cont anticoag cont coreg
--- NOTE | 2019-12-03 15:23 | PDOC.EVN ---
Event Note - Event Note Event Note: patient slid off chair in shower. NO LOC. NOhard impact. alert, oriented, EOMs intact, L pupil opaque, facies symmetric, no deficit in eDTRs, strength will watch, FU in 3-4 hrs
--- NOTE | 2019-12-03 16:46 | RAD ---
Chest one view HISTORY: Dyspnea. Follow-up. COMPARISON: 11/30/2019. FINDINGS: Cardiac silhouette is magnified and enlarged. Pulmonary vasculature remains slightly engorg ed. Mediastinum is midline with aortic calcification. No lobar consolidation or evidence of pneumothorax. telemetry monitor leads overlie the chest. IMPRESSION: Cardiomegaly and pulmonary vascular congestion are unchanged from the previous exam. Atherosclerosis.
[2019-12-03] MEDS: Warfarin Sodium 5 MG TAB PO SCH (17:34)
[2019-12-03] MEDS: Atorvastatin Calcium 20 MG TAB PO SCH (20:07)
[2019-12-03] MEDS: Acetaminophen 325 MG TAB PO PRN (20:07)
[2019-12-04 04:36] LABS: #Lymphocytes 0.6 thou/uL (1.20-3.40); #Monocytes 0.2 thou/uL (0.11-0.59); #Neutrophils 9.3 thou/uL (1.40-6.50); %Eosinophils 0.2 % (0.0-10.0); %Lymphocytes 5.5 % (21.0-51.0); %Monocytes 2.4 % (0.0-10.0); %Neutrophils 91.9 % (42.0-75.0); Hemoglobin 11.4 g/dL (12.0-16.0); Mean Corpuscular HGB CONC 32.9 g/dL (32.0-36.0); Mean Corpuscular Hemoglobin 31.2 pg (27.0-31.0); Mean Platelet Volume 8.1 fL (7.4-10.4); Platelet Count 220 thou/uL (130-400); RBC Distribution Width 12.7 % (11.5-14.5); Red Blood Cell (RBC) Count 3.66 mill/uL (4.20-5.40); White Blood Cell (WBC) Count 10.2 thou/uL (4.8-10.8)
[2019-12-04 04:39] LABS: INR-International Normal Ratio 2.7; Prothrombin Time 28.7 SEC (12.0-14.7)
[2019-12-04 05:01] LABS: Anion Gap 21 mmol/L (10-20); BUN (Urea Nitrogen) 56 mg/dL (9.8-20.1); Calc. Creatinine Clearance 14 mL/min (70-130); Calcium 8.9 mg/dL (7.8-10.44); Carbon Dioxide 25 mmol/L (23-31); Chloride 93 mmol/L (98-107); Estimated GFR-MDRD 5; Glucose 195 mg/dL (83-110); Potassium 4.6 mmol/L (3.5-5.1); Sodium 134 mmol/L (136-145)
[2019-12-04] MEDS: Ferrous Sulfate 325 MG TAB PO SCH ×2 (08:41→17:49)
[2019-12-04] MEDS: methylPREDNISolone Sod Succ 40 MG VIAL IVP SCH (08:42)
[2019-12-04] MEDS: HumaLOG 300 UNITS/3 ML VIAL SC PRN ×4 (08:42→21:50)
[2019-12-04] MEDS: Carvedilol 6.25 MG TAB PO SCH ×2 (08:42→17:49)
--- NOTE | 2019-12-04 09:15 | PRG ---
DATE OF SERVICE: 12/04/2019 SERVICE: Renal Medicine. SUBJECTIVE: Ms. Cox is a 79-year-old white female, admitted for acute respiratory infection/flu. We are following her up for maintenance hemodialysis. The patient tolerating said dialysis. No new complaints. Still with productive cough. OBJECTIVE: VITAL SIGNS: Blood pressure 135/63, heart rate 80, respiratory rate 23, temperature 97.8, pulse ox 97%. GENERAL: Noted to be awake, alert, comfortable, not in distress. SKIN: Adequate turgor. HEENT: Pinkish conjunctivae. Anicteric sclerae. NECK: No neck mass. No carotid bruits. No JVD. The patient is obese. LUNGS: Decreased breath sounds/harsh breath sounds. HEART: Normal sinus rhythm. No murmurs, gallops, or rubs. ABDOMEN: Globular, soft, nontender. No masses. EXTREMITIES: No edema. No deformities. MEDICATIONS: Medications of December 04, 2019, were reviewed. LABORATORY DATA: Laboratories of December 04, 2019; white count 10.2, hemoglobin 11.4. Sodium 134, potassium 4.6, chloride 93, carbon dioxide 25, BUN 56, creatinine 7.91, glucose 195, and calcium 8.9. ASSESSMENT AND PLAN: 1. End-stage renal disease, stable. Continue current Wednesday, , Wednesday hemodialysis regimen. No indication for any dialytic intervention. Continue supportive care. 2. Acute respiratory infection. The patient has superimposed flu infection. She is on empiric IV antibiotics. Continue supportive care. Job ID: [id number]
--- NOTE | 2019-12-04 09:51 | PDOC.HOSPP ---
- Subjective Encounter Date: 12/04/19 Encounter Time: 09:49 Subjective: dry cough - Objective Vital Signs & Weight: Vital Signs (12 hours) Temp Pulse Resp BP Pulse Ox 12/04/19 07:32 97.8 F 80 23 H 135/63 97 12/04/19 05:19 98 F 85 16 118/62 95 12/03/19 23:13 65 16 Weight Weight 332 lb 9.6 oz I&O: 12/03/19 12/04/19 12/05/19 06:59 06:59 06:59 Intake Total 1130 1211 Output Total 700 450 Balance 430 761 Result Diagrams: 12/04/19 03:52 12/04/19 03:52 Additional Labs: Accuchecks 12/04/19 12/03/19 12/03/19 06:00 20:34 17:19 POC Glucose 208 H 190 H 212 H 12/03/19 11:01 POC Glucose 126 H Hospitalist ROS - Medication Medications: Active Medications Generic Name Dose Route Start Last Admin Trade Name Freq PRN Reason Stop Dose Admin Acetaminophen 650 mg 11/30/19 16:49 12/03/19 20:07 Tylenol PO 650 mg Q4H PRN Administration Headache/Fever/Mild Pain (1-3) Albuterol/Ipratropium 3 ml 11/30/19 19:00 12/04/19 07:32 Duoneb NEB 3 ml [id number] ALINE Administration Atorvastatin Calcium 20 mg 11/30/19 21:00 12/03/19 20:07 Lipitor PO 20 mg HS ALINE Administration Benzonatate 100 mg 12/02/19 09:30 12/02/19 10:09 Tessalon PO 100 mg TIDPRN PRN Administration Cough Carvedilol 6.25 mg 12/01/19 08:00 12/04/19 08:42 Coreg PO Not Given BID-WM ALINE Ferrous Sulfate 325 mg 11/30/19 17:00 12/04/19 08:41 Feosol PO 325 mg BID-WM ALINE Administration Insulin Human Lispro 0 units 11/30/19 16:51 12/04/19 08:42 Humalog SC 3 unit .MILD SLIDING SCALE PRN Administration Mild Correctional Scale Sterile Water 1 ml 11/30/19 18:58 12/03/19 10:24 Bacteriostatic Water FS 1 ml PRN PRN Administration RECONSTITUTION Warfarin Sodium 5 mg 12/02/19 17:00 12/03/19 17:34 Coumadin PO 5 mg 1700 ALINE Administration - Exam General Appearance: awake alert Neck: no JVD Heart: irregular Respiratory: CTAB Gastrointestinal: soft, normal bowel sounds Extremities: 1+ LE edema Hosp A/P (1) Chronic 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 Status: Acute (2) Influenza B Code(s): J10.1 - FLU DUE TO OTH IDENT INFLUENZA VIRUS W OTH RESP MANIFEST Status: Acute (3) Sleep apnea Code(s): G47.30 - SLEEP APNEA, UNSPECIFIED Status: Chronic Qualifiers: Sleep apnea type: unspecified type Qualified Code(s): G47.30 - Sleep apnea , unspecified (4) Acute hypoxemic respiratory failure Code(s): J96.01 - ACUTE RESPIRATORY FAILURE WITH HYPOXIA Status: Acute (5) Atrial fibrillation Code(s): I48.91 - UNSPECIFIED ATRIAL FIBRILLATION Status: Chronic Qualifiers: Atrial fibrillation type: paroxysmal Qualified Code(s): I48.0 - Paroxysmal atrial fibrillation (6) Diabetes mellitus type 2 Code(s): E11.9 - TYPE 2 DIABETES MELLITUS WITHOUT COMPLICATIONS Status: Chronic (7) ESRD (end stage renal disease) on dialysis Code(s): N18.6 - END STAGE RENAL DISEASE; Z99.2 - DEPENDENCE ON RENAL DIALYSIS Status: Chronic (8) Hyperlipidemia Code(s): E78.5 - HYPERLIPIDEMIA, UNSPECIFIED Status: Chronic - Plan DC steroids, transition antibx to po cont HD per renal cont anticoag cont coreg DC planning, home 1-2 days
[2019-12-04] MEDS: Warfarin Sodium 5 MG TAB PO SCH (17:49)
[2019-12-04] MEDS: Atorvastatin Calcium 20 MG TAB PO SCH (21:49)
[2019-12-04] MEDS: Acetaminophen 325 MG TAB PO PRN (22:02)
[2019-12-05 04:57] LABS: INR-International Normal Ratio 2.8; Prothrombin Time 29.4 SEC (12.0-14.7)
[2019-12-05] MEDS: HumaLOG 300 UNITS/3 ML VIAL SC PRN ×2 (07:38→11:40)
--- NOTE | 2019-12-05 07:42 | PRG ---
DATE OF SERVICE: 12/05/2019 SUBJECTIVE: Ms. Cox is a 79-year-old white female with ESRD, on maintenance hemodialysis, was admitted for an acute respiratory infection. She has a presumed bronchitis as well as superimposed flu infection. Coughing is somewhat decreased today. Denies any chest pain or shortness of breath. OBJECTIVE: VITAL SIGNS: Blood pressure 126/58, heart rate 62, respiratory rate 14, temperature 97.6, pulse oximetry 100%. GENERAL: Awake, alert, sitting comfortable, obese. SKIN: Adequate turgor. HEENT: She has pinkish conjunctivae. Anicteric sclerae. NECK: No neck mass. No carotid bruits. No JVD. CHEST: No deformities. LUNGS: Clear breath sounds. No wheezing. No crackles. HEART: Normal sinus rhythm. No murmur. No gallops. No rubs. ABDOMEN: Globular, soft, nontender. No masses. EXTREMITIES: No edema, no deformities. MEDICATIONS: Medications of December 05, 2019, were reviewed. LABORATORY DATA: December 05, 2019, glucose 220. December 04, 2019, sodium 134, potassium 4.6, chloride 93, carbon dioxide 25, BUN 56, creatinine 7.91, glucose 195, and calcium 8.9. White count 10.2, hemoglobin 11.4. ASSESSMENT AND PLAN: 1. End-stage renal disease, stable. We will continue current Wednesday, , Wednesday hemodialysis regimen. Fluid removal only as tolerated. 2. Acute respiratory infection-empiric antibiotics. 3. Flu infection-supportive care. The patient was not a candidate for Tamiflu. Continue supportive care. Recheck basic metabolic profile and CBC in a.m. Job ID: [id number]
[2019-12-05 08:02] LABS: #Lymphocytes 0.7 thou/uL (1.20-3.40); #Monocytes 0.5 thou/uL (0.11-0.59); #Neutrophils 11.2 thou/uL (1.40-6.50); %Basophils 0.2 % (0.0-1.0); %Eosinophils 0.2 % (0.0-10.0); %Lymphocytes 5.5 % (21.0-51.0); %Monocytes 3.9 % (0.0-10.0); %Neutrophils 90.2 % (42.0-75.0); Hemoglobin 12.1 g/dL (12.0-16.0); Mean Corpuscular HGB CONC 32.4 g/dL (32.0-36.0); Mean Corpuscular Hemoglobin 31.1 pg (27.0-31.0); Platelet Count 233 thou/uL (130-400); RBC Distribution Width 12.8 % (11.5-14.5); Red Blood Cell (RBC) Count 3.88 mill/uL (4.20-5.40); White Blood Cell (WBC) Count 12.4 thou/uL (4.8-10.8)
[2019-12-05] MEDS: Benzonatate 100 MG CAP PO PRN (08:03)
[2019-12-05] MEDS: Acetaminophen 325 MG TAB PO PRN (10:20)
[2019-12-05] MEDS: Ferrous Sulfate 325 MG TAB PO SCH ×2 (14:29→19:34)
[2019-12-05] MEDS: Carvedilol 6.25 MG TAB PO SCH ×2 (14:29→19:34)
--- NOTE | 2019-12-05 16:24 | DIS ---
DATE OF ADMISSION: 11/30/2019 DATE OF DISCHARGE: 12/05/2019 PRIMARY CARE PROVIDER: Laura De Anda MD FINAL DIAGNOSES: 1. Acute respiratory failure with hypoxia. 2. Influenza B. 3. Diabetes mellitus, type 2. 4. Atrial fibrillation. 5. Chronic anticoagulation. 6. Dyslipidemia. 7. Hypothyroidism. 8. Obstructive sleep apnea. 9. Chronic obstructive pulmonary disease. 10. End-stage renal disease. DISCHARGE MEDICATIONS: 1. Levemir 30 units subcutaneously twice a day. 2. DuoNeb 3 mL q.6 hours p.r.n. 3. NovoLog 6 units before meals. 4. Warfarin 5 mg p.o. daily. 5. Zoloft 25 mg a day. 6. Zocor 40 mg a day. 7. Levofloxacin 250 mg p.o. daily for 5 more days. 8. Coreg 6.25 mg p.o. b.i.d. 9. Tessalon 100 mg p.o. t.i.d. p.r.n. ALLERGIES: 1. SULFAMETHOXAZOLE/TRIMETHOPRIM. 2. VANCOMYCIN. CODE STATUS: Full code. PENDING AT TIME OF DISCHARGE: Nothing. DIET: Diabetic. HOSPITAL COURSE: The patient was admitted to the Hospitalist Service through [facility] with shortness of breath. She was found to have influenza B positive. Lactic acid was 2.5. Sodium 133, potassium 5.8, BUN 95, creatinine 12.5, CO2 was 17. She had some cardiomegaly with congestion. She was placed on Levaquin for possible community-acquired pneumonia. Tamiflu was not recommended due to the late stage. The patient also with end-stage renal disease, on hemodialysis. Dr. Underwood was consulted for routine hemodialysis. Echocardiogram was done, which revealed normal EF of 55% to 60%. Blood cultures were unrevealing. The patient was treated with nebulizers and supplemental O2. Dr. El Shah, her labor custodian saw her in consultation. The patient improved slowly during her hospital stay. Chest x-ray on 12/03/2019, revealed no cardiomegaly. No definite infiltrate. Some mild vascular congestion. Laboratory on 12/02/2019; white count 7.7, hemoglobin 11.1, platelet count 197,000. Sodium 136, potassium 3.9, CO2 of 26, creatinine 4.82, blood sugars were controlled in the 100 to 200 range. At the time of discharge, she was on her oral medications, doing well. She will follow up on her usual 3 times a week basis for her hemodialysis. She has been requested to see her primary care provider in 3 days for followup. She continues to be on oral anticoagulation with warfarin and will certainly need followup with that. Her INR at the time of discharge was 2.8. Job ID: [id number]
[2019-12-05 16:52] VITALS: BP 141/52; TEMP 98.1
[2019-12-05] MEDS: Warfarin Sodium 5 MG TAB PO SCH (19:34)
--- NOTE | 2019-12-06 07:07 | PQF ---
PHILIPPE DAVIS COUNCIL C MD [id number] REMIGIO THURMAN [id number] CLINICAL DOCUMENTATION CLARIFICATION FORM: POST DISCHARGE Addendum to original discharge summary date: ____ Late entry note date: __ DATE: 12/06/2019 ATTN:AMANDA FELIX MD Please exercise your independent, professional judgment in responding to the clarification form. Clinical indicators are provided on the bottom of this form for your review Please check appropriate box(s) to clarify if the following diagnosis has been ruled in or ruled out: Sepsis [ ] Ruled in diagnosis [ ] Continue to treat [ ] Resolved [ ] Ruled out diagnosis [ ] Cannot rule out diagnosis [ ] Other diagnosis [ ] Unable to determine For continuity of documentation, please document condition throughout progress notes and discharge summary. Thank You. CLINICAL INDICATORS - SIGNS / SYMPTOMS / LABS - Sepsis- ED record, 11/30, Dimas Lopez MD - Pulse: 100, Temp: 98.4, RR: 26- ED record, 11/30, Dimas Lopez MD - WBC: 9.7 on 11/30, 12.4H on 12/05- Laboratory report - Community -acquired pneumonia- H&P, 11/30, An Mandel MD RISK FACTORS - Acute respiratory failure with hypoxia- DS, 12/05, AMANDA FELIX MD - Influenza B-DS, 12/05, AMANDA FELIX MD TREATMENTS - Rocephin.IV- MAR, 11/30 - Levofloxacin.IV- MAR, 11/30 (This form is maintained as a part of the permanent medical record) [employer] [id number] [employer]. All Rights Reserved [email or web address]
== END 2019-12-05 20:05 | disposition home or self-care (01) | DRG 193 ==
LOC: ERS 14:49 → ERHOLD 16:41 → 2NO 12-01 02:22
PROVIDERS: ADMIT Emergency Medicine; ATTEND Emergency Medicine
DX: J10.08 Influenza due to other identified influenza virus with other specified pneumonia (principal); J96.01 Acute respiratory failure with hypoxia; N18.6 End stage renal disease; I13.2 Hypertensive heart and chronic kidney disease with heart failure and with stage 5 chronic kidney disease, or end stage renal disease; E87.2 Acidosis; E11.22 Type 2 diabetes mellitus with diabetic chronic kidney disease; E11.649 Type 2 diabetes mellitus with hypoglycemia without coma; D63.1 Anemia in chronic kidney disease; I50.9 Heart failure, unspecified; J44.9 Chronic obstructive pulmonary disease, unspecified; E03.9 Hypothyroidism, unspecified; E78.5 Hyperlipidemia, unspecified; E87.5 Hyperkalemia; F41.9 Anxiety disorder, unspecified; G47.33 Obstructive sleep apnea (adult) (pediatric); F32.9 Major depressive disorder, single episode, unspecified; E66.01 Morbid (severe) obesity due to excess calories; E78.00 Pure hypercholesterolemia, unspecified; Z95.0 Presence of cardiac pacemaker; Z95.2 Presence of prosthetic heart valve; Z79.01 Long term (current) use of anticoagulants; Z88.1 Allergy status to other antibiotic agents; Z88.2 Allergy status to sulfonamides; Z91.15 Patient's noncompliance with renal dialysis
CPT/HCPCS: 36415; 36416; 71045; 80048; 80053; 82553; 83605; 83690; 83735; 83880; 84484; 85025; 85610; 85730; 87040; 87804; 90935; 93005; 93306; 94640; 96361; 96365; 96367; G0257; J0696; J1644; J1956; J2920; J7620

== ENCOUNTER 2020-08-26 15:20 | Inpatient (IN) | payer MEDICARE, MEDICAID ==
[~2020-08-26 15:20] MED LIST changes: +Calcium Chloride 1 GM/10 ML Abboject SYRINGE ONE; +Dextrose 50% Abboject 50 ML SYRINGE ONE; +EPINEPHrine 1 MG/10 ML Abboject SYRINGE ONE; -Heparin 1,000 UNITS/ML VIAL ONE; +Sodium Bicarb 50 MEQ/50 ML Abboject 8.4% SYRINGE ONE
--- NOTE | 2020-08-26 16:13 | RAD ---
Portable frontal chest radiograph: 08/26/2020 COMPARISON: 12/03/2019 HISTORY: Generalized weakness with shortness of breath FINDINGS: Stable prominence of the cardiac silhouette and atherosclerotic calcification of the aortic arch. New pulmonary vascular congestion. Hazy increased density noted within the right lung base, new. No pneumothorax or large volume pleural effusion. Slight blunting of the costophrenic angle bila terally suggests possible small bilateral pleural effusion. IMPRESSION: Findings suggesting pulmonary edema. Infectious pneumonitis cannot be excluded. Recommend PA and lateral imaging of the chest following treatment.
[2020-08-26] MEDS ORDERED: Acetaminophen 500 MG TAB ONE (17:02)
[2020-08-26 17:23] LABS: Hemoglobin 12.4 g/dL (12.0-16.0); Mean Corpuscular HGB CONC 32.4 g/dL (32.0-36.0); Mean Corpuscular Hemoglobin 30.6 pg (27.0-31.0); Mean Corpuscular Volume 94.5 fL (78.0-98.0); Mean Platelet Volume 8.6 fL (7.4-10.4); Platelet Count 170 thou/uL (130-400); RBC Distribution Width 12.8 % (11.5-14.5); Red Blood Cell (RBC) Count 4.06 mill/uL (4.20-5.40); White Blood Cell (WBC) Count 11.9 thou/uL (4.8-10.8)
[2020-08-26 17:44] LABS: ALT (SGPT) 14 U/L (8-55); AST (SGOT) 27 U/L (5-34); Albumin 3.2 g/dL (3.4-4.8); Alkaline Phosphatase 87 U/L (40-110); Anion Gap 32 mmol/L (10-20); BUN (Urea Nitrogen) 69 mg/dL (9.8-20.1); Bilirubin, Total 0.7 mg/dL (0.2-1.2); Calc. Creatinine Clearance 0 mL/min (70-130); Calcium 7.3 mg/dL (7.8-10.44); Carbon Dioxide 19 mmol/L (23-31); Chloride 91 mmol/L (98-107); Estimated GFR-MDRD 5; Globulin 3.7 g/dL (2.4-3.5); Glucose 107 mg/dL (83-110); Potassium 4.7 mmol/L (3.5-5.1); Protein, Total 6.9 g/dL (6.0-8.3); Sodium 137 mmol/L (136-145)
[2020-08-26 17:56] LABS: Band 10 % (5-11); Lymphocytes 2 % (21-51); MDiff Complete? YES; Monocytes 3 % (0-10); Neutrophil 84 % (42-75); Platelet Morphology Comment Appears Adequate; RBC Morphology Normal; Reactive Lymphocytes 1 % (0-10)
[2020-08-26] MEDS ORDERED: cefTRIAXone\\ROCEPHIN 1 GM VIAL ONE (18:24)
[2020-08-26] MEDS ORDERED: Azithromycin 500 MG VIAL ONE (19:17)
[2020-08-26 19:29] LABS: SARS-CoV-2 NAA Rapid Test DETECTED (NotDetected)
[2020-08-26] MEDS ORDERED: Ondansetron PF 4 MG/2 ML Vial IVP PRN (20:22)
[2020-08-26] MEDS ORDERED: Acetaminophen 650 MG Suppository PR PRN (20:22)
[2020-08-26] MEDS ORDERED: Dextrose 5% in Water 1,000 ML IV PRN (20:27)
[2020-08-26] MEDS ORDERED: Dextrose 50% Abboject 50 ML SYRINGE SLOW IVP PRN (20:27)
[2020-08-26] MEDS ORDERED: Furosemide 40 MG/4 ML VIAL SLOW IVP SCH (20:30)
[2020-08-26] MEDS ORDERED: Norepinephrine 8 MG in Dextrose 5% in Water 242 ML IVPB PRN (20:45)
[2020-08-26] MEDS ORDERED: Ondansetron PF 4 MG/2 ML Vial ONE (20:57)
--- NOTE | 2020-08-26 21:39 | RAD ---
RADIOGRAPH CHEST 1 VIEW: DATE: 08/26/2020 TIME: 9:04 PM HISTORY: 79-year-old female status post central line placement COMPARISON: 08/26/2020 4:02 PM FINDINGS: Patient is now significantly rotated to the left. The only interval change since the prior study is a central vascular catheter descending from the left neck which terminates towards the right as it overlies the lower portion of the aortic knob. No interval change in the pulmonary vascular congestio n, diffusely prominent interstitial markings, and moderate sized airspace opacity in the right lower lung zone, plus poor visualization of retrocardiac portion of left lower lobe. No pneumothorax. IMPRESSION: Interval placement of left-sided central vascular catheter without pneumothorax.
--- NOTE | 2020-08-26 21:40 | PDOC.BPN ---
- Brief Progress Note [id number] HP
--- NOTE | 2020-08-27 00:52 | HP ---
CHIEF COMPLAINT: Shortness of breath, cough, and fever. HISTORY OF PRESENT ILLNESS: Ms. Cox is a 79-year-old female with multiple medical problems including end-stage renal disease on hemodialysis, congestive heart failure, COPD, anticoagulated on Coumadin, hypertension, hyperlipidemia, diabetes, among others, presents to the emergency room with cough, fever, and shortness of breath for the last few days. Workup in the emergency room including imaging studies was consistent with infiltrate/edema, viral/COVID pneumonia. Lab work, the patient had a BNP more than 1000, potassium is 4.7, BUN is 69, creatinine 7.6, WBC is 11.9 with 2% lymphocytes, CRP 31, ESR is 116. The patient was hypoxic, placed on high-flow oxygen. Currently, the patient saturating in the low 90s. The patient became hypotensive in the emergency room, initially was given fluids, still hypotensive. The patient's central venous catheter was inserted. The patient started on Levophed. The patient is being admitted to the intensive care unit for further management. PAST MEDICAL HISTORY: As mentioned above in the history of present illness. PAST SURGICAL HISTORY: 1. Dialysis port placed to the right chest. 2. Dialysis fistula in right arm. 3. Cardiac pacemaker. 4. Heart valve replacement. PAST PSYCHIATRIC HISTORY: Anxiety and depression. SOCIAL HISTORY: The patient has no smoking. No alcohol use or drug use history. The patient lives at home with family. ALLERGIES: ALLERGIC TO BACTRIM, SULFAMETHOXAZOLE, TRIMETHOPRIM, VANCOMYCIN. FAMILY HISTORY: Reviewed and noncontributory. HOME MEDICATIONS: Please see home medication reconciliation form for updated medications. REVIEW OF SYSTEMS: Review of 14 systems negative except what is mentioned in history of present illness. PHYSICAL EXAMINATION: VITAL SIGNS: Currently on vasopressor and Levophed, blood pressure is 100/40; pulse is 60; respiratory rate is 25; oxygen saturation is 100% on high-flow oxygen; and temperature is 100.1. HEAD AND NECK: Normocephalic and atraumatic. The patient in moderate respiratory distress on high-flow oxygen. CHEST: Coarse bilateral breath sounds. HEART: Irregular. ABDOMEN: Obese, soft. Bowel sounds present. NEUROLOGIC: Awake, alert. PSYCHIATRIC: Unable to assess. EXTREMITIES: No clubbing or cyanosis. GENITOURINARY: No suprapubic tenderness. No flank tenderness. LABORATORY DATA: COVID-19 detected. Rest of lab work as mentioned above in history of present illness. DIAGNOSTIC DATA: Chest x-ray as mentioned above in history of present illness. ASSESSMENT: 1. Severe sepsis/septic shock. 2. Acute hypoxic respiratory failure. 3. Pneumonia secondary to COVID-19 virus infection. 4. COVID-19 virus infection. 5. Obesity, morbid with BMI more than 40. 6. End-stage renal disease, requiring hemodialysis. 7. History of heart valve replacement. 8. Cardiac pacemaker. 9. Anticoagulated on warfarin. PLAN: 1. Admit to CCU/ICU. 2. Septic workup in the ED. 3. Empiric IV antibiotics, may need remdesivir and convalescent plasma. Management as per Pulmonary/drying machine receiver. 4. Continue with high-flow oxygen, keep saturation more than 92%. 5. IV dexamethasone. 6. Continue with vasopressor and Levophed for now, titrate to MAP more than 65. 7. Consult Pulmonary/Critical Care for critical care management. 8. Consult Nephrology to arrange for hemodialysis. 9. Reconcile home medications. 10. DVT prophylaxis as appropriate. 11. GI prophylaxis. 12. Expected length of stay, 2 midnights or more. Job ID: [id number]
[2020-08-27] MEDS: Heparin 5,000 UNITS/ML VIAL SC SCH ×3 (02:25→21:26)
[2020-08-27 05:27] LABS: Band 5 % (5-11); Hemoglobin 12.4 g/dL (12.0-16.0); Lymphocytes 6 % (21-51); MDiff Complete? YES; Mean Corpuscular HGB CONC 31.9 g/dL (32.0-36.0); Mean Corpuscular Hemoglobin 30.7 pg (27.0-31.0); Mean Platelet Volume 8.8 fL (7.4-10.4); Monocytes 4 % (0-10); Neutrophil 85 % (42-75); Platelet Count 155 thou/uL (130-400); Platelet Morphology Comment Appears Adequate; RBC Distribution Width 12.9 % (11.5-14.5); Red Blood Cell (RBC) Count 4.03 mill/uL (4.20-5.40); White Blood Cell (WBC) Count 11.4 thou/uL (4.8-10.8)
[2020-08-27 05:36] LABS: ALT (SGPT) 17 U/L (8-55); AST (SGOT) 29 U/L (5-34); Albumin 3.1 g/dL (3.4-4.8); Alkaline Phosphatase 82 U/L (40-110); Anion Gap 34 mmol/L (10-20); BUN (Urea Nitrogen) 75 mg/dL (9.8-20.1); Bilirubin, Total 0.6 mg/dL (0.2-1.2); Calc. Creatinine Clearance 0 mL/min (70-130); Calcium 7.6 mg/dL (7.8-10.44); Carbon Dioxide 16 mmol/L (23-31); Chloride 92 mmol/L (98-107); Estimated GFR-MDRD 5; Glucose 106 mg/dL (83-110); Potassium 4.7 mmol/L (3.5-5.1); Protein, Total 7.1 g/dL (6.0-8.3); Sodium 137 mmol/L (136-145)
[2020-08-27] MEDS ORDERED: Dexamethasone 10 MG/ML VIAL ONE (10:14)
[2020-08-27] MEDS ORDERED: Famotidine/PF 20 mg/2ml Vial ONE (10:16)
[2020-08-27] MEDS ORDERED: Heparin 10,000 UNITS/ 10 ML VIAL ONE (10:20)
[2020-08-27] MEDS: Famotidine/PF 20 mg/2ml Vial SLOW IVP SCH (10:44)
[2020-08-27] MEDS: Dexamethasone Sod Phosphate 6 MG in Sodium Chloride 0.9% 50 ML IVPB SCH (10:45)
--- NOTE | 2020-08-27 15:54 | PDOC.HOSPP ---
- Subjective Encounter Date: 08/27/20 Subjective: The patient is tolerating BiPAP. - Objective Vital Signs & Weight: Vital Signs (12 hours) Pulse Resp Pulse Ox 08/27/20 10:00 61 27 H 94 L Result Diagrams: 08/27/20 04:56 08/27/20 04:56 Hospitalist ROS - Medication Medications: Active Medications Generic Name Dose Route Start Last Admin Trade Name Freq PRN Reason Stop Dose Admin Famotidine 20 mg 08/27/20 09:00 08/27/20 10:44 Famotidine/Pf 20 Mg/2ml Vial SLOW IVP 20 mg DAILY ALINE Administration Heparin Sodium (Porcine) 5,000 units 08/26/20 21:00 08/27/20 02:25 Heparin 5,000 Units/Ml Vial SC Not Given TID ALINE Dexamethasone Sodium Phosphate 51.5 mls @ 101.756 mls/hr 08/27/20 09:00 08/27/20 10:45 6 mg/ Sodium Chloride IVPB 51.5 mls DAILY ALINE Administration - Exam General Appearance: awake alert ENT: normocephalic atraumatic Neck: supple, no JVD Heart: RRR Respiratory: normal chest expansion, no tachypnea Extremities: no cyanosis, no clubbing Neurological: cranial nerve grossly intact Hosp A/P (1) Acute exacerbation of CHF (congestive heart failure) Code(s): I50.9 - HEART FAILURE, UNSPECIFIED Status: Acute Qualifiers: (2) Acute hypoxemic respiratory failure Code(s): J96.01 - ACUTE RESPIRATORY FAILURE WITH HYPOXIA Status: Acute (3) Diabetes mellitus type 2 Code(s): E11.9 - TYPE 2 DIABETES MELLITUS WITHOUT COMPLICATIONS Status: Chronic (4) ESRD (end stage renal disease) on dialysis Code(s): N18.6 - END STAGE RENAL DISEASE; Z99.2 - DEPENDENCE ON RENAL DIALYSIS Status: Chronic (5) Hyperlipidemia Code(s): E78.5 - HYPERLIPIDEMIA, UNSPECIFIED Status: Chronic (6) Hypertension Code(s): I10 - ESSENTIAL (PRIMARY) HYPERTENSION Status: Chronic Qualifiers: (7) Obstructive sleep apnea Code(s): G47.33 - OBSTRUCTIVE SLEEP APNEA (ADULT) (PEDIATRIC) Status: Chronic (8) Paroxysmal atrial fibrillation Code(s): I48.0 - PAROXYSMAL ATRIAL FIBRILLATION Status: Chronic (9) COVID-19 virus infection Code(s): U07.1 - COVID-19 Status: Acute - Plan Shock resolved. Continue supplemental oxygen as needed. Continue IV ceftriaxone and azithromycin. Continue dexamethasone for hypoxia associated with COVID-19.
[2020-08-27 19:23] LABS: Troponin I 0.117 ng/mL (< 0.028)
[2020-08-27] MEDS: Azithromycin 500 MG in Sodium Chloride 0.9% 250 ML 250 ML IVPB SCH (21:25)
[2020-08-27 22:27] LABS: Troponin I 0.119 ng/mL (< 0.028)
[2020-08-27] MEDS: cefTRIAXone\\ROCEPHIN 1 GM in Sodium Chloride 0.9% 100 ML IVPB SCH (23:56)
--- NOTE | 2020-08-28 00:10 | CON ---
DATE OF CONSULTATION: 08/27/2020 HISTORY OF PRESENT ILLNESS: Ms. Cox is a 79-year-old white female with ESRD-on maintenance hemodialysis and admitted for complaints of shortness of breath, cough, and fever. She was noted to have COVID-19 pneumonia. We are now following up this patient for management of her ESRD. She is undergoing hemodialysis at the present time. Her breathing has actually improved. REVIEW OF SYSTEMS: Positive for occasional shortness of breath. No chest pain. Positive for fever. No syncopal episode. No palpitations. No diarrhea. No constipation. No gross hematuria. No dysuria. No frequency. No abdominal pain. Appetite and energy levels decreased. MEDICATIONS: The patient is currently on, 1. Azithromycin 500 mg IV daily. 2. Ceftriaxone 1 g IV q.24 hours. 3. Methadone 6 mg IV daily. 4. Famotidine 20 mg IV daily. 5. Heparin 5000 units subcu t.i.d. 6. Zofran 4 mg IV q.6 p.r.n. PAST MEDICAL HISTORY: 1. ESRD-Continue on maintenance hemodialysis. Recent diagnosis of COVID-19 pneumonia. 2. Type 2 diabetes mellitus, status post aortic stenosis. 3. History of macular degeneration. 4. Morbid obesity. 5. Valvular heart disease, status post CHF. 6. COPD. PAST SURGICAL HISTORY: Status post TAVR-done in [place], status post section, status post cardiac cath, status post cuffed hemodialysis catheter placement, status post AV fistula placement. SOCIAL HISTORY: The patient lives in [place], and lives with one of her children. 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 No smoking. No alcohol. No drug abuse, status post blood transfusion. Education, high school. Sedentary lifestyle. ALLERGIES: NONE. TRAUMA: None. IMMUNIZATIONS: Up-to-date. HOSPITALIZATIONS: Please see past medical history. FAMILY HISTORY: No family history of ESRD. PHYSICAL EXAMINATION: VITAL SIGNS: Blood pressure 120/70, heart rate 61, respiratory rate 27, O2 saturation 94%. GENERAL: The patient is awake, alert, comfortable, morbidly obese. SKIN: Adequate turgor. HEENT: She has a pinkish conjunctivae. Anicteric sclerae. No neck mass. No carotid bruits. No JVD. CHEST: No deformities. LUNGS: Decreased breath sounds. HEART: Normal sinus rhythm. No murmur. No gallops. No rubs. ABDOMEN: Globular, soft, nontender. No masses. EXTREMITIES: Trace edema. LABORATORY DATA: Of August 27, 2020, sodium 137, potassium 4.7, chloride 92, carbon dioxide 16, BUN 75, creatinine 7.99, glucose 106. White count 11.4, hemoglobin 12.4, hematocrit 38.7. ASSESSMENT AND PLAN: 1. COVID-19 pneumonia-Continue supportive care and empiric IV antibiotics, on dexamethasone. 2. End-stage kidney disease stable, currently undergoing hemodialysis. Fluid removal only as tolerated. We will plan to do a three-hour hemodialysis with this patient. 3. Calciphylaxis-History of calciphylaxis and previously was on sodium thiosulfate at 25 g IV every dialysis. While she is on isolation, we will hold off the sodium thiosulfate until she recovers from the COVID-19 pneumonia. I agree with current management. Job ID: [id number]
[2020-08-28 01:13] LABS: Troponin I 0.102 ng/mL (< 0.028)
[2020-08-28] MEDS: Dexamethasone Sod Phosphate 6 MG in Sodium Chloride 0.9% 50 ML IVPB SCH (09:16)
[2020-08-28] MEDS: Famotidine/PF 20 mg/2ml Vial SLOW IVP SCH (09:16)
[2020-08-28] MEDS: Heparin 5,000 UNITS/ML VIAL SC SCH ×3 (09:16→21:41)
--- NOTE | 2020-08-28 09:50 | PRG ---
DATE OF SERVICE: 08/28/2020 SUBJECTIVE: Ms. Cox is a 79-year-old white female with ESRD, was admitted for COVID-19 pneumonia. Currently, receiving antibiotics and steroids. We are following her up for her management over ESRD. She has also history of calciphylaxis and has been receiving sodium thiosulfate in the outpatient setting. No new complaints today. She feels tired. OBJECTIVE: VITAL SIGNS: Blood pressure 148/61, heart rate 64, respiratory rate 26, O2 saturation 96% on 4 L, and temperature 97.8. GENERAL: The patient is awake, obese, comfortable, not in overt distress. SKIN: Adequate turgor. HEENT: Pinkish conjunctivae. Anicteric sclerae. No neck mass. No carotid bruits. No JVD. CHEST: No deformities. LUNGS: Bibasilar crackles. HEART: Normal sinus rhythm. No murmurs. No gallops. No rubs. ABDOMEN: Globular, soft, and nontender. No masses. EXTREMITIES: Positive for edema. MEDICATIONS: August 28, 2020, reviewed. LABORATORY DATA: August 27, 2020; white count 11.4, hemoglobin 12.4. Potassium 4.7, creatinine 7.99, and BUN 75. August 26, 2020; chest x-ray shows increased lung markings with diffused prominent interstitial markings. ASSESSMENT AND PLAN: 1. COVID-19 infection - continue supportive care, on empiric IV antibiotics. 2. End-stage renal disease, stable. Received hemodialysis yesterday with fluid removal. The plan is to do 3 times a week hemodialysis with this patient. 3. Calciphylaxis, sodium thiosulfate 25 g IV every hemodialysis. Agree with current management. Job ID: [id number]
[2020-08-28] MEDS: HumaLOG 300 UNITS/3 ML VIAL SC PRN (17:28)
[2020-08-28] MEDS: cefTRIAXone\\ROCEPHIN 1 GM in Sodium Chloride 0.9% 100 ML IVPB SCH (17:28)
[2020-08-28] MEDS: Azithromycin 500 MG in Sodium Chloride 0.9% 250 ML 250 ML IVPB SCH (18:21)
--- NOTE | 2020-08-28 20:05 | PDOC.HOSPP ---
- Subjective Encounter Date: 08/28/20 - Objective Vital Signs & Weight: Vital Signs (12 hours) Temp Pulse Resp BP Pulse Ox 08/28/20 15:27 98.0 F 63 20 107/56 L 99 08/28/20 13:27 99 08/28/20 11:47 98.2 F 84 22 H 101/61 99 08/28/20 09:25 95 08/28/20 09:23 98.1 F 76 20 96/59 L 95 Weight Admit Weight 324 lb 6.4 oz Weight 324 lb 6.4 oz I&O: 08/27/20 08/28/20 08/29/20 06:59 06:59 06:59 Intake Total 650 730 Output Total 0 Balance 650 730 Result Diagrams: 08/27/20 04:56 08/27/20 04:56 Additional Labs: Accuchecks 08/28/20 08/28/20 08/28/20 19:21 16:33 10:46 POC Glucose 284 H 210 H 171 H 08/28/20 08/27/20 05:15 21:25 POC Glucose 141 H 139 H Hospitalist ROS - Medication Medications: Active Medications Generic Name Dose Route Start Last Admin Trade Name Freq PRN Reason Stop Dose Admin Famotidine 20 mg 08/27/20 09:00 08/28/20 09:16 Famotidine/Pf 20 Mg/2ml Vial SLOW IVP 20 mg DAILY ALINE Administration Heparin Sodium (Porcine) 5,000 units 08/26/20 21:00 08/28/20 15:21 Heparin 5,000 Units/Ml Vial SC 5,000 units TID ALINE Administration Ceftriaxone Sodium 1 gm/ 100 mls @ 200 mls/hr 08/27/20 18:00 08/28/20 17:28 Sodium Chloride IVPB 100 mls Q24HR ALINE Administration Dexamethasone Sodium Phosphate 51.5 mls @ 101.756 mls/hr 08/27/20 09:00 08/28/20 09:16 6 mg/ Sodium Chloride IVPB 51.5 mls DAILY ALINE Administration Azithromycin 500 mg/ Sodium 250 mls @ 250 mls/hr 08/27/20 18:00 08/28/20 18:21 Chloride IVPB 250 mls 1800 ALINE Administration Insulin Human Lispro 0 units 08/26/20 20:27 08/28/20 17:28 Humalog 300 Units/3 Ml Vial SC 3 unit .MILD SLIDING SCALE PRN Administration Mild Correctional Scale - Exam General Appearance: awake alert ENT: normocephalic atraumatic Neck: supple, no JVD Heart: RRR Respiratory: no tachypnea, wheezes Gastrointestinal: soft Extremities: no cyanosis, no clubbing Hosp A/P (1) Acute exacerbation of CHF (congestive heart failure) Code(s): I50.9 - HEART FAILURE, UNSPECIFIED Status: Acute Qualifiers: (2) Acute hypoxemic respiratory failure Code(s): J96.01 - ACUTE RESPIRATORY FAILURE WITH HYPOXIA Status: Acute (3) Diabetes mellitus type 2 Code(s): E11.9 - TYPE 2 DIABETES MELLITUS WITHOUT COMPLICATIONS Status: Chronic (4) ESRD (end stage renal disease) on dialysis Code(s): N18.6 - END STAGE RENAL DISEASE; Z99.2 - DEPENDENCE ON RENAL DIALYSIS Status: Chronic (5) Hyperlipidemia Code(s): E78.5 - HYPERLIPIDEMIA, UNSPECIFIED Status: Chronic (6) Hypertension Code(s): I10 - ESSENTIAL (PRIMARY) HYPERTENSION Status: Chronic Qualifiers: (7) Obstructive sleep apnea Code(s): G47.33 - OBSTRUCTIVE SLEEP APNEA (ADULT) (PEDIATRIC) Status: Chronic (8) Paroxysmal atrial fibrillation Code(s): I48.0 - PAROXYSMAL ATRIAL FIBRILLATION Status: Chronic (9) COVID-19 virus infection Code(s): U07.1 - COVID-19 Status: Acute - Plan Shock resolved. Continue supplemental oxygen as needed. Continue IV ceftriaxone and azithromycin. Continue dexamethasone for hypoxia associated with COVID-19. HD per nephrology.
[2020-08-28] MEDS ORDERED: Insulin Glargine 15 UNITS in Pre-Filled Syringe 1 EACH SC SCH (21:00)
[2020-08-28] MEDS: Insulin Glargine 10 UNITS in Pre-Filled Syringe SC SCH (21:41)
[2020-08-29] MEDS: HumaLOG 300 UNITS/3 ML VIAL SC PRN (05:18)
[2020-08-29] MEDS: Dexamethasone Sod Phosphate 6 MG in Sodium Chloride 0.9% 50 ML IVPB SCH (08:41)
[2020-08-29] MEDS: Heparin 5,000 UNITS/ML VIAL SC SCH ×3 (08:42→21:25)
[2020-08-29] MEDS: Famotidine/PF 20 mg/2ml Vial SLOW IVP SCH (08:42)
--- NOTE | 2020-08-29 09:46 | PRG ---
DATE OF SERVICE: 08/29/2020 SUBJECTIVE: Ms. Cox is a 79-year-old white female with ESRD and was admitted for COVID-19 pneumonia. We are following her up for ESRD and calciphylaxis. I have resumed her sodium thiosulfate to be given with dialysis. I have scheduled her for hemodialysis this afternoon. No other complaints today. OBJECTIVE: VITAL SIGNS: Blood pressure 130/81, heart rate 60, respiratory rate 28, O2 saturation 93%, temperature 97.6. GENERAL: The patient is awake, alert, comfortable, not in overt distress. SKIN: Adequate turgor. HEENT: She has a pinkish conjunctivae. Anicteric sclerae. No neck mass. No carotid bruits. No JVD. CHEST: No deformities. LUNGS: Decreased breath sounds. HEART: Normal sinus rhythm. No murmurs, no gallops, no rubs. ABDOMEN: Globular, soft, nontender. No masses. EXTREMITIES: Trace edema. MEDICATIONS: Medications of August 29, 2020, was reviewed. LABORATORY DATA: Laboratories of August 29, 2020; glucose was 200. On August 27, 2020; white count 11.4, hemoglobin 12.4. On August 27, 2020; BUN 75, creatinine 7.99, potassium 4.7. ASSESSMENT AND PLAN: 1. COVID-19 pneumonia-continue supportive care. 2. End-stage renal disease, hemodialysis today. Continue 3 times a week hemodialysis with fluid removal. 3. Calciphylaxis. Continue sodium thiosulfate 25 g IV q.hemodialysis. Overall, prognosis remains guarded. Job ID: [id number]
--- NOTE | 2020-08-29 11:23 | PQF ---
CLINICAL DOCUMENTATION CLARIFICATION FORM: Dear Dr. Briones Date: 08/29/2020 Please exercise your independent, professional judgment in responding to the clarification form. Clinical indicators are provided on the bottom of this form for your review. Please check appropriate box(es): HEART FAILURE: A. ACUITY [ ] Acute [> ] Acute on Chronic B. TYPE: [ >] Diastolic / HFpEF [ ] Systolic / HFrEF [ ] Combined Systolic / Diastolic [ ] Hypertensive Heart and Kidney disease [ ] Hypertensive Heart Disease [ ] Hypertensive Kidney Disease [ ] Other diagnosis [ ] Unable to determine For continuity of documentation, please document condition throughout progress notes and discharge summary. Thank You. CLINICAL INDICATORS - SIGNS / SYMPTOMS / LABS / RESULTS AND LOCATION IN EMR *Reports 12/01/2019 (from previous encounter) ([facility]): * Echocardiogram * Moderate concentric left ventricular hypertrophy * Ejection Fraction is visually estimated at 55-60% * The left atrium is modernly dilated * Mild mitral regurgitation is present * Mild tricuspid regurgitation. *H&P 08/26 (Freeman): * Imaging studies was consistent with infiltrate/edema * BNP more than 1000 * The patient in moderate respiratory distress on high-flow oxygen * Acute hypoxic respiratory failure *PN 08/27 (Anselmo): Acute exacerbation of CHF Status: Acute *Consultation 08/28 (Kj): * Date of Consultation 08/27/2020 * She is undergoing hemodialysis at the present time. Her breathing is actually improved. * Valvular heart disease, status post CHF. RISK FACTORS / RESULTS AND LOCATION IN EMR *H&P 08/26 (Freeman): Multiple medical problems . End-stage renal disease on hemodialysis, congestive heart failure hypertension *Consultation 08/28 (Kj): Status post TAVR TREATMENTS / RESULTS AND LOCATION IN EMR *ED 08/26: Oxygen *PN 08/27 (Anselmo): Tolerating BiPAP . *Nephrology Consultation 08/28 (Kj): Currently undergoing hemodialysis. Fluid removal only as tolerated. Thank you, Klaudia CDS/Store Cashier Signature: Klaudia Hickey RN, CDS Phone #: [phone] [email or web address] This is a permanent part of the Medical Record [facility]
--- NOTE | 2020-08-29 13:48 | PDOC.HOSPP ---
- Subjective Encounter Date: 08/29/20 Subjective: The patient complains of shortness of breath and cough. - Objective Vital Signs & Weight: Vital Signs (12 hours) Temp Pulse Resp BP Pulse Ox 08/29/20 13:00 97.3 F L 78 24 H 122/59 L 96 08/29/20 09:14 97.6 F 60 28 H 130/81 93 L 08/29/20 08:35 93 L 08/29/20 03:50 97.6 F 60 22 H 114/59 L 93 L Weight Admit Weight 324 lb 6.4 oz Weight 329 lb 6.4 oz I&O: 08/28/20 08/29/20 08/30/20 06:59 06:59 06:59 Intake Total 650 850 360 Output Total 0 Balance 650 850 360 Result Diagrams: 08/27/20 04:56 08/27/20 04:56 Additional Labs: Accuchecks 08/29/20 08/29/20 08/28/20 11:02 05:16 19:21 POC Glucose 163 H 200 H 284 H 08/28/20 16:33 POC Glucose 210 H Hospitalist ROS - Medication Medications: Active Medications Generic Name Dose Route Start Last Admin Trade Name Freq PRN Reason Stop Dose Admin Famotidine 20 mg 08/27/20 09:00 08/29/20 08:42 Famotidine/Pf 20 Mg/2ml Vial SLOW IVP Not Given DAILY ALINE Heparin Sodium (Porcine) 5,000 units 08/26/20 21:00 08/29/20 08:42 Heparin 5,000 Units/Ml Vial SC 5,000 units TID ALINE Administration Ceftriaxone Sodium 1 gm/ 100 mls @ 200 mls/hr 08/27/20 18:00 08/28/20 17:28 Sodium Chloride IVPB 100 mls Q24HR ALINE Administration Dexamethasone Sodium Phosphate 51.5 mls @ 101.756 mls/hr 08/27/20 09:00 08/29/20 08:41 6 mg/ Sodium Chloride IVPB 51.5 mls DAILY ALINE Administration Azithromycin 500 mg/ Sodium 250 mls @ 250 mls/hr 08/27/20 18:00 08/28/20 18:21 Chloride IVPB 250 mls 1800 ALINE Administration Insulin Glargine 10 units/ 0.1 mls @ 0 mls/hr 08/28/20 21:00 08/28/20 21:41 Miscellaneous Medication SC 0.1 mls HS ALINE Administration Insulin Human Lispro 0 units 08/26/20 20:27 08/29/20 05:18 Humalog 300 Units/3 Ml Vial SC 2 unit .MILD SLIDING SCALE PRN Administration Mild Correctional Scale - Exam General Appearance: awake alert ENT: normocephalic atraumatic Neck: supple, no JVD Heart: RRR Respiratory: normal chest expansion, no tachypnea, wheezes Gastrointestinal: soft Neurological: cranial nerve grossly intact, no focal deficits Hosp A/P (1) COVID-19 virus infection Code(s): U07.1 - COVID-19 Status: Acute (2) Acute exacerbation of CHF (congestive heart failure) Code(s): I50.9 - HEART FAILURE, UNSPECIFIED Status: Acute Qualifiers: (3) Acute hypoxemic respiratory failure Code(s): J96.01 - ACUTE RESPIRATORY FAILURE WITH HYPOXIA Status: Acute (4) Diabetes mellitus type 2 Code(s): E11.9 - TYPE 2 DIABETES MELLITUS WITHOUT COMPLICATIONS Status: Chronic (5) ESRD (end stage renal disease) on dialysis Code(s): N18.6 - END STAGE RENAL DISEASE; Z99.2 - DEPENDENCE ON RENAL DIALYSIS Status: Chronic (6) Hyperlipidemia Code(s): E78.5 - HYPERLIPIDEMIA, UNSPECIFIED Status: Chronic (7) Hypertension Code(s): I10 - ESSENTIAL (PRIMARY) HYPERTENSION Status: Chronic Qualifiers: (8) Obstructive sleep apnea Code(s): G47.33 - OBSTRUCTIVE SLEEP APNEA (ADULT) (PEDIATRIC) Status: Chronic (9) Paroxysmal atrial fibrillation Code(s): I48.0 - PAROXYSMAL ATRIAL FIBRILLATION Status: Chronic (10) COPD (chronic obstructive pulmonary disease) Status: Acute - Plan Shock resolved. Continue supplemental oxygen as needed. Continue scheduled nebulizer treatments and antibiotics. Continue dexamethasone for hypoxia associated with COVID-19. Volume status improving with dialysis. PT and OT evaluation.
[2020-08-29] MEDS: cefTRIAXone\\ROCEPHIN 1 GM in Sodium Chloride 0.9% 100 ML IVPB SCH (18:45)
[2020-08-29] MEDS: Azithromycin 500 MG in Sodium Chloride 0.9% 250 ML 250 ML IVPB SCH (18:45)
[2020-08-29] MEDS: Insulin Glargine 10 UNITS in Pre-Filled Syringe SC SCH (21:26)
[2020-08-29 22:51] LABS: ALT (SGPT) 874 U/L (8-55); AST (SGOT) 2354 U/L (5-34); Albumin 3.4 g/dL (3.4-4.8); Alkaline Phosphatase 174 U/L (40-110); Anion Gap 29 mmol/L (10-20); BUN (Urea Nitrogen) 71 mg/dL (9.8-20.1); Bilirubin, Total 1.1 mg/dL (0.2-1.2); Calc. Creatinine Clearance 18 mL/min (70-130); Calcium 8.2 mg/dL (7.8-10.44); Carbon Dioxide 18 mmol/L (23-31); Chloride 96 mmol/L (98-107); Estimated GFR-MDRD 6; Globulin 4.5 g/dL (2.4-3.5); Glucose 171 mg/dL (83-110); Magnesium 2.5 mg/dL (1.6-2.6); Potassium 4.6 mmol/L (3.5-5.1); Protein, Total 7.9 g/dL (6.0-8.3); Sodium 138 mmol/L (136-145)
[2020-08-29 22:55] LABS: Band 30 % (5-11); Hemoglobin 13.1 g/dL (12.0-16.0); Lymphocytes 2 % (21-51); MDiff Complete? YES; Mean Corpuscular HGB CONC 31.7 g/dL (32.0-36.0); Mean Corpuscular Hemoglobin 30.3 pg (27.0-31.0); Mean Corpuscular Volume 95.6 fL (78.0-98.0); Mean Platelet Volume 8.9 fL (7.4-10.4); Monocytes 4 % (0-10); Neutrophil 63 % (42-75); Platelet Count 148 thou/uL (130-400); RBC Distribution Width 13.3 % (11.5-14.5); Red Blood Cell (RBC) Count 4.33 mill/uL (4.20-5.40); White Blood Cell (WBC) Count 16.2 thou/uL (4.8-10.8)
[2020-08-29] MEDS ORDERED: Azithromycin 500 MG in Sodium Chloride 0.9% 250 ML 250 ML IVPB SCH (23:00)
[2020-08-30] MEDS: PROVENTIL INHALER 6.7 G (200 INHALATIONS) INH SCH ×6 (00:37→19:22)
[2020-08-30] MEDS: cefTRIAXone\\ROCEPHIN 1 GM in Sodium Chloride 0.9% 100 ML IVPB SCH ×2 (01:31→21:20)
[2020-08-30] MEDS: Benzonatate 100 MG CAP PO PRN ×2 (01:32→23:38)
[2020-08-30 05:21] LABS: Anion Gap 32 mmol/L (10-20); BUN (Urea Nitrogen) 53 mg/dL (9.8-20.1); Calc. Creatinine Clearance 20 mL/min (70-130); Calcium 8.3 mg/dL (7.8-10.44); Carbon Dioxide 15 mmol/L (23-31); Chloride 96 mmol/L (98-107); Estimated GFR-MDRD 8; Glucose 153 mg/dL (83-110); Sodium 138 mmol/L (136-145)
[2020-08-30 05:38] LABS: Band 30 % (5-11); Lymphocytes 3 % (21-51); MDiff Complete? YES; Mean Corpuscular HGB CONC 30.9 g/dL (32.0-36.0); Mean Corpuscular Hemoglobin 29.6 pg (27.0-31.0); Mean Platelet Volume 11.1 fL (7.4-10.4); Monocytes 2 % (0-10); Myelocyte 2 % (0-0); Neutrophil 63 % (42-75); Platelet Count 126 thou/uL (130-400); RBC Distribution Width 13.6 % (11.5-14.5); White Blood Cell (WBC) Count 19.3 thou/uL (4.8-10.8)
[2020-08-30] MEDS: Famotidine/PF 20 mg/2ml Vial SLOW IVP SCH (08:22)
[2020-08-30] MEDS: Heparin 5,000 UNITS/ML VIAL SC SCH ×3 (08:22→21:19)
[2020-08-30] MEDS ORDERED: Dexamethasone 4 mg/ml Vial SLOW IVP SCH (09:00)
--- NOTE | 2020-08-30 10:16 | RAD ---
Portable chest: HISTORY: Shortness of breath COMPARISON: 08/26/2020 FINDINGS:Cardiomegaly with mild vascular congestion. Hazy infiltrates in the mid and lower lung field s again noted although there has been improvement in the infiltrates when compared to prior study. Small effusions. IMPRESSION:Cardiomegaly with mild vascular congestion remains. Improving infiltrates when compared to prior exam.
[2020-08-30 11:08] LABS: HBCM Index 0.06 S/CO (0-0.79); HBSAg Index 0.53 S/CO (0-0.99); Hep A IgM AB Non-Reactive (NonReactive); Hep A IgM S/CO 0.25 S/CO (0-0.79); Hep B Surf Ag Non-Reactive S/CO (NonReactive); Hep C IgG Ab Non-Reactive (NonReactive); Hep C Index 0.18 S/CO (0-0.79); Hepatitis B Core IgM Abs Non-Reactive (NonReactive)
[2020-08-30 11:20] VITALS: BMI 54.5
--- NOTE | 2020-08-30 13:08 | ULT ---
ULTRASOUND ABDOMEN LIMITED: (RIGHT UPPER QUADRANT) DATE: 08/30/2020 HISTORY: 79-year-old female with elevated LFTs FINDINGS: Gallbladder:Several gallstones, with maximum dimension of typical gallstone approximately 20 mm. Lumen is not excessively distended. June are diffusely very thickened, up to 9 mm. No pericholecysti c fluid. Common duct: 6 mm. Liver:Diffusely hypoechoic parenchyma resulting in relatively hyperechoic portal triads. Margins appe ar slightly nodular. No definite intrahepatic biliary ductal dilation. Pancreas:Nonspecific sonographic appearance. Right kidney:9.5 x 4 x 4 cm. Diffusely very thin parenchyma. Uncertain whether or not there are right calculi. Uncertain whether o r not there is mild to moderate right hydronephrosis IMPRESSION: 1) positive for cholelithiasis. 2) significant gallbladder mural thickening, raising the possibility of acute or chronic cholecystiti s. 3) diffusely hypoechoic hepatic parenchyma, questionable for acute hepatitis. 4) questionable mild cirrhosis. 5) atrophic, probably nonfunctioning or very hypofunctioning right kidney, incompletely evaluated 6) no evidence of biliary obstruction.
--- NOTE | 2020-08-30 17:34 | PDOC.HOSPP ---
- Subjective Encounter Date: 08/30/20 Subjective: The patient's respiratory status is stable. - Objective Vital Signs & Weight: Vital Signs (12 hours) Temp Pulse Pulse Pulse Resp BP BP 08/30/20 15:59 97.8 F 72 22 H 08/30/20 11:40 74 24 H 08/30/20 11:25 115/61 08/30/20 09:30 62 63 135/59 L 125/56 L 08/30/20 08:46 97.4 F L 60 24 H BP Pulse Ox Pulse Ox Pulse Ox Pulse Ox 08/30/20 15:59 130/60 98 08/30/20 11:40 115/61 95 08/30/20 11:25 97 87 L 97 08/30/20 09:30 98 98 08/30/20 08:46 111/52 L 93 L Weight Admit Weight 324 lb 6.4 oz Weight 317 lb 8 oz I&O: 08/29/20 08/30/20 08/31/20 06:59 06:59 06:59 Intake Total 850 1170 Output Total 0 2500 Balance 850 -1330 Result Diagrams: 08/30/20 04:47 08/30/20 04:47 Additional Labs: Accuchecks 08/30/20 08/30/20 08/30/20 15:47 10:51 05:15 POC Glucose 139 H 113 H 152 H 08/29/20 21:15 POC Glucose 209 H Hospitalist ROS - Medication Medications: Active Medications Generic Name Dose Route Start Last Admin Trade Name Freq PRN Reason Stop Dose Admin Albuterol Sulfate 1 puff 08/29/20 22:30 08/30/20 15:36 Proventil Inhaler 6.7 G (200 Inhalations) INH 1 puff [id number] ALINE Administration Benzonatate 100 mg 08/29/20 22:27 08/30/20 01:32 Benzonatate 100 Mg Cap PO 100 mg TID PRN Administration Cough Dexamethasone 6 mg 08/30/20 09:00 08/30/20 08:22 Dexamethasone 4 Mg/Ml Vial SLOW IVP 6 mg DAILY ALINE Administration Heparin Sodium (Porcine) 5,000 units 08/26/20 21:00 08/30/20 15:40 Heparin 5,000 Units/Ml Vial SC 5,000 units TID ALINE Administration Insulin Glargine 10 units/ 0.1 mls @ 0 mls/hr 08/28/20 21:00 08/29/20 21:26 Miscellaneous Medication SC 0.1 mls HS ALINE Administration Ceftriaxone Sodium 1 gm/ 100 mls @ 200 mls/hr 08/29/20 22:00 08/30/20 01:31 Sodium Chloride IVPB 100 mls 2200 ALINE Administration Insulin Human Lispro 0 units 08/26/20 20:27 08/29/20 05:18 Humalog 300 Units/3 Ml Vial SC 2 unit .MILD SLIDING SCALE PRN Administration Mild Correctional Scale Sodium Chloride 10 ml 08/30/20 09:00 08/30/20 08:22 Flush - Normal Saline 10 Ml Syringe IVF 10 ml Q12HR ALINE Administration Sodium Chloride 10 ml 08/30/20 01:30 08/30/20 03:03 Flush - Normal Saline 10 Ml Syringe IVF 10 ml PRN PRN Administration Saline Flush - Exam General Appearance: awake alert ENT: normocephalic atraumatic Neck: supple, no JVD Heart: RRR Respiratory: no tachypnea, rhonchi, wheezes Gastrointestinal: soft, non-tender Extremities: no cyanosis, no clubbing Hosp A/P (1) COVID-19 virus infection Code(s): U07.1 - COVID-19 Status: Acute (2) Acute exacerbation of CHF (congestive heart failure) Code(s): I50.9 - HEART FAILURE, UNSPECIFIED Status: Acute Qualifiers: (3) Acute hypoxemic respiratory failure Code(s): J96.01 - ACUTE RESPIRATORY FAILURE WITH HYPOXIA Status: Acute (4) Diabetes mellitus type 2 Code(s): E11.9 - TYPE 2 DIABETES MELLITUS WITHOUT COMPLICATIONS Status: Chroni c (5) ESRD (end stage renal disease) on dialysis Code(s): N18.6 - END STAGE RENAL DISEASE; Z99.2 - DEPENDENCE ON RENAL DIALYSIS Status: Chronic (6) Hyperlipidemia Code(s): E78.5 - HYPERLIPIDEMIA, UNSPECIFIED Status: Chronic (7) Hypertension Code(s): I10 - ESSENTIAL (PRIMARY) HYPERTENSION Status: Chronic Qualifiers: (8) Obstructive sleep apnea Code(s): G47.33 - OBSTRUCTIVE SLEEP APNEA (ADULT) (PEDIATRIC) Status: Chronic (9) Paroxysmal atrial fibrillation Code(s): I48.0 - PAROXYSMAL ATRIAL FIBRILLATION Status: Chronic (10) COPD (chronic obstructive pulmonary disease) Status: Acute (11) Acute liver disease Code(s): K76.9 - LIVER DISEASE, UNSPECIFIED Status: Acute - Plan Shock resolved. Continue supplemental oxygen as needed. Continue scheduled nebulizer treatments and antibiotics. Continue dexamethasone for hypoxia associated with COVID-19. Volume status improving with dialysis. PT and OT evaluation. The patient developed acute elevation of her liver enzymes especially in the AST. Ultrasound of the right upper quadrant revealed evidence of gallstones without obstruction and also revealed evidence of hepatitis. Hip viral hepatitis panel is pending. Elevated AST greater than ALT favors metabolic hepatotoxicity or shock liver. Acetaminophen, H2 blockers, and azithromycin discontinued. I have discussed the findings with GI and they suggested that the current condition is caused by shock liver due to the patient's hypotension and hypoxia on her admission to the hospital. Recommended continuing to monitor LFTs.
[2020-08-30 20:19] VITALS: TEMP 97.3
[2020-08-30] MEDS: Insulin Glargine 10 UNITS in Pre-Filled Syringe SC SCH (21:24)
[2020-08-31] MEDS: PROVENTIL INHALER 6.7 G (200 INHALATIONS) INH SCH ×2 (00:19→04:21)
[2020-08-31 04:32] VITALS: BP 87/54
--- NOTE | 2020-08-31 06:01 | PDOC.BPN ---
- Brief Progress Note Code Blue called Cardiac arrest CPR & ACLS performed MO ROSC Pronounced at 5:[address] Adair to [facility] certificate.
--- NOTE | 2020-08-31 08:44 | CON ---
DATE OF CONSULTATION: 08/30/2020 REASON FOR CONSULTATION: Abnormal LFTs. HISTORY OF PRESENT ILLNESS: Ms. Diana Cox is a 79-year-old female hospitalized on 08/26/2020 with shortness of breath, coughing, and fever . Apparently, she was quite hypotensive in the ER and was given some IV fluids and Levophed. The patient hospitalized because of the dyspnea and coughing. The working diagnosis possibly could have COVID-19 pneumonia. The patient had pneumonia and COVID-19 test came back positive. The patient on admission had normal liver function tests. The liver function test bumped up today and AST is more than 2000 and ALT more than 800. The patient had no prior history of liver disease. No history of any alcohol abuse. The patient is on 50 oxygen and also azithromycin because of COVID pneumonia. Interestingly, the patient has no abdominal pain . The patient has a history of liver disease from before. The patient has noted multiple medical problems including end-stage renal disease on dialysis, CHF, COPD, hypertension, hyperlipidemia, and diabetes. The patient is a little dyspnea and continues coughing. ALLERGIES: BACTRIM AND VANCOMYCIN. SOCIAL HISTORY: No history of smoking. No history of alcohol abuse or drug abuse in the past. MEDICAL ILLNESSES: 1. Hypertension. 2. Diabetes mellitus. 3. Hyperlipidemia. 4. COPD. 5. Recurrent heart failure. 6. Chronic kidney disease on dialysis. SURGERIES: 1. AV fistula for dialysis access. 2. Cardiac pacemaker. 3. Heart valve replacement. PSYCHIATRIC HISTORY: Anxiety and depression. FAMILY HISTORY: No family history of any liver disease, cancers, or any other majr medical illnesses. REVIEW OF SYSTEMS: So, 10-point system review is remarkable for coughing, fever, dyspnea, generalized weakness, and fatigue, was also hypertensive in the ER and was given IV fluids and Levophed. PHYSICAL EXAMINATION: VITAL SIGNS: Temperature 97.4 degrees Fahrenheit, pulse is 74, and blood pressure is 115/61. HEENT: Conjunctiva clear. NECK: Supple. CARDIOVASCULAR SYSTEM: Normal heart sounds. LUNGS: Scattered rhonchi and bilateral rales. ABDOMEN: Soft. Abdomen is nontender. No organomegaly. No masses. Bowel sounds normal. LABORATORY DATA: Lab data reviewed. CBC today 19,300, hemoglobin 13, hematocrit 42.2, MCV 96, platelet count 126,000, polymorphs 63, and bands 30%. Chemistry panel, she had normal LFTs on admission. Today, her bilirubin is 1.1, AST 2354, ALT 874, alkaline phosphatase 174, and albumin 3.4. Chem-7 is normal. BUN is 53, creatinine is 5.28, and glucose is 152. CLINICAL IMPRESSION: 1. A 79-year-old female with COVID-19 pneumonia on antibiotic therapy. She was hypotensive _ on admission to the ER. She was given Levophed and her blood pressure was back to normal. Normal pressure . She also has history of COPD, heart failure, and she is also hypoxic. 2. Chronic kidney disease. 3. Congestive heart failure. 4. Hypertension. 5. Chronic kidney disease. 6. Hyperlipidemia. 7. Pacemaker placement. Acute elevated LFTs mostly represent acute liver injury. From the history, it appears that she probably had a shock liver because of hypotension and also hypoxia. Initial LFTs normal. Now, there is marked elevation of transaminases_. The patient has no symptoms from the elevation of LFTs. RECOMMENDATION: 1. Obtain hepatitis markers to complete the workup. 2. Abdominal sonogram. 3. Followup liver function tests. Job ID: [id number] [facility]
--- NOTE | 2020-08-31 15:29 | EKG ---
Test Reason : Blood Pressure : / mmHG Vent. Rate : 065 BPM Atrial Rate : 060 BPM P-R Int : 000 ms QRS Dur : 158 ms QT Int : 484 ms P-R-T Axes : 000 118 019 degrees QTc Int : 503 ms Ventricular-paced rhythm Abnormal ECG Confirmed by JULIO BLUM, UZIEL Martinez ([id number]), film editor GUANAKO WALKER ([id number]) on 08/31/2020 3:29:19 PM Referred By: Confirmed By:UZIEL KIM MD
--- NOTE | 2020-09-02 13:42 | DIS ---
DATE OF ADMISSION: 08/26/2020 DATE OF DISCHARGE: 08/31/2020 DISPOSITION: The patient on 08/31/2020. CAUSE OF : Coronavirus disease 2019 pneumonia. HISTORY OF PRESENT ILLNESS AND HOSPITAL COURSE: The patient is a 79-year-old female with past medical history of hypertension, diabetes mellitus, hyperlipidemia, COPD, and end-stage renal disease on hemodialysis, who was admitted to the hospital for respiratory failure due to COVID-19 pneumonia. She was also found to be hypotensive due to septic shock on presentation that improved within 24 hours. The patient was managed with supplemental oxygen and dexamethasone. Her liver function deteriorated likely due to shock liver on presentation. Remdesivir was not administered due to liver and kidney dysfunction. The patient's condition deteriorated and she succumbed to her illness on 08/31 after code blue was called. CPR was performed, but the patient failed to ROSC. Job ID: [id number]
--- NOTE | 2020-09-03 07:17 | EKG ---
Test Reason : Blood Pressure : / mmHG Vent. Rate : 080 BPM Atrial Rate : 104 BPM P-R Int : 000 ms QRS Dur : 178 ms QT Int : 482 ms P-R-T Axes : 000 132 -84 degrees QTc Int : 555 ms Ventricular-paced rhythm with occasional Premature ventricular complexes Abnormal ECG Confirmed by LAUREANO JOHNSON MD ([id number]) on 09/03/2020 7:17:13 AM Referred By: PONCHO Confirmed By:LAUREANO JOHNSON MD
== END 2020-08-31 05:39 | disposition expired | DRG 871 ==
LOC: ERS 15:20 → ERHOLD 18:29 → 2SW 08-27 15:50
PROVIDERS: ADMIT Internal Medicine; ATTEND Internal Medicine
PROC: 3E043XZ Introduction of Vasopressor into Central Vein, Percutaneous Approach (ICD-10-PCS; principal; 2020-08-26)
PROC: 8E0ZXY6 Isolation (ICD-10-PCS; 2020-08-26)
PROC: 06HY33Z Insertion of Infusion Device into Lower Vein, Percutaneous Approach (ICD-10-PCS; 2020-08-26)
PROC: 5A09357 Assistance with Respiratory Ventilation, Less than 24 Consecutive Hours, Continuous Positive Airway Pressure (ICD-10-PCS; 2020-08-27)
PROC: 5A1D70Z Performance of Urinary Filtration, Intermittent, Less than 6 Hours Per Day (ICD-10-PCS; 2020-08-27)
PROC: 5A12012 Performance of Cardiac Output, Single, Manual (ICD-10-PCS; 2020-08-31)
PROC: 5A2204Z Restoration of Cardiac Rhythm, Single (ICD-10-PCS; 2020-08-31)
PROC: 0BH18EZ Insertion of Endotracheal Airway into Trachea, Via Natural or Artificial Opening Endoscopic (ICD-10-PCS; 2020-08-31)
DX: A41.89 Other specified sepsis (principal); U07.1 COVID-19; I50.33 Acute on chronic diastolic (congestive) heart failure; N18.6 End stage renal disease; R65.21 Severe sepsis with septic shock; J96.01 Acute respiratory failure with hypoxia; J12.89 Other viral pneumonia; K72.00 Acute and subacute hepatic failure without coma; J44.0 Chronic obstructive pulmonary disease with (acute) lower respiratory infection; I13.2 Hypertensive heart and chronic kidney disease with heart failure and with stage 5 chronic kidney disease, or end stage renal disease; Z68.43 Body mass index [BMI] 50.0-59.9, adult; E78.5 Hyperlipidemia, unspecified; E78.00 Pure hypercholesterolemia, unspecified; F41.9 Anxiety disorder, unspecified; I46.9 Cardiac arrest, cause unspecified; F32.9 Major depressive disorder, single episode, unspecified; E11.22 Type 2 diabetes mellitus with diabetic chronic kidney disease; E66.01 Morbid (severe) obesity due to excess calories; G47.33 Obstructive sleep apnea (adult) (pediatric); I48.0 Paroxysmal atrial fibrillation; H35.30 Unspecified macular degeneration; N28.89 Other specified disorders of kidney and ureter; Z99.81 Dependence on supplemental oxygen; Z99.2 Dependence on renal dialysis; Z95.0 Presence of cardiac pacemaker; Z95.2 Presence of prosthetic heart valve; Z88.1 Allergy status to other antibiotic agents; Z88.2 Allergy status to sulfonamides; Z79.01 Long term (current) use of anticoagulants; Z79.899 Other long term (current) drug therapy; Z79.4 Long term (current) use of insulin; Z79.51 Long term (current) use of inhaled steroids
CPT/HCPCS: 36415; 36416; 36556; 71045; 76705; 80048; 80053; 80074; 83605; 83735; 83880; 84484; 85007; 85025; 85027; 85652; 86140; 87040; 87149; 90935; 93005; 93010; 94660; 94760; 96365; 96366; 96367; 96372; 96375; G0257; J0171; J0456; J0696; J1100; J1644; J1815; J2405; J3490; J7050; J7070; S0028; U0002